=== PATIENT | male | born 1960 | race African-American/Black ===

== ENCOUNTER 2016-10-02 05:54 | Inpatient (IN) | payer MEDICAID, MEDICARE ==
[~2016-10-02] VITALS: Ht 185.4 cm; Wt 100.7 kg
[~2016-10-02 05:54] MED LIST: ATOR10TA PO; GABA-532 PO; INSU100I4 SQ; INSU3INS6 SQ; LEVO25TA9 PO; LISI2.5T2 PO; QUET25TA PO; SERT25TA PO; SEVE400T PO
[2016-10-02 06:57] LABS: DIFF TOTAL % 100 %; EOSINOPHILS # (AUTO) 0.1 /CMM (0.0-0.7); EOSINOPHILS % (AUTO) 1.1 % (0.0-6.0); HEMATOCRIT 37 % (39-51); LYMPHOCYTES # (AUTO) 0.4 /CMM (0.8-4.8); LYMPHOCYTES % (AUTO) 3.8 % (20.0-44.0); MEAN CORPUSCULAR HEMOGLOBIN 26 PG (26.0-33.0); MEAN CORPUSCULAR HGB CONC 30 g/dl (31.0-36.0); MEAN CORPUSCULAR VOLUME 85 fL (80-96); MONOCYTES # (AUTO) 0.4 /CMM (0.1-1.30); MONOCYTES % (AUTO) 3.8 % (2.0-12.0); NEUTROPHILS # (AUTO) 10.4 /CMM (1.8-8.9); NEUTROPHILS % (AUTO) 91.3 % (43.0-81.0); PLATELET COUNT (AUTO) 257 /CMM (150-450); WHITE BLOOD COUNT (AUTO) 11.4 K/uL (4.3-11.0)
[2016-10-02 07:15] LABS: TROPONIN I < 0.017 ng/mL (0.00-0.056)
[2016-10-02 07:18] LABS: LACTIC ACID 2.1 mmol/L (0.4-2.0)
[2016-10-02 07:21] LABS: ALANINE AMINOTRANSFERASE 26 U/L (12-78); ALBUMIN 2.3 g/dL (3.4-5.0); ANION GAP 17 (5-14); ASPARTATE AMINOTRANSFERASE 39 U/L (15-37); BILIRUBIN,DIRECT 0.1 mg/dL (0.0-0.2); BILIRUBIN,TOTAL 0.6 mg/dL (0.2-1.0); CALCIUM, SERUM 9.6 mg/dL (8.5-10.1); CARBON DIOXIDE 29 mmol/L (21-32); CHLORIDE 94 mmol/L (98-107); GFR 8 mL/min (>60); GLUCOSE 146 mg/dL (74-106); POTASSIUM 5.7 mmol/L (3.5-5.1); SODIUM SERUM 134 mmol/L (136-145); TOTAL PROTEIN, SERUM 8.7 g/dL (6.4-8.2); UREA NITROGEN, BLOOD 33 mg/dL (7-18)
[2016-10-02 07:23] LABS: CREATININE 8.4 mg/dL (0.6-1.3)
[2016-10-02 07:28] LABS: INR 1.26 (0.87-1.13); PROTHROMBIN TIME 13.6 SECS (9.5-12.7)
[2016-10-02] MEDS ORDERED: PIPERACILLIN /TAZOBACTAM 2.25 G in IV D5W 50 ML IV ONE (07:30)
[2016-10-02] MEDS ORDERED: VANCOMYCIN 1 GM in IV D5W 250 ML IV ONE (07:30)
[2016-10-02] MEDS ORDERED: IV SET PRIMARY PUMP SET 1 EA INFUS.SET MC ONE (07:38)
[2016-10-02 07:47] LABS: *LACTIC ACID REFLEX FLAG YES
[2016-10-02] MEDS ORDERED: LEVO50TA8 PO (07:47)
[2016-10-02] MEDS ORDERED: QUET300T2 PO (07:47)
[2016-10-02] MEDS ORDERED: ATOR40TA PO (07:47)
[2016-10-02] MEDS ORDERED: ZOLP10TA2 PO (07:48)
[2016-10-02 09:12] LABS: INDIRECT BILIRUBIN 0.5 mg/dL (0.0-1.1)
[2016-10-02] MEDS ORDERED: SECONDARY IV SET 1 EA INFUS.SET MC ONE (13:41)
[2016-10-02] MEDS ORDERED: Z GUARD REMEDY 2 OZ OINT TP PRN (14:00)
[2016-10-02] MEDS ORDERED: ALBUMIN 25% 25 GM in PREMIX 1 EA IV PRN (14:00)
[2016-10-02] MEDS ORDERED: MAGNESIUM HYDROXIDE 30 ML UDC PO PRN (14:00)
[2016-10-02] MEDS ORDERED: MAG HYDROX/AL HYDROX/SIMETH 30 ML UDC PO PRN (14:00)
[2016-10-02] MEDS ORDERED: HYDROCODONE/APAP 5/325MG 1 EACH TABLET PO PRN (14:00)
[2016-10-02 16:00] VITALS: BP 103/72
[2016-10-02] MEDS: SEVELAMER CARBONATE 800 MG TABLET PO SCH (17:10)
[2016-10-02] MEDS: GABAPENTIN 100 MG CAPSULE PO SCH (17:10)
[2016-10-02] MEDS: BLOOD SUGAR DIAGNOSTIC 1 EACH STRIP VI SCH ×2 (17:12→21:59)
[2016-10-02] MEDS: *INSULIN REGULAR(HUMULIN R)HUM 100 UNIT/ML VIAL SQ PRN ×2 (17:17→22:00)
[2016-10-02] MEDS: INSULIN ASPART NOVOLOG 100 UNIT/ML CARTRIDGE SQ SCH (17:22)
[2016-10-02 20:00] VITALS: BP 120/79
[2016-10-02] MEDS: INSULIN DETEMIR 100 UNIT/ML CARTRIDGE SQ SCH (21:00)
[2016-10-02] MEDS: HYDROMORPHONE 1 MG/1 ML DISP.SYRIN IV PRN (21:18)
[2016-10-02] MEDS: ATORVASTATIN 40 MG TABLET PO SCH (21:47)
[2016-10-02] MEDS: QUETIAPINE FUMARATE 100 MG TABLET PO SCH (21:47)
[2016-10-02] MEDS: ZOLPIDEM TARTRATE 5 MG TABLET PO PRN ×2 (21:58→22:04)
[2016-10-03] VITALS (7 sets, daily range): BP systolic 106–143; BP diastolic 71–98
[2016-10-03] MEDS ORDERED: METOPROLOL TARTRATE 25 MG TABLET ONE (05:02)
[2016-10-03] MEDS: METOPROLOL TARTRATE 25 MG TABLET PO SCH ×2 (05:09→21:04)
[2016-10-03] MEDS: LEVOTHYROXINE SODIUM 50 MCG TABLET PO SCH (06:35)
[2016-10-03] MEDS: PANTOPRAZOLE 40 MG TABLET.DR PO SCH (06:35)
[2016-10-03] MEDS: BLOOD SUGAR DIAGNOSTIC 1 EACH STRIP VI SCH ×4 (07:11→21:17)
[2016-10-03] MEDS: *INSULIN REGULAR(HUMULIN R)HUM 100 UNIT/ML VIAL SQ PRN (07:12)
[2016-10-03 07:44] LABS: DIFF TOTAL % 100 %; EOSINOPHILS # (AUTO) 0.2 /CMM (0.0-0.7); EOSINOPHILS % (AUTO) 2.5 % (0.0-6.0); HEMATOCRIT 34 % (39-51); HEMOGLOBIN 10.4 g/dL (13.5-17.5); LYMPHOCYTES # (AUTO) 1.2 /CMM (0.8-4.8); MEAN CORPUSCULAR HEMOGLOBIN 26 PG (26.0-33.0); MEAN CORPUSCULAR HGB CONC 31 g/dl (31.0-36.0); MEAN CORPUSCULAR VOLUME 86 fL (80-96); MONOCYTES # (AUTO) 0.4 /CMM (0.1-1.30); MONOCYTES % (AUTO) 4.5 % (2.0-12.0); NEUTROPHILS # (AUTO) 7.9 /CMM (1.8-8.9); PLATELET COUNT (AUTO) 216 /CMM (150-450); RED BLOOD CELL COUNT(AUTO) 3.96 MIL/uL (4.5-6.0); WHITE BLOOD COUNT (AUTO) 9.7 K/uL (4.3-11.0)
[2016-10-03 08:06] LABS: CALCIUM, SERUM 8.4 mg/dL (8.5-10.1); PHOSPHORUS 3.3 mg/dL (2.5-4.9); POTASSIUM 4.7 mmol/L (3.5-5.1)
[2016-10-03] MEDS: GABAPENTIN 100 MG CAPSULE PO SCH ×2 (08:55→17:02)
[2016-10-03] MEDS: SERTRALINE HCL 25 MG TABLET PO SCH (08:55)
[2016-10-03] MEDS: SEVELAMER CARBONATE 800 MG TABLET PO SCH ×3 (08:55→17:02)
[2016-10-03] MEDS: QUETIAPINE FUMARATE 100 MG TABLET PO SCH ×2 (08:55→21:03)
[2016-10-03] MEDS: INSULIN ASPART NOVOLOG 100 UNIT/ML CARTRIDGE SQ SCH ×3 (08:56→17:07)
[2016-10-03] MEDS: INSULIN DETEMIR 100 UNIT/ML CARTRIDGE SQ SCH ×2 (08:57→21:00)
[2016-10-03] MEDS: HYDROMORPHONE 1 MG/1 ML DISP.SYRIN IV PRN ×2 (17:03→21:02)
[2016-10-03] MEDS: ATORVASTATIN 40 MG TABLET PO SCH (21:03)
[2016-10-04] VITALS (7 sets, daily range): BP systolic 90–131; BP diastolic 59–90
[2016-10-04] MEDS: PANTOPRAZOLE 40 MG TABLET.DR PO SCH ×2 (05:52→08:38)
[2016-10-04] MEDS: LEVOTHYROXINE SODIUM 50 MCG TABLET PO SCH ×2 (05:52→08:38)
[2016-10-04] MEDS: *INSULIN REGULAR(HUMULIN R)HUM 100 UNIT/ML VIAL SQ PRN ×2 (05:58→22:03)
[2016-10-04] MEDS: BLOOD SUGAR DIAGNOSTIC 1 EACH STRIP VI SCH ×4 (06:02→21:12)
[2016-10-04] MEDS: INSULIN ASPART NOVOLOG 100 UNIT/ML CARTRIDGE SQ SCH ×3 (08:00→17:12)
[2016-10-04] MEDS: QUETIAPINE FUMARATE 100 MG TABLET PO SCH ×2 (08:38→21:15)
[2016-10-04] MEDS: SERTRALINE HCL 25 MG TABLET PO SCH (08:38)
[2016-10-04] MEDS: GABAPENTIN 100 MG CAPSULE PO SCH ×2 (08:38→16:30)
[2016-10-04] MEDS: METOPROLOL TARTRATE 25 MG TABLET PO SCH ×2 (08:39→21:18)
[2016-10-04] MEDS: SEVELAMER CARBONATE 800 MG TABLET PO SCH ×3 (08:39→17:11)
[2016-10-04] MEDS: HEPARIN SODIUM, PORCINE 5000 UNITS/1 ML VIAL SQ SCH ×2 (08:41→21:26)
[2016-10-04] MEDS: INSULIN DETEMIR 100 UNIT/ML CARTRIDGE SQ SCH ×3 (08:53→21:26)
[2016-10-04] MEDS: HYDROMORPHONE 1 MG/1 ML DISP.SYRIN IV PRN ×3 (08:58→21:13)
[2016-10-04] MEDS: ACETAMINOPHEN 325 MG TABLET PO PRN (15:28)
[2016-10-04] MEDS: ATORVASTATIN 40 MG TABLET PO SCH (21:16)
[2016-10-04] MEDS: ZOLPIDEM TARTRATE 5 MG TABLET PO PRN (22:03)
[2016-10-05 04:00] VITALS: BP 119/69
[2016-10-05] MEDS: ACETAMINOPHEN 325 MG TABLET PO PRN ×2 (04:35→21:26)
[2016-10-05] MEDS: BLOOD SUGAR DIAGNOSTIC 1 EACH STRIP VI SCH ×4 (06:48→21:27)
[2016-10-05] MEDS: INSULIN REGULAR, HUMAN 100 UNIT/ML 3 ML VIAL SQ PRN (06:55)
[2016-10-05 07:24] LABS: BASOPHILS % (AUTO) 0.3 % (0.0-2.0); DIFF TOTAL % 100 %; EOSINOPHILS # (AUTO) 0.3 /CMM (0.0-0.7); EOSINOPHILS % (AUTO) 2.7 % (0.0-6.0); HEMATOCRIT 32 % (39-51); HEMOGLOBIN 9.5 g/dL (13.5-17.5); LYMPHOCYTES # (AUTO) 0.7 /CMM (0.8-4.8); LYMPHOCYTES % (AUTO) 7.5 % (20.0-44.0); MEAN CORPUSCULAR HEMOGLOBIN 25 PG (26.0-33.0); MEAN CORPUSCULAR HGB CONC 30 g/dl (31.0-36.0); MEAN CORPUSCULAR VOLUME 85 fL (80-96); MONOCYTES # (AUTO) 0.6 /CMM (0.1-1.30); NEUTROPHILS # (AUTO) 7.8 /CMM (1.8-8.9); NEUTROPHILS % (AUTO) 83.5 % (43.0-81.0); PLATELET COUNT (AUTO) 247 /CMM (150-450); RED BLOOD CELL COUNT(AUTO) 3.75 MIL/uL (4.5-6.0); WHITE BLOOD COUNT (AUTO) 9.4 K/uL (4.3-11.0)
[2016-10-05 07:45] LABS: CALCIUM, SERUM 8.4 mg/dL (8.5-10.1); PHOSPHORUS 3.7 mg/dL (2.5-4.9); POTASSIUM 5.1 mmol/L (3.5-5.1)
[2016-10-05] MEDS: HYDROMORPHONE 1 MG/1 ML DISP.SYRIN IV PRN ×3 (07:55→23:49)
[2016-10-05] MEDS: INSULIN ASPART NOVOLOG 100 UNIT/ML CARTRIDGE SQ SCH ×3 (08:00→18:14)
[2016-10-05 08:14] LABS: CREATININE 9.1 mg/dL (0.6-1.3)
[2016-10-05 08:16] LABS: INR 1.2 (0.87-1.13)
[2016-10-05] MEDS: HEPARIN SODIUM, PORCINE 5000 UNITS/1 ML VIAL SQ SCH (09:00)
[2016-10-05] MEDS: INSULIN DETEMIR 100 UNIT/ML CARTRIDGE SQ SCH ×2 (09:00→21:00)
[2016-10-05] MEDS: PANTOPRAZOLE 40 MG TABLET.DR PO SCH (09:12)
[2016-10-05] MEDS: GABAPENTIN 100 MG CAPSULE PO SCH ×2 (09:12→17:07)
[2016-10-05] MEDS: SERTRALINE HCL 25 MG TABLET PO SCH (09:16)
[2016-10-05] MEDS: QUETIAPINE FUMARATE 100 MG TABLET PO SCH ×2 (09:16→21:23)
[2016-10-05] MEDS: METOPROLOL TARTRATE 25 MG TABLET PO SCH ×2 (09:16→21:27)
[2016-10-05] MEDS: SEVELAMER CARBONATE 800 MG TABLET PO SCH ×3 (09:17→17:06)
[2016-10-05] MEDS: *INSULIN REGULAR(HUMULIN R)HUM 100 UNIT/ML VIAL SQ PRN (11:41)
[2016-10-05 13:17] VITALS: BP 109/74
[2016-10-05] MEDS ORDERED: LEVOFLOXACIN 750 MG /D5W 150ML 750 MG in PREMIX 1 EA IV SCH (13:30)
[2016-10-05] MEDS ORDERED: LEVOFLOXACIN 750 MG /D5W 150ML 750 MG in PREMIX 1 EA IV ONE (14:00)
[2016-10-05 20:00] VITALS: BP 118/75
[2016-10-05] MEDS: ATORVASTATIN 40 MG TABLET PO SCH (21:23)
[2016-10-05] MEDS: DEXTROSE 50%-WATER 50 ML DISP.SYRIN IV PRN (21:26)
[2016-10-05] MEDS: HYDROCODONE/APAP 10/325MG 1 EA TABLET PO PRN (22:01)
[2016-10-06 04:00] VITALS: BP 91/63
[2016-10-06] MEDS: BLOOD SUGAR DIAGNOSTIC 1 EACH STRIP VI SCH ×5 (06:44→22:00)
[2016-10-06 08:00] VITALS: BP 105/71
[2016-10-06] MEDS: INSULIN ASPART NOVOLOG 100 UNIT/ML CARTRIDGE SQ SCH ×3 (08:00→18:00)
[2016-10-06] MEDS: LEVOTHYROXINE SODIUM 50 MCG TABLET PO SCH (08:14)
[2016-10-06] MEDS: GABAPENTIN 100 MG CAPSULE PO SCH ×2 (08:15→18:45)
[2016-10-06] MEDS: QUETIAPINE FUMARATE 100 MG TABLET PO SCH ×2 (08:15→21:43)
[2016-10-06] MEDS: SEVELAMER CARBONATE 0.8 GM POWD.PACK GT SCH ×3 (08:29→18:45)
[2016-10-06] MEDS: METOPROLOL TARTRATE 25 MG TABLET PO SCH ×2 (08:29→21:43)
[2016-10-06] MEDS: HYDROMORPHONE 1 MG/1 ML DISP.SYRIN IV PRN ×2 (08:29→18:47)
[2016-10-06] MEDS: SERTRALINE HCL 25 MG TABLET PO SCH ×2 (08:30→21:42)
[2016-10-06 08:42] LABS: EOSINOPHILS # (AUTO) 0.1 /CMM (0.0-0.7); HEMOGLOBIN 10.1 g/dL (13.5-17.5); MEAN CORPUSCULAR HGB CONC 30 g/dl (31.0-36.0)
[2016-10-06 08:44] LABS: DIFF TOTAL % 100 %; EOSINOPHILS % (AUTO) 1.1 % (0.0-6.0); HEMATOCRIT 34 % (39-51); LYMPHOCYTES # (AUTO) 0.8 /CMM (0.8-4.8); LYMPHOCYTES % (AUTO) 8.4 % (20.0-44.0); MEAN CORPUSCULAR HEMOGLOBIN 26 PG (26.0-33.0); MEAN CORPUSCULAR VOLUME 84 fL (80-96); MONOCYTES # (AUTO) 0.4 /CMM (0.1-1.30); MONOCYTES % (AUTO) 4.9 % (2.0-12.0); NEUTROPHILS # (AUTO) 7.8 /CMM (1.8-8.9); NEUTROPHILS % (AUTO) 85.6 % (43.0-81.0); PLATELET COUNT (AUTO) 201 /CMM (150-450); RED BLOOD CELL COUNT(AUTO) 3.98 MIL/uL (4.5-6.0); WHITE BLOOD COUNT (AUTO) 9.1 K/uL (4.3-11.0)
[2016-10-06] MEDS: INSULIN DETEMIR 100 UNIT/ML CARTRIDGE SQ SCH ×2 (09:59→21:44)
[2016-10-06 11:04] LABS: CALCIUM, SERUM 8.6 mg/dL (8.5-10.1); CREATININE 8.6 mg/dL (0.6-1.3); POTASSIUM 5.2 mmol/L (3.5-5.1)
[2016-10-06 16:00] VITALS: BP 110/83
[2016-10-06] MEDS: INSULIN REGULAR, HUMAN 100 UNIT/ML 3 ML VIAL SQ PRN (18:49)
[2016-10-06 20:00] VITALS: BP_SYST 124; BP_DIAS 84; BP_DIAS 87
[2016-10-06] MEDS: HYDROCODONE/APAP 10/325MG 1 EA TABLET PO PRN (21:42)
[2016-10-06] MEDS: ATORVASTATIN 40 MG TABLET PO SCH (21:42)
[2016-10-06] MEDS: ZOLPIDEM TARTRATE 5 MG TABLET PO PRN (21:50)
[2016-10-06] MEDS: *INSULIN REGULAR(HUMULIN R)HUM 100 UNIT/ML VIAL SQ PRN (22:38)
[2016-10-07] MEDS: HYDROMORPHONE 1 MG/1 ML DISP.SYRIN IV PRN ×3 (01:58→22:23)
[2016-10-07 04:00] VITALS: BP 92/59
[2016-10-07] MEDS: BLOOD SUGAR DIAGNOSTIC 1 EACH STRIP VI SCH ×4 (07:01→22:02)
[2016-10-07 08:00] VITALS: BP 113/76
[2016-10-07] MEDS: INSULIN ASPART NOVOLOG 100 UNIT/ML CARTRIDGE SQ SCH ×3 (08:00→18:00)
[2016-10-07] MEDS: PANTOPRAZOLE 40 MG TABLET.DR PO SCH (08:20)
[2016-10-07] MEDS: LEVOTHYROXINE SODIUM 50 MCG TABLET PO SCH (08:20)
[2016-10-07] MEDS: SEVELAMER CARBONATE 0.8 GM POWD.PACK GT SCH ×3 (08:21→18:03)
[2016-10-07] MEDS: INSULIN DETEMIR 100 UNIT/ML CARTRIDGE SQ SCH ×2 (09:00→21:00)
[2016-10-07] MEDS: METOPROLOL TARTRATE 25 MG TABLET PO SCH ×2 (09:00→21:08)
[2016-10-07 09:28] LABS: EOSINOPHILS % (AUTO) 2.2 % (0.0-6.0); HEMATOCRIT 30 % (39-51); HEMOGLOBIN 9.1 g/dL (13.5-17.5); MEAN CORPUSCULAR HEMOGLOBIN 26 PG (26.0-33.0); MEAN CORPUSCULAR HGB CONC 30 g/dl (31.0-36.0); MEAN CORPUSCULAR VOLUME 84 fL (80-96); MONOCYTES % (AUTO) 7.6 % (2.0-12.0); NEUTROPHILS % (AUTO) 84.2 % (43.0-81.0); PLATELET COUNT (AUTO) 241 /CMM (150-450); RED BLOOD CELL COUNT(AUTO) 3.55 MIL/uL (4.5-6.0); WHITE BLOOD COUNT (AUTO) 10.5 K/uL (4.3-11.0)
[2016-10-07 09:29] LABS: DIFF TOTAL % 100 %; EOSINOPHILS # (AUTO) 0.2 /CMM (0.0-0.7); LYMPHOCYTES # (AUTO) 0.6 /CMM (0.8-4.8); MONOCYTES # (AUTO) 0.8 /CMM (0.1-1.30); NEUTROPHILS # (AUTO) 8.9 /CMM (1.8-8.9)
[2016-10-07 09:46] LABS: CALCIUM, SERUM 8.6 mg/dL (8.5-10.1); PHOSPHORUS 4.6 mg/dL (2.5-4.9)
[2016-10-07 09:48] LABS: CREATININE 10.1 mg/dL (0.6-1.3)
[2016-10-07] MEDS: QUETIAPINE FUMARATE 100 MG TABLET PO SCH ×2 (10:12→21:00)
[2016-10-07] MEDS: GABAPENTIN 100 MG CAPSULE PO SCH ×2 (10:13→16:18)
[2016-10-07] MEDS: LEVOFLOXACIN 500 MG /D5W 100ML 500 MG in PREMIX 1 EA IV SCH (13:37)
[2016-10-07 16:00] VITALS: BP 112/73
[2016-10-07] MEDS: ACETAMINOPHEN 325 MG TABLET PO PRN (16:21)
[2016-10-07 20:00] VITALS: BP 109/75
[2016-10-07 20:32] VITALS: BP 109/75
[2016-10-07] MEDS: ATORVASTATIN 40 MG TABLET PO SCH (21:00)
[2016-10-07] MEDS: SERTRALINE HCL 25 MG TABLET PO SCH (21:00)
[2016-10-07] MEDS: *INSULIN REGULAR(HUMULIN R)HUM 100 UNIT/ML VIAL SQ PRN (22:03)
[2016-10-08 04:00] VITALS: BP 106/68
[2016-10-08 04:29] VITALS: BP 106/68
[2016-10-08] MEDS: HYDROMORPHONE 1 MG/1 ML DISP.SYRIN IV PRN ×3 (06:22→21:17)
[2016-10-08] MEDS: PANTOPRAZOLE 40 MG TABLET.DR PO SCH (06:23)
[2016-10-08] MEDS: LEVOTHYROXINE SODIUM 50 MCG TABLET PO SCH (06:23)
[2016-10-08] MEDS ORDERED: IV NS 0.9% 1,000 ML ONE (06:51)
[2016-10-08] MEDS: BLOOD SUGAR DIAGNOSTIC 1 EACH STRIP VI SCH ×4 (07:22→22:00)
[2016-10-08] MEDS: *INSULIN REGULAR(HUMULIN R)HUM 100 UNIT/ML VIAL SQ PRN (07:23)
[2016-10-08] MEDS: SEVELAMER CARBONATE 0.8 GM POWD.PACK GT SCH ×3 (07:31→17:04)
[2016-10-08 08:00] VITALS: BP 105/75
[2016-10-08] MEDS: INSULIN ASPART NOVOLOG 100 UNIT/ML CARTRIDGE SQ SCH ×3 (08:00→17:01)
[2016-10-08] MEDS: GABAPENTIN 100 MG CAPSULE PO SCH ×2 (09:00→16:02)
[2016-10-08] MEDS: QUETIAPINE FUMARATE 100 MG TABLET PO SCH ×2 (09:00→21:55)
[2016-10-08] MEDS: METOPROLOL TARTRATE 25 MG TABLET PO SCH ×2 (09:00→21:52)
[2016-10-08] MEDS: INSULIN DETEMIR 100 UNIT/ML CARTRIDGE SQ SCH ×2 (09:00→21:00)
[2016-10-08] MEDS ORDERED: TALC 5 G/VIAL ML IX ONE (12:30)
[2016-10-08 13:13] LABS: BILIRUBIN,TOTAL 0.4 mg/dL (0.2-1.0); CALCIUM, SERUM 8.1 mg/dL (8.5-10.1); TOTAL PROTEIN, SERUM 7.5 g/dL (6.4-8.2)
[2016-10-08 16:00] VITALS: BP 134/91
[2016-10-08] MEDS: HYDROCODONE/APAP 10/325MG 1 EA TABLET PO PRN (16:02)
[2016-10-08] MEDS: INSULIN REGULAR, HUMAN 100 UNIT/ML 3 ML VIAL SQ PRN (17:00)
[2016-10-08 20:00] VITALS: BP 103/79
[2016-10-08] MEDS: ATORVASTATIN 40 MG TABLET PO SCH (21:51)
[2016-10-08] MEDS: SERTRALINE HCL 25 MG TABLET PO SCH (21:52)
[2016-10-09 04:00] VITALS: BP 122/82
[2016-10-09] MEDS: LEVOTHYROXINE SODIUM 50 MCG TABLET PO SCH (06:11)
[2016-10-09] MEDS: PANTOPRAZOLE 40 MG TABLET.DR PO SCH (06:11)
[2016-10-09] MEDS: BLOOD SUGAR DIAGNOSTIC 1 EACH STRIP VI SCH ×4 (06:34→21:17)
[2016-10-09] MEDS: *INSULIN REGULAR(HUMULIN R)HUM 100 UNIT/ML VIAL SQ PRN (06:39)
[2016-10-09 07:26] LABS: BASOPHILS % (AUTO) 0.2 % (0.0-2.0); DIFF TOTAL % 100 %; EOSINOPHILS # (AUTO) 0.1 /CMM (0.0-0.7); EOSINOPHILS % (AUTO) 1.2 % (0.0-6.0); HEMATOCRIT 28 % (39-51); HEMOGLOBIN 8.6 g/dL (13.5-17.5); LYMPHOCYTES # (AUTO) 0.4 /CMM (0.8-4.8); LYMPHOCYTES % (AUTO) 5.2 % (20.0-44.0); MEAN CORPUSCULAR HEMOGLOBIN 26 PG (26.0-33.0); MEAN CORPUSCULAR HGB CONC 31 g/dl (31.0-36.0); MEAN CORPUSCULAR VOLUME 84 fL (80-96); MONOCYTES # (AUTO) 0.4 /CMM (0.1-1.30); MONOCYTES % (AUTO) 4.8 % (2.0-12.0); NEUTROPHILS # (AUTO) 7.3 /CMM (1.8-8.9); NEUTROPHILS % (AUTO) 88.6 % (43.0-81.0); PLATELET COUNT (AUTO) 193 /CMM (150-450); RED BLOOD CELL COUNT(AUTO) 3.31 MIL/uL (4.5-6.0); WHITE BLOOD COUNT (AUTO) 8.3 K/uL (4.3-11.0)
[2016-10-09 07:33] LABS: CALCIUM, SERUM 8.9 mg/dL (8.5-10.1)
[2016-10-09 07:53] LABS: POTASSIUM 6.7 mmol/L (3.5-5.1)
[2016-10-09 07:54] LABS: CREATININE 9.5 mg/dL (0.6-1.3)
[2016-10-09 08:00] VITALS: BP 126/74
[2016-10-09] MEDS: SEVELAMER CARBONATE 0.8 GM POWD.PACK GT SCH ×3 (08:00→17:53)
[2016-10-09] MEDS: INSULIN ASPART NOVOLOG 100 UNIT/ML CARTRIDGE SQ SCH ×3 (08:00→17:55)
[2016-10-09] MEDS: INSULIN DETEMIR 100 UNIT/ML CARTRIDGE SQ SCH ×2 (09:00→21:00)
[2016-10-09 09:17] VITALS: BP 96/66
[2016-10-09] MEDS: GABAPENTIN 100 MG CAPSULE PO SCH ×2 (10:08→17:00)
[2016-10-09] MEDS: QUETIAPINE FUMARATE 100 MG TABLET PO SCH ×2 (10:08→21:07)
[2016-10-09] MEDS: METOPROLOL TARTRATE 25 MG TABLET PO SCH ×2 (10:09→21:07)
[2016-10-09 12:04] LABS: IRON, SERUM 16 ug/dl (50-175); PERCENT SATURATION 19 % (14-33); TOTAL IRON BINDING CAPACITY 83 ug/dl (250-450)
[2016-10-09] MEDS: LEVOFLOXACIN 500 MG /D5W 100ML 500 MG in PREMIX 1 EA IV SCH (13:14)
[2016-10-09] MEDS: HYDROMORPHONE 1 MG/1 ML DISP.SYRIN IV PRN ×2 (15:34→21:06)
[2016-10-09 16:00] VITALS: BP 103/81
[2016-10-09] MEDS ORDERED: SODIUM POLYSTYRENE SULFONATE 15 G/60 ML BOTTLE PO ONE (17:30)
[2016-10-09 20:00] VITALS: BP 106/74
[2016-10-09] MEDS: ATORVASTATIN 40 MG TABLET PO SCH (21:06)
[2016-10-09] MEDS: ZOLPIDEM TARTRATE 5 MG TABLET PO PRN (21:06)
[2016-10-09] MEDS: SERTRALINE HCL 25 MG TABLET PO SCH (21:07)
[2016-10-10] VITALS (26 sets, daily range): BP systolic 106–154; BP diastolic 29–99
[2016-10-10] MEDS: HYDROMORPHONE 1 MG/1 ML DISP.SYRIN IV PRN (06:10)
[2016-10-10 07:01] LABS: DIFF TOTAL % 100 %; EOSINOPHILS # (AUTO) 0.2 /CMM (0.0-0.7); EOSINOPHILS % (AUTO) 1.8 % (0.0-6.0); HEMATOCRIT 27 % (39-51); HEMOGLOBIN 8.3 g/dL (13.5-17.5); LYMPHOCYTES # (AUTO) 0.6 /CMM (0.8-4.8); LYMPHOCYTES % (AUTO) 7.5 % (20.0-44.0); MEAN CORPUSCULAR HEMOGLOBIN 26 PG (26.0-33.0); MEAN CORPUSCULAR HGB CONC 30 g/dl (31.0-36.0); MEAN CORPUSCULAR VOLUME 85 fL (80-96); MONOCYTES # (AUTO) 0.7 /CMM (0.1-1.30); MONOCYTES % (AUTO) 8.9 % (2.0-12.0); NEUTROPHILS # (AUTO) 6.8 /CMM (1.8-8.9); NEUTROPHILS % (AUTO) 81.8 % (43.0-81.0); PLATELET COUNT (AUTO) 208 /CMM (150-450); RED BLOOD CELL COUNT(AUTO) 3.23 MIL/uL (4.5-6.0); WHITE BLOOD COUNT (AUTO) 8.3 K/uL (4.3-11.0)
[2016-10-10] MEDS: BLOOD SUGAR DIAGNOSTIC 1 EACH STRIP VI SCH ×4 (07:19→21:27)
[2016-10-10] MEDS: INSULIN REGULAR, HUMAN 100 UNIT/ML 3 ML VIAL SQ PRN (07:21)
[2016-10-10] MEDS: PANTOPRAZOLE 40 MG TABLET.DR PO SCH (07:30)
[2016-10-10] MEDS: LEVOTHYROXINE SODIUM 50 MCG TABLET PO SCH (07:30)
[2016-10-10 07:40] LABS: CALCIUM, SERUM 8.2 mg/dL (8.5-10.1); PHOSPHORUS 5.9 mg/dL (2.5-4.9); POTASSIUM 5.4 mmol/L (3.5-5.1)
[2016-10-10] MEDS: SEVELAMER CARBONATE 0.8 GM POWD.PACK GT SCH ×3 (08:00→17:43)
[2016-10-10] MEDS: INSULIN ASPART NOVOLOG 100 UNIT/ML CARTRIDGE SQ SCH ×3 (08:00→17:30)
[2016-10-10] MEDS: QUETIAPINE FUMARATE 100 MG TABLET PO SCH ×2 (09:00→21:26)
[2016-10-10] MEDS: INSULIN DETEMIR 100 UNIT/ML CARTRIDGE SQ SCH ×2 (09:00→21:41)
[2016-10-10] MEDS: GABAPENTIN 100 MG CAPSULE PO SCH ×2 (09:00→17:00)
[2016-10-10] MEDS: METOPROLOL TARTRATE 25 MG TABLET PO SCH ×2 (09:00→21:26)
[2016-10-10] MEDS: Magnesium 1GM/D5W 100ML PREMIX 100 ML IV SCH ×2 (10:40→11:41)
[2016-10-10] MEDS ORDERED: EPOETIN ALFA (10,000 UNIT) 10,000 UNIT/ML VIAL IV ONE ×2 (11:30→18:00)
[2016-10-10] MEDS ORDERED: ROCURONIUM BROMIDE 50 MG/5 ML ONE (12:49)
[2016-10-10] MEDS ORDERED: MIDAZOLAM HCL 2 MG/2ML VIAL ONE (12:49)
[2016-10-10] MEDS ORDERED: FENTANYL PF 100MCG/2ML AMPUL ONE ×3 (12:49→15:42)
[2016-10-10] MEDS ORDERED: ATRACURIUM 100MG/10 ML MDV IV ONE (12:50)
[2016-10-10] MEDS ORDERED: IV SET PRIMARY PUMP SET 1 EA INFUS.SET MC ONE (16:24)
[2016-10-10 16:50] LABS: DIFF TOTAL % 100 %; EOSINOPHILS # (AUTO) 0.1 /CMM (0.0-0.7); EOSINOPHILS % (AUTO) 0.6 % (0.0-6.0); HEMATOCRIT 25 % (39-51); HEMOGLOBIN 7.5 g/dL (13.5-17.5); LYMPHOCYTES # (AUTO) 0.5 /CMM (0.8-4.8); LYMPHOCYTES % (AUTO) 3.8 % (20.0-44.0); MEAN CORPUSCULAR HEMOGLOBIN 25 PG (26.0-33.0); MEAN CORPUSCULAR HGB CONC 30 g/dl (31.0-36.0); MEAN CORPUSCULAR VOLUME 85 fL (80-96); MONOCYTES # (AUTO) 0.8 /CMM (0.1-1.30); MONOCYTES % (AUTO) 5.5 % (2.0-12.0); NEUTROPHILS # (AUTO) 12.7 /CMM (1.8-8.9); NEUTROPHILS % (AUTO) 90.1 % (43.0-81.0); PLATELET COUNT (AUTO) 203 /CMM (150-450); RED BLOOD CELL COUNT(AUTO) 2.98 MIL/uL (4.5-6.0); WHITE BLOOD COUNT (AUTO) 14.1 K/uL (4.3-11.0)
[2016-10-10] MEDS ORDERED: IV D5/ 0.9% NACL 1,000 ML IV PRN (17:00)
[2016-10-10] MEDS ORDERED: ONDANSETRON HCL/PF 4 MG/2 ML VIAL IVP PRN (17:00)
[2016-10-10] MEDS ORDERED: MORPHINE SULFATE INJ 2 MG/ML DISP.SYRIN IV PRN (17:00)
[2016-10-10] MEDS ORDERED: MORPHINE SULFATE INJ 4 MG/ML DISP.SYRIN IV PRN ×4 (17:30→17:34)
[2016-10-10] MEDS: MORPHINE SULFATE INJ 2 MG/ML DISP.SYRIN IV PRN ×2 (17:41→21:42)
[2016-10-10] MEDS: IV D5/0.45 NACL 1,000 ML IV PRN (18:18)
[2016-10-10] MEDS: MORPHINE SULFATE INJ 4 MG/ML DISP.SYRIN IV PRN ×3 (18:41→23:35)
[2016-10-10] MEDS: ATORVASTATIN 40 MG TABLET PO SCH (21:26)
[2016-10-10] MEDS: PIPERACILLIN /TAZOBACTAM 2.25 G in IV D5W 50 ML IV SCH (21:26)
[2016-10-10] MEDS: SERTRALINE HCL 25 MG TABLET PO SCH (21:26)
[2016-10-10] MEDS ORDERED: SECONDARY IV SET 1 EA INFUS.SET MC ONE (21:29)
[2016-10-11] VITALS (64 sets, daily range): BP systolic 79–143; BP diastolic 37–97
[2016-10-11] MEDS ORDERED: IV NS 0.9% 500 ML IV ONE (04:02)
[2016-10-11] MEDS: IV D5/0.45 NACL 1,000 ML IV PRN (04:13)
[2016-10-11] MEDS: PIPERACILLIN /TAZOBACTAM 2.25 G in IV D5W 50 ML IV SCH ×3 (04:13→21:25)
[2016-10-11] MEDS: MORPHINE SULFATE INJ 2 MG/ML DISP.SYRIN IV PRN ×4 (05:19→17:53)
[2016-10-11] MEDS: MORPHINE SULFATE INJ 4 MG/ML DISP.SYRIN IV PRN ×4 (06:34→21:45)
[2016-10-11] MEDS: BLOOD SUGAR DIAGNOSTIC 1 EACH STRIP VI SCH ×4 (07:00→21:28)
[2016-10-11] MEDS: INSULIN REGULAR, HUMAN 100 UNIT/ML 3 ML VIAL SQ PRN (07:06)
[2016-10-11] MEDS: INSULIN ASPART NOVOLOG 100 UNIT/ML CARTRIDGE SQ SCH ×3 (08:00→17:15)
[2016-10-11] MEDS: SEVELAMER CARBONATE 0.8 GM POWD.PACK GT SCH ×3 (08:14→17:15)
[2016-10-11] MEDS: LEVOTHYROXINE SODIUM 50 MCG TABLET PO SCH (08:14)
[2016-10-11] MEDS: METOPROLOL TARTRATE 25 MG TABLET PO SCH ×2 (08:14→21:25)
[2016-10-11] MEDS: PANTOPRAZOLE 40 MG TABLET.DR PO SCH (08:14)
[2016-10-11] MEDS: GABAPENTIN 100 MG CAPSULE PO SCH ×2 (08:14→16:43)
[2016-10-11] MEDS: QUETIAPINE FUMARATE 100 MG TABLET PO SCH ×2 (08:14→21:27)
[2016-10-11 08:17] LABS: DIFF TOTAL % 100 %; EOSINOPHILS # (AUTO) 0.1 /CMM (0.0-0.7); EOSINOPHILS % (AUTO) 1.1 % (0.0-6.0); HEMATOCRIT 24 % (39-51); HEMOGLOBIN 7.1 g/dL (13.5-17.5); LYMPHOCYTES # (AUTO) 0.3 /CMM (0.8-4.8); LYMPHOCYTES % (AUTO) 2.6 % (20.0-44.0); MEAN CORPUSCULAR HEMOGLOBIN 25 PG (26.0-33.0); MEAN CORPUSCULAR HGB CONC 30 g/dl (31.0-36.0); MEAN CORPUSCULAR VOLUME 84 fL (80-96); MONOCYTES # (AUTO) 0.6 /CMM (0.1-1.30); MONOCYTES % (AUTO) 4.4 % (2.0-12.0); NEUTROPHILS # (AUTO) 11.8 /CMM (1.8-8.9); NEUTROPHILS % (AUTO) 91.9 % (43.0-81.0); PLATELET COUNT (AUTO) 221 /CMM (150-450); RED BLOOD CELL COUNT(AUTO) 2.83 MIL/uL (4.5-6.0); WHITE BLOOD COUNT (AUTO) 12.8 K/uL (4.3-11.0)
[2016-10-11] MEDS: INSULIN DETEMIR 100 UNIT/ML CARTRIDGE SQ SCH ×2 (08:21→21:00)
[2016-10-11 08:37] LABS: CALCIUM, SERUM 7.6 mg/dL (8.5-10.1); POTASSIUM 5.4 mmol/L (3.5-5.1)
[2016-10-11] MEDS ORDERED: EPOETIN ALFA (10,000 UNIT) 10,000 UNIT/ML VIAL SQ ONE (10:00)
[2016-10-11] MEDS ORDERED: EPOETIN ALFA (10,000 UNIT) 10,000 UNIT/ML VIAL SQ SCH (10:00)
[2016-10-11] MEDS ORDERED: BLOOD IV SET 1 EA INFUS.SET MC ONE (11:46)
[2016-10-11] MEDS ORDERED: IV NS 0.9% 250 ML IV ONE ×2 (11:46→15:45)
[2016-10-11] MEDS ORDERED: ALTEPLASE CATHFLO 2 MG/VIAL XX ONE ×2 (12:00)
[2016-10-11] MEDS ORDERED: IV SET PRIMARY PUMP SET 1 EA INFUS.SET MC ONE ×2 (15:45→23:14)
[2016-10-11] MEDS: LEVOFLOXACIN 500 MG /D5W 100ML 500 MG in PREMIX 1 EA IV SCH (15:46)
[2016-10-11] MEDS: LACTOBACILLUS RHAMNOSUS GG 1 EACH CAP.SPRINK PO SCH (16:43)
[2016-10-11] MEDS: ATORVASTATIN 40 MG TABLET PO SCH (21:27)
[2016-10-11] MEDS: SERTRALINE HCL 25 MG TABLET PO SCH (21:27)
[2016-10-11] MEDS ORDERED: IV NS 0.9% 1,000 ML ONE (23:13)
[2016-10-11] MEDS ORDERED: IV NS 0.9% 1,000 ML BAG IV PRN (23:30)
[2016-10-12] VITALS (41 sets, daily range): BP systolic 83–159; BP diastolic 38–80
[2016-10-12] MEDS: ACETAMINOPHEN 325 MG TABLET PO PRN (00:02)
[2016-10-12] MEDS ORDERED: IV NS 0.9% 1,000 ML ONE (00:29)
[2016-10-12] MEDS: MORPHINE SULFATE INJ 4 MG/ML DISP.SYRIN IV PRN ×2 (00:58→21:08)
[2016-10-12] MEDS ORDERED: IV NS 0.9% 1,000 ML IV SCH (01:00)
[2016-10-12] MEDS ORDERED: IV NS 0.9% 1,000 ML BAG IV PRN ×2 (01:00)
[2016-10-12 04:55] LABS: BASOPHILS # (AUTO) 0.1 /CMM (0.0-0.2); BASOPHILS % (AUTO) 0.4 % (0.0-2.0); DIFF TOTAL % 100 %; EOSINOPHILS # (AUTO) 0.2 /CMM (0.0-0.7); EOSINOPHILS % (AUTO) 1.6 % (0.0-6.0); HEMATOCRIT 29 % (39-51); HEMOGLOBIN 8.8 g/dL (13.5-17.5); LYMPHOCYTES # (AUTO) 0.6 /CMM (0.8-4.8); LYMPHOCYTES % (AUTO) 4.4 % (20.0-44.0); MEAN CORPUSCULAR HEMOGLOBIN 25 PG (26.0-33.0); MEAN CORPUSCULAR HGB CONC 30 g/dl (31.0-36.0); MEAN CORPUSCULAR VOLUME 83 fL (80-96); MONOCYTES # (AUTO) 0.7 /CMM (0.1-1.30); MONOCYTES % (AUTO) 4.8 % (2.0-12.0); NEUTROPHILS # (AUTO) 12.2 /CMM (1.8-8.9); NEUTROPHILS % (AUTO) 88.8 % (43.0-81.0); PLATELET COUNT (AUTO) 208 /CMM (150-450); RED BLOOD CELL COUNT(AUTO) 3.51 MIL/uL (4.5-6.0); WHITE BLOOD COUNT (AUTO) 13.7 K/uL (4.3-11.0)
[2016-10-12] MEDS: PIPERACILLIN /TAZOBACTAM 2.25 G in IV D5W 50 ML IV SCH ×3 (05:02→21:06)
[2016-10-12 05:17] LABS: CALCIUM, SERUM 7.7 mg/dL (8.5-10.1); PHOSPHORUS 5.6 mg/dL (2.5-4.9); POTASSIUM 5.3 mmol/L (3.5-5.1)
[2016-10-12 05:19] LABS: CREATININE 7.8 mg/dL (0.6-1.3)
[2016-10-12] MEDS: BLOOD SUGAR DIAGNOSTIC 1 EACH STRIP VI SCH ×4 (07:56→21:17)
[2016-10-12] MEDS: SEVELAMER CARBONATE 0.8 GM POWD.PACK GT SCH ×3 (07:56→17:03)
[2016-10-12] MEDS: GABAPENTIN 100 MG CAPSULE PO SCH ×2 (07:57→17:02)
[2016-10-12] MEDS: QUETIAPINE FUMARATE 100 MG TABLET PO SCH ×2 (07:57→21:07)
[2016-10-12] MEDS: PANTOPRAZOLE 40 MG TABLET.DR PO SCH (07:57)
[2016-10-12] MEDS: LACTOBACILLUS RHAMNOSUS GG 1 EACH CAP.SPRINK PO SCH ×2 (07:57→17:02)
[2016-10-12] MEDS: LEVOTHYROXINE SODIUM 50 MCG TABLET PO SCH (07:57)
[2016-10-12] MEDS: METOPROLOL TARTRATE 25 MG TABLET PO SCH ×2 (07:58→21:07)
[2016-10-12] MEDS: INSULIN DETEMIR 100 UNIT/ML CARTRIDGE SQ SCH ×2 (07:59→21:00)
[2016-10-12] MEDS: INSULIN ASPART NOVOLOG 100 UNIT/ML CARTRIDGE SQ SCH ×3 (07:59→17:17)
[2016-10-12] MEDS: MORPHINE SULFATE INJ 2 MG/ML DISP.SYRIN IV PRN ×2 (09:03→13:18)
[2016-10-12] MEDS ORDERED: SODIUM POLYSTYRENE SULFONATE 15 G/60 ML BOTTLE PO ONE (10:00)
[2016-10-12] MEDS ORDERED: SECONDARY IV SET 1 EA INFUS.SET MC ONE ×2 (10:30→18:32)
[2016-10-12] MEDS: Magnesium 1GM/D5W 100ML PREMIX 100 ML IV SCH ×2 (10:37→12:26)
[2016-10-12] MEDS: KETOROLAC TROMETHAMINE INJ 30 MG/ML VIAL IM SCH ×3 (10:37→22:36)
[2016-10-12] MEDS: ONDANSETRON HCL/PF 4 MG/2 ML VIAL IVP PRN ×2 (13:18→20:45)
[2016-10-12 13:50] LABS: PROTEIN, BODY FLUID 3.8 G/DL
[2016-10-12] MEDS ORDERED: FEE PK DOSING 1 MIN EA MC ONE (17:32)
[2016-10-12] MEDS ORDERED: VANCOMYCIN 1 GM in IV D5W 250 ML IV ONE (18:00)
[2016-10-12] MEDS: ATORVASTATIN 40 MG TABLET PO SCH (21:07)
[2016-10-12] MEDS: SERTRALINE HCL 25 MG TABLET PO SCH (21:07)
[2016-10-12] MEDS ORDERED: PROMETHAZINE HCL 25 MG/ML AMPUL ONE (21:50)
[2016-10-12] MEDS: PROMETHAZINE HCL 25 MG/ML AMPUL IM PRN (21:54)
[2016-10-13] VITALS (29 sets, daily range): BP systolic 79–155; BP diastolic 48–82
[2016-10-13] MEDS: ONDANSETRON HCL/PF 4 MG/2 ML VIAL IVP PRN (03:51)
[2016-10-13] MEDS: KETOROLAC TROMETHAMINE INJ 30 MG/ML VIAL IM SCH ×4 (03:59→23:30)
[2016-10-13] MEDS: PIPERACILLIN /TAZOBACTAM 2.25 G in IV D5W 50 ML IV SCH ×3 (04:00→22:32)
[2016-10-13 05:13] LABS: BASOPHILS % (AUTO) 0.1 % (0.0-2.0); DIFF TOTAL % 100 %; EOSINOPHILS # (AUTO) 0.3 /CMM (0.0-0.7); EOSINOPHILS % (AUTO) 2.2 % (0.0-6.0); HEMATOCRIT 26 % (39-51); HEMOGLOBIN 8.1 g/dL (13.5-17.5); LYMPHOCYTES # (AUTO) 0.4 /CMM (0.8-4.8); LYMPHOCYTES % (AUTO) 2.9 % (20.0-44.0); MEAN CORPUSCULAR HEMOGLOBIN 26 PG (26.0-33.0); MEAN CORPUSCULAR HGB CONC 31 g/dl (31.0-36.0); MEAN CORPUSCULAR VOLUME 82 fL (80-96); MONOCYTES # (AUTO) 0.5 /CMM (0.1-1.30); MONOCYTES % (AUTO) 3.4 % (2.0-12.0); NEUTROPHILS # (AUTO) 12.6 /CMM (1.8-8.9); NEUTROPHILS % (AUTO) 91.4 % (43.0-81.0); PLATELET COUNT (AUTO) 232 /CMM (150-450); RED BLOOD CELL COUNT(AUTO) 3.17 MIL/uL (4.5-6.0); WHITE BLOOD COUNT (AUTO) 13.8 K/uL (4.3-11.0)
[2016-10-13 05:23] LABS: CALCIUM, SERUM 8.2 mg/dL (8.5-10.1); PHOSPHORUS 6.6 mg/dL (2.5-4.9); POTASSIUM 4.8 mmol/L (3.5-5.1)
[2016-10-13 05:31] LABS: CREATININE 9.1 mg/dL (0.6-1.3)
[2016-10-13] MEDS ORDERED: IV NS 0.9% 250 ML IV ONE (05:42)
[2016-10-13] MEDS: BLOOD SUGAR DIAGNOSTIC 1 EACH STRIP VI SCH ×4 (06:42→22:33)
[2016-10-13] MEDS ORDERED: VANCOMYCIN 500 MG in IV D5W 100 ML IV PRN (07:00)
[2016-10-13] MEDS: INSULIN ASPART NOVOLOG 100 UNIT/ML CARTRIDGE SQ SCH ×3 (08:00→17:27)
[2016-10-13] MEDS: INSULIN DETEMIR 100 UNIT/ML CARTRIDGE SQ SCH ×2 (08:03→21:00)
[2016-10-13] MEDS: SEVELAMER CARBONATE 0.8 GM POWD.PACK GT SCH ×3 (08:06→17:15)
[2016-10-13] MEDS: QUETIAPINE FUMARATE 100 MG TABLET PO SCH ×2 (08:06→22:00)
[2016-10-13] MEDS: GABAPENTIN 100 MG CAPSULE PO SCH ×2 (08:06→17:15)
[2016-10-13] MEDS: LEVOTHYROXINE SODIUM 50 MCG TABLET PO SCH (08:06)
[2016-10-13] MEDS: PANTOPRAZOLE 40 MG TABLET.DR PO SCH (08:06)
[2016-10-13] MEDS: METOPROLOL TARTRATE 25 MG TABLET PO SCH ×2 (08:07→22:32)
[2016-10-13] MEDS: LACTOBACILLUS RHAMNOSUS GG 1 EACH CAP.SPRINK PO SCH ×2 (08:07→17:16)
[2016-10-13] MEDS ORDERED: EPOETIN ALFA (10,000 UNIT) 10,000 UNIT/ML VIAL SQ SCH (10:00)
[2016-10-13] MEDS ORDERED: BLOOD IV SET 1 EA INFUS.SET MC ONE (10:33)
[2016-10-13] MEDS ORDERED: IV SET PRIMARY PUMP SET 1 EA INFUS.SET MC ONE ×4 (10:33→23:34)
[2016-10-13] MEDS: LEVOFLOXACIN 500 MG /D5W 100ML 500 MG in PREMIX 1 EA IV SCH (15:06)
[2016-10-13] MEDS: SERTRALINE HCL 25 MG TABLET PO SCH (22:00)
[2016-10-13] MEDS: ATORVASTATIN 40 MG TABLET PO SCH (22:32)
[2016-10-13] MEDS ORDERED: LORAZEPAM INJ 2 MG/ML VIAL ONE ×2 (22:49→23:12)
[2016-10-13] MEDS: LORAZEPAM INJ 2 MG/ML VIAL IVP PRN ×3 (22:59→23:29)
[2016-10-13] MEDS ORDERED: LORAZEPAM INJ 2 MG/ML VIAL IVP PRN ×2 (23:00→23:30)
[2016-10-13] MEDS ORDERED: DEXTROSE 50%-WATER 50 ML DISP.SYRIN IVP ONE (23:00)
[2016-10-13] MEDS ORDERED: phenytoin SODIUM IV 500 MG in IV NS 0.9% 50 ML IV SCH (23:00)
[2016-10-13] MEDS ORDERED: DEXTROSE 50%-WATER 50 ML DISP.SYRIN ONE (23:10)
[2016-10-13] MEDS ORDERED: PHENYLEPHRINE 10 MG/ML VIAL ONE (23:16)
[2016-10-13] MEDS ORDERED: IV D5W 250 ML IV ONE (23:16)
[2016-10-13] MEDS ORDERED: phenytoin SODIUM IV 1,000 MG in IV NS 0.9% 100 ML IV ONE (23:30)
[2016-10-13] MEDS ORDERED: IV NS 0.9% 100 ML IV ONE (23:33)
[2016-10-13] MEDS ORDERED: phenytoin SODIUM IV 250 MG/5 ML VIAL IV ONE (23:33)
[2016-10-13] MEDS ORDERED: IV D5W 50 ML IV ONE (23:34)
[2016-10-13] MEDS ORDERED: Thiamine 100 MG/ML VIAL ONE (23:34)
[2016-10-13] MEDS ORDERED: SECONDARY IV SET 1 EA INFUS.SET MC ONE (23:35)
[2016-10-13 23:38] LABS: BASOPHILS # (AUTO) 0.1 /CMM (0.0-0.2); BASOPHILS % (AUTO) 0.5 % (0.0-2.0); DIFF TOTAL % 100 %; EOSINOPHILS # (AUTO) 0.2 /CMM (0.0-0.7); EOSINOPHILS % (AUTO) 1.8 % (0.0-6.0); HEMATOCRIT 29 % (39-51); HEMOGLOBIN 8.7 g/dL (13.5-17.5); LYMPHOCYTES # (AUTO) 0.3 /CMM (0.8-4.8); LYMPHOCYTES % (AUTO) 2.4 % (20.0-44.0); MEAN CORPUSCULAR HEMOGLOBIN 25 PG (26.0-33.0); MEAN CORPUSCULAR HGB CONC 31 g/dl (31.0-36.0); MEAN CORPUSCULAR VOLUME 83 fL (80-96); MONOCYTES # (AUTO) 0.4 /CMM (0.1-1.30); MONOCYTES % (AUTO) 2.7 % (2.0-12.0); NEUTROPHILS # (AUTO) 12.7 /CMM (1.8-8.9); NEUTROPHILS % (AUTO) 92.6 % (43.0-81.0); PLATELET COUNT (AUTO) 247 /CMM (150-450); RED BLOOD CELL COUNT(AUTO) 3.45 MIL/uL (4.5-6.0); WHITE BLOOD COUNT (AUTO) 13.7 K/uL (4.3-11.0)
[2016-10-13 23:48] LABS: CALCIUM, SERUM 7.7 mg/dL (8.5-10.1); CREATININE 7.4 mg/dL (0.6-1.3); POTASSIUM 4.2 mmol/L (3.5-5.1)
[2016-10-13 23:48] LABS: ABG BASE EXCESS -4.2 mmol/L; ABG HCO3 21.9 mmol/L; ABG PCO2 44.8 mmHg (35.0-45.0); ABG PH 7.307 (7.350-7.450); ABG PO2 104.3 mmHg (75.0-100.0); ABG TOTAL HEMOGLOBIN 8.8 G/dL (13.5-18.0); ALLEN TEST Pass; AaDO2 100.4 mmHg
[2016-10-13] MEDS: PHENYLEPHRINE 40 MG in IV D5W 250 ML IV PRN (23:49)
[2016-10-13] MEDS: Thiamine 100 MG in IV D5W 50 ML IV SCH (23:50)
[2016-10-13 23:53] LABS: BILIRUBIN,DIRECT 0.3 mg/dL (0.0-0.2); BILIRUBIN,TOTAL 0.6 mg/dL (0.2-1.0); INDIRECT BILIRUBIN 0.3 mg/dL (0.0-1.1); PHOSPHORUS 5.1 mg/dL (2.5-4.9); TOTAL PROTEIN, SERUM 6.9 g/dL (6.4-8.2)
[2016-10-13 23:55] LABS: ALBUMIN 1.4 g/dL (3.4-5.0)
[2016-10-14] VITALS (58 sets, daily range): BP systolic 74–155; BP diastolic 42–95
[2016-10-14 00:08] LABS: INR 1.53 (0.87-1.13); PROTHROMBIN TIME 16.6 SECS (9.5-12.7)
[2016-10-14] MEDS ORDERED: IV D5/ 0.9% NACL 1,000 ML IV ONE (00:09)
[2016-10-14] MEDS: IV D5/ 0.9% NACL 1,000 ML IV PRN ×2 (00:14→13:08)
[2016-10-14 00:53] LABS: ANISOCYTOSIS 2+; HYPOCHROMASIA 1+
[2016-10-14] MEDS ORDERED: IV D5W 250 ML IV ONE (03:40)
[2016-10-14] MEDS ORDERED: PHENYLEPHRINE 10 MG/ML VIAL ONE (03:40)
[2016-10-14] MEDS: KETOROLAC TROMETHAMINE INJ 30 MG/ML VIAL IM SCH (04:30)
[2016-10-14] MEDS: PIPERACILLIN /TAZOBACTAM 2.25 G in IV D5W 50 ML IV SCH ×3 (05:12→21:05)
[2016-10-14] MEDS: PHENYLEPHRINE 40 MG in IV D5W 250 ML IV PRN (05:13)
[2016-10-14 05:16] LABS: DIFF TOTAL % 100 %; EOSINOPHILS # (AUTO) 0.3 /CMM (0.0-0.7); EOSINOPHILS % (AUTO) 1.8 % (0.0-6.0); HEMATOCRIT 26 % (39-51); HEMOGLOBIN 8.1 g/dL (13.5-17.5); LYMPHOCYTES # (AUTO) 0.3 /CMM (0.8-4.8); LYMPHOCYTES % (AUTO) 1.8 % (20.0-44.0); MEAN CORPUSCULAR HEMOGLOBIN 26 PG (26.0-33.0); MEAN CORPUSCULAR HGB CONC 31 g/dl (31.0-36.0); MEAN CORPUSCULAR VOLUME 83 fL (80-96); MONOCYTES # (AUTO) 0.4 /CMM (0.1-1.30); MONOCYTES % (AUTO) 2.4 % (2.0-12.0); NEUTROPHILS # (AUTO) 15.2 /CMM (1.8-8.9); PLATELET COUNT (AUTO) 267 /CMM (150-450); RED BLOOD CELL COUNT(AUTO) 3.17 MIL/uL (4.5-6.0); WHITE BLOOD COUNT (AUTO) 16.2 K/uL (4.3-11.0)
[2016-10-14 05:19] LABS: CALCIUM, SERUM 7.7 mg/dL (8.5-10.1); POTASSIUM 4.3 mmol/L (3.5-5.1)
[2016-10-14 05:21] LABS: CREATININE 7.7 mg/dL (0.6-1.3)
[2016-10-14 05:34] LABS: ANISOCYTOSIS 2+; HYPOCHROMASIA 2+
[2016-10-14] MEDS: PANTOPRAZOLE 40 MG TABLET.DR PO SCH (07:30)
[2016-10-14] MEDS: LEVOTHYROXINE SODIUM 50 MCG TABLET PO SCH (07:30)
[2016-10-14] MEDS: SEVELAMER CARBONATE 0.8 GM POWD.PACK GT SCH ×3 (08:00→17:25)
[2016-10-14] MEDS ORDERED: PHENYLEPHRINE 40 MG in IV D5W 250 ML IV PRN (08:00)
[2016-10-14] MEDS: INSULIN ASPART NOVOLOG 100 UNIT/ML CARTRIDGE SQ SCH ×3 (08:00→17:26)
[2016-10-14] MEDS: BLOOD SUGAR DIAGNOSTIC 1 EACH STRIP VI SCH ×4 (08:45→21:53)
[2016-10-14] MEDS: QUETIAPINE FUMARATE 100 MG TABLET PO SCH ×2 (08:46→21:10)
[2016-10-14] MEDS: METOPROLOL TARTRATE 25 MG TABLET PO SCH ×2 (08:46→21:10)
[2016-10-14] MEDS: INSULIN DETEMIR 100 UNIT/ML CARTRIDGE SQ SCH ×2 (08:46→21:00)
[2016-10-14] MEDS: LACTOBACILLUS RHAMNOSUS GG 1 EACH CAP.SPRINK PO SCH ×2 (08:46→17:25)
[2016-10-14] MEDS: GABAPENTIN 100 MG CAPSULE PO SCH ×2 (08:46→17:25)
[2016-10-14 10:02] LABS: CANNABINOID, URINE NEGATIVE (NEGATIVE); PHENCYCLIDINE SCREEN,URINE NEGATIVE (NEGATIVE)
[2016-10-14 10:03] LABS: ABG BASE EXCESS -2.1 mmol/L; ABG HCO3 23.9 mmol/L; ABG PH 7.325 (7.350-7.450); ABG PO2 111.9 mmHg (75.0-100.0); ABG TOTAL HEMOGLOBIN 8.5 G/dL (13.5-18.0); ALLEN TEST Pass; AaDO2 61.3 mmHg; O2Hb 94.8 % (94.0-97.0)
[2016-10-14 10:21] LABS: KETONES,URINE NEGATIVE (NEGATIVE); LEUKOCYTE ESTERASE ,URINE NEGATIVE (NEGATIVE); PH,URINE 7.5 (5.0-8.0)
[2016-10-14 10:22] LABS: ADD UA MICROSCOPIC YES
[2016-10-14 10:27] LABS: ADD URINE CULTURE NO; RBC,URINE 0-3 /HPF (0-2); WBC,URINE 0-1 /HPF (0-3)
[2016-10-14 10:28] LABS: MUCUS,URINE Moderate /LPF (None Seen)
[2016-10-14] MEDS ORDERED: LORAZEPAM INJ 2 MG/ML VIAL IVP PRN (12:08)
[2016-10-14 12:23] LABS: HEPATITIS C VIRUS AB 0.1 s/co ratio (0.0-0.9)
[2016-10-14] MEDS: MORPHINE SULFATE INJ 2 MG/ML DISP.SYRIN IV PRN (21:06)
[2016-10-14] MEDS: ATORVASTATIN 40 MG TABLET PO SCH (21:08)
[2016-10-14] MEDS: SERTRALINE HCL 25 MG TABLET PO SCH (21:08)
[2016-10-14] MEDS: ONDANSETRON HCL/PF 4 MG/2 ML VIAL IVP PRN (21:33)
[2016-10-14] MEDS ORDERED: SECONDARY IV SET 1 EA INFUS.SET MC ONE (23:04)
[2016-10-14] MEDS: Thiamine 100 MG in IV D5W 50 ML IV SCH (23:08)
[2016-10-15] VITALS (42 sets, daily range): BP systolic 119–184; BP diastolic 58–118
[2016-10-15] MEDS: IV D5/ 0.9% NACL 1,000 ML IV PRN ×2 (01:12→18:15)
[2016-10-15] MEDS: MORPHINE SULFATE INJ 2 MG/ML DISP.SYRIN IV PRN ×3 (01:12→22:27)
[2016-10-15] MEDS: PIPERACILLIN /TAZOBACTAM 2.25 G in IV D5W 50 ML IV SCH ×3 (04:54→20:34)
[2016-10-15 07:48] LABS: BASOPHILS % (AUTO) 0.4 % (0.0-2.0); DIFF TOTAL % 100 %; EOSINOPHILS # (AUTO) 0.3 /CMM (0.0-0.7); EOSINOPHILS % (AUTO) 3.2 % (0.0-6.0); HEMATOCRIT 23 % (39-51); HEMOGLOBIN 7.4 g/dL (13.5-17.5); LYMPHOCYTES # (AUTO) 0.4 /CMM (0.8-4.8); LYMPHOCYTES % (AUTO) 4.2 % (20.0-44.0); MEAN CORPUSCULAR HEMOGLOBIN 26 PG (26.0-33.0); MEAN CORPUSCULAR HGB CONC 32 g/dl (31.0-36.0); MEAN CORPUSCULAR VOLUME 83 fL (80-96); MONOCYTES # (AUTO) 0.4 /CMM (0.1-1.30); MONOCYTES % (AUTO) 4.2 % (2.0-12.0); PLATELET COUNT (AUTO) 266 /CMM (150-450); RED BLOOD CELL COUNT(AUTO) 2.79 MIL/uL (4.5-6.0); WHITE BLOOD COUNT (AUTO) 10.2 K/uL (4.3-11.0)
[2016-10-15 07:53] LABS: CALCIUM, SERUM 7.6 mg/dL (8.5-10.1); POTASSIUM 4.5 mmol/L (3.5-5.1)
[2016-10-15 07:54] LABS: CREATININE 8.8 mg/dL (0.6-1.3)
[2016-10-15] MEDS: INSULIN ASPART NOVOLOG 100 UNIT/ML CARTRIDGE SQ SCH ×3 (08:00→18:00)
[2016-10-15] MEDS: BLOOD SUGAR DIAGNOSTIC 1 EACH STRIP VI SCH ×4 (08:37→21:17)
[2016-10-15] MEDS: GABAPENTIN 100 MG CAPSULE PO SCH ×2 (08:37→17:00)
[2016-10-15] MEDS: PANTOPRAZOLE 40 MG TABLET.DR PO SCH (08:37)
[2016-10-15] MEDS: LEVOTHYROXINE SODIUM 50 MCG TABLET PO SCH (08:37)
[2016-10-15] MEDS: SEVELAMER CARBONATE 0.8 GM POWD.PACK GT SCH ×3 (08:38→18:00)
[2016-10-15] MEDS: LACTOBACILLUS RHAMNOSUS GG 1 EACH CAP.SPRINK PO SCH ×2 (08:38→17:00)
[2016-10-15] MEDS: QUETIAPINE FUMARATE 100 MG TABLET PO SCH ×2 (08:39→21:51)
[2016-10-15] MEDS: INSULIN DETEMIR 100 UNIT/ML CARTRIDGE SQ SCH ×2 (08:39→20:38)
[2016-10-15] MEDS: METOPROLOL TARTRATE 25 MG TABLET PO SCH ×2 (09:17→20:35)
[2016-10-15] MEDS: ONDANSETRON HCL/PF 4 MG/2 ML VIAL IVP PRN ×2 (12:24→22:15)
[2016-10-15] MEDS ORDERED: EPOETIN ALFA (10,000 UNIT) 10,000 UNIT/ML VIAL SQ ONE (13:00)
[2016-10-15] MEDS: LEVOFLOXACIN 500 MG /D5W 100ML 500 MG in PREMIX 1 EA IV SCH (14:43)
[2016-10-15] MEDS ORDERED: IV NS 0.9% 250 ML IV ONE (15:52)
[2016-10-15] MEDS ORDERED: BLOOD IV SET 1 EA INFUS.SET MC ONE (15:52)
[2016-10-15] MEDS ORDERED: VANCOMYCIN 1 GM in IV D5W 250 ML IV PRN (16:00)
[2016-10-15] MEDS: SERTRALINE HCL 25 MG TABLET PO SCH (21:51)
[2016-10-15] MEDS: ATORVASTATIN 40 MG TABLET PO SCH (21:51)
[2016-10-15] MEDS: HYDROCODONE/APAP 10/325MG 1 EA TABLET PO PRN (21:51)
[2016-10-15] MEDS: Thiamine 100 MG in IV D5W 50 ML IV SCH (23:43)
[2016-10-16] VITALS (25 sets, daily range): BP systolic 130–176; BP diastolic 72–104
[2016-10-16] MEDS: PIPERACILLIN /TAZOBACTAM 2.25 G in IV D5W 50 ML IV SCH ×2 (04:17→12:24)
[2016-10-16] MEDS: MORPHINE SULFATE INJ 2 MG/ML DISP.SYRIN IV PRN ×2 (04:19→19:57)
[2016-10-16 04:37] LABS: BASOPHILS % (AUTO) 0.4 % (0.0-2.0); DIFF TOTAL % 100 %; EOSINOPHILS # (AUTO) 0.2 /CMM (0.0-0.7); EOSINOPHILS % (AUTO) 2.1 % (0.0-6.0); HEMATOCRIT 27 % (39-51); HEMOGLOBIN 8.4 g/dL (13.5-17.5); LYMPHOCYTES # (AUTO) 0.5 /CMM (0.8-4.8); LYMPHOCYTES % (AUTO) 4.4 % (20.0-44.0); MEAN CORPUSCULAR HEMOGLOBIN 26 PG (26.0-33.0); MEAN CORPUSCULAR HGB CONC 32 g/dl (31.0-36.0); MEAN CORPUSCULAR VOLUME 83 fL (80-96); MONOCYTES # (AUTO) 0.7 /CMM (0.1-1.30); MONOCYTES % (AUTO) 6.3 % (2.0-12.0); NEUTROPHILS # (AUTO) 8.9 /CMM (1.8-8.9); NEUTROPHILS % (AUTO) 86.8 % (43.0-81.0); PLATELET COUNT (AUTO) 277 /CMM (150-450); RED BLOOD CELL COUNT(AUTO) 3.21 MIL/uL (4.5-6.0); WHITE BLOOD COUNT (AUTO) 10.3 K/uL (4.3-11.0)
[2016-10-16 05:04] LABS: CALCIUM, SERUM 8.1 mg/dL (8.5-10.1); CREATININE 6.2 mg/dL (0.6-1.3); PHOSPHORUS 4.8 mg/dL (2.5-4.9); POTASSIUM 3.8 mmol/L (3.5-5.1)
[2016-10-16] MEDS: LEVOTHYROXINE SODIUM 50 MCG TABLET PO SCH (07:55)
[2016-10-16] MEDS: BLOOD SUGAR DIAGNOSTIC 1 EACH STRIP VI SCH ×4 (07:55→21:09)
[2016-10-16] MEDS: PANTOPRAZOLE 40 MG TABLET.DR PO SCH (07:55)
[2016-10-16] MEDS: PROMETHAZINE HCL 25 MG/ML AMPUL IM PRN ×2 (07:59→19:43)
[2016-10-16] MEDS: ONDANSETRON HCL/PF 4 MG/2 ML VIAL IVP PRN ×2 (07:59→19:43)
[2016-10-16] MEDS: INSULIN ASPART NOVOLOG 100 UNIT/ML CARTRIDGE SQ SCH ×3 (08:00→17:39)
[2016-10-16] MEDS: SEVELAMER CARBONATE 0.8 GM POWD.PACK GT SCH ×3 (08:00→17:39)
[2016-10-16] MEDS: METOPROLOL TARTRATE 25 MG TABLET PO SCH ×2 (08:01→21:20)
[2016-10-16] MEDS: GABAPENTIN 100 MG CAPSULE PO SCH ×2 (08:02→17:00)
[2016-10-16] MEDS: LACTOBACILLUS RHAMNOSUS GG 1 EACH CAP.SPRINK PO SCH ×2 (08:02→17:00)
[2016-10-16] MEDS: INSULIN DETEMIR 100 UNIT/ML CARTRIDGE SQ SCH ×2 (08:02→21:24)
[2016-10-16] MEDS: QUETIAPINE FUMARATE 100 MG TABLET PO SCH ×2 (08:02→21:21)
[2016-10-16] MEDS: IV D5/ 0.9% NACL 1,000 ML IV PRN ×2 (10:19→23:03)
[2016-10-16 13:18] LABS: *CARD ANTI-CARDIOLIPIN AB IgG <9 GPL U/mL (0-14); *CARD ANTI-CARDIOLIPIN AB IgM 10 MPL U/mL (0-12)
[2016-10-16] MEDS: SERTRALINE HCL 25 MG TABLET PO SCH (21:20)
[2016-10-16] MEDS: ATORVASTATIN 40 MG TABLET PO SCH (21:21)
[2016-10-16] MEDS: Thiamine 100 MG in IV D5W 50 ML IV SCH (23:03)
[2016-10-17] VITALS (11 sets, daily range): BP systolic 147–179; BP diastolic 76–98
[2016-10-17] MEDS: MORPHINE SULFATE INJ 2 MG/ML DISP.SYRIN IV PRN (04:23)
[2016-10-17 04:52] LABS: BASOPHILS # (AUTO) 0.1 /CMM (0.0-0.2); BASOPHILS % (AUTO) 0.6 % (0.0-2.0); DIFF TOTAL % 100 %; EOSINOPHILS # (AUTO) 0.3 /CMM (0.0-0.7); EOSINOPHILS % (AUTO) 3.7 % (0.0-6.0); HEMATOCRIT 26 % (39-51); HEMOGLOBIN 8.2 g/dL (13.5-17.5); LYMPHOCYTES # (AUTO) 0.6 /CMM (0.8-4.8); LYMPHOCYTES % (AUTO) 7.5 % (20.0-44.0); MEAN CORPUSCULAR HEMOGLOBIN 26 PG (26.0-33.0); MEAN CORPUSCULAR HGB CONC 32 g/dl (31.0-36.0); MEAN CORPUSCULAR VOLUME 83 fL (80-96); MONOCYTES # (AUTO) 0.7 /CMM (0.1-1.30); MONOCYTES % (AUTO) 8.6 % (2.0-12.0); NEUTROPHILS # (AUTO) 6.8 /CMM (1.8-8.9); NEUTROPHILS % (AUTO) 79.6 % (43.0-81.0); PLATELET COUNT (AUTO) 278 /CMM (150-450); RED BLOOD CELL COUNT(AUTO) 3.13 MIL/uL (4.5-6.0); WHITE BLOOD COUNT (AUTO) 8.6 K/uL (4.3-11.0)
[2016-10-17 05:11] LABS: CALCIUM, SERUM 7.8 mg/dL (8.5-10.1); CREATININE 7.3 mg/dL (0.6-1.3); PHOSPHORUS 5.2 mg/dL (2.5-4.9); POTASSIUM 3.7 mmol/L (3.5-5.1)
[2016-10-17] MEDS: BLOOD SUGAR DIAGNOSTIC 1 EACH STRIP VI SCH ×4 (07:30→21:26)
[2016-10-17] MEDS: INSULIN ASPART NOVOLOG 100 UNIT/ML CARTRIDGE SQ SCH ×3 (08:00→17:10)
[2016-10-17] MEDS: LACTOBACILLUS RHAMNOSUS GG 1 EACH CAP.SPRINK PO SCH ×2 (08:32→16:56)
[2016-10-17] MEDS: LEVOTHYROXINE SODIUM 50 MCG TABLET PO SCH (08:32)
[2016-10-17] MEDS: QUETIAPINE FUMARATE 100 MG TABLET PO SCH ×2 (08:33→21:22)
[2016-10-17] MEDS: SEVELAMER CARBONATE 0.8 GM POWD.PACK GT SCH ×3 (08:33→17:10)
[2016-10-17] MEDS: PANTOPRAZOLE 40 MG TABLET.DR PO SCH (08:33)
[2016-10-17] MEDS: GABAPENTIN 100 MG CAPSULE PO SCH ×2 (08:33→16:56)
[2016-10-17] MEDS: METOPROLOL TARTRATE 25 MG TABLET PO SCH ×2 (08:36→21:23)
[2016-10-17] MEDS: MORPHINE SULFATE INJ 4 MG/ML DISP.SYRIN IV PRN ×5 (08:43→21:31)
[2016-10-17] MEDS: INSULIN DETEMIR 100 UNIT/ML CARTRIDGE SQ SCH ×2 (09:00→21:00)
[2016-10-17] MEDS ORDERED: EPOETIN ALFA (10,000 UNIT) 10,000 UNIT/ML VIAL SQ ONE (10:00)
[2016-10-17] MEDS: DEXTROSE 50%-WATER 50 ML DISP.SYRIN IV PRN (17:16)
[2016-10-17] MEDS: hydrALAZINE HCL 10 MG TABLET PO PRN (18:32)
[2016-10-17] MEDS: SERTRALINE HCL 25 MG TABLET PO SCH (21:21)
[2016-10-17] MEDS: ATORVASTATIN 40 MG TABLET PO SCH (21:22)
[2016-10-17] MEDS ORDERED: SECONDARY IV SET 1 EA INFUS.SET MC ONE (22:41)
[2016-10-17] MEDS ORDERED: IV SET PRIMARY PUMP SET 1 EA INFUS.SET MC ONE (22:41)
[2016-10-17] MEDS ORDERED: IV NS 0.9% 250 ML IV ONE (22:42)
[2016-10-17] MEDS: Thiamine 100 MG in IV D5W 50 ML IV SCH (22:58)
[2016-10-18] MEDS: MORPHINE SULFATE INJ 4 MG/ML DISP.SYRIN IV PRN ×6 (00:07→23:31)
[2016-10-18 04:00] VITALS: BP 171/82
[2016-10-18] MEDS: hydrALAZINE HCL 10 MG TABLET PO PRN (04:28)
[2016-10-18] MEDS: BLOOD SUGAR DIAGNOSTIC 1 EACH STRIP VI SCH ×4 (06:47→21:47)
[2016-10-18] MEDS: PANTOPRAZOLE 40 MG TABLET.DR PO SCH (06:48)
[2016-10-18] MEDS: LEVOTHYROXINE SODIUM 50 MCG TABLET PO SCH (06:48)
[2016-10-18] MEDS: MORPHINE SULFATE INJ 2 MG/ML DISP.SYRIN IV PRN ×2 (06:49→21:41)
[2016-10-18 08:00] VITALS: BP 171/82
[2016-10-18] MEDS: INSULIN ASPART NOVOLOG 100 UNIT/ML CARTRIDGE SQ SCH ×3 (08:00→17:20)
[2016-10-18 08:04] LABS: CALCIUM, SERUM 8.1 mg/dL (8.5-10.1); CREATININE 6.1 mg/dL (0.6-1.3); POTASSIUM 4.1 mmol/L (3.5-5.1)
[2016-10-18] MEDS: SEVELAMER CARBONATE 0.8 GM POWD.PACK GT SCH ×3 (08:47→17:12)
[2016-10-18] MEDS: LACTOBACILLUS RHAMNOSUS GG 1 EACH CAP.SPRINK PO SCH ×2 (08:47→17:12)
[2016-10-18] MEDS: METOPROLOL TARTRATE 25 MG TABLET PO SCH ×2 (08:48→21:41)
[2016-10-18] MEDS: QUETIAPINE FUMARATE 100 MG TABLET PO SCH ×2 (08:48→21:39)
[2016-10-18] MEDS: GABAPENTIN 100 MG CAPSULE PO SCH ×2 (08:48→17:12)
[2016-10-18 09:00] VITALS: BP 126/76
[2016-10-18] MEDS: INSULIN DETEMIR 100 UNIT/ML CARTRIDGE SQ SCH ×2 (09:00→21:00)
[2016-10-18] MEDS: LABETALOL HCL (100MG) 100 MG TABLET PO SCH ×2 (11:38→21:41)
[2016-10-18] MEDS: INSULIN REGULAR, HUMAN 100 UNIT/ML 3 ML VIAL SQ PRN (11:41)
[2016-10-18 16:00] VITALS: BP 120/55
[2016-10-18 20:00] VITALS: BP 177/94
[2016-10-18] MEDS: SERTRALINE HCL 25 MG TABLET PO SCH (21:38)
[2016-10-18] MEDS: ATORVASTATIN 40 MG TABLET PO SCH (21:40)
[2016-10-18] MEDS: Thiamine 100 MG in IV D5W 50 ML IV SCH (23:30)
[2016-10-19 04:00] VITALS: BP 143/75
[2016-10-19] MEDS: ACETAMINOPHEN 325 MG TABLET PO PRN (05:07)
[2016-10-19] MEDS: MORPHINE SULFATE INJ 2 MG/ML DISP.SYRIN IV PRN (05:08)
[2016-10-19] MEDS: BLOOD SUGAR DIAGNOSTIC 1 EACH STRIP VI SCH ×4 (06:45→22:48)
[2016-10-19] MEDS: LEVOTHYROXINE SODIUM 50 MCG TABLET PO SCH (06:45)
[2016-10-19] MEDS: PANTOPRAZOLE 40 MG TABLET.DR PO SCH (06:45)
[2016-10-19] MEDS: MORPHINE SULFATE INJ 4 MG/ML DISP.SYRIN IV PRN ×2 (06:48→18:48)
[2016-10-19 08:00] VITALS: BP 104/65
[2016-10-19] MEDS: INSULIN ASPART NOVOLOG 100 UNIT/ML CARTRIDGE SQ SCH ×3 (08:00→17:33)
[2016-10-19] MEDS: QUETIAPINE FUMARATE 100 MG TABLET PO SCH ×2 (08:54→22:47)
[2016-10-19] MEDS: SEVELAMER CARBONATE 0.8 GM POWD.PACK GT SCH ×3 (08:54→17:31)
[2016-10-19] MEDS: LACTOBACILLUS RHAMNOSUS GG 1 EACH CAP.SPRINK PO SCH ×2 (08:54→17:31)
[2016-10-19] MEDS: GABAPENTIN 100 MG CAPSULE PO SCH ×2 (08:54→17:31)
[2016-10-19] MEDS: INSULIN DETEMIR 100 UNIT/ML CARTRIDGE SQ SCH ×2 (08:59→21:00)
[2016-10-19] MEDS: METOPROLOL TARTRATE 25 MG TABLET PO SCH ×2 (09:00→22:29)
[2016-10-19] MEDS: LABETALOL HCL (100MG) 100 MG TABLET PO SCH ×2 (09:00→22:27)
[2016-10-19 09:02] LABS: CALCIUM, SERUM 7.9 mg/dL (8.5-10.1); CREATININE 7.3 mg/dL (0.6-1.3); POTASSIUM 4.5 mmol/L (3.5-5.1)
[2016-10-19 10:12] LABS: BASOPHILS % (AUTO) 0.2 % (0.0-2.0); DIFF TOTAL % 100 %; EOSINOPHILS # (AUTO) 0.4 /CMM (0.0-0.7); EOSINOPHILS % (AUTO) 2.9 % (0.0-6.0); HEMATOCRIT 28 % (39-51); HEMOGLOBIN 8.4 g/dL (13.5-17.5); LYMPHOCYTES % (AUTO) 6.6 % (20.0-44.0); MEAN CORPUSCULAR HEMOGLOBIN 26 PG (26.0-33.0); MEAN CORPUSCULAR HGB CONC 31 g/dl (31.0-36.0); MEAN CORPUSCULAR VOLUME 84 fL (80-96); MONOCYTES # (AUTO) 0.9 /CMM (0.1-1.30); MONOCYTES % (AUTO) 6.1 % (2.0-12.0); NEUTROPHILS # (AUTO) 12.8 /CMM (1.8-8.9); NEUTROPHILS % (AUTO) 84.2 % (43.0-81.0); PLATELET COUNT (AUTO) 304 /CMM (150-450); RED BLOOD CELL COUNT(AUTO) 3.27 MIL/uL (4.5-6.0); WHITE BLOOD COUNT (AUTO) 15.2 K/uL (4.3-11.0)
[2016-10-19 16:00] VITALS: BP 132/73
[2016-10-19] MEDS: INSULIN REGULAR, HUMAN 100 UNIT/ML 3 ML VIAL SQ PRN (17:34)
[2016-10-19 20:00] VITALS: BP 140/81
[2016-10-19] MEDS ORDERED: HYDROMORPHONE 1 MG/1 ML DISP.SYRIN ONE (21:39)
[2016-10-19] MEDS ORDERED: HYDROMORPHONE 1 MG/1 ML DISP.SYRIN IV ONE (22:00)
[2016-10-19] MEDS: SERTRALINE HCL 25 MG TABLET PO SCH (22:26)
[2016-10-19] MEDS: ATORVASTATIN 40 MG TABLET PO SCH (22:26)
[2016-10-20] MEDS: Thiamine 100 MG in IV D5W 50 ML IV SCH ×2 (00:35→23:38)
[2016-10-20 04:00] VITALS: BP 139/77
[2016-10-20 06:12] LABS: *ANTITHROMBIN III AG 76 % (72-124); *DILUTE PROTHROMBIN TIME (dPT) 123.1 sec (0.0-55.0); *THROMBIN TIME 13.9 sec (0.0-20.9); *dRVVT 124.2 sec (0.0-44.0); ANTITHROMBIN III ACTIVITY 88 % (75-135); FACTOR VIII ACTIVITY 204 % (57-163); PROTEIN C ACTIVITY 53 % (73-180); PROTEIN S ACTIVITY 44 % (63-140)
[2016-10-20 07:21] LABS: BASOPHILS % (AUTO) 0.3 % (0.0-2.0); DIFF TOTAL % 100 %; EOSINOPHILS # (AUTO) 0.4 /CMM (0.0-0.7); EOSINOPHILS % (AUTO) 2.9 % (0.0-6.0); HEMATOCRIT 26 % (39-51); LYMPHOCYTES # (AUTO) 0.9 /CMM (0.8-4.8); LYMPHOCYTES % (AUTO) 6.5 % (20.0-44.0); MEAN CORPUSCULAR HEMOGLOBIN 26 PG (26.0-33.0); MEAN CORPUSCULAR HGB CONC 31 g/dl (31.0-36.0); MEAN CORPUSCULAR VOLUME 84 fL (80-96); MONOCYTES # (AUTO) 0.9 /CMM (0.1-1.30); MONOCYTES % (AUTO) 6.3 % (2.0-12.0); NEUTROPHILS # (AUTO) 11.9 /CMM (1.8-8.9); PLATELET COUNT (AUTO) 258 /CMM (150-450); RED BLOOD CELL COUNT(AUTO) 3.08 MIL/uL (4.5-6.0); WHITE BLOOD COUNT (AUTO) 14.2 K/uL (4.3-11.0)
[2016-10-20] MEDS: BLOOD SUGAR DIAGNOSTIC 1 EACH STRIP VI SCH ×4 (07:30→21:49)
[2016-10-20] MEDS: LEVOTHYROXINE SODIUM 50 MCG TABLET PO SCH (07:30)
[2016-10-20 07:45] LABS: CALCIUM, SERUM 7.9 mg/dL (8.5-10.1); CREATININE 6.8 mg/dL (0.6-1.3); PHOSPHORUS 4.7 mg/dL (2.5-4.9); POTASSIUM 4.5 mmol/L (3.5-5.1)
[2016-10-20 08:00] VITALS: BP 150/86
[2016-10-20] MEDS: INSULIN ASPART NOVOLOG 100 UNIT/ML CARTRIDGE SQ SCH ×3 (08:00→17:18)
[2016-10-20] MEDS: INSULIN DETEMIR 100 UNIT/ML CARTRIDGE SQ SCH ×2 (09:00→21:51)
[2016-10-20] MEDS: QUETIAPINE FUMARATE 100 MG TABLET PO SCH ×2 (09:57→21:48)
[2016-10-20] MEDS: LACTOBACILLUS RHAMNOSUS GG 1 EACH CAP.SPRINK PO SCH ×2 (09:59→17:16)
[2016-10-20] MEDS: METOPROLOL TARTRATE 25 MG TABLET PO SCH ×2 (09:59→21:00)
[2016-10-20] MEDS: GABAPENTIN 100 MG CAPSULE PO SCH ×2 (10:00→17:16)
[2016-10-20] MEDS: SEVELAMER CARBONATE 0.8 GM POWD.PACK GT SCH ×3 (10:00→17:16)
[2016-10-20] MEDS: LABETALOL HCL (100MG) 100 MG TABLET PO SCH ×2 (10:01→21:00)
[2016-10-20] MEDS: PANTOPRAZOLE 40 MG TABLET.DR PO SCH (10:02)
[2016-10-20] MEDS ORDERED: ALTEPLASE CATHFLO 2 MG/VIAL XX ONE (11:30)
[2016-10-20 16:00] VITALS: BP 134/82
[2016-10-20] MEDS: HYDROMORPHONE 1 MG/1 ML DISP.SYRIN IV PRN ×2 (17:19→23:34)
[2016-10-20 20:00] VITALS: BP_SYST 109; BP_SYST 128; BP_DIAS 73; BP_DIAS 77
[2016-10-20] MEDS: ATORVASTATIN 40 MG TABLET PO SCH (21:48)
[2016-10-20] MEDS: SERTRALINE HCL 25 MG TABLET PO SCH (21:49)
[2016-10-20 22:12] LABS: *FACTOR II, DNA ANALYSIS Negative (.)
[2016-10-21 00:09] VITALS: BP 120/81
[2016-10-21 04:00] VITALS: BP_SYST 118; BP_SYST 166; BP_DIAS 84; BP_DIAS 88
[2016-10-21 04:29] LABS: *HEXAGONAL PHASE PHOSPHOLIPID 22 sec (0-11); *dRVVT CONFIRM 1.6 ratio (0.8-1.2)
[2016-10-21] MEDS: LEVOTHYROXINE SODIUM 50 MCG TABLET PO SCH (06:42)
[2016-10-21] MEDS: PANTOPRAZOLE 40 MG TABLET.DR PO SCH (06:42)
[2016-10-21] MEDS: BLOOD SUGAR DIAGNOSTIC 1 EACH STRIP VI SCH ×4 (06:42→22:48)
[2016-10-21 08:00] VITALS: BP 126/77
[2016-10-21] MEDS: SEVELAMER CARBONATE 0.8 GM POWD.PACK GT SCH ×3 (08:00→17:55)
[2016-10-21] MEDS: INSULIN ASPART NOVOLOG 100 UNIT/ML CARTRIDGE SQ SCH ×3 (08:00→17:55)
[2016-10-21] MEDS: QUETIAPINE FUMARATE 100 MG TABLET PO SCH ×2 (08:14→22:45)
[2016-10-21] MEDS: GABAPENTIN 100 MG CAPSULE PO SCH ×2 (08:14→16:45)
[2016-10-21] MEDS: LACTOBACILLUS RHAMNOSUS GG 1 EACH CAP.SPRINK PO SCH ×2 (08:14→16:45)
[2016-10-21] MEDS: METOPROLOL TARTRATE 25 MG TABLET PO SCH ×2 (08:15→21:25)
[2016-10-21] MEDS: LABETALOL HCL (100MG) 100 MG TABLET PO SCH ×2 (08:15→21:25)
[2016-10-21] MEDS: INSULIN DETEMIR 100 UNIT/ML CARTRIDGE SQ SCH ×2 (08:19→21:00)
[2016-10-21] MEDS: HYDROMORPHONE 1 MG/1 ML DISP.SYRIN IV PRN ×2 (11:54→18:02)
[2016-10-21] MEDS: HYDROCODONE/APAP 10/325MG 1 EA TABLET PO PRN ×2 (15:07→21:23)
[2016-10-21 16:00] VITALS: BP 99/60
[2016-10-21 18:26] LABS: KETONES,URINE NEGATIVE (NEGATIVE); LEUKOCYTE ESTERASE ,URINE NEGATIVE (NEGATIVE)
[2016-10-21 18:48] LABS: ADD UA MICROSCOPIC YES
[2016-10-21 19:27] LABS: ADD URINE CULTURE NO; WBC,URINE 0-2 /HPF (0-3)
[2016-10-21 20:00] VITALS: BP 159/74
[2016-10-21] MEDS: ATORVASTATIN 40 MG TABLET PO SCH (21:23)
[2016-10-21] MEDS: SERTRALINE HCL 25 MG TABLET PO SCH (22:45)
[2016-10-21] MEDS: THIAMINE HCL 100 MG TABLET PO SCH (22:45)
[2016-10-22 04:00] VITALS: BP 141/69
[2016-10-22 08:00] VITALS: BP 141/69
[2016-10-22] MEDS: BLOOD SUGAR DIAGNOSTIC 1 EACH STRIP VI SCH ×4 (08:54→21:14)
[2016-10-22] MEDS: PANTOPRAZOLE 40 MG TABLET.DR PO SCH (08:54)
[2016-10-22] MEDS: LEVOTHYROXINE SODIUM 50 MCG TABLET PO SCH (08:54)
[2016-10-22] MEDS: HYDROMORPHONE 1 MG/1 ML DISP.SYRIN IV PRN ×3 (08:57→21:59)
[2016-10-22] MEDS: INSULIN ASPART NOVOLOG 100 UNIT/ML CARTRIDGE SQ SCH ×3 (08:58→17:21)
[2016-10-22] MEDS: SEVELAMER CARBONATE 0.8 GM POWD.PACK GT SCH ×3 (08:58→17:01)
[2016-10-22] MEDS: INSULIN DETEMIR 100 UNIT/ML CARTRIDGE SQ SCH ×2 (09:00→21:00)
[2016-10-22 09:30] VITALS: BP 147/92
[2016-10-22] MEDS: THIAMINE HCL 100 MG TABLET PO SCH (09:49)
[2016-10-22] MEDS: GABAPENTIN 100 MG CAPSULE PO SCH ×2 (09:49→16:03)
[2016-10-22] MEDS: LACTOBACILLUS RHAMNOSUS GG 1 EACH CAP.SPRINK PO SCH ×2 (09:49→16:03)
[2016-10-22] MEDS: QUETIAPINE FUMARATE 100 MG TABLET PO SCH ×2 (09:49→22:46)
[2016-10-22] MEDS: METOPROLOL TARTRATE 25 MG TABLET PO SCH ×2 (09:50→21:12)
[2016-10-22] MEDS: LABETALOL HCL (100MG) 100 MG TABLET PO SCH ×2 (09:50→21:12)
[2016-10-22] MEDS: HYDROCODONE/APAP 10/325MG 1 EA TABLET PO PRN (11:45)
[2016-10-22 16:00] VITALS: BP 129/94
[2016-10-22] MEDS ORDERED: HEPARIN INFUSION/D5W 500 ML IV PRN (16:00)
[2016-10-22] MEDS ORDERED: HEPARIN SODIUM, PORCINE 5000 UNITS/1 ML VIAL IV ONE (16:00)
[2016-10-22 16:30] LABS: INR 1.22 (0.87-1.13); PROTHROMBIN TIME 13.4 SECS (9.5-12.7)
[2016-10-22] MEDS ORDERED: IV SET PRIMARY PUMP SET 1 EA INFUS.SET MC ONE (16:53)
[2016-10-22] MEDS: WARFARIN SODIUM 5 MG TABLET PO SCH (17:04)
[2016-10-22] MEDS: HEPARIN INFUSION/D5W 500 ML IV PRN (17:06)
[2016-10-22 20:00] VITALS: BP 156/99
[2016-10-22] MEDS: ATORVASTATIN 40 MG TABLET PO SCH (21:11)
[2016-10-22] MEDS: SERTRALINE HCL 25 MG TABLET PO SCH (21:11)
[2016-10-22] MEDS ORDERED: QUETIAPINE FUMARATE 100 MG TABLET ONE (22:34)
[2016-10-23] MEDS: ZOLPIDEM TARTRATE 5 MG TABLET PO PRN (00:03)
[2016-10-23] MEDS: HYDROMORPHONE 1 MG/1 ML DISP.SYRIN IV PRN ×2 (04:08→17:45)
[2016-10-23 06:51] LABS: INR 1.35 (0.87-1.13); PROTHROMBIN TIME 14.6 SECS (9.5-12.7)
[2016-10-23 07:00] LABS: BILIRUBIN,TOTAL 0.3 mg/dL (0.2-1.0); CALCIUM, SERUM 7.8 mg/dL (8.5-10.1); POTASSIUM 4.6 mmol/L (3.5-5.1); TOTAL PROTEIN, SERUM 6.7 g/dL (6.4-8.2)
[2016-10-23 07:01] LABS: THYROID STIMULATING HORMONE 3.721 uIU/mL (0.358-3.74)
[2016-10-23 07:05] LABS: CREATININE 8.2 mg/dL (0.6-1.3)
[2016-10-23 07:06] LABS: ALBUMIN 1.2 g/dL (3.4-5.0)
[2016-10-23 08:00] VITALS: BP 153/81
[2016-10-23] MEDS: INSULIN ASPART NOVOLOG 100 UNIT/ML CARTRIDGE SQ SCH ×3 (08:00→17:32)
[2016-10-23] MEDS: THIAMINE HCL 100 MG TABLET PO SCH (08:52)
[2016-10-23] MEDS: LEVOTHYROXINE SODIUM 50 MCG TABLET PO SCH (08:52)
[2016-10-23] MEDS: PANTOPRAZOLE 40 MG TABLET.DR PO SCH (08:53)
[2016-10-23] MEDS: QUETIAPINE FUMARATE 100 MG TABLET PO SCH ×2 (08:53→21:01)
[2016-10-23] MEDS: GABAPENTIN 100 MG CAPSULE PO SCH ×2 (08:53→17:32)
[2016-10-23] MEDS: LACTOBACILLUS RHAMNOSUS GG 1 EACH CAP.SPRINK PO SCH ×2 (08:53→17:32)
[2016-10-23] MEDS: LABETALOL HCL (100MG) 100 MG TABLET PO SCH ×2 (08:54→21:00)
[2016-10-23] MEDS: BLOOD SUGAR DIAGNOSTIC 1 EACH STRIP VI SCH ×4 (08:54→21:01)
[2016-10-23] MEDS: METOPROLOL TARTRATE 25 MG TABLET PO SCH ×2 (08:54→21:00)
[2016-10-23] MEDS: SEVELAMER CARBONATE 0.8 GM POWD.PACK GT SCH ×3 (08:55→17:32)
[2016-10-23] MEDS: INSULIN DETEMIR 100 UNIT/ML CARTRIDGE SQ SCH ×2 (08:56→21:00)
[2016-10-23] MEDS ORDERED: EPOETIN ALFA (10,000 UNIT) 10,000 UNIT/ML VIAL SQ ONE ×3 (11:00→14:59)
[2016-10-23] MEDS: HEPARIN INFUSION/D5W 500 ML IV PRN (13:53)
[2016-10-23] MEDS ORDERED: HEPARIN SODIUM, PORCINE 5000 UNITS/1 ML VIAL IV ONE (14:30)
[2016-10-23 16:00] VITALS: BP 137/70
[2016-10-23] MEDS: WARFARIN SODIUM 5 MG TABLET PO SCH (17:40)
[2016-10-23 20:00] VITALS: BP 135/82
[2016-10-23] MEDS: ATORVASTATIN 40 MG TABLET PO SCH (20:59)
[2016-10-23] MEDS: SERTRALINE HCL 25 MG TABLET PO SCH (21:01)
[2016-10-24] MEDS: HYDROMORPHONE 1 MG/1 ML DISP.SYRIN IV PRN ×3 (04:02→23:22)
[2016-10-24 08:00] VITALS: BP 150/76
[2016-10-24] MEDS: INSULIN ASPART NOVOLOG 100 UNIT/ML CARTRIDGE SQ SCH ×3 (08:00→17:10)
[2016-10-24] MEDS: LEVOTHYROXINE SODIUM 50 MCG TABLET PO SCH (08:35)
[2016-10-24] MEDS: GABAPENTIN 100 MG CAPSULE PO SCH ×2 (08:35→16:36)
[2016-10-24] MEDS: LACTOBACILLUS RHAMNOSUS GG 1 EACH CAP.SPRINK PO SCH ×2 (08:35→16:36)
[2016-10-24 08:36] LABS: INR 1.66 (0.87-1.13)
[2016-10-24] MEDS: LABETALOL HCL (100MG) 100 MG TABLET PO SCH ×2 (08:36→21:51)
[2016-10-24] MEDS: METOPROLOL TARTRATE 25 MG TABLET PO SCH ×2 (08:37→21:44)
[2016-10-24] MEDS: FOLIC ACID 1 MG TABLET PO SCH (08:37)
[2016-10-24] MEDS: QUETIAPINE FUMARATE 100 MG TABLET PO SCH ×2 (08:42→21:44)
[2016-10-24] MEDS: SEVELAMER CARBONATE 0.8 GM POWD.PACK GT SCH ×3 (08:42→17:09)
[2016-10-24] MEDS: PANTOPRAZOLE 40 MG TABLET.DR PO SCH (08:42)
[2016-10-24] MEDS: THIAMINE HCL 100 MG TABLET PO SCH (08:42)
[2016-10-24] MEDS: HYDROCODONE/APAP 10/325MG 1 EA TABLET PO PRN ×2 (08:48→21:52)
[2016-10-24] MEDS: BLOOD SUGAR DIAGNOSTIC 1 EACH STRIP VI SCH ×4 (08:54→21:44)
[2016-10-24] MEDS: INSULIN DETEMIR 100 UNIT/ML CARTRIDGE SQ SCH ×2 (08:56→21:53)
[2016-10-24] MEDS: HEPARIN INFUSION/D5W 500 ML IV PRN (12:12)
[2016-10-24 12:17] LABS: *SPE ALBUMIN 1.8 g/dL (2.9-4.4)
[2016-10-24 16:00] VITALS: BP 144/76
[2016-10-24] MEDS: WARFARIN SODIUM 5 MG TABLET PO SCH (16:39)
[2016-10-24 17:49] LABS: INR 2.01 (0.87-1.13); PROTHROMBIN TIME 21.9 SECS (9.5-12.7)
[2016-10-24 20:28] VITALS: BP 137/81
[2016-10-24] MEDS: SERTRALINE HCL 25 MG TABLET PO SCH (21:44)
[2016-10-24] MEDS: ATORVASTATIN 40 MG TABLET PO SCH (21:44)
[2016-10-24 23:29] LABS: INR 2.3 (0.87-1.13)
[2016-10-25] MEDS: BLOOD SUGAR DIAGNOSTIC 1 EACH STRIP VI SCH ×4 (06:41→19:52)
[2016-10-25 06:50] LABS: INR 3.37 (0.87-1.13); PROTHROMBIN TIME 36.9 SECS (9.5-12.7)
[2016-10-25 08:00] VITALS: BP 129/72
[2016-10-25] MEDS: INSULIN ASPART NOVOLOG 100 UNIT/ML CARTRIDGE SQ SCH ×3 (08:00→17:17)
[2016-10-25] MEDS: LABETALOL HCL (100MG) 100 MG TABLET PO SCH ×2 (09:07→20:31)
[2016-10-25] MEDS: QUETIAPINE FUMARATE 100 MG TABLET PO SCH ×2 (09:08→19:48)
[2016-10-25] MEDS: PANTOPRAZOLE 40 MG TABLET.DR PO SCH (09:08)
[2016-10-25] MEDS: THIAMINE HCL 100 MG TABLET PO SCH (09:08)
[2016-10-25] MEDS: LEVOTHYROXINE SODIUM 50 MCG TABLET PO SCH (09:08)
[2016-10-25] MEDS: LACTOBACILLUS RHAMNOSUS GG 1 EACH CAP.SPRINK PO SCH ×2 (09:08→17:16)
[2016-10-25] MEDS: GABAPENTIN 100 MG CAPSULE PO SCH ×2 (09:09→17:16)
[2016-10-25] MEDS: METOPROLOL TARTRATE 25 MG TABLET PO SCH ×2 (09:09→19:49)
[2016-10-25] MEDS: SEVELAMER CARBONATE 0.8 GM POWD.PACK GT SCH ×3 (09:09→17:16)
[2016-10-25] MEDS: FOLIC ACID 1 MG TABLET PO SCH (09:09)
[2016-10-25] MEDS: INSULIN DETEMIR 100 UNIT/ML CARTRIDGE SQ SCH ×2 (09:16→20:05)
[2016-10-25] MEDS: INSULIN REGULAR, HUMAN 100 UNIT/ML 3 ML VIAL SQ PRN ×2 (12:25→17:17)
[2016-10-25] MEDS: WARFARIN SODIUM 5 MG TABLET PO SCH (14:29)
[2016-10-25] MEDS: HYDROMORPHONE 1 MG/1 ML DISP.SYRIN IV PRN (15:39)
[2016-10-25 16:00] VITALS: BP 158/84
[2016-10-25] MEDS: SERTRALINE HCL 25 MG TABLET PO SCH (19:48)
[2016-10-25] MEDS: ATORVASTATIN 40 MG TABLET PO SCH (19:48)
[2016-10-25 20:00] VITALS: BP 136/80
[2016-10-25] MEDS: *INSULIN REGULAR(HUMULIN R)HUM 100 UNIT/ML VIAL SQ PRN (20:00)
[2016-10-25] MEDS: HYDROCODONE/APAP 10/325MG 1 EA TABLET PO PRN (20:26)
[2016-10-25 20:31] VITALS: BP 149/82
[2016-10-26] MEDS ORDERED: WARFARIN SODIUM 2 MG TABLET PO SCH (17:00)
== END 2016-10-25 20:48 | DRG 981 ==
LOC: ER 05:56 → TELE1 11:55 → MEDSG1 10-04 13:22 → ICU 10-10 15:42 → TELE1 10-13 12:46 → ICU 10-13 23:00 → TELE1 10-17 06:45 → MEDSG1 10-17 10:10 → MEDSG2 10-22 09:42
PROVIDERS: ADMIT Internal Medicine; ATTEND Internal Medicine
PROC: 5A1D60Z (ICD-10-PCS; 2016-10-02)
PROC: 0BDN0ZZ Extraction of Right Pleura, Open Approach (ICD-10-PCS; 2016-10-10)
PROC: 0BJ08ZZ Inspection of Tracheobronchial Tree, Via Natural or Artificial Opening Endoscopic (ICD-10-PCS; 2016-10-10)
PROC: 05H633Z Insertion of Infusion Device into Left Subclavian Vein, Percutaneous Approach (ICD-10-PCS; 2016-10-10)
PROC: 0W993ZZ Drainage of Right Pleural Cavity, Percutaneous Approach (ICD-10-PCS; principal; 2016-10-10 13:00)
PROC: 30233N1 Transfusion of Nonautologous Red Blood Cells into Peripheral Vein, Percutaneous Approach (ICD-10-PCS; 2016-10-11)
PROC: 02HV33Z Insertion of Infusion Device into Superior Vena Cava, Percutaneous Approach (ICD-10-PCS; 2016-10-14)
PROC: B548ZZA Ultrasonography of Superior Vena Cava, Guidance (ICD-10-PCS; 2016-10-14)
DX: I50.23 Acute on chronic systolic (congestive) heart failure (principal); N18.6 End stage renal disease; I13.2 Hypertensive heart and chronic kidney disease with heart failure and with stage 5 chronic kidney disease, or end stage renal disease; E87.2 Acidosis; E44.1 Mild protein-calorie malnutrition; I82.612 Acute embolism and thrombosis of superficial veins of left upper extremity; I82.C12 Acute embolism and thrombosis of left internal jugular vein; I82.B12 Acute embolism and thrombosis of left subclavian vein; J98.11 Atelectasis; R55 Syncope and collapse; Z99.2 Dependence on renal dialysis; I48.0 Paroxysmal atrial fibrillation; E78.5 Hyperlipidemia, unspecified; E11.22 Type 2 diabetes mellitus with diabetic chronic kidney disease; E03.9 Hypothyroidism, unspecified; K21.9 Gastro-esophageal reflux disease without esophagitis; F41.9 Anxiety disorder, unspecified; E87.5 Hyperkalemia; D72.829 Elevated white blood cell count, unspecified; D63.8 Anemia in other chronic diseases classified elsewhere; G89.29 Other chronic pain; M54.5 Low back pain; F71 Moderate intellectual disabilities; E53.8 Deficiency of other specified B group vitamins; E66.9 Obesity, unspecified; F32.9 Major depressive disorder, single episode, unspecified; G40.901 Epilepsy, unspecified, not intractable, with status epilepticus; I25.10 Atherosclerotic heart disease of native coronary artery without angina pectoris; K59.00 Constipation, unspecified; Z86.718 Personal history of other venous thrombosis and embolism
CPT/HCPCS: 36415; 36600; 70450-TC; 71010-TC; 71250-TC; 76942-TC; 80048-TC; 80053-TC; 80061-TC; 80076-TC; 80202-TC; 80305; 81000-TC; 81240; 82728-TC; 82746; 82803-TC; 82945-TC; 82962-TC; 83090; 83540-TC; 83605-TC; 83615-TC; 83735-TC; 83880; 84100-TC; 84155; 84155-TC; 84165; 84439-TC; 84443-TC; 84484-TC; 85025-TC; 85027-TC; 85045-TC; 85240; 85300; 85301; 85303; 85385-TC; 85610-TC; 85613; 85670; 85705; 85730-TC; 85732; 86147; 86704; 86705; 86706; 86803; 86850-TC; 86921-TC; 87040-TC; 87070-TC; 87081-TC; 87086-TC; 87116; 87206; 87340; 88305-TC; 90935-TC; 93307-TC; 93971-TC; 94799-TC; 95819-TC; 97001-TC; 97003-TC; 97116-TC; 97530-TC; A4216; A4217; A4606; A6253; A6402; C1751; C1769; J0885; J1165; J1170; J1644; J1815; J1885; J1956; J2060; J2250; J2270; J2370; J2405; J2543; J2550; J2997; J3010; J3370; J3411; J3475; J3490; J7030; J7040; J7042; J7050; J7060; P9016-BL; P9047; Z7610

== ENCOUNTER 2017-01-03 11:10 | Emergency (ER) | payer MEDICARE ==
[~2017-01-03] VITALS: Ht 185.4 cm; Wt 86.6 kg
[~2017-01-03 11:10] MED LIST changes: -ATOR10TA PO; +ATOR40TA PO; -LEVO25TA9 PO; +LEVO50TA8 PO; -LISI2.5T2 PO; +QUET300T2 PO; +ZOLP10TA2 PO
--- NOTE | 2017-01-03 11:18 | NUR ---
PT BIBRA TO ER BED 09. C/O DIZZINESS, WEAKNESS AND NAUSEA POST HD. PT NOT SURE HOW MUCH THEY TOOK OUT. HYPOTENSIVE FRONT OFFICE ADMINISTRATOR. GOWNED AND PLACED ON MONITOR. DENIES CHEST PAIN. AWAITING MD DURAN.
--- NOTE | 2017-01-03 11:49 | NUR ---
DR DUCKWORTH AT BEDSIDE FOR EVAL.
[2017-01-03] MEDS ORDERED: IV NS 0.9% 1,000 ML ONE (11:54)
[2017-01-03] MEDS ORDERED: IV SET PRIMARY PUMP SET 1 EA INFUS.SET MC ONE (11:54)
[2017-01-03] MEDS ORDERED: IV NS 0.9% 1,000 ML BAG IV ONE (12:00)
--- NOTE | 2017-01-03 12:00 | NUR ---
IV LINE STARTED BLOOD DRAWN AND SENT TO LAB.
--- NOTE | 2017-01-03 12:07 | NUR ---
RADIOLOGY AT BEDSIDE FOR CHEST XRAY.
[2017-01-03 12:16] LABS: BASOPHILS % (AUTO) 0.5 % (0.0-2.0); EOSINOPHILS # (AUTO) 0.2 /CMM (0.0-0.7); EOSINOPHILS % (AUTO) 2.8 % (0.0-6.0); HEMATOCRIT 43 % (39-51); HEMOGLOBIN 13.2 g/dL (13.5-17.5); LYMPHOCYTES % (AUTO) 11.6 % (20.0-44.0); MEAN CORPUSCULAR HEMOGLOBIN 28 PG (26.0-33.0); MEAN CORPUSCULAR HGB CONC 31 g/dl (31.0-36.0); MEAN CORPUSCULAR VOLUME 91 fL (80-96); MONOCYTES # (AUTO) 0.5 /CMM (0.1-1.30); MONOCYTES % (AUTO) 5.4 % (2.0-12.0); NEUTROPHILS # (AUTO) 6.9 /CMM (1.8-8.9); NEUTROPHILS % (AUTO) 79.7 % (43.0-81.0); PLATELET COUNT (AUTO) 113 /CMM (150-450); RDW COEFFICIENT OF VARIATION 22.6 (11.5-15.0); RED BLOOD CELL COUNT(AUTO) 4.73 MIL/uL (4.5-6.0); WHITE BLOOD COUNT (AUTO) 8.7 K/uL (4.3-11.0)
--- NOTE | 2017-01-03 12:16 | NUR ---
PT INSISTING ON GETTING NORCO. DR DUCKWORTH AWARE. PT IS STILL HYPOTENSIVE. STATES "I WANT TO BE TAKEN CARE OF. IF YOU GUYS WILL NOT TAKE CARE OF MY BACK PAIN I RATHER GO. "
[2017-01-03 12:20] LABS: POTASSIUM 4.7 mmol/L (3.5-5.1)
[2017-01-03 12:28] LABS: CALCIUM, SERUM 9.2 mg/dL (8.5-10.1)
--- NOTE | 2017-01-03 12:29 | NUR ---
Patient does not wish to proceed with medical care recommended by Dr. Laurent. Patient given information related to possible complications, up to and including , which could occur as a result of leaving the hospital at this time. Patient verbalizes understanding of risks involved due to leaving against medical advice. Patient has signed AMA form. Ambulatory w/ steady gait using a cane.
[2017-01-03 12:34] VITALS: BP 89/46
== END 2017-01-03 12:36 | disposition left against medical advice (07) ==
LOC: ER 11:14
DX: R42 Dizziness and giddiness (principal); M54.5 Low back pain; G89.29 Other chronic pain; E11.9 Type 2 diabetes mellitus without complications; I12.0 Hypertensive chronic kidney disease with stage 5 chronic kidney disease or end stage renal disease; N18.6 End stage renal disease; R53.1 Weakness; F17.200 Nicotine dependence, unspecified, uncomplicated; M51.26 Other intervertebral disc displacement, lumbar region; Z79.4 Long term (current) use of insulin; Z99.2 Dependence on renal dialysis
CPT/HCPCS: 36415; 71010-TC; 80048-TC; 82962-TC; 85025-TC; A4606; J7030; Z7610

== ENCOUNTER 2017-04-28 10:45 | Inpatient (IN) | payer MEDICARE ==
[~2017-04-28] VITALS: Ht 182.9 cm; Wt 91.6 kg
--- NOTE | 2017-04-28 10:45 | NUR ---
PATIENT BIB RA C/O EXPRESSIVE APHASIA SINCE LAST NIGHT. PATIENT FOUND ON FLOOR AT HOME. BLOOD SUGAR [address]. PATIENT IS A/OX 3, BUT HAVING MODERATE EXPRESSIVE APHASIA. PATIENT'S VITALS REMAIN STABLE. SAFETY AND COMFORT MEASURES IN PLACE. IV STARTED ON RAC, 20 G. BLOOD DRAWN AND SENT TO LAB. MD AT BEDSIDE FOR EVALUATION.
--- NOTE | 2017-04-28 11:00 | NUR ---
PATIENT TAKEN TO CT.
[2017-04-28 11:05] LABS: BASOPHILS % (AUTO) 0.5 % (0.0-2.0); EOSINOPHILS # (AUTO) 0.2 /CMM (0.0-0.7); EOSINOPHILS % (AUTO) 2.8 % (0.0-6.0); HEMATOCRIT 46 % (39-51); HEMOGLOBIN 14.4 g/dL (13.5-17.5); LYMPHOCYTES # (AUTO) 0.8 /CMM (0.8-4.8); LYMPHOCYTES % (AUTO) 11.8 % (20.0-44.0); MEAN CORPUSCULAR HEMOGLOBIN 30 PG (26.0-33.0); MEAN CORPUSCULAR HGB CONC 32 g/dl (31.0-36.0); MEAN CORPUSCULAR VOLUME 95 fL (80-96); MONOCYTES # (AUTO) 0.4 /CMM (0.1-1.30); MONOCYTES % (AUTO) 5.6 % (2.0-12.0); NEUTROPHILS # (AUTO) 5.3 /CMM (1.8-8.9); NEUTROPHILS % (AUTO) 79.3 % (43.0-81.0); PLATELET COUNT (AUTO) 122 /CMM (150-450); RDW COEFFICIENT OF VARIATION 18.3 (11.5-15.0); RED BLOOD CELL COUNT(AUTO) 4.81 MIL/uL (4.5-6.0); WHITE BLOOD COUNT (AUTO) 6.7 K/uL (4.3-11.0)
[2017-04-28] MEDS ORDERED: CT SWABBABLE VALVE TRANS SET 1 EA INFUS.SET MC ONE (11:09)
[2017-04-28] MEDS ORDERED: IOHEXOL-350 100 ML VIAL IV ONE (11:09)
[2017-04-28 11:10] LABS: CALCIUM, SERUM 8.7 mg/dL (8.5-10.1)
[2017-04-28] MEDS ORDERED: IV NS 0.9% 250 ML IV ONE (11:10)
[2017-04-28 11:11] LABS: CREATININE 14.1 mg/dL (0.6-1.3); POTASSIUM 6.7 mmol/L (3.5-5.1)
[2017-04-28 11:12] LABS: INR 1.12 (0.87-1.13); PROTHROMBIN TIME 11.7 SECS (9.5-12.7)
[2017-04-28 11:18] LABS: TROPONIN I 0.047 ng/mL (0.00-0.056)
--- NOTE | 2017-04-28 11:20 | NUR ---
PATIENT RETURNED FROM CT. REMAINS STABLE.
--- NOTE | 2017-04-28 11:47 | NUR ---
CALLED TELESTROKE AGAIN FOR DR CASTLE, TRANSFERRED TO DR DUCKWORTH
[2017-04-28] MEDS ORDERED: ASPIRIN EC 325 MG TABLET.DR PO ONE ×2 (12:00)
[2017-04-28] MEDS ORDERED: SODIUM POLYSTYRENE SULFONATE 15 G/60 ML BOTTLE RC ONE (12:00)
[2017-04-28] MEDS ORDERED: SODIUM POLYSTYRENE SULFONATE 15 G/60 ML BOTTLE ONE (12:00)
--- NOTE | 2017-04-28 12:06 | NUR ---
CALLED NURSING HYBRID POWERTRAIN DEVELOPMENT ENGINEER FOR TELE BED
--- NOTE | 2017-04-28 12:10 | NUR ---
PATIENT MEDICATED PER MD ORDERS.
--- NOTE | 2017-04-28 12:26 | NUR ---
PAGED DR JEFERSON SIERRA FOR PANEL ADMISSION
--- NOTE | 2017-04-28 12:36 | NUR ---
PAGED DR AVTAR MAGALLANES FOR CONSULT
--- NOTE | 2017-04-28 12:40 | NUR ---
REPORT GIVEN TO SHERMAN MENDEZ FOR ADMISSION.
--- NOTE | 2017-04-28 12:59 | NUR ---
PATIENT TRANSPORTED TO [facility]IA [facility] FOR ADMISSION. PATIENT REMAINS STABLE. FABIAN MENDEZ TO PROVIDE TRINA.
[2017-04-28 13:00] VITALS: BP 162/112
--- NOTE | 2017-04-28 13:14 | NUR ---
RN NOTES RECEIVED PT FROM ER VIA GURNEY FOUND DOWN AT HOME. PT IS A&OX3, ON ROOM AIR NO SOB OR DISTRESS NOTED. SEVERELY APHASIC, CT SCAN NEGATIVE FOR STROKE, NO HISTORY OF STROKE. NO OPEN WOUNDS PRESENT, JUST SCRATCHES ON KNEES BILATERALLY FROM BEING DOWN. RIGHT HAND IV 20 GAUGE. SIDE RAILS UPX3, CALL LIGHT WITHIN REACH, BED LOCKED AND IN LOWEST POSITION WILL CONT TO MONITOR.
--- NOTE | 2017-04-28 13:30 | NUR ---
RN NOTES DR SIERRA AWARE OF POTASSIUM 6.9. NO FURTHER ORDERS, AWARE PT IS GETTING HD, REDRAW IN AM.
[2017-04-28] MEDS ORDERED: SEVELAMER CARBONATE 0.8 GM POWD.PACK PO SCH (14:00)
[2017-04-28 14:52] LABS: BASOPHILS % (AUTO) 0.6 % (0.0-2.0); EOSINOPHILS # (AUTO) 0.3 /CMM (0.0-0.7); HEMATOCRIT 48 % (39-51); MEAN CORPUSCULAR HEMOGLOBIN 30 PG (26.0-33.0); MEAN CORPUSCULAR HGB CONC 31 g/dl (31.0-36.0); MEAN CORPUSCULAR VOLUME 96 fL (80-96); MONOCYTES # (AUTO) 0.4 /CMM (0.1-1.30); MONOCYTES % (AUTO) 6.3 % (2.0-12.0); NEUTROPHILS # (AUTO) 5.2 /CMM (1.8-8.9); NEUTROPHILS % (AUTO) 74.1 % (43.0-81.0); PLATELET COUNT (AUTO) 118 /CMM (150-450); RDW COEFFICIENT OF VARIATION 18.9 (11.5-15.0); RED BLOOD CELL COUNT(AUTO) 4.99 MIL/uL (4.5-6.0)
[2017-04-28 14:54] LABS: INR 1.1 (0.87-1.13); PROTHROMBIN TIME 11.8 SECS (9.5-12.7)
[2017-04-28 14:56] LABS: THYROID STIMULATING HORMONE 3.121 uIU/mL (0.358-3.74)
[2017-04-28 14:58] LABS: ALBUMIN 3.6 g/dL (3.4-5.0); BILIRUBIN,TOTAL 0.5 mg/dL (0.2-1.0); TOTAL PROTEIN, SERUM 8.7 g/dL (6.4-8.2)
[2017-04-28 15:00] LABS: CREATININE 14.3 mg/dL (0.6-1.3); POTASSIUM 6.9 mmol/L (3.5-5.1)
--- NOTE | 2017-04-28 15:59 | NUR ---
PATIENT VERY UPSET THAT HE IS NPO AND CLAIM THAT HE DIDNOT EAT SINCE LAST NIGHT,INSISTYED TO HAVE LATE LUNCH,TRIED ICE CHIPS ABLE TO CHEW AND SWALLOW,DR. SIERRA MADE AWARE AND OK WITH SOFT DIET LONG THERE IS SUPERVISION WHILE EATING .
[2017-04-28 16:00] VITALS: BP 129/94
--- NOTE | 2017-04-28 16:30 | NUR ---
RN NOTES PT JUST STATED HE HAS BIPOLAR DISORDER AND TAKES MEDICATION FOR IT AND FOR DEPRESSION. ZHANG THAT MEDICATIONS HAVE NOT BEEN GIVEN TO HIM HERE. DR SIERRA MADE AWARE. NEW ORDERS FOR SEROQUEL, MIRTAZAPINE, LASIX, AND AMBIEN FOLLOWING SAME DOSAGE FROM HOME.
--- NOTE | 2017-04-28 16:30 | NUR ---
RN NOTES HD COMPLETE PT TOLERATED WELL. 2L OUT, VITAL SIGNS STABLE.
[2017-04-28] MEDS: BLOOD SUGAR DIAGNOSTIC 1 EACH STRIP IN SCH ×2 (17:15→21:40)
[2017-04-28] MEDS: SEVELAMER CARBONATE 0.8 GM POWD.PACK PO SCH (17:52)
[2017-04-28] MEDS ORDERED: BLOOD SUGAR DIAGNOSTIC 1 EACH STRIP IN SCH (18:00)
--- NOTE | 2017-04-28 18:48 | NUR ---
RN NOTES PT RESTING IN BED ALTERATIONS OF LOC OR NEUROLOGICAL CHANGES. PT REFUSES O2, STATES ONLY USES 2L NC AT NIGHT, NO DISTRESS OR SOB NOTED. DVT PUMPS AT BEDSIDE, PT REFUSED TO USE THEM. SIDE RAILS UPX3, CALL LIGHT WITHIN REACH, BED ALARM ON, BED LOCKED AND IN LOWEST POSITION WILL ENDORSE TO ONCOMING SHIFT.
--- NOTE | 2017-04-28 19:00 | NUR ---
RN NOTE RECEIVED REPORT. PT AAOX3, APHASIA NOTED - WITH DIFFICULTY EXPRESSING THOUGHTS. WANTS TO GO HOME. NO S/S OR C/O ANY DISTRESS OR DISCOMFORT. REFUSING NC AT THIS TIME. IV INTACT AND PATENT. TELE SHOW ST 115. WILL CONT TO MONITOR, CLL LIGHT IN REACH.
[2017-04-28] MEDS: ATORVASTATIN 40 MG TABLET PO SCH (21:40)
[2017-04-28] MEDS: QUETIAPINE FUMARATE 100 MG TABLET PO SCH (21:40)
[2017-04-28] MEDS: MIRTAZAPINE 45 MG TABLET PO SCH (21:40)
[2017-04-28] MEDS: ZOLPIDEM TARTRATE 5 MG TABLET PO PRN (21:56)
--- NOTE | 2017-04-29 03:01 | NUR ---
RN NOTE NO DISTRESS NOTED AT THIS TIME. PT RESTING WITH EYES CLOSED. WILL MONITOR.
[2017-04-29] MEDS: LEVOTHYROXINE SODIUM 50 MCG TABLET PO SCH (06:59)
[2017-04-29] MEDS: BLOOD SUGAR DIAGNOSTIC 1 EACH STRIP IN SCH ×4 (06:59→22:33)
[2017-04-29 07:05] LABS: BASOPHILS % (AUTO) 0.6 % (0.0-2.0); EOSINOPHILS # (AUTO) 0.3 /CMM (0.0-0.7); EOSINOPHILS % (AUTO) 4.8 % (0.0-6.0); HEMATOCRIT 47 % (39-51); LYMPHOCYTES # (AUTO) 0.9 /CMM (0.8-4.8); LYMPHOCYTES % (AUTO) 14.5 % (20.0-44.0); MEAN CORPUSCULAR HEMOGLOBIN 31 PG (26.0-33.0); MEAN CORPUSCULAR HGB CONC 32 g/dl (31.0-36.0); MEAN CORPUSCULAR VOLUME 95 fL (80-96); MONOCYTES # (AUTO) 0.5 /CMM (0.1-1.30); MONOCYTES % (AUTO) 8.1 % (2.0-12.0); NEUTROPHILS # (AUTO) 4.3 /CMM (1.8-8.9); PLATELET COUNT (AUTO) 112 /CMM (150-450); RDW COEFFICIENT OF VARIATION 18.1 (11.5-15.0); RED BLOOD CELL COUNT(AUTO) 4.91 MIL/uL (4.5-6.0)
--- NOTE | 2017-04-29 07:05 | NUR ---
RN NTOE NO SIGNIFICANT CHANGES OVERNIGHT. PT AAOX2-3, APHASIA NOTED. NO S/S OR C/O ANY PAIN OR DISCOMFORT AT THIS TIME. BREATHING NON-LABORED AND EVEN. SAFETY PRECAUTIONS RENDERED. CALL LIGHT IN REACH. WILL F/U WITH DAY SHIFT FOR TRINA. TO SEE NEUROLOGIST
[2017-04-29 07:28] LABS: CALCIUM, SERUM 8.2 mg/dL (8.5-10.1); POTASSIUM 4.6 mmol/L (3.5-5.1)
[2017-04-29 07:31] LABS: CREATININE 12.6 mg/dL (0.6-1.3)
[2017-04-29 08:00] VITALS: BP 151/101
[2017-04-29] MEDS: SEVELAMER CARBONATE 0.8 GM POWD.PACK PO SCH ×3 (08:00→17:32)
[2017-04-29] MEDS: QUETIAPINE FUMARATE 100 MG TABLET PO SCH ×2 (09:10→22:32)
[2017-04-29] MEDS: FUROSEMIDE 20 MG TABLET PO SCH (09:10)
--- NOTE | 2017-04-29 11:56 | NUR ---
Social service consult requested by Dr. Wills due to pt. suffering a stroke. Pt. is a 56 year old male who was admitted to [facility] for stroke. JIN met with pt. bedside. Pt. is alert and oriented x3. Pt. states he [place] [id number] [facility], in [facility]. Pt's emergency contact is Laron Chavez . Pt. informed SW that Laron is aware of pt's hospitalization. Pt. is willing to go to care home facility for rehabilitation. SW informed showcase trimmer Emiliano regarding SNF placement. Pt. receives approximately $1000/ month in social security income. Pt. is his own decision maker and does not have an advance directive. Pt. states he is able to ambulate a few steps today. Yesterday, pt. was only able to stand. Pt. suffers from Depression and Anxiety and takes medication for it. Pt. denies drug and alcohol use. Pt. states the last time he drank alcohol was seven months ago. Pt. smokes approximately 6 cigarettes per day. No other social service needs are required at this time. Current discharge plan is for pt. to go to care home facility and case management is aware.
[2017-04-29] MEDS: HYDROCODONE/APAP 5/325MG 1 EACH TABLET PO PRN ×2 (15:38→22:33)
[2017-04-29] MEDS: hydrOXYzine 10 MG TABLET PO PRN (15:38)
--- NOTE | 2017-04-29 15:42 | NUR ---
Patient says "there is a reason I ask for certain (dilauded) medication, because they work. There is no chance for dependency." Discussed with patient provider notified of last request for dilauded and norco ordered. Maintains he gets relief from dilauded. Says he will try norco.
--- NOTE | 2017-04-29 15:57 | NUR ---
Friend of patient at bedside notes neurologist at [facility] had pt on EEG and appreciated siezure activity and patient was prescribed vimpat. But he took the paperwork and [facility] and [facility]. He was supposed to be on medication but was not upon discharge from the facility. The friend notes patient is still having trouble expressing himself verbally. He said he saw the pt eyes roll back and tongue come out prior to this admission.
[2017-04-29 16:00] VITALS: BP_SYST 125; BP_SYST 135; BP_DIAS 77; BP_DIAS 94
--- NOTE | 2017-04-29 16:47 | NUR ---
Patient MD Doctor Elma aware of patient request for dilauded because of pain. Says " I will talk to the patient. " [facility]
--- NOTE | 2017-04-29 16:57 | NUR ---
Pharmacist at [facility] says they have no record of patient getting vimpat at the facility. Will handoff to Massiel MENDEZ.
--- NOTE | 2017-04-29 17:00 | NUR ---
RN INITIAL NOTE PATIENT TRANSFER OF CARE, REPORT RECEIVED FROM ALEKSEY. PATIENT IS AAO X4. ABLE TO MAKE NEEDS KNOWN. SKIN WARM AND DRY TO TOUCH. SATING WELL ON ROOM AIR. SKIN WARM AND DRY TO TOUCH. IV SITE FLUSHED, PATENT. DRESSING C/D/I. SAFETY PRECAUTIONS IN PLACE. WILL CONTINUE TO MONITOR
[2017-04-29] MEDS ORDERED: ASPIRIN EC 325 MG TABLET.DR PO SCH (20:00)
[2017-04-29] MEDS: MIRTAZAPINE 45 MG TABLET PO SCH (22:33)
[2017-04-29] MEDS: ATORVASTATIN 40 MG TABLET PO SCH (22:33)
[2017-04-29] MEDS: ZOLPIDEM TARTRATE 5 MG TABLET PO PRN (22:35)
[2017-04-30 04:00] VITALS: BP 133/65
[2017-04-30] MEDS: BLOOD SUGAR DIAGNOSTIC 1 EACH STRIP IN SCH ×2 (07:45→15:32)
[2017-04-30] MEDS: HYDROCODONE/APAP 5/325MG 1 EACH TABLET PO PRN ×2 (07:51→15:28)
[2017-04-30] MEDS: LEVOTHYROXINE SODIUM 50 MCG TABLET PO SCH (07:51)
[2017-04-30 08:00] VITALS: BP 141/99
--- NOTE | 2017-04-30 08:08 | NUR ---
RN CLOSING NOTE PT REMAINS IN NO ACUTE DISTRESS IN BED. PT DID NOT HAVE ANY SIGNIFICANT CHANGE IN CONDITION DURING SHIFT. ALL NEEDS MET ALL ORDERS CARRIED OUT. WILL ENDORSE CARE TO AM RN FOR CONTINUITY OF CARE.
--- NOTE | 2017-04-30 08:15 | NUR ---
MS RN NOTE: PATIENT REMOVED BOTH RAC AND RH IV LINE. PER PATIENT, THEY WERE UNCOMFORTABLE AND HE WANTS BETTER PAIN MEDICATIONS LIKE THE ONES OTHER PATIENTS ARE RECEIVING IN THIS HOSPITAL. EDUCATION PROVIDED TO PATIENT. WILL CONT TO MONITOR.
[2017-04-30 08:30] VITALS: BP 116/70
[2017-04-30] MEDS: hydrOXYzine 10 MG TABLET PO PRN (09:06)
[2017-04-30] MEDS: SEVELAMER CARBONATE 0.8 GM POWD.PACK PO SCH ×2 (09:07→15:27)
[2017-04-30] MEDS: QUETIAPINE FUMARATE 100 MG TABLET PO SCH (09:07)
[2017-04-30] MEDS: FUROSEMIDE 20 MG TABLET PO SCH (09:07)
--- NOTE | 2017-04-30 11:00 | NUR ---
MS RN NOTE: DR. SIERRA AT BEDSIDE. AWARE OF BP. NO NEW ORDERS. POSSIBLE D/C.
--- NOTE | 2017-04-30 11:25 | NUR ---
MS RN NOTE: CHEMICAL RESEARCH ENGINEER AT BEDSIDE, PT TAKEN TO MRI.
[2017-04-30 12:00] VITALS: BP 141/99
--- NOTE | 2017-04-30 12:06 | NUR ---
MS RN NOTE: PT BACK FROM RADIOLOGY.
--- NOTE | 2017-04-30 12:16 | NUR ---
MS RN NOTE: DIALYSIS NURSE AT BEDSIDE.
[2017-04-30] MEDS ORDERED: ALTEPLASE CATHFLO 2 MG/VIAL IV ONE (13:00)
[2017-04-30] MEDS ORDERED: ASPI325T2 PO (13:29)
--- NOTE | 2017-04-30 15:39 | NUR ---
MS RN NOTE: DR. SIERRA NOTIFIED OF BS 186 MG/DL POST MEAL. NO NEW ORDERS.
--- NOTE | 2017-04-30 16:00 | NUR ---
MS RN NOTE: PATIENT DISCHARGED HOME IN STABLE CONDITION. VITAL SIGNS: BP 127/58, HR 93, RR 18, O2SAT 100%, DENIED PAIN. D/C FORM AND BELONGINGS LIST SIGNED. BELONGINGS RETURNED. ORDERS CARRIED OUT. PATIENT LEFT THE UNIT VIA WHEELCHAIR ACCOMPANIED BY HIS FRIEND ML AT 1600.
== END 2017-04-30 16:00 | disposition home or self-care (01) | DRG 64 ==
LOC: ER 10:47 → OBSVTOIN 12:50 → TELE-TD 12:50 → TELE1 12:59 → MEDSG1 04-29 09:57
PROVIDERS: ADMIT Internal Medicine; ATTEND Internal Medicine
PROC: 5A1D60Z (ICD-10-PCS; principal; 2017-04-28)
DX: I63.9 Cerebral infarction, unspecified (principal); N18.6 End stage renal disease; I13.2 Hypertensive heart and chronic kidney disease with heart failure and with stage 5 chronic kidney disease, or end stage renal disease; E11.22 Type 2 diabetes mellitus with diabetic chronic kidney disease; I48.0 Paroxysmal atrial fibrillation; R47.01 Aphasia; E87.5 Hyperkalemia; F32.9 Major depressive disorder, single episode, unspecified; I50.9 Heart failure, unspecified; E03.9 Hypothyroidism, unspecified; E78.5 Hyperlipidemia, unspecified; I25.10 Atherosclerotic heart disease of native coronary artery without angina pectoris; F41.9 Anxiety disorder, unspecified; K21.9 Gastro-esophageal reflux disease without esophagitis; Z99.2 Dependence on renal dialysis; F39 Unspecified mood [affective] disorder; Z76.5 Malingerer [conscious simulation]; Z82.49 Family history of ischemic heart disease and other diseases of the circulatory system
CPT/HCPCS: 36415; 70450-TC; 70496-TC; 70498-TC; 70551-TC; 71010-TC; 80048-TC; 80053-TC; 80061-TC; 82962-TC; 83880; 84443-TC; 84484-TC; 85025-TC; 85652-TC; 85730-TC; 87081-TC; 90935-TC; 92521; 92611-TC; 93307-TC; 93880-TC; A4565; A4606; A6402; J2997; J7050; Q0177; Q9967; Z7610

== ENCOUNTER 2017-06-01 21:00 | Inpatient (IN) | payer MEDICARE ==
[~2017-06-01] VITALS: Ht 185.4 cm; Wt 92.2 kg
[2017-06-01 04:00] VITALS: BP 152/108
[~2017-06-01 21:00] MED LIST changes: +ASPI325T2 PO
--- NOTE | 2017-06-01 21:00 | NUR ---
PT BIB FRIEND TO ER BED 09. PT IS C/O LOWER BACK PAIN. STATES MULTIPLE FALLS FOR THE PAST WEEK. PT IS GOWNED AND PLACED ON MONITOR. NOTED TO BE TACHYCARDIC, LOW GRADE FEVER AND HYPERTENSIVE. PT IS ON DIALYSIS AND MISS HIS DIALYSIS TODAY. PT IS AAO, AWAITING MD DURAN.
--- NOTE | 2017-06-01 21:53 | NUR ---
RADIOLOGY AT BEDSIDE FOR CHEST XRAY.
--- NOTE | 2017-06-01 21:58 | NUR ---
DR NULL AT BEDSIDE FOR EVAL.
[2017-06-01 21:59] LABS: BASOPHILS % (AUTO) 0.3 % (0.0-2.0); EOSINOPHILS # (AUTO) 0.3 /CMM (0.0-0.7); EOSINOPHILS % (AUTO) 3.9 % (0.0-6.0); HEMATOCRIT 38 % (39-51); HEMOGLOBIN 11.8 g/dL (13.5-17.5); LYMPHOCYTES # (AUTO) 0.6 /CMM (0.8-4.8); LYMPHOCYTES % (AUTO) 8.3 % (20.0-44.0); MEAN CORPUSCULAR HEMOGLOBIN 28 PG (26.0-33.0); MEAN CORPUSCULAR HGB CONC 31 g/dl (31.0-36.0); MEAN CORPUSCULAR VOLUME 89 fL (80-96); MONOCYTES # (AUTO) 0.4 /CMM (0.1-1.30); MONOCYTES % (AUTO) 5.8 % (2.0-12.0); NEUTROPHILS # (AUTO) 6.3 /CMM (1.8-8.9); NEUTROPHILS % (AUTO) 81.7 % (43.0-81.0); PLATELET COUNT (AUTO) 217 /CMM (150-450); RDW COEFFICIENT OF VARIATION 18.6 (11.5-15.0); RED BLOOD CELL COUNT(AUTO) 4.22 MIL/uL (4.5-6.0); WHITE BLOOD COUNT (AUTO) 7.7 K/uL (4.3-11.0)
[2017-06-01] MEDS ORDERED: IV NS 0.9% 1,000 ML BAG IV ONE (22:00)
[2017-06-01] MEDS ORDERED: ONDANSETRON HCL/PF 4 MG/2 ML VIAL ONE (22:10)
[2017-06-01] MEDS ORDERED: ACETAMINOPHEN ES 500 MG TABLET ONE (22:11)
[2017-06-01] MEDS ORDERED: HYDROMORPHONE INJ 2 MG/ML DISP.SYRIN ONE (22:11)
[2017-06-01] MEDS ORDERED: PIPERACILLIN /TAZOBACTAM 3.375 G VIAL IV ONE (22:20)
[2017-06-01] MEDS ORDERED: VANCOMYCIN 1 GM VIAL ONE (22:20)
[2017-06-01] MEDS ORDERED: DEXAMETHASONE SOD PHOSPHATE 10 MG/ML VIAL ONE (22:20)
[2017-06-01] MEDS ORDERED: LEVOFLOXACIN 750 MG /D5W 150ML 150 ML IV ONE ×2 (22:20→22:30)
[2017-06-01 22:28] LABS: INR 1.15 (0.87-1.13)
[2017-06-01] MEDS ORDERED: VANCOMYCIN 1 GM in IV D5W 250 ML IV ONE (22:30)
[2017-06-01] MEDS ORDERED: IPRATROPIUM NEB FS 0.5 MG/2.5 ML AMPUL.NEB NEB ONE (22:30)
[2017-06-01] MEDS ORDERED: HYDROMORPHONE 1 MG/1 ML DISP.SYRIN IV ONE (22:30)
[2017-06-01] MEDS ORDERED: ALBUTEROL FS 2.5 MG/3 ML VIAL.NEB NEB ONE (22:30)
[2017-06-01] MEDS ORDERED: PIPERACILLIN /TAZOBACTAM 3.375 G in IV D5W 50 ML IV ONE (22:30)
[2017-06-01] MEDS ORDERED: ONDANSETRON HCL/PF 4 MG/2 ML VIAL IV ONE (22:30)
[2017-06-01] MEDS ORDERED: DEXAMETHASONE SOD PHOSPHATE 10 MG/ML VIAL IV ONE (22:30)
[2017-06-01] MEDS ORDERED: ACETAMINOPHEN ES 500 MG TABLET PO ONE (22:30)
[2017-06-01] MEDS ORDERED: IPRATROPIUM NEB FS 0.5 MG/2.5 ML AMPUL.NEB ONE (22:32)
[2017-06-01] MEDS ORDERED: ALBUTEROL FS 2.5 MG/3 ML VIAL.NEB ONE (22:32)
--- NOTE | 2017-06-01 22:35 | NUR ---
RT AT BEDSIDE FOR BREATHING TREATMENT.
[2017-06-01 22:46] LABS: ALBUMIN 3.1 g/dL (3.4-5.0); BILIRUBIN,DIRECT 0.1 mg/dL (0.0-0.2); BILIRUBIN,TOTAL 0.5 mg/dL (0.2-1.0); CALCIUM, SERUM 8.2 mg/dL (8.5-10.1); POTASSIUM 5.9 mmol/L (3.5-5.1); TOTAL PROTEIN, SERUM 8.2 g/dL (6.4-8.2)
[2017-06-01 22:50] LABS: CREATININE 13.2 mg/dL (0.6-1.3)
[2017-06-01 23:08] LABS: TROPONIN I 0.094 ng/mL (0.00-0.056)
[2017-06-01] MEDS ORDERED: FUROSEMIDE 40 MG/4 ML VIAL ONE (23:15)
[2017-06-01] MEDS ORDERED: ASPIRIN 81 MG TAB.CHEW ONE (23:21)
[2017-06-01] MEDS ORDERED: ASPIRIN 325 MG TABLET PO ONE (23:30)
[2017-06-01] MEDS ORDERED: FUROSEMIDE 40 MG/4 ML VIAL IV ONE (23:30)
[2017-06-01] MEDS ORDERED: IV NS 0.9% 250 ML IV ONE (23:48)
[2017-06-01] MEDS ORDERED: IOHEXOL-350 100 ML VIAL IV ONE (23:48)
[2017-06-02] MEDS ORDERED: ONDANSETRON HCL/PF 4 MG/2 ML VIAL IVP PRN
[2017-06-02] MEDS ORDERED: MAGNESIUM HYDROXIDE 30 ML UDC PO PRN
[2017-06-02] MEDS ORDERED: MAG HYDROX/AL HYDROX/SIMETH 30 ML UDC PO PRN
[2017-06-02] MEDS ORDERED: HYDROCODONE/APAP 5/325MG 1 EACH TABLET PO PRN
[2017-06-02] MEDS ORDERED: Z GUARD REMEDY 2 OZ OINT TP PRN
[2017-06-02] MEDS ORDERED: ACETAMINOPHEN 325 MG TABLET PO PRN
[2017-06-02] MEDS ORDERED: LORAZEPAM INJ 2 MG/ML VIAL ONE (00:02)
--- NOTE | 2017-06-02 00:02 | NUR ---
ATIVAN 1MG IVP GIVEN PER DR NULL VERBAL ORDER.
--- NOTE | 2017-06-02 00:04 | NUR ---
PT TO RADIOLOGY FOR HEAD AND CHEST CT VIA [facility].
--- NOTE | 2017-06-02 00:25 | NUR ---
REPORT GIVEN TO JAIDEN. PT AWAITING TRANSFER TO FLOOR.
[2017-06-02] MEDS ORDERED: LORAZEPAM INJ 2 MG/ML VIAL IV ONE (00:30)
[2017-06-02] MEDS ORDERED: IPRATROPIUM NEB FS 0.5 MG/2.5 ML AMPUL.NEB NEB PRN (02:00)
[2017-06-02] MEDS ORDERED: DEXTROSE 50%-WATER 50 ML DISP.SYRIN IV PRN (02:00)
[2017-06-02] MEDS ORDERED: ALBUTEROL FS 2.5 MG/0.5 ML VIAL.NEB NEB PRN (02:00)
--- NOTE | 2017-06-02 02:51 | NUR ---
PT TRANSFERED TO VIA [facility] WITH EMT AND RN. PT A/OX4. NO NEURO DEFICITS NOTED. PT AMBULATORY WITH ASSISTANCE TO BED.
--- NOTE | 2017-06-02 03:00 | NUR ---
TELE ASSISTANT SALES DIRECTOR INITIAL NOTES ADMIT PT FROM ER VIA [facility] ACCOMPANIED BY ELECTRIC DETECTOR OPERATOR AND NURSE. DX OF COPD. PT ALERT AND AWAKE, ABLE TO AMBULATE USING HIS CANE. HE ALSO WITH O2 AT 2 LITERS VIA NC. NO SOB NOTED AT THIS TIME. NO SIGNS OF ANY ACUTE DISTRESS NOTED. ABLE TO MOVED HIS BOTH UPPER EXTREMITIES AND LOWER BUT NOTICED MILD WEAKNESS, SKIN WARM AND DRY TO TOUCH BUT NOTICED SOME RASH AND SCABS ON BOTH ARMS AND PER PT STATE BECAUSE HE HAS CAT AT HOME, BREATHING EVEN AND NON-LABORED, NOT IN ANY ACUTE DISTRESS NOTED. PT STATED MULTIPLE FALLS FROM THE PAST. PLACED ON MONITOR SR WITH BBB HEART RATE 117 PER MANAGER INTRANET. SINUS RHYTHM WITH BBB HEART RATE 117 PER MONITOR. PT DENIES ANY CHEST PAIN BUT COMPLAINING OF LOWER BACK PAIN. OFFERED SOME SNACKS AND PAIN MEDICATION NORCO TABLET BUT INSTEAD PT WANTS PAIN SHOT DILAUDID. SPOKE TO HIM THAT I NEEDS TO CALL HIS MD FOR HIS REQUEST AND HE STATES "OK'. WILL CONTINUE TO MONITOR, PLACE CALL LIGHT AT REACH.
[2017-06-02] MEDS: MORPHINE SULFATE INJ 2 MG/ML DISP.SYRIN IV PRN ×4 (03:25→20:02)
--- NOTE | 2017-06-02 03:25 | NUR ---
TELE YOKE SETTER NOTES' C/O GENERALIZED PAIN BUT SPECIALLY LOWER BACK PAIN, MORPHINE 2 MG IVP ADMINISTERED BY ANOTHER NURSE AUNDREA/RN APRYL IVP ORDERED. LIGHT SNACKS SERVED AND TOLERATED WELL NO ASPIRATION NOTED. KEPT HIM WARM AND COMFORTABLE AT ALL TIMES. WILL CONTINUE TO MONITOR.
[2017-06-02 03:32] VITALS: BP 152/108
[2017-06-02 03:46] VITALS: BP 152/108
[2017-06-02 06:31] LABS: BASOPHILS % (AUTO) 0.3 % (0.0-2.0); EOSINOPHILS % (AUTO) 0.6 % (0.0-6.0); HEMATOCRIT 38 % (39-51); HEMOGLOBIN 11.8 g/dL (13.5-17.5); LYMPHOCYTES # (AUTO) 0.2 /CMM (0.8-4.8); LYMPHOCYTES % (AUTO) 4.6 % (20.0-44.0); MEAN CORPUSCULAR HEMOGLOBIN 28 PG (26.0-33.0); MEAN CORPUSCULAR HGB CONC 31 g/dl (31.0-36.0); MEAN CORPUSCULAR VOLUME 91 fL (80-96); MONOCYTES % (AUTO) 0.9 % (2.0-12.0); NEUTROPHILS # (AUTO) 4.5 /CMM (1.8-8.9); NEUTROPHILS % (AUTO) 93.6 % (43.0-81.0); PLATELET COUNT (AUTO) 220 /CMM (150-450); RDW COEFFICIENT OF VARIATION 18.4 (11.5-15.0); RED BLOOD CELL COUNT(AUTO) 4.18 MIL/uL (4.5-6.0); WHITE BLOOD COUNT (AUTO) 4.9 K/uL (4.3-11.0)
[2017-06-02 06:46] LABS: MAGNESIUM 1.9 mg/dL (1.8-2.4); PHOSPHORUS 7.4 mg/dL (2.5-4.9)
[2017-06-02] MEDS: BLOOD SUGAR DIAGNOSTIC 1 EACH STRIP IN SCH ×4 (06:53→21:58)
[2017-06-02 06:56] LABS: TROPONIN I 0.073 ng/mL (0.00-0.056)
[2017-06-02 06:57] LABS: THYROID STIMULATING HORMONE 1.474 uIU/mL (0.358-3.74)
[2017-06-02 07:01] VITALS: BP 151/103
--- NOTE | 2017-06-02 07:30 | NUR ---
TELE MACHINE WELT BUTTER CLOSING NOTES PT REMAINS SLEEPING , BLOOD SUGAR CHECKED DONE AND 220, ENDORSE TO AM NURSE TO ADMINISTER THE INSULIN BECAUSE NOT AVAILABLE AT THIS TIME. NO SIGNS OF HYPER GLYCEMIA NOTED. STABLE SINCE ADMISSION AND SLEPT WELL AFTER PAIN MEDS GIVEN. TELE SR WITH BBB PER MONITOR. ENDORSE TO AM NURSE FOR CONTINUITY OF CARE.
[2017-06-02 07:35] LABS: CREATININE 13.6 mg/dL (0.6-1.3)
[2017-06-02 08:00] VITALS: BP 140/98
[2017-06-02] MEDS ORDERED: LEVOFLOXACIN 500 MG /D5W 100ML 500 MG in PREMIX 1 EA IV ONE ×2 (09:00→14:00)
[2017-06-02] MEDS ORDERED: ASPIRIN 325 MG TABLET PO SCH (09:00)
[2017-06-02] MEDS ORDERED: QUETIAPINE FUMARATE 25 MG TABLET PO SCH (09:00)
[2017-06-02] MEDS: INSULIN REGULAR, HUMAN 100 UNIT/ML 3 ML VIAL SQ PRN ×2 (09:02→17:15)
[2017-06-02] MEDS: GABAPENTIN 100 MG CAPSULE PO SCH ×2 (09:03→16:49)
[2017-06-02] MEDS: LACTOBACILLUS RHAMNOSUS GG 1 EACH CAP.SPRINK PO SCH ×2 (09:03→16:49)
[2017-06-02] MEDS: SERTRALINE HCL 25 MG TABLET PO SCH (09:03)
[2017-06-02] MEDS: LEVOTHYROXINE SODIUM 50 MCG TABLET PO SCH (09:03)
[2017-06-02] MEDS: methylPREDNISolone SOD SUCC 40 MG/ML VIAL IV SCH ×3 (09:03→16:49)
--- NOTE | 2017-06-02 09:11 | NUR ---
MED /SURGE RN NOTES RECEIVED PATIENT IN THE BED, A/O X3, NO RESPIRATORY DISTRESS, PT ON O2 2L- NC, PATIENT WAS C/O PAIN LOWER BACK PAIN, PATIENT MED COMPLIANT, V/S STABLE, PATIENT K+ LEVEL 7.0, MD AWARE OF, HEP LOCK ON RIGHT HAND INTACT, PT TURN AND REPOSITION Q 2 HR, NEEDS ATTENDED AND ANTICIPATED, SAFETY PRECAUTION MAINTAINED ALL THE TIME, CALL LIGHT WITHIN THE PATIENT CONTINUED MONITORING.
[2017-06-02] MEDS: LIDOCAINE 5% (PATCH) 1 EA PATCH TP SCH (09:20)
[2017-06-02] MEDS: QUETIAPINE FUMARATE 100 MG TABLET PO SCH ×2 (09:25→21:57)
--- NOTE | 2017-06-02 09:27 | NUR ---
MED /SURGE RN NOTES/ ADMINISTERED MORPHINE 2MG/ML IN PUSH FOR LOWER BACK PAIN 04/02, V/S TAKEN BP -152/89, P-97, `CONTINUED MONITORING.
[2017-06-02] MEDS ORDERED: QUETIAPINE FUMARATE 100 MG TABLET PO SCH (09:30)
[2017-06-02] MEDS: INSULIN DETEMIR 100 UNIT/ML CARTRIDGE SQ SCH ×2 (10:38→21:00)
[2017-06-02] MEDS ORDERED: INSULIN REGULAR, HUMAN 100 UNIT/ML 10 ML VIAL SQ ONE (11:00)
--- NOTE | 2017-06-02 11:08 | NUR ---
MED/SURGE RN NOTES/ LEVAQUIN NOT GIVEN BECAUSE PATIENT ON DIALYSIS AT THIS TIME. CONTINUED MONITORING.
[2017-06-02] MEDS: ASPIRIN 81 MG TAB.CHEW PO SCH (11:47)
--- NOTE | 2017-06-02 12:34 | NUR ---
RN NOTES/ PATIENT GETTING HEMODIALYSIS AT THIS TIME, BS-123 MG/DL, V/S STABLE, NO RESPIRATORY DISTRESS, CONTINUED MONITORING FOR SAFETY.
[2017-06-02] MEDS: SEVELAMER CARBONATE 0.8 GM POWD.PACK PO SCH ×2 (13:27→16:50)
[2017-06-02] MEDS ORDERED: LEVOFLOXACIN 250 MG /D5W 50 ML 250 MG in PREMIX 1 EA IV SCH (14:00)
--- NOTE | 2017-06-02 15:08 | NUR ---
RN NOTES ADMINISTERED MORPHINE 2MG/ML IV PUSH PER PATIENT REQUEST, PAIN LEVEL IS 8 ON PAIN SCALE, ENCOURAGED TO INCREASE FLUID INTAKE, NEEDS ATTENDED AND ANTICIPATED, CALL LIGHT WITHIN TO REACH, SAFETY PRECAUTION MAINTAINED ALL THE TIME. FAMILY NEXT TO THE BED .
[2017-06-02 16:00] VITALS: BP 144/92
[2017-06-02] MEDS: LACOSAMIDE 50 MG TABLET PO SCH ×2 (16:55→21:56)
[2017-06-02] MEDS: RENAL NOVASOURCE (8OZ) 1 EA BOX PO SCH (17:00)
--- NOTE | 2017-06-02 17:11 | NUR ---
RN NOTES PATIENT REFUSED DVT PUMP, AND NOVASOURCE RENAL DRINK, BS-123 MG/DL, PATIENT MED COMPLEAT, V/S STABLE, NEEDS ATTENDED AND ANTICIPATED. CALL NAVA WITHIN TO REACH SAFETY PRECAUTION MAINTAINED ALL THE TIME, OUTPUT AFTER DIALYSIS IS GET 2800 MG . CONTINUED MONITORING.
--- NOTE | 2017-06-02 19:00 | NUR ---
RN NOTES PATIENT STABLE AT THIS TIME, NO RESPIRATORY DISTRESS, PATIENT MED COMPLIANT, PATIENT ASSIST BATHROOM, V/S WNL, CALL NAVA WITHIN THE PATIENT. ENDORSED ONCOMING NURSE FOR CONTINUATION OF CARE.
--- NOTE | 2017-06-02 19:35 | NUR ---
RN OPENING NOTES RECEIVED REPORT FROM DARIA RN, CLAUDIA. FOUND Pt AWAKE, SITTING UP IN BED WATCHING TV. NO S/S OF ACUTE DISTRESS OR SOB NOTED. Pt IS A/OX4, VERBAL, ABLE TO MAKE NEEDS KNOWN. Pt IS AMB WITH CANE. ON RENAL DIET. IV ACCESS RHAND #20G, SL & RAC #20G, SL. SAFETY MEASURES IN PLACE. BED LOW, LOCKED, HOB ELEVATED, SIDE RAILS UP, CALL LIGHT AND BEDSIDE TABLE WITHIN REACH. WILL CONTINUE TO MONITOR Pt THROUGHOUT THE NIGHT FOR SAFETY.
[2017-06-02 20:00] VITALS: BP 132/86
[2017-06-02] MEDS: ATORVASTATIN 40 MG TABLET PO SCH (21:56)
--- NOTE | 2017-06-02 22:35 | NUR ---
ACCUCHECK BG 100. NO INSULIN COVERAGE NEEDED AT THIS TIME.
[2017-06-03] VITALS: BP 145/95
[2017-06-03] MEDS ORDERED: ZOLPIDEM TARTRATE 10 MG TABLET ONE (00:29)
[2017-06-03] MEDS: ZOLPIDEM TARTRATE 10 MG TABLET PO PRN ×2 (00:33→23:54)
[2017-06-03] MEDS: MORPHINE SULFATE INJ 2 MG/ML DISP.SYRIN IV PRN ×5 (00:38→21:35)
[2017-06-03 04:00] VITALS: BP 133/89
[2017-06-03 06:34] LABS: EOSINOPHILS # (AUTO) 0.1 /CMM (0.0-0.7); EOSINOPHILS % (AUTO) 0.8 % (0.0-6.0); HEMATOCRIT 35 % (39-51); HEMOGLOBIN 11.2 g/dL (13.5-17.5); LYMPHOCYTES # (AUTO) 0.3 /CMM (0.8-4.8); LYMPHOCYTES % (AUTO) 3.7 % (20.0-44.0); MEAN CORPUSCULAR HEMOGLOBIN 29 PG (26.0-33.0); MEAN CORPUSCULAR HGB CONC 32 g/dl (31.0-36.0); MEAN CORPUSCULAR VOLUME 91 fL (80-96); MONOCYTES # (AUTO) 0.4 /CMM (0.1-1.30); MONOCYTES % (AUTO) 4.2 % (2.0-12.0); NEUTROPHILS # (AUTO) 8.3 /CMM (1.8-8.9); NEUTROPHILS % (AUTO) 91.3 % (43.0-81.0); PLATELET COUNT (AUTO) 184 /CMM (150-450); RED BLOOD CELL COUNT(AUTO) 3.89 MIL/uL (4.5-6.0); WHITE BLOOD COUNT (AUTO) 9.1 K/uL (4.3-11.0)
--- NOTE | 2017-06-03 06:36 | NUR ---
ACCUCHECK BG 95. NO INSULIN COVERAGE NEEDED AT THIS TIME.
--- NOTE | 2017-06-03 06:37 | NUR ---
RN CLOSING NOTES NO SIGNIFICANT CHANGES NOTED DURING THE SHIFT. ALL NEEDS MET AND ATTENDED TO. NO S/S OF ACUTE DISTRESS OR SEVERE SOB NOTED DURING THE NIGHT. SAFETY MEASURES IN PLACE. TELE READING SR WITH BBB's. WILL ENDORSE TO DAYSHIFT RN FOR Pt's TRINA.
[2017-06-03] MEDS: BLOOD SUGAR DIAGNOSTIC 1 EACH STRIP IN SCH ×4 (06:42→22:30)
[2017-06-03] MEDS: LEVOTHYROXINE SODIUM 50 MCG TABLET PO SCH (06:43)
[2017-06-03 06:51] LABS: CALCIUM, SERUM 7.2 mg/dL (8.5-10.1); POTASSIUM 5.4 mmol/L (3.5-5.1)
--- NOTE | 2017-06-03 07:10 | NUR ---
RN INITIAL NOTES: RECEIVED PATIENT RESTING IN BED. No signs of distress noted. Nonlabored breathing with 2 L nasal cannula noted. No signs of distress noted. IV site on right hand patent and intact. Bed in lowest locked position. Call light within reach. Will continue to monitor.
--- NOTE | 2017-06-03 07:19 | NUR ---
RN Notes: Telemetry discontinued per DR. Joshi's orders
[2017-06-03 07:55] LABS: CREATININE 11.2 mg/dL (0.6-1.3); PHOSPHORUS 8.1 mg/dL (2.5-4.9)
[2017-06-03 08:00] VITALS: BP 127/79
[2017-06-03] MEDS: SEVELAMER CARBONATE 0.8 GM POWD.PACK PO SCH ×3 (08:23→17:58)
[2017-06-03] MEDS: RENAL NOVASOURCE (8OZ) 1 EA BOX PO SCH ×2 (08:23→17:00)
[2017-06-03] MEDS: methylPREDNISolone SOD SUCC 40 MG/ML VIAL IV SCH ×3 (08:24→17:58)
[2017-06-03] MEDS: GABAPENTIN 100 MG CAPSULE PO SCH ×2 (08:24→17:58)
[2017-06-03] MEDS: LACOSAMIDE 50 MG TABLET PO SCH ×2 (08:24→22:14)
[2017-06-03] MEDS: SERTRALINE HCL 25 MG TABLET PO SCH (08:24)
[2017-06-03] MEDS: LACTOBACILLUS RHAMNOSUS GG 1 EACH CAP.SPRINK PO SCH ×2 (08:25→17:58)
[2017-06-03] MEDS: ASPIRIN 81 MG TAB.CHEW PO SCH (08:25)
--- NOTE | 2017-06-03 08:25 | NUR ---
RN NOTES: LAB REPORTED ELEVATED PHOSPHOROUS VALUE. DR GONCALVES NOTIFIED. PATIENT IS RECEIVING RENVELA. NO NEW ORDERS REGARDING PHOSPHOROUS LEVELS. DR. GONCALVES AWARE OF POTASSIUM WELL OTHER LAB RESULTS. PATIENT IS SET TO HAVE DIALYSIS TODAY. NO FURTHER ORDERS
[2017-06-03] MEDS ORDERED: LEVOFLOXACIN 250 MG /D5W 50 ML 250 MG in PREMIX 1 EA IV SCH (09:00)
[2017-06-03] MEDS: INSULIN DETEMIR 100 UNIT/ML CARTRIDGE SQ SCH ×2 (09:00→21:09)
--- NOTE | 2017-06-03 10:00 | NUR ---
RN NOTES: patient refused levemir, blood sugar 157. patient had breakfast an hour before. benefits and risks explained
[2017-06-03] MEDS: LIDOCAINE 5% (PATCH) 1 EA PATCH TP SCH (10:12)
[2017-06-03] MEDS: QUETIAPINE FUMARATE 100 MG TABLET PO SCH ×2 (10:13→22:15)
[2017-06-03] MEDS: INSULIN REGULAR, HUMAN 100 UNIT/ML 3 ML VIAL SQ PRN ×3 (12:40→22:49)
[2017-06-03 16:00] VITALS: BP 144/97
--- NOTE | 2017-06-03 17:30 | NUR ---
RN Notes: 2318: patient complained of "pressure on chest" of 9/10 aching pain that is nonradiating. Patient denied shortness of breath. Nasal cannula of 2 L put back on patient. Non-labored breathing noted with SPO2 WNL. 1703 morphine administered via IV. EKG stat ordered and done. Results indicated sinus tachycardia with BBB. No ST elevation noted. Dr. Jones aware of situation and results. No new orders
--- NOTE | 2017-06-03 18:00 | NUR ---
RN Notes: Patient states that pain has decreased to 8, however pressure still present, no shortness of breath, nonlabored breathing noted
--- NOTE | 2017-06-03 18:17 | NUR ---
RN NOTES: TROPONIN LEVELS CAME BACK, 0.[address] GONCALVES NOTIFIED.DR. GONCALVES ORDERED TROPONIN LEVELS TO BE DRAWN IN 4 HOURS
--- NOTE | 2017-06-03 18:19 | NUR ---
RN NOTES: DR. GONCALVES ORDERED TROPONIN LEVELS TO BE DRAWN IN 4 HOURS
--- NOTE | 2017-06-03 19:10 | NUR ---
RN CLOSING NOTES: Patient resting in bed. No signs of distress noted. Nonlabored breathing with 2 L nasal cannula noted. Bed in lowest locked position. Call light within reach. Patient denies chest pain, and states that chest pressure has been alleviated. Patient endorsed to next shift. Patient educated on being NPO post midnight for the purpose of having a stress test tomorrow. Consent signed by patient. Patient kept clean and dry throughout the shift. Patient encouraged to turn and reposition
--- NOTE | 2017-06-03 19:30 | NUR ---
MS/STEAM FLATTENER; RECEIVED PT'S REPORTS FROM THE DAY SHIFT AND AT THIS TIME. PT IN BED AWAKE, ALERT AND ORIENTED X 4. BREATHING NON LABORED.WITH O2 2L NC ON. PT REMINDED ON NPO AFTER MIDNIGHT TONIGHT AND HE OK. HL O RAC INTACT. PT WAS SAYING WITH PAIN LOWER BACK AND WITH PAIN LEVEL OF 8 OUT OF 10. HD CATH ON ARANZA INTACT. BED ON LOWER POSITION AND LOCKED FOR SAFETY. UPPER PART OF BED SIDE RAILS ARE UP FOR SAFETY. WILL CONTINUE TO MONITOR. CALL LIGHT WITHINREACH.
[2017-06-03 20:00] VITALS: BP 160/111
[2017-06-03 21:00] VITALS: BP 155/106
--- NOTE | 2017-06-03 21:43 | NUR ---
MS RN NOTE: COVERING EDUARDO KUMAR FOR IV MEDICATION. PATIENT COMPLAINS OF PAIN TO BACK 9/10, MORPHINE 2MG IV GIVEN PER MD ORDER. WILL CONTINUE TO MONITOR.
--- NOTE | 2017-06-03 22:00 | NUR ---
MS/NETTING WEAVER; BLOOD DRAWN FOR TROPONIN.
--- NOTE | 2017-06-03 22:10 | NUR ---
MS/CRIMINAL JUSTICE FACULTY; PT VOMITED A LOT VOMITUS TO FOOD STUFFS. RN INFORMED TO GIVE PT LOURDES .
[2017-06-03] MEDS: ATORVASTATIN 40 MG TABLET PO SCH (22:15)
--- NOTE | 2017-06-03 22:30 | NUR ---
MS/SUPERVISOR ROSE GRADING; BS 149 COVERED WITH REGULAR INSULIN 2 UNITS SQ.
--- NOTE | 2017-06-03 22:39 | NUR ---
MS RN NOTE: COVERING EDUARDO KUMAR FOR IV MEDICATION. PATIENT COMPLAINS OF NAUSEA/VOMITING ZOFRAN 4MG IV GIVEN PER MD ORDER. WILL CONTINUE TO MONITOR.
--- NOTE | 2017-06-03 23:55 | NUR ---
MS/SHOTGUN SHELL REPRINTING UNIT OPERATOR; PT WANTS SLEEPING MED. AMBIEN 10 MG PO HS PRN GIVEN. WILL RE ASSESS.
--- NOTE | 2017-06-04 | NUR ---
MS/COMMERCIAL FRONT LOAD OPERATOR; PT REMINDED NPO AFTER MIDNIGHT.
[2017-06-04 00:30] VITALS: BP 153/107
--- NOTE | 2017-06-04 06:00 | NUR ---
MS/ONLINE CONTENT DEVELOPER; BS 106 NO COVERAGE GIVEN. PT STILL ON NPO.
[2017-06-04] MEDS: BLOOD SUGAR DIAGNOSTIC 1 EACH STRIP IN SCH ×3 (06:09→18:09)
--- NOTE | 2017-06-04 06:49 | NUR ---
MS/4TH GRADE MATH TEACHER; SLEPT FAIRLY. DENIES PAIN AT THIS TIME. REMAINED ON NPO OBSERVED. PT SAID HE HAS NOT VOIDED. CONTINUE TO MONITOR. WILL ENDORSE TO THE DAY SHIFT NURSE. CALL LIGHT WITHIN REACH.
--- NOTE | 2017-06-04 06:58 | NUR ---
MS/COMMERCIAL DRAFTER; PT REFUSED DVT PUMP TO LOWER EXTS.
[2017-06-04 07:05] LABS: EOSINOPHILS % (AUTO) 0.1 % (0.0-6.0); HEMATOCRIT 37 % (39-51); HEMOGLOBIN 11.9 g/dL (13.5-17.5); LYMPHOCYTES # (AUTO) 1.3 /CMM (0.8-4.8); LYMPHOCYTES % (AUTO) 15.3 % (20.0-44.0); MEAN CORPUSCULAR HEMOGLOBIN 29 PG (26.0-33.0); MEAN CORPUSCULAR HGB CONC 32 g/dl (31.0-36.0); MEAN CORPUSCULAR VOLUME 92 fL (80-96); MONOCYTES # (AUTO) 0.5 /CMM (0.1-1.30); MONOCYTES % (AUTO) 5.7 % (2.0-12.0); NEUTROPHILS # (AUTO) 6.6 /CMM (1.8-8.9); NEUTROPHILS % (AUTO) 78.9 % (43.0-81.0); PLATELET COUNT (AUTO) 189 /CMM (150-450); RDW COEFFICIENT OF VARIATION 18.3 (11.5-15.0); RED BLOOD CELL COUNT(AUTO) 4.07 MIL/uL (4.5-6.0); WHITE BLOOD COUNT (AUTO) 8.4 K/uL (4.3-11.0)
--- NOTE | 2017-06-04 07:10 | NUR ---
RN Initial Notes: Patient resting in bed. Patient alert oriented x4. [id number] breathing noted on room air. Patient refusing to wear the nasal cannula at the moment.No signs of distress. Patient denies pain at the moment. IV sites on right arm patent and intact. Patient educated on the usage of call light. Bed in lowest locked position. Call light within reach. Will continue to monitor.
[2017-06-04 07:22] LABS: CALCIUM, SERUM 7.1 mg/dL (8.5-10.1); MAGNESIUM 1.9 mg/dL (1.8-2.4); PHOSPHORUS 6.3 mg/dL (2.5-4.9); POTASSIUM 5.1 mmol/L (3.5-5.1)
[2017-06-04] MEDS: MORPHINE SULFATE INJ 2 MG/ML DISP.SYRIN IV PRN ×2 (07:46→14:15)
[2017-06-04 08:00] VITALS: BP 151/116
[2017-06-04] MEDS: RENAL NOVASOURCE (8OZ) 1 EA BOX PO SCH (08:00)
[2017-06-04] MEDS ORDERED: REGADENOSON 0.4 MG/5 ML DISP.SYRIN IVP ONE (08:00)
[2017-06-04] MEDS: INSULIN DETEMIR 100 UNIT/ML CARTRIDGE SQ SCH (09:00)
[2017-06-04] MEDS: methylPREDNISolone SOD SUCC 40 MG/ML VIAL IV SCH ×3 (09:46→17:59)
[2017-06-04] MEDS: LIDOCAINE 5% (PATCH) 1 EA PATCH TP SCH (09:46)
[2017-06-04] MEDS: GABAPENTIN 100 MG CAPSULE PO SCH ×2 (09:46→17:58)
[2017-06-04] MEDS: ASPIRIN 81 MG TAB.CHEW PO SCH (09:47)
[2017-06-04] MEDS: LACTOBACILLUS RHAMNOSUS GG 1 EACH CAP.SPRINK PO SCH ×2 (09:47→17:58)
[2017-06-04] MEDS: LEVOTHYROXINE SODIUM 50 MCG TABLET PO SCH (09:47)
[2017-06-04] MEDS: QUETIAPINE FUMARATE 100 MG TABLET PO SCH (09:47)
[2017-06-04] MEDS: LACOSAMIDE 50 MG TABLET PO SCH (09:48)
[2017-06-04] MEDS: SERTRALINE HCL 25 MG TABLET PO SCH (09:48)
--- NOTE | 2017-06-04 10:07 | NUR ---
RN NOTES: Patient refused levemir due at 0900. Blood sugar 93. Patient states not wanting to eat. Food offered multiple times. Patient refused. Novsource offered and refused as well
[2017-06-04] MEDS: SEVELAMER CARBONATE 0.8 GM POWD.PACK PO SCH ×3 (10:09→17:58)
[2017-06-04] MEDS ORDERED: LEVOFLOXACIN 250 MG /D5W 50 ML 250 MG in PREMIX 1 EA IV SCH (14:00)
--- NOTE | 2017-06-04 15:10 | NUR ---
Social service consult requested by HUGO Jones for possible stroke. Pt. is a 56 year old male who was admitted to [facility] for stroke. JIN is familiar with pt. from a previous admission on 04/30/17. SW met with pt. bedside. Pt. is alert and oriented x3. Pt. was cooperative and polite with SW during the assessment. Pt. appeared well groomed. Pt. states he [place] alone [place] [address] [facility] [address] [facility], [place] [facility]. Pt's emergency contact is Laron Chavez . Pt. informed JIN that Laron is aware of pt's hospitalization. Pt. receives approximately $1000/ month in social security income. Pt. is his own decision maker and does not have an advance directive. Pt. is independent with his ADL's. Pt. states he is able to ambulate but uses a cane for assistance. Pt. suffers from Depression and Anxiety and takes Seroquel and Sertraline. Pt. also takes Ambien to assist him in sleeping at night. Pt. denies drug and alcohol use. Pt. states the last time he drank alcohol was seven months ago. Pt. smokes approximately 6 cigarettes per day. Pt's last psychiatric hospitalization was six years ago at the [facility] in [place]. Pt. has a psychologist Dr. Graves at the [facility] that he sees twice a month. Pt. also has home health services with [facility] home health agency.JIN informed upper caser Julienne Carr regarding pt. having home health services. No other social service needs are required at this time.
[2017-06-04 16:00] VITALS: BP 164/116
--- NOTE | 2017-06-04 19:15 | NUR ---
MS RN CLOSING NOTES: PATIENT STABLE. VS WITHIN NORMAL LIMITS. NONLABORED BREATHING ON ROOM AIR. PATIENT DISCHARGED HOME PER MD ORDERS. PATIENT EDUCATED ON EXISTCARE INSTRUCTIONS WELL STROKE INFORMATION. PATIENT EDUCATED ON FOLLOWING UP WITH DR REESE WITHIN 2 WEEKS. SKIN PICTURES WERE REFUSED BY PATIENT. PATIENT'S VALUABLES ACCOUNTED FOR. PATIENT HAS RECEIVED FLU AND PNEUMOCOCCAL VACCINE ELSEWHERE. PATIENT SIGNED DISCHARGE PAPERS. AWAITING FOR A CALL FROM HIS FRIEND, ML ORTEZ REGARDING TRANSPORTATION HOME. PATIENT DENIES CHEST PAIN AT THE MOMENT. ENDORSED TO NEXT SHIFT
--- NOTE | 2017-06-04 19:30 | NUR ---
MS/LVNL RECEIVED PT IN BED SITTING ALL DRESSED UP READY FOR DISCHARGE. BREATHING NON LABORED. HL X2 REMOVED. NAME AR BAND ALSO REMOVED. DC INSTRUCTIONS ALREADY GIVEN BY SHIFT RN. EDMAR COBIAN. PT HAS ALL HIS BELONGING. PT SAID HE WILL CALL HIMSELF A TAXI FOR HOME.
--- NOTE | 2017-06-04 19:35 | NUR ---
MS/CUSTOM STOCK MAKER; PT WHEELED DOWN BY THE CARDIOVASCULAR DISEASE SPECIALIST TO THE LOBBY FOR DC.
== END 2017-06-04 20:00 | disposition home or self-care (01) | DRG 177 ==
LOC: ER 21:00 → TELE 23:54 → MED 06-03 08:38
PROVIDERS: ADMIT Nurse Practitioner Acute Care; ATTEND Nurse Practitioner Acute Care
PROC: 5A1D70Z Performance of Urinary Filtration, Intermittent, Less than 6 Hours Per Day (ICD-10-PCS; principal; 2017-06-02)
DX: J15.6 Pneumonia due to other Gram-negative bacteria (principal); I21.4 Non-ST elevation (NSTEMI) myocardial infarction; I13.2 Hypertensive heart and chronic kidney disease with heart failure and with stage 5 chronic kidney disease, or end stage renal disease; J90 Pleural effusion, not elsewhere classified; E11.22 Type 2 diabetes mellitus with diabetic chronic kidney disease; I48.91 Unspecified atrial fibrillation; N18.6 End stage renal disease; E44.1 Mild protein-calorie malnutrition; R47.01 Aphasia; I50.22 Chronic systolic (congestive) heart failure; J44.0 Chronic obstructive pulmonary disease with (acute) lower respiratory infection; J44.1 Chronic obstructive pulmonary disease with (acute) exacerbation; J98.11 Atelectasis; J15.9 Unspecified bacterial pneumonia; I11.0 Hypertensive heart disease with heart failure; E83.9 Disorder of mineral metabolism, unspecified; F45.9 Somatoform disorder, unspecified; E87.5 Hyperkalemia; Z99.2 Dependence on renal dialysis; E03.9 Hypothyroidism, unspecified; D63.8 Anemia in other chronic diseases classified elsewhere; E78.5 Hyperlipidemia, unspecified; F41.9 Anxiety disorder, unspecified; I25.10 Atherosclerotic heart disease of native coronary artery without angina pectoris; K21.9 Gastro-esophageal reflux disease without esophagitis; E88.09 Other disorders of plasma-protein metabolism, not elsewhere classified; Z68.26 Body mass index [BMI] 26.0-26.9, adult; Z79.4 Long term (current) use of insulin
CPT/HCPCS: 36415; 70450-TC; 71010-TC; 80048-TC; 80061-TC; 80076-TC; 82962-TC; 83605-TC; 83735-TC; 83880; 84100-TC; 84443-TC; 84484-TC; 85025-TC; 85730-TC; 87040-TC; 87081-TC; 90935-TC; 92611-TC; 93307-TC; 95819-TC; A4216; A4606; A6402; A9502; J1100; J1170; J1815; J1940; J1956; J2060; J2270; J2405; J2543; J2785; J2920; J3370; J7050; J7060; Q9967; Z7610

== ENCOUNTER 2017-06-08 20:28 | Inpatient (IN) | payer MEDICARE ==
[~2017-06-08] VITALS: Ht 185.4 cm; Wt 95.3 kg
--- NOTE | 2017-06-08 21:10 | NUR ---
PT C/O BACK PAIN S/P GLF EARLIER TODAY PT DENIES LOC. PT W/C TO ER BED 8. PT AOX3 RR EVEN AND UNLABORED. NO SOB NOTED. NAD NOTED. NO NVD AT THIS TIME. PT NOT DIAPHORETIC. PT WAITING FOR MD DURAN.
--- NOTE | 2017-06-08 21:15 | NUR ---
HD SITE ON LEFT CW
--- NOTE | 2017-06-08 21:21 | NUR ---
HUGO WALKER AT BEDSIDE FOR EVAL.
[2017-06-08 21:23] LABS: BASOPHILS % (AUTO) 0.2 % (0.0-2.0); EOSINOPHILS # (AUTO) 0.3 /CMM (0.0-0.7); EOSINOPHILS % (AUTO) 2.7 % (0.0-6.0); HEMATOCRIT 34 % (39-51); HEMOGLOBIN 11.2 g/dL (13.5-17.5); LYMPHOCYTES # (AUTO) 0.5 /CMM (0.8-4.8); LYMPHOCYTES % (AUTO) 4.7 % (20.0-44.0); MEAN CORPUSCULAR HEMOGLOBIN 29 PG (26.0-33.0); MEAN CORPUSCULAR HGB CONC 33 g/dl (31.0-36.0); MEAN CORPUSCULAR VOLUME 87 fL (80-96); MONOCYTES # (AUTO) 0.7 /CMM (0.1-1.30); MONOCYTES % (AUTO) 7.2 % (2.0-12.0); NEUTROPHILS # (AUTO) 8.7 /CMM (1.8-8.9); NEUTROPHILS % (AUTO) 85.2 % (43.0-81.0); PLATELET COUNT (AUTO) 165 /CMM (150-450); RDW COEFFICIENT OF VARIATION 17.3 (11.5-15.0); RED BLOOD CELL COUNT(AUTO) 3.87 MIL/uL (4.5-6.0); WHITE BLOOD COUNT (AUTO) 10.2 K/uL (4.3-11.0)
[2017-06-08] MEDS ORDERED: IV NS 0.9% 500 ML BAG IV ONE (21:30)
--- NOTE | 2017-06-08 21:30 | NUR ---
RADIOLOGY AT BEDSIDE FOR CXR
[2017-06-08 21:46] LABS: INR 1.34 (0.87-1.13); PROTHROMBIN TIME 13.9 SECS (9.5-12.7)
[2017-06-08 21:47] LABS: ALBUMIN 2.9 g/dL (3.4-5.0); BILIRUBIN,DIRECT 0.1 mg/dL (0.0-0.2); BILIRUBIN,TOTAL 0.4 mg/dL (0.2-1.0); CALCIUM, SERUM 7.4 mg/dL (8.5-10.1); POTASSIUM 5.4 mmol/L (3.5-5.1); TOTAL PROTEIN, SERUM 7.5 g/dL (6.4-8.2)
[2017-06-08 21:58] LABS: CREATININE 17.1 mg/dL (0.6-1.3)
[2017-06-08] MEDS ORDERED: ONDANSETRON HCL/PF 4 MG/2 ML VIAL ONE (22:24)
[2017-06-08] MEDS ORDERED: HYDROMORPHONE 1 MG/1 ML DISP.SYRIN ONE (22:24)
[2017-06-08] MEDS ORDERED: SODIUM POLYSTYRENE SULFONATE 15 G/60 ML BOTTLE PO ONE (22:30)
[2017-06-08] MEDS ORDERED: ONDANSETRON HCL/PF 4 MG/2 ML VIAL IV ONE (22:30)
[2017-06-08] MEDS ORDERED: INSULIN REGULAR, HUMAN 100 UNIT/ML 10 ML VIAL IV ONE (22:30)
[2017-06-08] MEDS ORDERED: DEXTROSE 50%-WATER 50 ML DISP.SYRIN IVP ONE (22:30)
[2017-06-08] MEDS ORDERED: ALBUTEROL FS 2.5 MG/3 ML VIAL.NEB NEB ONE (22:30)
[2017-06-08] MEDS ORDERED: Calcium Gluconate 0.465 MEQ/ML VIAL IV ONE ×2 (22:30→22:39)
[2017-06-08] MEDS ORDERED: HYDROMORPHONE 1 MG/1 ML DISP.SYRIN IV ONE (22:30)
[2017-06-08] MEDS ORDERED: SODIUM POLYSTYRENE SULFONATE 15 G/60 ML BOTTLE ONE (22:39)
[2017-06-08] MEDS ORDERED: DEXTROSE 50%-WATER 50 ML DISP.SYRIN ONE (22:39)
[2017-06-08] MEDS ORDERED: INSULIN REGULAR, HUMAN 100 UNIT/ML 10 ML VIAL ONE (22:41)
[2017-06-08 23:00] VITALS: BP 142/89
[2017-06-08] MEDS ORDERED: ALBUTEROL FS 2.5 MG/3 ML VIAL.NEB ONE (23:00)
--- NOTE | 2017-06-08 23:02 | NUR ---
RT AT BEDSIDE FOR BREATHING TX
[2017-06-08 23:08] LABS: TROPONIN I 0.098 ng/mL (0.00-0.056)
--- NOTE | 2017-06-08 23:09 | NUR ---
HUGO COLLINS SPOKE TO BOOKING MANAGER AARON REGARDING POC/ ADMISSION.
--- NOTE | 2017-06-08 23:28 | NUR ---
REPORT GIVEN TO RN JULIEN FOR BED 115.
[2017-06-08] MEDS ORDERED: PIPERACILLIN /TAZOBACTAM 3.375 G VIAL IV ONE (23:29)
[2017-06-08] MEDS: PIPERACILLIN /TAZOBACTAM 3.375 G in IV D5W 50 ML IV SCH (23:35)
--- NOTE | 2017-06-08 23:39 | NUR ---
PT TRANSFERRED PER ACLS PROTOCOL.
--- NOTE | 2017-06-08 23:45 | NUR ---
DIAZ RN OPENING NOTES: RECEIVED PATIENT FROM ER ADMITTED FOR GENERALIZED WEAKNESS. PATIENT DESCRIBED THAT HE FELL AFTER FEELING THAT HIS LEGS "GAVE OUT" ON HIM WITHOUT LOSING CONSCIOUSNESS. PATIENT IS AWAKE AND ALERT. ON 2LPM, NOT IN APPARENT DISTRESS. IV ACCESS NOTED ON RFA G20 INACT AND PATENT. ALSO WITH HD CATH ON LEFT CHEST WALL. PER PATIENT HE IS STILL ABLE TO URINATE. TO MONITOR OUTPUT. SKIN CHECK DONE, SKIN CARE RENDERED. PHOTODOCUMENTATION OF SKIN ISSUES DONE. PATIENT HAS VERY DRY SKIN ESPECIALLY ON BLE'S AND PER HIM IT TENDS TO GET ITCHY AND HE WOULD SCRATCH THEM. NOTED WITH SKIN TEARS ON BLE'S. SAFETY MEASURES ENSURED. CONTINUOUSLY MONITORED PATIENT UNDER IDAZ PROTOCOL.
--- NOTE | 2017-06-08 23:50 | NUR ---
RN NOTES: PATIENT WITH COMPLAINTS OF BACK PAIN RADIATING DOWN TO THIGHS DESCRIBED SHARP PAIN RATED 10/10. INFORMED PYTHON PROGRAMMER SPEECH ASSISTANT. WITH NEW ORDERS FOR DILAUDID 1 MG Q4H PRN. NOTED PATIENT CALM AND SLEEPING AT THIS TIME. HELD OFF MED FOR NOW.
[2017-06-08 23:58] VITALS: BP 142/89
[2017-06-09] MEDS ORDERED: ACETAMINOPHEN 325 MG TABLET PO PRN
[2017-06-09] MEDS ORDERED: VANCOMYCIN 1 GM in IV D5W 250 ML IV ONE ×2
[2017-06-09] MEDS ORDERED: LEVOFLOXACIN 750 MG /D5W 150ML 750 MG in PREMIX 1 EA IV SCH ×2
[2017-06-09] MEDS ORDERED: Z GUARD REMEDY 2 OZ OINT TP PRN
[2017-06-09] MEDS ORDERED: MAGNESIUM HYDROXIDE 30 ML UDC PO PRN
[2017-06-09] MEDS ORDERED: VANCOMYCIN 1 GM VIAL ONE (00:08)
[2017-06-09] MEDS ORDERED: LEVOFLOXACIN 750 MG /D5W 150ML 150 ML IV ONE (00:08)
--- NOTE | 2017-06-09 00:30 | NUR ---
RN NOTES: HUGO PULIDO IN SEEN AND EXAMINED PATIENT. WITH VERBAL ORDER TO CHECK PATIENT'S BLOOD SUGAR. NOTED TO BE 42 CRITICALLY LOW. PATIENT WAS GIVEN INSULIN IN ER. PATIENT NOTED TO BE DROWSY AT THIS TIME, BUT STILL AROUSABLE. HAD PATIENT DRINK JUICE PER PROTOCOL AND ASKED ASHOK CAMERA TUNING ENGINEER ANODE MACHINE OPERATOR IF [id number] SHOULD BE ORDERED. PER CAMERA TUNING ENGINEER JUICE FOR NOW. GAVE PATIENT A SNACK ( SANDWHICH AND JUICE) TOLERATED WELL. 0130 PATIENT NOTED WITH EPISODE OF VOMITING. ASKED PATIENT IF HE CHOKED ON HIS SANDWHICH BUT DENIES. HE SAID HE SUDDENLY FELT THE URGE TO VOMIT. ZOFRAN NOT YET DUE. PATIENT VERBALIZED RELIEF AT THIS TIME ALTHOUGH IS STILL COMPLAINING OF PAIN RATED 10/10 ON LOWER BACK RADIATING TO THIGHS. PAIN MEDICATION ORDERED. BP AT 144/89 O2 SATURATION AT 91%. NOTED TO BE SLIGHTLY DIFFICULT TO BREATH POSSIBLY DUE TO VOMITING. CONTINUOUSLY MONITORED PATIENT FOR RESPONSE TO PAIN MEDS AND FOR SOB.
[2017-06-09] MEDS ORDERED: DEXTROSE 50%-WATER 50 ML DISP.SYRIN IV PRN (01:00)
[2017-06-09] MEDS ORDERED: hydrALAZINE HCL IV 20 MG VIAL IV PRN (01:00)
[2017-06-09] MEDS: HYDROMORPHONE 1 MG/1 ML DISP.SYRIN IV PRN ×3 (01:37→21:20)
[2017-06-09 04:00] VITALS: BP_SYST 163; BP_SYST 169; BP_DIAS 99
[2017-06-09] MEDS ORDERED: PIPERACILLIN /TAZOBACTAM 3.375 G VIAL IV ONE (05:42)
[2017-06-09] MEDS: PIPERACILLIN /TAZOBACTAM 3.375 G in IV D5W 50 ML IV SCH ×2 (06:40→13:26)
[2017-06-09] MEDS: BLOOD SUGAR DIAGNOSTIC 1 EACH STRIP IN SCH ×4 (06:42→21:35)
--- NOTE | 2017-06-09 06:58 | NUR ---
RN CLOSING NOTES; PATIENT REMAINED IN BED, REMAINED DROWSY BUT EASY TO AROUSE. DENIES SOB. WITHOUT COMPLAINTS OF PAIN AT THIS TIME. AM LABS DRAWN. MEDS ORDERED. SAFETY MEASURES ENSURED AT ALL TIMES. FALL PREVENTION MEASURES ENSURED. CONTINUOUSLY MONITORED. TO ENDORSE TO AM SHIFT RN.
[2017-06-09 07:18] LABS: EOSINOPHILS # (AUTO) 0.3 /CMM (0.0-0.7); EOSINOPHILS % (AUTO) 3.5 % (0.0-6.0); HEMATOCRIT 35 % (39-51); HEMOGLOBIN 11.1 g/dL (13.5-17.5); LYMPHOCYTES # (AUTO) 0.7 /CMM (0.8-4.8); LYMPHOCYTES % (AUTO) 7.1 % (20.0-44.0); MEAN CORPUSCULAR HEMOGLOBIN 29 PG (26.0-33.0); MEAN CORPUSCULAR HGB CONC 32 g/dl (31.0-36.0); MEAN CORPUSCULAR VOLUME 89 fL (80-96); MONOCYTES # (AUTO) 0.7 /CMM (0.1-1.30); MONOCYTES % (AUTO) 7.3 % (2.0-12.0); NEUTROPHILS # (AUTO) 7.7 /CMM (1.8-8.9); NEUTROPHILS % (AUTO) 82.1 % (43.0-81.0); PLATELET COUNT (AUTO) 173 /CMM (150-450); RDW COEFFICIENT OF VARIATION 18.5 (11.5-15.0); RED BLOOD CELL COUNT(AUTO) 3.86 MIL/uL (4.5-6.0); WHITE BLOOD COUNT (AUTO) 9.3 K/uL (4.3-11.0)
--- NOTE | 2017-06-09 07:30 | NUR ---
RN NOTES: RECEIVED PATIENT RESTING IN BED, HOB ELEVATED. PT APPEARS DROWSY BUT AROUSABLE TO VERBAL AND TACTILE STIMULI. ALERT ORIENTED X3. ON 2LPM O2 VIA NC, NOTED WITH SHALLOW BREATHING.O2 SAT 98% AT THIS TIME. IV SALINE LOCK ON RFA G20 INTACT AND PATENT FLUSHED WITH NS. HD CATH ON LEFT CHEST WALL, DRESSING CDI. NOTED WITH SKIN TEARS ON BLE'S. SAFETY MEASURES ENSURED. ENCOURAGED TO USE CALL LIGHT WHEN ASSISTANCE IS NEEDED, CONTINUOUSLY MONITORED PATIENT UNDER DIAZ PROTOCOL.
[2017-06-09 07:43] LABS: POTASSIUM 4.5 mmol/L (3.5-5.1)
[2017-06-09 08:00] VITALS: BP 156/106
[2017-06-09] MEDS: QUETIAPINE FUMARATE 100 MG TABLET PO SCH (09:06)
[2017-06-09] MEDS: SERTRALINE HCL 25 MG TABLET PO SCH (09:06)
[2017-06-09] MEDS: GABAPENTIN 100 MG CAPSULE PO SCH ×2 (09:06→16:54)
[2017-06-09] MEDS: ASPIRIN 325 MG TABLET PO SCH (09:06)
[2017-06-09] MEDS: SEVELAMER CARBONATE 800 MG TABLET PO SCH ×3 (09:06→17:00)
[2017-06-09] MEDS: HEPARIN SODIUM, PORCINE 5000 UNITS/1 ML VIAL SQ SCH ×2 (09:08→21:18)
[2017-06-09] MEDS: LEVOTHYROXINE SODIUM 50 MCG TABLET PO SCH (09:08)
[2017-06-09] MEDS ORDERED: PROPOFOL 100 ML IV ONE (11:18)
[2017-06-09 12:00] VITALS: BP 155/110
--- NOTE | 2017-06-09 12:11 | NUR ---
VANESSA NOTES BS 173MG/DL, PT REFUSED INSULIN COVERAGE, RISKS AND BENEFITS EXPLAINED PT STILL REFUSED Addendum: 06/09/17 at 1214 by EDILMA RAND RN WRONG ENTRY
[2017-06-09 15:12] LABS: ABG BASE EXCESS 1.2 mmol/L; ABG OXYGEN SATURATION 94.5 % (92.0-98.5); ABG PH 7.381 (7.350-7.450); ABG PO2 82.9 mmHg (75.0-100.0); AaDO2 62.5 mmHg; COHb 1.7 % (0.5-1.5); MetHb 0.5 % (0.0-1.5); O2Hb 92.4 % (94.0-97.0); SITE, ABG Right Radial; VENT MODE, BG NASAL CANNULA 2L
[2017-06-09 16:00] VITALS: BP 157/92
[2017-06-09] MEDS: LACTOBACILLUS RHAMNOSUS GG 1 EACH CAP.SPRINK PO SCH (16:54)
--- NOTE | 2017-06-09 17:00 | NUR ---
RN NOTES PATIENT'S BLOOD SUGAR NOTED LOW 49, PT IS AWAKE ALERT ORIENTED X3 PLAYING GAMES ON HIS PHONE, NOT IN APPARENT DISTRESS. PT WAS GIVEN ORANGE JUICE PER PROTOCOL. WILL RECHECK BLOOD SUGAR.
--- NOTE | 2017-06-09 18:15 | NUR ---
RN NOTES BS 88MG/DL, NO DISTRESS NOTED, PT EATING HIS DINNER
--- NOTE | 2017-06-09 19:25 | NUR ---
DIRECTOR CASE MANAGEMENT INITIAL NOTE PT RECEIVED IN NO ACUTE DISTRESS AT THIS TIME. A/O X4 AND SLEEPY. ON TELE WITH SR PATRICK. PT IS ON 2GM NA DIET AND ABLE TO EAT WITH NO ISSUES. THERE IS A RIGHT HANF 20G SL AND A LEFT CHEST WALL HD CATH. BREATHING PATTERN WAS NORMAL WITH ADEQUATE CHEST RISE/FALL. COMFORT MEASURES TO BE PLACED FOR PATIENT DURING THE SHIFT. WILL CONTINUE TO MONITOR FOR ANY OTHER ISSUES. IT WAS ENDORSED THAT BS WAS LOW DURING THE SHIFT AND THAT JUICE HELPS KEEP IT WNL SO ORANGE JUICE X3 WAS OFFERED AT BEDSIDE FOR PATIENT.
[2017-06-09 20:00] VITALS: BP 158/94
[2017-06-09] MEDS: ATORVASTATIN 40 MG TABLET PO SCH (21:20)
[2017-06-09] MEDS: PIPERACILLIN /TAZOBACTAM 2.25 G in IV D5W 50 ML IV SCH (21:20)
[2017-06-09] MEDS: ONDANSETRON HCL/PF 4 MG/2 ML VIAL IVP PRN (21:46)
[2017-06-10] VITALS (8 sets, daily range): BP systolic 152–189; BP diastolic 94–119
[2017-06-10] MEDS ORDERED: PIPERACILLIN /TAZOBACTAM 3.375 G in IV D5W 50 ML IV SCH ×2
[2017-06-10] MEDS: HYDROMORPHONE 1 MG/1 ML DISP.SYRIN IV PRN ×5 (03:27→21:39)
[2017-06-10] MEDS: PIPERACILLIN /TAZOBACTAM 2.25 G in IV D5W 50 ML IV SCH ×3 (04:30→20:28)
--- NOTE | 2017-06-10 05:39 | NUR ---
SAFETY SPEC CLOSING NOTE PT REMAINS IN NO ACUTE DISTRESS AT THIS TIME. HAD VOMIT X1 DURING THE SHIFT BUT WAS CORRECTED WITH X1 ZOFRAN. ASKED FOR PAIN MEDICATION X2 AND TOLERATED WELL. ALL NEEDS WERE MET AND ALL DUE MEDICATIONS WERE CARRIED OUT ORDERED. COMFORT AND SAFETY MEASURES CARRIED OUT. WILL CONTINUE TO MONITOR FOR ANY CHANGES.
[2017-06-10 07:03] LABS: EOSINOPHILS # (AUTO) 0.6 /CMM (0.0-0.7); EOSINOPHILS % (AUTO) 6.8 % (0.0-6.0); HEMATOCRIT 35 % (39-51); HEMOGLOBIN 11.1 g/dL (13.5-17.5); LYMPHOCYTES # (AUTO) 0.4 /CMM (0.8-4.8); MEAN CORPUSCULAR HEMOGLOBIN 29 PG (26.0-33.0); MEAN CORPUSCULAR HGB CONC 32 g/dl (31.0-36.0); MEAN CORPUSCULAR VOLUME 89 fL (80-96); MONOCYTES # (AUTO) 0.8 /CMM (0.1-1.30); MONOCYTES % (AUTO) 9.4 % (2.0-12.0); NEUTROPHILS % (AUTO) 78.8 % (43.0-81.0); PLATELET COUNT (AUTO) 145 /CMM (150-450); RDW COEFFICIENT OF VARIATION 18.6 (11.5-15.0); RED BLOOD CELL COUNT(AUTO) 3.88 MIL/uL (4.5-6.0); WHITE BLOOD COUNT (AUTO) 8.9 K/uL (4.3-11.0)
[2017-06-10 07:24] LABS: CALCIUM, SERUM 7.2 mg/dL (8.5-10.1); POTASSIUM 5.1 mmol/L (3.5-5.1)
[2017-06-10] MEDS: LEVOTHYROXINE SODIUM 50 MCG TABLET PO SCH (07:30)
--- NOTE | 2017-06-10 07:40 | NUR ---
RN NOTES RECEIVED PT FROM MARINE FITTER, A&0X3, ON 2L NC, NO SOB OR DISTRESS. SR ON THE TELE MONITOR HR 100. L HAND 20 G IV SITE DRY AND INTACT. L CHEST WALL HD CATH DRESSING INTACT. PT COMPLAINING OF PAIN, ASKING FOR DILAUDID, WILL ADMINISTER. BED LOCKED AND IN LOWEST, POSITION, SIDE RAILS UPX3, WILL CONT TO MONITOR.
[2017-06-10] MEDS: BLOOD SUGAR DIAGNOSTIC 1 EACH STRIP IN SCH ×4 (07:46→21:08)
[2017-06-10 07:49] LABS: CREATININE 13.9 mg/dL (0.6-1.3)
[2017-06-10] MEDS: QUETIAPINE FUMARATE 100 MG TABLET PO SCH (08:58)
[2017-06-10] MEDS: LACTOBACILLUS RHAMNOSUS GG 1 EACH CAP.SPRINK PO SCH ×2 (08:58→16:58)
[2017-06-10] MEDS: ASPIRIN 325 MG TABLET PO SCH (08:58)
[2017-06-10] MEDS: SERTRALINE HCL 25 MG TABLET PO SCH (08:58)
[2017-06-10] MEDS: GABAPENTIN 100 MG CAPSULE PO SCH ×2 (08:58→16:58)
[2017-06-10] MEDS: SEVELAMER CARBONATE 800 MG TABLET PO SCH ×3 (08:59→17:33)
[2017-06-10] MEDS: HEPARIN SODIUM, PORCINE 5000 UNITS/1 ML VIAL SQ SCH ×2 (09:01→20:29)
[2017-06-10] MEDS: hydrALAZINE HCL IV 20 MG VIAL IV PRN ×2 (16:59→22:29)
[2017-06-10] MEDS: ONDANSETRON HCL/PF 4 MG/2 ML VIAL IVP PRN ×2 (17:33→23:48)
--- NOTE | 2017-06-10 18:43 | NUR ---
RN NOTES PT RESTING IN BED, NO DISTRESS NOTED. PT HAD 1 EPISODE OF VOMITING, ZOFRAN ADMINISTERED. NO FURTHER N/V. PT TOLERATED DIALYSIS, 3L OUT. NO SIGNIFICANT CHANGES THROUGHOUT THE SHIFT, REMAINED IN STABLE CONDITION, ALL NEEDS MET. SIDE RAILS UPX3, CALL LIGHT WITHIN REACH, BED LOCKED AND IN LOWEST POSITION, WILL ENDORSE TO ONCOMING SHIFT.
--- NOTE | 2017-06-10 19:30 | NUR ---
MS/TELE NOTES: RECEIVED PT. IN BED W/ HOB ELEVATED A/O X 3. W/ O2 @ 3LPM VIA N/C SAT 97 %. HAS HD CATH ON LEFT CHEST. HAD HD TODAY . W/ FRIEND SITTING AT BED SIDE. CALL LIGHT W/ REACH. ALL NEED MEET. SAFETY PRECAUTION MAINTAINED. WILL CONTINUE TO MONITOR.
--- NOTE | 2017-06-10 20:00 | NUR ---
RN/MS NOTES: PT. BLOOD PRESSURE IS 170/106 P - 94. ASKED PT. IF HE IS PAIN. PT. STATED 05/03. PT. RECIEVED AGNES @2381 . PT. OFFERED NORCO FOR PAIN. PT. GIVEN NORCO FOR PAIN. WILL CONTINUE TO MONITOR. CALL LIGHT W/REACH.
[2017-06-10] MEDS: HYDROCODONE/APAP 5/325MG 1 EACH TABLET PO PRN (20:03)
[2017-06-10] MEDS: ATORVASTATIN 40 MG TABLET PO SCH (21:10)
--- NOTE | 2017-06-10 21:53 | NUR ---
VANESSA NOTES 2134 BP still elevated 183/111; pain 9/10. dilaudid administered as ordered. Explained to patient, will recheck if BP does not go down, will administer hydralazine. VANESSA Sheridan made aware Addendum: 06/10/17 at 2233 by BETZY REILLY RN 2228 PAIN DOWN TO 5/10. BP RECHECKED 189/110; HYDRALAZINE GIVEN ORDERED
--- NOTE | 2017-06-10 23:00 | NUR ---
MS RN NOTES: BP RECHECKED 152/94. PT. AWAKE W/ HOB. PT. HAD 1 EMESIS AT 2347. ZOFRAN GIVEN PER ORDER. WILL RECHECK IN 30 MIN. CALL LIGHT W/ REACH.
[2017-06-11] VITALS (7 sets, daily range): BP systolic 135–176; BP diastolic 87–108
--- NOTE | 2017-06-11 00:10 | NUR ---
RN/MS NOTES: PT. IN BED W/ HIS CLOSED W/NO S/S OF RESPIRATORY DISTRESS NOTED. WILL CONTINUE TO MONITOR. CALL LIGHT W/ REACH.
--- NOTE | 2017-06-11 03:40 | NUR ---
MS/RN NOTES: PT. C/O PAIN 9/10 W/ PRN DILAUDID 1 MG IV GIVEN PER ORDER. CALL LIGHT W/ REACH. WILL REASSESS IN 30 MIN. WILL CONTINUE TO MONITOR. ADDENDUM @ 5161: PT. PAIN LEVEL IS 5/10 NOW. RESTING COMFORTABLE. WILL CONTINUE TO MONITOR.
--- NOTE | 2017-06-11 05:00 | NUR ---
RN MS NOTES: BP AT 5AM WAS 169/105. PRN HYDRALAZINE 10 MG IV GIVEN. NOT IN ANY RESPIRATORY DISTRESS NOTED. WILL CONTINUE TO MONITOR. ADDENDUM @ 5:30 A.M. BP 153/97. PT. IS IN BED RESTING COMFORTABLE. NOT IN ANY ACUTE DISTRESS NOTED. CALL LIGHT W/ REACH. WILL ENDORSE NEXT SHIFT TO CONTINUE POC.
[2017-06-11] MEDS: PIPERACILLIN /TAZOBACTAM 2.25 G in IV D5W 50 ML IV SCH ×2 (05:06→12:32)
[2017-06-11] MEDS: hydrALAZINE HCL IV 20 MG VIAL IV PRN (05:06)
[2017-06-11] MEDS: ONDANSETRON HCL/PF 4 MG/2 ML VIAL IVP PRN ×2 (07:13→17:14)
[2017-06-11 07:20] LABS: EOSINOPHILS # (AUTO) 0.4 /CMM (0.0-0.7); EOSINOPHILS % (AUTO) 4.3 % (0.0-6.0); HEMATOCRIT 37 % (39-51); HEMOGLOBIN 11.8 g/dL (13.5-17.5); LYMPHOCYTES # (AUTO) 0.6 /CMM (0.8-4.8); LYMPHOCYTES % (AUTO) 6.7 % (20.0-44.0); MEAN CORPUSCULAR HEMOGLOBIN 29 PG (26.0-33.0); MEAN CORPUSCULAR HGB CONC 32 g/dl (31.0-36.0); MEAN CORPUSCULAR VOLUME 90 fL (80-96); MONOCYTES # (AUTO) 0.6 /CMM (0.1-1.30); MONOCYTES % (AUTO) 6.6 % (2.0-12.0); NEUTROPHILS # (AUTO) 6.9 /CMM (1.8-8.9); NEUTROPHILS % (AUTO) 82.4 % (43.0-81.0); PLATELET COUNT (AUTO) 138 /CMM (150-450); RDW COEFFICIENT OF VARIATION 18.9 (11.5-15.0); RED BLOOD CELL COUNT(AUTO) 4.13 MIL/uL (4.5-6.0); WHITE BLOOD COUNT (AUTO) 8.4 K/uL (4.3-11.0)
[2017-06-11 07:34] LABS: CALCIUM, SERUM 7.7 mg/dL (8.5-10.1); CREATININE 11.6 mg/dL (0.6-1.3); POTASSIUM 5.1 mmol/L (3.5-5.1)
--- NOTE | 2017-06-11 07:45 | NUR ---
AM RN NOTES RECEIVED PT AWAKE, RESTING IN BED, ACCORDING TO PT NAUSEA DISTURBS HIM, ZOFRAN GIVEN AND WILL CHECK ON PT LATER, TELE BOX APPLIED FOR OBSERVATION DUE TO HYDRALAZINE IVP USE LAST NIGHT, WILL MONITOR PT.
[2017-06-11] MEDS: ALBUTEROL FS 2.5 MG/0.5 ML VIAL.NEB NEB PRN (08:31)
[2017-06-11] MEDS: IPRATROPIUM NEB FS 0.5 MG/2.5 ML AMPUL.NEB NEB PRN (08:31)
[2017-06-11] MEDS: BLOOD SUGAR DIAGNOSTIC 1 EACH STRIP IN SCH ×4 (08:38→21:36)
[2017-06-11] MEDS: SERTRALINE HCL 25 MG TABLET PO SCH (08:41)
[2017-06-11] MEDS: LACTOBACILLUS RHAMNOSUS GG 1 EACH CAP.SPRINK PO SCH ×2 (08:41→16:56)
[2017-06-11] MEDS: SEVELAMER CARBONATE 800 MG TABLET PO SCH ×3 (08:42→17:15)
[2017-06-11] MEDS: GABAPENTIN 100 MG CAPSULE PO SCH ×2 (08:47→16:56)
[2017-06-11] MEDS: QUETIAPINE FUMARATE 100 MG TABLET PO SCH (08:47)
[2017-06-11] MEDS: ASPIRIN 325 MG TABLET PO SCH (08:47)
[2017-06-11] MEDS: LEVOTHYROXINE SODIUM 50 MCG TABLET PO SCH (08:51)
[2017-06-11] MEDS: HEPARIN SODIUM, PORCINE 5000 UNITS/1 ML VIAL SQ SCH ×2 (08:55→21:33)
[2017-06-11] MEDS: CARVEDILOL 6.25 MG TABLET PO SCH ×2 (12:24→21:32)
--- NOTE | 2017-06-11 13:00 | NUR ---
S/P DIALYSIS TOLERATED WELL
[2017-06-11 14:44] LABS: ABG OXYGEN SATURATION 91.9 % (92.0-98.5); ABG PH 7.442 (7.350-7.450); ABG PO2 67.6 mmHg (75.0-100.0); AaDO2 83.7 mmHg; COHb 1.5 % (0.5-1.5); MetHb 0.5 % (0.0-1.5); O2Hb 90.1 % (94.0-97.0); SITE, ABG Right Radial; VENT MODE, BG NASAL CANNULA
[2017-06-11] MEDS: HYDROMORPHONE 1 MG/1 ML DISP.SYRIN IV PRN ×2 (17:14→21:30)
[2017-06-11] MEDS ORDERED: FEE PK DOSING 1 MIN EA MC ONE (18:28)
[2017-06-11] MEDS ORDERED: DOSING PER PHARMACY-AMIKACI IV XX PRN (18:30)
--- NOTE | 2017-06-11 18:37 | NUR ---
NEW ORDER TO COLLECT URINE RECEIVED, REFUSED ST. CATH, STATED THAT HE WILL URINATE LATER, HE HAS VISITOR AT THIS TIME, PT IN STABLE CONDITION, WILL ENDORSE PT TO NEXT SHIFT FOR TRINA.
[2017-06-11] MEDS ORDERED: AMIKACIN 500 MG in IV D5W 100 ML IV ONE (20:00)
[2017-06-11] MEDS: ATORVASTATIN 40 MG TABLET PO SCH (21:32)
[2017-06-11] MEDS: ZOLPIDEM TARTRATE 5 MG TABLET PO PRN (22:23)
[2017-06-11] MEDS: HYDROCODONE/APAP 5/325MG 1 EACH TABLET PO PRN (23:09)
[2017-06-12] VITALS (7 sets, daily range): BP systolic 148–179; BP diastolic 98–114
--- NOTE | 2017-06-12 07:10 | NUR ---
TECHNICAL PROGRAM MANAGER NOTE: RECEIVED PT AWAKE IN BED, A&OX3, DENIES PAIN. ON 02 3LPM VIA NC, RESPIRATIONS EVEN AND UNLABORED. HD CATH ON LEFT CHEST NOTED. RH IV PATENT AND INTACT. BED LOW, LOCKED, X 2 SIDE RAILS UP AND CALL LIGHT WITHIN REACH. WILL CONT TO MONITOR.
[2017-06-12] MEDS ORDERED: AMIKACIN 500 MG in IV D5W 100 ML IV PRN (08:00)
[2017-06-12] MEDS: BLOOD SUGAR DIAGNOSTIC 1 EACH STRIP IN SCH ×4 (09:09→22:04)
[2017-06-12] MEDS: GABAPENTIN 100 MG CAPSULE PO SCH ×2 (09:10→16:28)
[2017-06-12] MEDS: ASPIRIN 325 MG TABLET PO SCH (09:10)
[2017-06-12] MEDS: LEVOTHYROXINE SODIUM 50 MCG TABLET PO SCH (09:10)
[2017-06-12] MEDS: LACTOBACILLUS RHAMNOSUS GG 1 EACH CAP.SPRINK PO SCH ×2 (09:10→16:28)
[2017-06-12] MEDS: CARVEDILOL 6.25 MG TABLET PO SCH ×2 (09:10→21:52)
[2017-06-12] MEDS: SERTRALINE HCL 25 MG TABLET PO SCH (09:10)
[2017-06-12] MEDS: SEVELAMER CARBONATE 800 MG TABLET PO SCH ×3 (09:10→19:36)
[2017-06-12] MEDS: QUETIAPINE FUMARATE 100 MG TABLET PO SCH (09:11)
[2017-06-12] MEDS: HEPARIN SODIUM, PORCINE 5000 UNITS/1 ML VIAL SQ SCH ×2 (09:14→21:59)
[2017-06-12] MEDS: IPRATROPIUM NEB FS 0.5 MG/2.5 ML AMPUL.NEB NEB PRN ×2 (10:20→18:02)
[2017-06-12] MEDS: ALBUTEROL FS 2.5 MG/0.5 ML VIAL.NEB NEB PRN ×2 (10:20→18:02)
[2017-06-12 10:51] LABS: HEMATOCRIT 36 % (39-51); HEMOGLOBIN 11.2 g/dL (13.5-17.5); MEAN CORPUSCULAR VOLUME 90 fL (80-96); RED BLOOD CELL COUNT(AUTO) 3.97 MIL/uL (4.5-6.0)
[2017-06-12 10:52] LABS: BASOPHILS % (AUTO) 0.1 % (0.0-2.0); EOSINOPHILS % (AUTO) 6.3 % (0.0-6.0); LYMPHOCYTES % (AUTO) 7.8 % (20.0-44.0); MEAN CORPUSCULAR HEMOGLOBIN 28 PG (26.0-33.0); MEAN CORPUSCULAR HGB CONC 32 g/dl (31.0-36.0); MONOCYTES % (AUTO) 9.5 % (2.0-12.0); NEUTROPHILS % (AUTO) 76.3 % (43.0-81.0); PLATELET COUNT (AUTO) 134 /CMM (150-450)
[2017-06-12 11:21] LABS: CALCIUM, SERUM 7.9 mg/dL (8.5-10.1)
[2017-06-12 11:55] LABS: POTASSIUM 4.8 mmol/L (3.5-5.1)
[2017-06-12 12:11] LABS: CREATININE 10.6 mg/dL (0.6-1.3)
[2017-06-12] MEDS: HYDROMORPHONE 1 MG/1 ML DISP.SYRIN IV PRN ×3 (12:14→21:48)
--- NOTE | 2017-06-12 15:01 | NUR ---
PROBE OPERATOR NOTE: BLADDER SCAN VOLUME OF 485ML.
[2017-06-12] MEDS: LIDOCAINE 5% (PATCH) 1 EA PATCH TP SCH (17:52)
--- NOTE | 2017-06-12 18:40 | NUR ---
DRAFTER PATENT NOTE: NO ACUTE CHANGES DURING SHIFT. AWAITING HD AND STRAIGHT CATH FOR URINE SPECIMENS. ORDERS CARRIED OUT. BED LOW, LOCKED, X2 SIDE RAILS UP AND CALL LIGHT WITHIN REACH. WILL ENDORSE TO FLUX TUBE ATTENDANT NURSE FOR TRINA.
--- NOTE | 2017-06-12 19:30 | NUR ---
SEWING MACHINE ASSEMBLER INITIAL NOTES RECEIVED PATIENT AWAKE A/OX3, ABLE TO MAKE NEEDS KNOWN. NO RESPIRATORY DISTRESS NOTED ON 3LPMO2 VIA NC. SKIN WARM AND DRY TO TOUCH. PER REPORT BLADDER SCAN WAS DONE WITH URINE >400, BUT WASN'T ABLE TO DO IN AND OUT DUE TO PATIENT REFUSING. PATIENT C/O 8/10 BLE AND LOWER BACK PAIN. ON TELE MONITOR SINUS TACH 111. HOB ELEVATED. SIDE RAILS UP AND LOCKED. BED KEPT AT LOWEST POSITION. CALL LIGHT KEPT WITHIN EASY REACH. WILL CONTINUE TO MONITOR.
[2017-06-12] MEDS: hydrALAZINE HCL IV 20 MG VIAL IV PRN (19:43)
--- NOTE | 2017-06-12 19:43 | NUR ---
NOTED WITH ELEVATED, BP 179/114. PATIENT DENIES N/V, DENIES H/A. SKIN WARM AND DRY TO TOUCH. PRN IV HYDRALAZINE GIVEN. WILL CONTINUE TO MONITOR.
--- NOTE | 2017-06-12 20:41 | NUR ---
PERFORMED IN AND OUT CATHETERIZATION STERILE TECHNIQUE USED. 600ML OUTPUT NOTED, JAYJAY, CLEAR. PATIENT STATED HE DOES NOT WANT THE PROCEDURE ANYMORE THROUGH THE NIGHT AND WOULD LIKE TO SLEEP. EXPLAINED TO PATIENT, A BLADDER SCAN WILL BE DONE, IF THERE'S MORE THAN 300ML WE WOULD HAVE TO DO IT AGAIN. PATIENT SHRUGGED HIS SHOULDERS. WILL CONTINUE TO MONITOR.
[2017-06-12] MEDS: ATORVASTATIN 40 MG TABLET PO SCH (21:48)
[2017-06-12] MEDS: TAMSULOSIN 0.4 MG CAP.SR.24H PO SCH (21:48)
[2017-06-12 23:00] LABS: CREATININE, URINE 69.5 MG/DL (30.0-125.0)
[2017-06-13] VITALS: BP 177/119
[2017-06-13] MEDS: hydrALAZINE HCL IV 20 MG VIAL IV PRN ×2 (00:06→04:10)
[2017-06-13 01:30] VITALS: BP 169/100
[2017-06-13] MEDS: IPRATROPIUM NEB FS 0.5 MG/2.5 ML AMPUL.NEB NEB PRN (01:57)
[2017-06-13 04:00] VITALS: BP 186/113
--- NOTE | 2017-06-13 04:14 | NUR ---
patient sleeping in bed, no s/s of pain or discomfort. no respiratory distress noted. patient denies n/v, denies h/a. bp 186/113, prn hydralazine iv given. will continue to monitor.
[2017-06-13] MEDS: HYDROMORPHONE 1 MG/1 ML DISP.SYRIN IV PRN ×5 (05:10→23:21)
--- NOTE | 2017-06-13 05:26 | NUR ---
PATIENT WOKE UP ANXIOUS, UNABLE TO STATE WAS WRONG. PATIENT ALERT AND ORIENTED. REASSURED PATIENT. PATIENT C/O 9/10 BACK PAIN. PRN DILAUDID GIVEN. WILL CONTINUE TO MONITOR.
--- NOTE | 2017-06-13 06:00 | NUR ---
BLADDER SCAN DONE, WITH 145ML URINE NOTED. NO C/O BLADDER FULLNESS. WILL CONTINUE TO MONITOR.
[2017-06-13] MEDS: BLOOD SUGAR DIAGNOSTIC 1 EACH STRIP IN SCH ×4 (06:45→21:29)
[2017-06-13 06:50] LABS: EOSINOPHILS # (AUTO) 0.2 /CMM (0.0-0.7); EOSINOPHILS % (AUTO) 3.3 % (0.0-6.0); HEMATOCRIT 36 % (39-51); HEMOGLOBIN 11.5 g/dL (13.5-17.5); LYMPHOCYTES # (AUTO) 0.4 /CMM (0.8-4.8); LYMPHOCYTES % (AUTO) 5.6 % (20.0-44.0); MEAN CORPUSCULAR HEMOGLOBIN 28 PG (26.0-33.0); MEAN CORPUSCULAR HGB CONC 32 g/dl (31.0-36.0); MEAN CORPUSCULAR VOLUME 89 fL (80-96); MONOCYTES # (AUTO) 0.5 /CMM (0.1-1.30); MONOCYTES % (AUTO) 6.8 % (2.0-12.0); NEUTROPHILS # (AUTO) 6.1 /CMM (1.8-8.9); NEUTROPHILS % (AUTO) 84.3 % (43.0-81.0); PLATELET COUNT (AUTO) 116 /CMM (150-450); RDW COEFFICIENT OF VARIATION 18.5 (11.5-15.0); RED BLOOD CELL COUNT(AUTO) 4.08 MIL/uL (4.5-6.0); WHITE BLOOD COUNT (AUTO) 7.2 K/uL (4.3-11.0)
[2017-06-13 07:04] LABS: CALCIUM, SERUM 8.2 mg/dL (8.5-10.1); POTASSIUM 5.2 mmol/L (3.5-5.1)
--- NOTE | 2017-06-13 07:05 | NUR ---
COMMISSIONING SPECIALIST NOTE: RECEIVED PT AWAKE IN BED, A&OX3. ON 02 2LPM VIA NC, RESPIRATIONS EVEN AND UNLABORED. HD CATH ON LEFT CHEST NOTED. RFA AND LFA IV PATENT AND INTACT. BED LOW, LOCKED, X 2 SIDE RAILS UP AND CALL LIGHT WITHIN REACH. WILL CONT TO MONITOR.
--- NOTE | 2017-06-13 07:25 | NUR ---
CANVAS GOODS MAKER CLOSING NOTES PATIENT ASLEEP IN BED. RESPIRATIONS EVEN AND UNLABORED, WITH 3LPMO2 VIA NC. SKIN WARM AND DRY TO TOUCH. WITH C/O OF FEELING ANXIOUS, STATES HE TAKE ATIVAN FOR HIS ANXIETY. WITH BP ELEVATED BUT ASYMPTOMATIC. ALL NEEDS ANTICIPATED AND MET. DENIES H/A, DENIES N/V. PAIN MONITORED AND MANAGED. SIDE RAILS UP AND LOCKED. BED KEPT AT LOWEST POSITION. CALL LIGHT KEPT WITHIN EASY REACH. CONTINUITY OF CARE ENDORSED TO AM NURSE.
[2017-06-13 08:00] VITALS: BP 179/110
[2017-06-13] MEDS: CARVEDILOL 6.25 MG TABLET PO SCH ×2 (08:39→21:23)
[2017-06-13] MEDS: LEVOTHYROXINE SODIUM 50 MCG TABLET PO SCH (08:40)
[2017-06-13] MEDS: GABAPENTIN 100 MG CAPSULE PO SCH ×2 (08:40→17:29)
[2017-06-13] MEDS: QUETIAPINE FUMARATE 100 MG TABLET PO SCH (08:40)
[2017-06-13] MEDS: SERTRALINE HCL 25 MG TABLET PO SCH (08:40)
[2017-06-13] MEDS: LACTOBACILLUS RHAMNOSUS GG 1 EACH CAP.SPRINK PO SCH ×2 (08:40→17:29)
[2017-06-13] MEDS: HEPARIN SODIUM, PORCINE 5000 UNITS/1 ML VIAL SQ SCH ×2 (08:42→21:24)
[2017-06-13] MEDS: SEVELAMER CARBONATE 800 MG TABLET PO SCH ×3 (08:49→18:39)
[2017-06-13] MEDS: ASPIRIN 325 MG TABLET PO SCH (08:49)
--- NOTE | 2017-06-13 09:35 | NUR ---
LOAD MANAGER NOTE: DIALYSIS NURSE AT BEDSIDE. LAB RESULTS REVIEWED.
[2017-06-13] MEDS: RENAL NOVASOURCE (8OZ) 1 EA BOX PO SCH ×2 (13:46→18:44)
[2017-06-13 16:00] VITALS: BP 157/89
[2017-06-13] MEDS: LIDOCAINE 5% (PATCH) 1 EA PATCH TP SCH (17:00)
--- NOTE | 2017-06-13 18:50 | NUR ---
MS RN NOTE: BLADDER SCAN DONE- NO URINE DETECTED. NORIS ARIAS INFORMED.
--- NOTE | 2017-06-13 19:00 | NUR ---
MS RN NOTE: NO ACUTE CHANGES DURING SHIFT. ON 2LPM O2 VIA NC, RESPIRATIONS EVEN AND UNLABORED. HD CATH ON LEFT CHEST WALL DRESSING KEPT DRY AND CLEAN. RFA AND LFA IV PATENT AND INTACT. AWAITING PSYCH CONSULT. ORDERS CARRIED OUT. HOB ELEVATED, BED LOW, LOCKED, X 2 SIDE RAILS UP AND CALL LIGHT WITHIN REACH. WILL CONT TO MONITOR.
--- NOTE | 2017-06-13 19:30 | NUR ---
MS/RN NOTES" RECEIVED IN BED W/ HOB ELEVATED A/O X 3 WATCHING CARTOON. NOT IN ANY RESPIRATORY DISTRESS NOTED. NO C/O CHEST PAIN OR SOB. W/ O2 @ 2LPM VIA N/C SAT. @ 99 %. HL ON RFA AND LFA PATENT AND INTACT W/ NO S/S OF INFILTRATION/INFECTION NOTED. HAS HD CATH ON LCW. ALL NEEDS ATTENDED AND MEET. CALL LIGHT W/ REACH. WILL CONTINUE TO MONITOR.
[2017-06-13 20:00] VITALS: BP 135/91
--- NOTE | 2017-06-13 20:30 | NUR ---
MS/RN NOTES: TATIANA FROM LAB CALLED W/ AMIKACIN TROUGH 9.2. CHARGE NURSE MADE AWARE.
[2017-06-13] MEDS: TAMSULOSIN 0.4 MG CAP.SR.24H PO SCH (21:22)
[2017-06-13] MEDS: ATORVASTATIN 40 MG TABLET PO SCH (21:23)
--- NOTE | 2017-06-13 23:20 | NUR ---
RN/MS NOTES: PT. C/O PAIN 05/03 W/PRN DILAUDID GIVEN PER ORDER. WILL REASSESS PAIN LEVEL LATER. ADDENUM : 7484 : PT. STATED HE FEELS MUCH BETTER W/ HIS PAIN LEVEL NOW. 12/31. CALL LIGHT W/ REACH. WILL CONTINUE TO MONITOR.
[2017-06-14] MEDS: ZOLPIDEM TARTRATE 5 MG TABLET PO PRN (00:51)
--- NOTE | 2017-06-14 00:51 | NUR ---
RN/MS NOTES: PT. REQUESTED AMBIEN TO HELP HIM W/ SLEEP. AMBIEN GIVEN PER ORDER. ADDENDUM 0151: PT. SLEEPING W/ RESPIRATIONS EVEN AND UNLABORED. CALL LIGHT W/ REACH. WILL CONTINUE TO MONITOR.
[2017-06-14 04:00] VITALS: BP 127/86
[2017-06-14] MEDS: HYDROMORPHONE 1 MG/1 ML DISP.SYRIN IV PRN ×4 (05:22→21:11)
[2017-06-14 06:56] LABS: CALCIUM, SERUM 8.1 mg/dL (8.5-10.1); POTASSIUM 4.4 mmol/L (3.5-5.1)
[2017-06-14 06:57] LABS: CREATININE 10.3 mg/dL (0.6-1.3)
--- NOTE | 2017-06-14 07:10 | NUR ---
RN OPEN NOTES RECIEVED REPORT FROM STRAIGHT LINE PRESS SETTER NURSE. WILL CONTINUE TO MONITOR AND ASSESS PATIENT THROUGH OUT MY SHIFT
--- NOTE | 2017-06-14 07:14 | NUR ---
RN/MS NOTES: PT. IN BED SLEEPING BUT EASILY AROUSABLE. ALL NEEDS MEET. IC AT 5:15 A.M. FOR 400 CC OF CLEAR YELLOW URINE. CALL LIGHT W/ REACH. REPORT GIVEN TO THE NEXT SHIFT NURSE FOR TRINA.
--- NOTE | 2017-06-14 07:15 | NUR ---
RN NOTES RECEIVED REPORT FROM TIRE MAINTENANCE TECHNICIAN NURSE. WILL CONTINUE TO MONITOR AND ASSESS PATIENT THROUGH OUT MY SHIFT
[2017-06-14] MEDS: SEVELAMER CARBONATE 800 MG TABLET PO SCH ×3 (07:41→16:21)
[2017-06-14] MEDS: LEVOTHYROXINE SODIUM 50 MCG TABLET PO SCH (07:41)
[2017-06-14] MEDS: BLOOD SUGAR DIAGNOSTIC 1 EACH STRIP IN SCH ×4 (07:43→21:15)
[2017-06-14] MEDS: RENAL NOVASOURCE (8OZ) 1 EA BOX PO SCH ×3 (07:43→16:22)
[2017-06-14 08:00] VITALS: BP 140/100
[2017-06-14] MEDS: GABAPENTIN 100 MG CAPSULE PO SCH ×2 (09:07→16:21)
[2017-06-14] MEDS: QUETIAPINE FUMARATE 100 MG TABLET PO SCH ×2 (09:07→21:11)
[2017-06-14] MEDS: ASPIRIN 325 MG TABLET PO SCH (09:07)
[2017-06-14] MEDS: CARVEDILOL 6.25 MG TABLET PO SCH ×2 (09:07→21:11)
[2017-06-14] MEDS: LACTOBACILLUS RHAMNOSUS GG 1 EACH CAP.SPRINK PO SCH ×2 (09:08→16:21)
[2017-06-14] MEDS: SERTRALINE HCL 25 MG TABLET PO SCH (09:08)
[2017-06-14 09:09] LABS: APPEARANCE,URINE CLEAR (CLEAR); BILIRUBIN,URINE NEGATIVE (NEGATIVE); BLOOD, URINE 2+ Ery/uL (NEGATIVE); COLOR,URINE YELLOW (YELLOW); KETONES,URINE NEGATIVE (NEGATIVE); LEUKOCYTE ESTERASE ,URINE TRACE (NEGATIVE); NITRITE, URINE NEGATIVE (NEGATIVE); PROTEIN,URINE 2+ mg/dl (NEGATIVE); UGLUCOSE NEGATIVE (NEGATIVE); UROBILINOGEN,URINE 0.2 EU/dL (0.2)
[2017-06-14] MEDS: HEPARIN SODIUM, PORCINE 5000 UNITS/1 ML VIAL SQ SCH ×2 (09:12→21:16)
--- NOTE | 2017-06-14 09:30 | NUR ---
DR KENNEDY AT BEDSIDE
--- NOTE | 2017-06-14 09:30 | NUR ---
PATIENT DIDN'T DRINK THE NOVASOURCE. PATIENT SAID THAT HE DOESN'T LIKE IT
[2017-06-14 09:38] LABS: BACTERIA,URINE Rare /HPF (None Seen); SQUAMOUS EPITHELIAL CELL,UR Rare /HPF (None Seen)
--- NOTE | 2017-06-14 10:00 | NUR ---
DR FARRIS AT BEDSIDE
--- NOTE | 2017-06-14 10:05 | NUR ---
DIALYSIS TO BE COMPLETED TODAY PER DR KENNEDY AND DR MAHONEY
--- NOTE | 2017-06-14 11:17 | NUR ---
DIALYSIS NURSE AT BEDSIDE
--- NOTE | 2017-06-14 11:57 | NUR ---
HELD RENAGEL DUE TO DIALYSIS
--- NOTE | 2017-06-14 12:30 | NUR ---
PATIENT REFUSED THE NOVASOURCE
--- NOTE | 2017-06-14 13:50 | NUR ---
DIALYSIS COMPLETED. 4,000 ML FLUID REMOVED. BLOOD PRESSURE 131/92, HR 96
--- NOTE | 2017-06-14 14:00 | NUR ---
BLADDER SCAN 164ML
--- NOTE | 2017-06-14 15:09 | NUR ---
PLEASE CALL MIKE ORTEZ AT [phone] FOR ALL DISCHARGE PANNING.
[2017-06-14 16:00] VITALS: BP 148/106
[2017-06-14] MEDS: LIDOCAINE 5% (PATCH) 1 EA PATCH TP SCH (16:22)
--- NOTE | 2017-06-14 16:22 | NUR ---
PAIN LEVEL 8-9/10. DILAUDID ADMINISTERED. BP 148/106 HR 101
--- NOTE | 2017-06-14 18:28 | NUR ---
RN CLOSING NOTE PATIENT IS IN BED, ALERT AND ORIENTED TO NAME, PLACE AND TIME. PATIENT REMAINED STABLE DURING THE SHIFT. DIALYSIS COMPLETED TODAY AND 4,000 ML OF FLUID REMOVED. NO SIGNS AND SYMPTOMS OF DISTRESS. PAIN IS BEING MANAGED WITH DILAUDID Q4HR, LAST ADMINISTERED AT 1620. AMIKACIN LEVEL TRENDING DOWN WITH. IV SITES ARE INTACT AND PATENT. BLADDER SCAN Q8HR, STRAIGHT CATH FOR URINE RESIDUAL >300ML. ALL SAFETY MEASURES IN PLACE; BED IN LOW POSITION, LOCKED AND TWO SIDE RAILS ARE UP, CALL LIGHT WITHIN REACH. ALL NURSING CARE ANTICIPATED AND ALL NEEDS ATTENDED. LABS IN AM. WILL ENDORSE TO TELEMARKETING FUNDRAISER RN FOR CONTINUITY OF CARE.
--- NOTE | 2017-06-14 19:25 | NUR ---
RN OPENING NOTES: RECEIVED PATIENT ON BED AWAKE AND ALERT X4, ON O2 THERAPY AT 2LPM, NOT IN APPARENT RESPI DISTRESS. IV ACCESS ON RIGHT AND LEFT FOREARM, BOTH PATENT AND INTACT, KEPT SL. MONITORED FOR URINARY RETENTION. MONITORED FOR PAIN. SAFETY AND FALL MEASURES ENSURED. MONITORED ACCORDINGLY.
[2017-06-14 20:00] VITALS: BP 153/103
[2017-06-14] MEDS: ATORVASTATIN 40 MG TABLET PO SCH (21:10)
[2017-06-14] MEDS: TAMSULOSIN 0.4 MG CAP.SR.24H PO SCH (21:10)
--- NOTE | 2017-06-14 21:45 | NUR ---
RN NOTES; PATIENT NOTED WITH AN EPISODE OF VOMITING. MEASURES TO BE 80CC OF FOOD HE JUST INGESTED AND POSSIBLY THE PILLS HE TOOK. ZOFRAN GIVEN, TO MONITOR FOR RESPONSE TO MEDICATION WELL TO MONITOR FOR FURTHER EMESIS. BLADDER SCAN DONE, NO NOTED URINE. ALL QUADRANTS REGISTERED 0 ML. TO MONITOR AGAIN.
[2017-06-14] MEDS: ONDANSETRON HCL/PF 4 MG/2 ML VIAL IVP PRN (21:51)
[2017-06-14 23:00] VITALS: BP 139/95
[2017-06-15] MEDS: HYDROMORPHONE 1 MG/1 ML DISP.SYRIN IV PRN ×3 (01:11→21:50)
[2017-06-15 04:00] VITALS: BP 128/80
[2017-06-15] MEDS: BLOOD SUGAR DIAGNOSTIC 1 EACH STRIP IN SCH ×4 (06:33→21:51)
--- NOTE | 2017-06-15 06:50 | NUR ---
RN CLOSING NOTES: PATIENT NOT IN APPARENT DISTRESS ON BED. AM LABS DRAWN RESULTS PENDING. KEPT ON O2 THERAPY. ATTEMPTED TO DO BLADDER SCAN BUT BLADDER SCANNER NOT WORKING PROPERLY. INFORMED PATIENT ABOUT STRAIGHT CATHETERIZATION. REFUSED TO BE CATHETERIZED AT THIS TIME DESPITE EXPLANATION. ALSO REFUSED SPONGE BATH AND LINEN CHANGE AND SAID IT CAN BE DONE LATER ON IN THE MORNING. PATIENT IS COMFORTABLE AT THIS TIME. PATIENT IS ALSO PERSISTING TO GO HOME TODAY. ENDORSED TO AM SHIFT RN.
[2017-06-15 07:13] LABS: EOSINOPHILS # (AUTO) 0.5 /CMM (0.0-0.7); EOSINOPHILS % (AUTO) 7.1 % (0.0-6.0); HEMATOCRIT 36 % (39-51); HEMOGLOBIN 11.3 g/dL (13.5-17.5); LYMPHOCYTES # (AUTO) 0.6 /CMM (0.8-4.8); LYMPHOCYTES % (AUTO) 9.5 % (20.0-44.0); MEAN CORPUSCULAR HEMOGLOBIN 29 PG (26.0-33.0); MEAN CORPUSCULAR HGB CONC 32 g/dl (31.0-36.0); MEAN CORPUSCULAR VOLUME 90 fL (80-96); MONOCYTES # (AUTO) 0.7 /CMM (0.1-1.30); MONOCYTES % (AUTO) 11.4 % (2.0-12.0); NEUTROPHILS # (AUTO) 4.7 /CMM (1.8-8.9); PLATELET COUNT (AUTO) 94 /CMM (150-450); RDW COEFFICIENT OF VARIATION 18.7 (11.5-15.0); RED BLOOD CELL COUNT(AUTO) 3.96 MIL/uL (4.5-6.0); WHITE BLOOD COUNT (AUTO) 6.6 K/uL (4.3-11.0)
[2017-06-15 07:30] LABS: CALCIUM, SERUM 7.8 mg/dL (8.5-10.1); CREATININE 11.3 mg/dL (0.6-1.3); PHOSPHORUS 7.8 mg/dL (2.5-4.9); POTASSIUM 4.5 mmol/L (3.5-5.1)
--- NOTE | 2017-06-15 07:30 | NUR ---
MS RN OPENING RECEIVED PATIENT A/OX4 SLEEPING AWAKE TO LIGHT TOUCH. PATIENT DENIES SOB, DIFFICULTY BREATHING AND STATES PAIN CONTROLLED WITH PRN MEDICATIONS AND NON PHARM MEASURES. PATIENT RESTING WELL NO COMPLICATIONS NOTED. ALL NEEDS IN REACH, BED LOWERED AND LOCKED, RAILS UPX3 WITH BED ALARM ON FOR SAFETY. WILL ROUND Q2H OR LESS PER NEEDS
[2017-06-15 08:00] VITALS: BP 104/65
[2017-06-15] MEDS: RENAL NOVASOURCE (8OZ) 1 EA BOX PO SCH ×3 (08:00→17:31)
--- NOTE | 2017-06-15 08:00 | NUR ---
MS RN NOTES BLADDER SCANNED PATIENT. NO URINE DETECTED
--- NOTE | 2017-06-15 08:30 | NUR ---
MS RN NOTES MESSAGE LEFT FOR DR MAHONEY TO NOTIFY OF CRITICAL LAB VALUES. PATIENT STABLE NO COMPLICATIONS NOTED
[2017-06-15] MEDS: ASPIRIN 325 MG TABLET PO SCH (08:32)
[2017-06-15] MEDS: SEVELAMER CARBONATE 800 MG TABLET PO SCH ×3 (08:33→17:30)
[2017-06-15] MEDS: SERTRALINE HCL 25 MG TABLET PO SCH (08:33)
[2017-06-15] MEDS: CARVEDILOL 6.25 MG TABLET PO SCH ×2 (08:33→20:48)
[2017-06-15] MEDS: LEVOTHYROXINE SODIUM 50 MCG TABLET PO SCH (08:33)
[2017-06-15] MEDS: QUETIAPINE FUMARATE 100 MG TABLET PO SCH ×2 (08:33→21:51)
[2017-06-15] MEDS: LACTOBACILLUS RHAMNOSUS GG 1 EACH CAP.SPRINK PO SCH ×2 (08:33→17:30)
[2017-06-15] MEDS: GABAPENTIN 100 MG CAPSULE PO SCH ×2 (08:33→17:30)
[2017-06-15] MEDS: HEPARIN SODIUM, PORCINE 5000 UNITS/1 ML VIAL SQ SCH ×2 (08:40→20:52)
--- NOTE | 2017-06-15 09:05 | NUR ---
MS RN NOTES PATIENT ASKING FOR DILAUDID FOR BACK PAIN. HOWEVER WHEN I WENT BACK INTO THE ROOM 5 MINUTES LATER PATIENT IS SLEEPING COMFORTABLY AT THIS TIME. NO S.S PAIN. WILL RE EVALUATE ONCE PATIENT AWAKE
--- NOTE | 2017-06-15 11:00 | NUR ---
MS RN NOTES PHYSICAL THERAPY EVALUATION AT BEDSIDE. PATIENT WEAK AND LEGS WILL BUCKLE UNDER HIM WHEN HE STANDS. PATIENT ASSISTED TO BED WITH BED ALARM ON FOR SAFETY.
--- NOTE | 2017-06-15 11:00 | NUR ---
MS RN NOTES NEPHRO AT BEDSIDE AND CONFIRMED PATIENT IS TO HAVE HD TODAY. NO OTHER ORDERS AT THIS TIME
--- NOTE | 2017-06-15 11:16 | NUR ---
MS RN NOTES DR BRENTON CHAMPAGNE AT BEDSIDE.
--- NOTE | 2017-06-15 11:48 | NUR ---
MS RN NOTES HD RN AT BEDSIDE. PATIENT AWAKE TO TOUCH. NO SOB, DIFFICULTY BREATHING AT THIS TIME. PATIENT APPEARS STABLE.
[2017-06-15 12:01] LABS: EOSINOPHILS % (MANUAL) 5 % (0-4); LYMPHOCYTES % (MANUAL) 9 % (16-48); MONOCYTES % (MANUAL) 7 % (0-11.0); NEUTROPHILS % (MANUAL) 79 (42-76)
--- NOTE | 2017-06-15 12:15 | NUR ---
MS RN NOTES HD COMPLETED. PATIENT SLEEPING NO COMPLICATIONS NOTED. 2.5L OUT
[2017-06-15 14:00] VITALS: BP 172/110
[2017-06-15 16:00] VITALS: BP 104/65
[2017-06-15] MEDS: LIDOCAINE 5% (PATCH) 1 EA PATCH TP SCH (17:00)
--- NOTE | 2017-06-15 18:31 | NUR ---
MS RN CLOSING PATIENT STABLE. RE EDUCATED ON DIET ORDERED. PATIENT NON COMPLIANT. HAS DPOA BRINGING IN PIZZA AND SODA PATIENT STATES "THIS FOOD HERE IS TERRIBLE. I WILL NOT EAT IT". PATIENT STATES UNDERSTANDING OF COMPLICATIONS NOTED FROM NON COMPLIANT DIET. ALL DUE MEDS GIVEN AND ALL NEEDS MET. BED LOWERED AND LOCKED, RAILS UPX3 FOR SAFETY. BED LOWERED AND LOCKED, RAILS UPX3 FOR SAFETY WITH BED ALARM ON. CARE WILL BE ENDORSED TO RN FOR TRINA
--- NOTE | 2017-06-15 19:30 | NUR ---
RN INITIAL NOTES RECEIVED PATIENT IN BED, AWAKE, A/OX4. PATIENT'S BREATHING EVEN AND NONLABORED, DENIES SOB. IV SITES PATENT AND INTACT, FLUSHED WITH NS, FREE FROM ANY S/S OF INFILTRATION OR PHLEBITIS. PLAN OF CARE DISCUSSED WITH THE PATIENT, WHO VERBALIZES UNDERSTANDING. ALL PERTINENT QUESTIONS ANSWERED ABLE. BED IN LOWEST AND LOCKED POSITION, CALL LIGHT LEFT WITHIN EASY REACH. WILL CONTINUE TO CLOSELY MONITOR
[2017-06-15 20:00] VITALS: BP 165/105
--- NOTE | 2017-06-15 21:00 | NUR ---
RN NOTES PATIENT NOTED TO BE EATING CHOCOLATE CAKE. ATTEMPTED TO EDUCATE PATIENT REGARDING CURRENT DIET ORDERS. PATIENT REFUSES TO LISTEN, STATING "THE FOOD HERE IS NASTY. IM NOT GOING TO EAT IT." WILL CONTINUE TO CLOSELY MONITOR THE PATIENT.
[2017-06-15] MEDS: ATORVASTATIN 40 MG TABLET PO SCH (21:50)
[2017-06-15] MEDS: TAMSULOSIN 0.4 MG CAP.SR.24H PO SCH (21:51)
[2017-06-15] MEDS: ONDANSETRON HCL/PF 4 MG/2 ML VIAL IVP PRN (21:51)
[2017-06-15 22:00] VITALS: BP 144/91
[2017-06-15] MEDS: HYDROCODONE/APAP 5/325MG 1 EACH TABLET PO PRN (23:50)
--- NOTE | 2017-06-16 | NUR ---
RN NOTES BLADDER SCAN DONE, NO URINE DETECTED. WILL CONTINUE TO CLOSELY MONITOR THE PATIENT.
--- NOTE | 2017-06-16 00:30 | NUR ---
RN NOTES PATIENT WITH DELIVERY FOR PIZZA. AGAIN ATTEMPTED THREE TIMES TO EDUCATE THE PATIENT REGARDING CURRENT DIET ORDERS, PATIENT REFUSES TO LISTEN AND FOLLOW DIET ORDERS. WILL CONTINUE TO CLOSELY MONITOR
[2017-06-16] MEDS: HYDROMORPHONE 1 MG/1 ML DISP.SYRIN IV PRN ×3 (01:54→15:27)
[2017-06-16 04:00] VITALS: BP 149/91
[2017-06-16 07:08] LABS: EOSINOPHILS # (AUTO) 0.6 /CMM (0.0-0.7); EOSINOPHILS % (AUTO) 7.7 % (0.0-6.0); HEMATOCRIT 36 % (39-51); HEMOGLOBIN 11.3 g/dL (13.5-17.5); LYMPHOCYTES # (AUTO) 0.7 /CMM (0.8-4.8); LYMPHOCYTES % (AUTO) 8.8 % (20.0-44.0); MEAN CORPUSCULAR HEMOGLOBIN 28 PG (26.0-33.0); MEAN CORPUSCULAR HGB CONC 32 g/dl (31.0-36.0); MEAN CORPUSCULAR VOLUME 90 fL (80-96); MONOCYTES # (AUTO) 0.7 /CMM (0.1-1.30); MONOCYTES % (AUTO) 8.3 % (2.0-12.0); NEUTROPHILS # (AUTO) 6.2 /CMM (1.8-8.9); NEUTROPHILS % (AUTO) 75.2 % (43.0-81.0); PLATELET COUNT (AUTO) 90 /CMM (150-450); RDW COEFFICIENT OF VARIATION 18.5 (11.5-15.0); RED BLOOD CELL COUNT(AUTO) 3.99 MIL/uL (4.5-6.0); WHITE BLOOD COUNT (AUTO) 8.2 K/uL (4.3-11.0)
--- NOTE | 2017-06-16 07:14 | NUR ---
RN CLOSING NOTES PATIENT ASLEEP IN BED, EASILY AROUSABLE TO NAME. NO ACUTE CHANGES THROUGHOUT SHIFT. WILL ENDORSE THE PATIENT TO THE AM SHIFT NURSE FOR TRINA
[2017-06-16 07:16] LABS: CALCIUM, SERUM 8.4 mg/dL (8.5-10.1); PHOSPHORUS 5.6 mg/dL (2.5-4.9); POTASSIUM 4.2 mmol/L (3.5-5.1)
[2017-06-16 07:22] LABS: CREATININE 10.1 mg/dL (0.6-1.3)
[2017-06-16] MEDS: BLOOD SUGAR DIAGNOSTIC 1 EACH STRIP IN SCH ×4 (07:57→21:31)
[2017-06-16 08:00] VITALS: BP 145/83
[2017-06-16] MEDS: GABAPENTIN 100 MG CAPSULE PO SCH ×2 (08:00→16:14)
[2017-06-16] MEDS: LACTOBACILLUS RHAMNOSUS GG 1 EACH CAP.SPRINK PO SCH ×2 (08:00→16:13)
[2017-06-16] MEDS: RENAL NOVASOURCE (8OZ) 1 EA BOX PO SCH ×3 (08:00→18:19)
[2017-06-16] MEDS: LEVOTHYROXINE SODIUM 50 MCG TABLET PO SCH (08:00)
[2017-06-16] MEDS: SEVELAMER CARBONATE 800 MG TABLET PO SCH ×3 (08:01→18:18)
[2017-06-16] MEDS: ASPIRIN 325 MG TABLET PO SCH (08:01)
[2017-06-16] MEDS: SERTRALINE HCL 25 MG TABLET PO SCH (08:01)
[2017-06-16] MEDS: QUETIAPINE FUMARATE 100 MG TABLET PO SCH ×2 (08:02→21:25)
[2017-06-16] MEDS: ONDANSETRON HCL/PF 4 MG/2 ML VIAL IVP PRN ×2 (08:02→15:31)
[2017-06-16] MEDS: HEPARIN SODIUM, PORCINE 5000 UNITS/1 ML VIAL SQ SCH (08:03)
[2017-06-16] MEDS: CARVEDILOL 6.25 MG TABLET PO SCH ×2 (08:05→21:27)
[2017-06-16 08:20] LABS: BAND % (MANUAL) 3 % (0.0-5.0); EOSINOPHILS % (MANUAL) 6 % (0-4); LYMPHOCYTES % (MANUAL) 12 % (16-48); MONOCYTES % (MANUAL) 11 % (0-11.0); NEUTROPHILS % (MANUAL) 68 (42-76)
--- NOTE | 2017-06-16 08:35 | NUR ---
RN NOTE PT VOMITED ZOFRAN GIVEN IV.
[2017-06-16] MEDS ORDERED: CARV6.252 PO (09:40)
[2017-06-16] MEDS ORDERED: IPRA0.2S9 NEB (09:40)
[2017-06-16] MEDS ORDERED: ALBU2.5V13 NEB (09:40)
[2017-06-16] MEDS ORDERED: LACT1CAP72 PO (09:40)
[2017-06-16 16:00] VITALS: BP 153/70
[2017-06-16] MEDS: HYDROCODONE/APAP 5/325MG 1 EACH TABLET PO PRN (16:41)
--- NOTE | 2017-06-16 16:54 | NUR ---
CASUALTY UNDERWRITER NOTE CALLED AND REPORT GIVEN TO CLAUDIA MOHAN LVN. PT DC TO ORD. DISCHARGE PAPERWORK GIVEN TO EMT TRANSPORTED VIA AMBULANCE. ANNITA ORTEZ @ BEDSIDE. PT STABLE. DC IV AND ID BAND. PHOTOS TAKEN AND PUT IN CHART. EXITCARE DONE DC PAPERWORK SIGNED BY PATIENT. 1700 MEDICATIONS GIVEN DECLINED LIDO CANE PATCH. EDUCATED PT ON DIET AND MEDICATIONS. PT CLEAN AND DRY.
--- NOTE | 2017-06-16 16:55 | NUR ---
RN NOTE RN INFORMED TO ADMINISTER NORCO 1 TAB FOR PAIN PRIOR TO PAIN LEAVING THE HOSPITAL DUE TO INCREASED PAIN IN LOWER BACK AND THIGHS PAINT STATS THAT THE PAIN IS A 9 OUT OF 10 ON A PAIN SCALE. PAIN STABLE AT THIS TIME RN WILL CONTINUE TO MONITOR THE PATIENT FOR ANY CHANGES.
[2017-06-16] MEDS: LIDOCAINE 5% (PATCH) 1 EA PATCH TP SCH (17:00)
--- NOTE | 2017-06-16 18:09 | NUR ---
RN NOTE PT RETURN TO MED SURG DUE TO DIALYSIS NOT IN PLACE @ [facility]. PT STABLE. Addendum: 06/16/17 at 1934 by JARRETT LAST RN PT REFUSED IV ACCESS DUE TO DC IN AM AFTER HD.
[2017-06-16] MEDS ORDERED: hydrALAZINE HCL 10 MG TABLET PO PRN (18:30)
[2017-06-16] MEDS ORDERED: ONDANSETRON HCL 4 MG/5 ML SOLUTION PO PRN (18:30)
--- NOTE | 2017-06-16 19:30 | NUR ---
MS RN INITIAL NOTES RECEIVED PATIENT AWAKE A/OX3, ABLE TO MAKE NEEDS KNOWN. DENIES SOB, 2LPMO2 VIA NC. PLEASANT MOOD. WITH PAIN 8/10 TO BLE AND LOWER BACK. RESPIRATIONS EVEN AND UNLABORED. SKIN WARM AND DRY TO TOUCH. PER REPORT PATIENT FOR D/C TOMORROW AFTER HD. SIDE RAILS UP AND LOCKED. BED KEPT AT LOWER POSITION. CALL LIGHT KEPT WITHIN EASY REACH. WILL CONTINUE TO MONITOR.
[2017-06-16 20:00] VITALS: BP 158/105
--- NOTE | 2017-06-16 20:00 | NUR ---
PATIENT REFUSED BLADDER SCAN AT THIS TIME. EXPLAINED THE NEED FOR BLADDER SCAN. STATES HE'S FINE, DENIES BLADDER DISCOMFORT. WILL CONTINUE TO MONITOR.
[2017-06-16] MEDS: ATORVASTATIN 40 MG TABLET PO SCH (21:25)
[2017-06-16] MEDS: HYDROMORPHONE HCL 2 MG TABLET PO PRN (21:25)
[2017-06-16] MEDS: TAMSULOSIN 0.4 MG CAP.SR.24H PO SCH (21:25)
--- NOTE | 2017-06-17 | NUR ---
PATIENT AGREED TO DO BLADDER SCAN. BLADDER SCAN NO WORKING AT THIS TIME. PER NURSING SEED TESTER, BIOTECH NEEDS TO TAKE A LOOK AT IT TO FIX IT. PATIENT DENIES BLADDER FULLNESS OR DISCOMFORT AT THIS TIME. WILL CONTINUE TO MONITOR.
[2017-06-17 04:00] VITALS: BP 145/79
--- NOTE | 2017-06-17 07:47 | NUR ---
MS RN CLOSING NOTES NO SIGNIFICANT CHANGES OVERNIGHT. NO C/O SOB. PAIN MONITORED AND MANAGED NEEDED. ALL NEEDS ANTICIPATED AND MET. SIDE RAILS UP AND LOCKED. BED KEPT AT LOWEST POSITION. CALL LIGHT KEPT WITHIN EASY REACH. CONTINUITY OF CARE ENDORSED TO AM NURSE.
[2017-06-17] MEDS: LACTOBACILLUS RHAMNOSUS GG 1 EACH CAP.SPRINK PO SCH (08:06)
[2017-06-17] MEDS: SEVELAMER CARBONATE 800 MG TABLET PO SCH ×2 (08:06→12:17)
[2017-06-17] MEDS: GABAPENTIN 100 MG CAPSULE PO SCH (08:06)
[2017-06-17] MEDS: BLOOD SUGAR DIAGNOSTIC 1 EACH STRIP IN SCH ×2 (08:06→12:17)
[2017-06-17] MEDS: SERTRALINE HCL 25 MG TABLET PO SCH (08:06)
[2017-06-17] MEDS: LEVOTHYROXINE SODIUM 50 MCG TABLET PO SCH (08:06)
[2017-06-17] MEDS: QUETIAPINE FUMARATE 100 MG TABLET PO SCH (08:06)
[2017-06-17] MEDS: HYDROMORPHONE HCL 2 MG TABLET PO PRN (08:07)
[2017-06-17] MEDS: RENAL NOVASOURCE (8OZ) 1 EA BOX PO SCH ×2 (08:07→12:17)
[2017-06-17] MEDS: ASPIRIN 325 MG TABLET PO SCH (08:07)
[2017-06-17 08:08] VITALS: BP 156/105
--- NOTE | 2017-06-17 08:15 | NUR ---
RN NOTE HD NURSE @ BEDSIDE WILL HOLD COREG. PT AWAKE AND ALERT PAIN 04/02. MEDICATION GIVEN.
[2017-06-17] MEDS: CARVEDILOL 6.25 MG TABLET PO SCH ×2 (09:17→10:16)
[2017-06-17 10:22] VITALS: BP 149/89
[2017-06-17 12:13] VITALS: BP 114/71
--- NOTE | 2017-06-17 14:02 | NUR ---
REGISTERED NURSE NOTE PT DISCHARGED TO [facility] REPORT GIVEN BY SHERMAN SHARPE RN TO AJ @ 1000. PT TRANFERRED VIA AMBULANCE. ID BAND REMOVED. ALL DC INSTRUCTIONS GIVEN. ALL QUESTIONS AND CONCERNS ANSWERED. PAPERWORK AND PHOTOS GIVEN FROM ATTEMPT YESTERDAY DC. PATIENT REUSED BED BATH WEARING OWN CLOTHING. ATTEMPTED NUMEROUS TIMES TO BATH PT. BELONGINGS SENT WITH PATIENT. DUE TO S/P HD PATIENT IS TIRED AND SLEEPY BUT ABLE TO BE RESPONSED TO QUESTIONS PROPERLY WHEN ASKED.
== END 2017-06-17 15:22 | DRG 280 ==
LOC: ER 20:30 → TELE-TD 22:42 → TELE1 06-09 11:19 → MEDSG1 06-10 08:22 → TELE1 06-11 07:56 → MEDSG1 06-13 10:26 → UNDODISIN 06-16 17:03 → MEDSG1 06-16 17:56
PROVIDERS: ADMIT Nurse Practitioner Acute Care; ATTEND Nurse Practitioner Acute Care
PROC: 5A1D70Z Performance of Urinary Filtration, Intermittent, Less than 6 Hours Per Day (ICD-10-PCS; principal; 2017-06-09)
DX: I13.2 Hypertensive heart and chronic kidney disease with heart failure and with stage 5 chronic kidney disease, or end stage renal disease (principal); I50.23 Acute on chronic systolic (congestive) heart failure; I21.4 Non-ST elevation (NSTEMI) myocardial infarction; J96.11 Chronic respiratory failure with hypoxia; J15.9 Unspecified bacterial pneumonia; E44.0 Moderate protein-calorie malnutrition; F33.3 Major depressive disorder, recurrent, severe with psychotic symptoms; J90 Pleural effusion, not elsewhere classified; N18.6 End stage renal disease; E87.1 Hypo-osmolality and hyponatremia; I48.91 Unspecified atrial fibrillation; W18.30XA Fall on same level, unspecified, initial encounter; E11.22 Type 2 diabetes mellitus with diabetic chronic kidney disease; D63.8 Anemia in other chronic diseases classified elsewhere; E03.9 Hypothyroidism, unspecified; E78.5 Hyperlipidemia, unspecified; E87.5 Hyperkalemia; F41.9 Anxiety disorder, unspecified; I25.10 Atherosclerotic heart disease of native coronary artery without angina pectoris; J44.9 Chronic obstructive pulmonary disease, unspecified; K21.9 Gastro-esophageal reflux disease without esophagitis; Z99.81 Dependence on supplemental oxygen; E88.09 Other disorders of plasma-protein metabolism, not elsewhere classified; G89.29 Other chronic pain; Z68.27 Body mass index [BMI] 27.0-27.9, adult; E83.9 Disorder of mineral metabolism, unspecified; I42.9 Cardiomyopathy, unspecified; R33.9 Retention of urine, unspecified; E66.9 Obesity, unspecified; Y93.9 Activity, unspecified; Y92.009 Unspecified place in unspecified non-institutional (private) residence as the place of occurrence of the external cause; Z79.4 Long term (current) use of insulin; Z99.2 Dependence on renal dialysis; E11.649 Type 2 diabetes mellitus with hypoglycemia without coma
CPT/HCPCS: 36415; 36600; 71010-TC; 74000-TC; 76604-TC; 80048-TC; 80061-TC; 80076-TC; 80150; 81000-TC; 82570-TC; 82803-TC; 82962-TC; 83605-TC; 83735-TC; 83880; 84100-TC; 84300-TC; 84484-TC; 85025-TC; 85730-TC; 87040-TC; 87081-TC; 87086-TC; 90935-TC; 97110-TC; 97530-TC; A4216; A4606; J0278; J0360; J0610; J1170; J1644; J1815; J1956; J2405; J2543; J3370; J3490; J7030; J7040; J7050; J7060; Q0162; Z7610

== ENCOUNTER 2017-08-30 19:14 | Inpatient (IN) | payer MEDICARE ==
[~2017-08-30] VITALS: Ht 185.4 cm; Wt 86.2 kg
[~2017-08-30 19:14] MED LIST changes: +ALBU2.5V13 NEB; +ASPI-992 PO; -ASPI325T2 PO; +CARV6.252 PO; +IPRA0.2S9 NEB; +LACT1CAP72 PO
[2017-08-30] MEDS ORDERED: Magnesium 1GM/D5W 100ML PREMIX 200 ML IV ONE ×2 (19:28→20:01)
[2017-08-30] MEDS ORDERED: methylPREDNISolone SOD SUCC 125 MG/2ML VIAL IV ONE (19:30)
[2017-08-30] MEDS ORDERED: IPRATROPIUM NEB FS 0.5 MG/2.5 ML AMPUL.NEB NEB ONE (19:30)
[2017-08-30] MEDS ORDERED: ALBUTEROL FS 2.5 MG/3 ML VIAL.NEB NEB ONE (19:30)
[2017-08-30 19:49] LABS: BASOPHILS # (AUTO) 0.2 /CMM (0.0-0.2); BASOPHILS % (AUTO) 3.2 % (0.0-2.0); EOSINOPHILS # (AUTO) 0.2 /CMM (0.0-0.7); EOSINOPHILS % (AUTO) 3.6 % (0.0-6.0); HEMATOCRIT 37 % (39-51); HEMOGLOBIN 12.4 g/dL (13.5-17.5); LYMPHOCYTES # (AUTO) 0.9 /CMM (0.8-4.8); LYMPHOCYTES % (AUTO) 14.5 % (20.0-44.0); MEAN CORPUSCULAR HEMOGLOBIN 31 PG (26.0-33.0); MEAN CORPUSCULAR HGB CONC 34 g/dl (31.0-36.0); MEAN CORPUSCULAR VOLUME 93 fL (80-96); MONOCYTES # (AUTO) 0.5 /CMM (0.1-1.30); MONOCYTES % (AUTO) 7.4 % (2.0-12.0); NEUTROPHILS # (AUTO) 4.6 /CMM (1.8-8.9); NEUTROPHILS % (AUTO) 71.3 % (43.0-81.0); PLATELET COUNT (AUTO) 170 /CMM (150-450); RED BLOOD CELL COUNT(AUTO) 4.01 MIL/uL (4.5-6.0); WHITE BLOOD COUNT (AUTO) 6.4 K/uL (4.3-11.0)
[2017-08-30] MEDS ORDERED: ALBUTEROL FS 2.5 MG/3 ML VIAL.NEB ONE (19:55)
[2017-08-30] MEDS ORDERED: IPRATROPIUM NEB FS 0.5 MG/2.5 ML AMPUL.NEB ONE (19:55)
[2017-08-30 19:59] LABS: CALCIUM, SERUM 8.5 mg/dL (8.5-10.1)
--- NOTE | 2017-08-30 19:59 | NUR ---
RT AT BEDSIDE FOR NEB TX PER MD ORDERS.
[2017-08-30 20:00] LABS: CREATININE 9.8 mg/dL (0.6-1.3)
[2017-08-30] MEDS ORDERED: methylPREDNISolone SOD SUCC 125 MG/2ML VIAL ONE (20:01)
[2017-08-30 20:07] LABS: TROPONIN I 0.083 ng/mL (0.00-0.056)
[2017-08-30] MEDS ORDERED: ASPIRIN 325 MG TABLET PO ONE (20:30)
[2017-08-30] MEDS ORDERED: ALBUTEROL FS 2.5 MG/0.5 ML VIAL.NEB NEB PRN (21:30)
[2017-08-30] MEDS ORDERED: FUROSEMIDE 40 MG/4 ML VIAL IV SCH (21:30)
[2017-08-30] MEDS ORDERED: IPRATROPIUM NEB FS 0.5 MG/2.5 ML AMPUL.NEB NEB PRN (21:30)
[2017-08-30] MEDS ORDERED: HYDROCODONE/APAP 10/325MG 1 EA TABLET ONE (21:38)
[2017-08-30] MEDS ORDERED: ONDANSETRON 4 MG TAB.RAPDIS ONE (21:38)
[2017-08-30] MEDS ORDERED: ASPIRIN 325 MG TABLET ONE (21:43)
[2017-08-30] MEDS ORDERED: HYDROCODONE/APAP 10/325MG 1 EA TABLET PO ONE (22:00)
[2017-08-30] MEDS ORDERED: ONDANSETRON 4 MG TAB.RAPDIS SL ONE (22:00)
--- NOTE | 2017-08-30 22:32 | NUR ---
REPORT GIVEN. VSS FOR TRANSFER TO FLOOR
[2017-08-30 22:45] VITALS: BP 115/100
--- NOTE | 2017-08-30 23:00 | NUR ---
DIRECTOR COUNCIL ON AGING NOTE: RECEIVED PATIENT FROM ER, NO ACUTE DISTRESS NOTED. BREATHING EVEN AND UNLABORED, NO SOB NOTED. IV TO LFA #[address] HD TO LEFT CHEST WALL, NO BLEEDING NOTED. ORIENTED PATIENT TO ROOM AND USE OF CALL LIGHT. BED LOCKED AND IN LOWEST POSITION, CALL LIGHT IN REACH. WILL CONTINUE TO MONITOR. Addendum: 08/31/17 at 0455 by LINNETTE PARIS RN TELE READING SINUS TACHY 100-120, WITH BBB
[2017-08-31] VITALS (7 sets, daily range): BP systolic 128–156; BP diastolic 85–104
[2017-08-31] MEDS ORDERED: FUROSEMIDE 40 MG/4 ML VIAL ONE (00:09)
[2017-08-31] MEDS ORDERED: ATORVASTATIN 40 MG TABLET ONE (00:10)
[2017-08-31] MEDS: ATORVASTATIN 40 MG TABLET PO SCH ×2 (00:24→22:53)
[2017-08-31] MEDS ORDERED: INSULIN REGULAR, HUMAN 100 UNIT/ML 3 ML VIAL SQ PRN ×2 (00:30)
[2017-08-31] MEDS ORDERED: DEXTROSE 50%-WATER 50 ML DISP.SYRIN IV PRN ×2 (00:30)
[2017-08-31] MEDS ORDERED: HYDROMORPHONE 1 MG/1 ML DISP.SYRIN IV PRN (00:30)
[2017-08-31] MEDS ORDERED: *INSULIN REGULAR(HUMULIN R)HUM 100 UNIT/ML VIAL SQ PRN ×2 (00:30)
[2017-08-31] MEDS ORDERED: HYDROMORPHONE INJ 2 MG/ML DISP.SYRIN ONE (01:29)
[2017-08-31] MEDS: HYDROMORPHONE INJ 2 MG/ML DISP.SYRIN IV PRN ×4 (01:48→22:55)
--- NOTE | 2017-08-31 02:30 | NUR ---
AUTOMOTIVE DESIGN DRAFTER NOTE: PATIENT COMPLAINS OF BACK PAIN 05/03, DILAUDID 1MG IV GIVEN PER MD ORDER. WILL CONTINUE TO MONITOR.
--- NOTE | 2017-08-31 07:00 | NUR ---
PROJECTION CAMERA OPERATOR NOTE: PATIENT RESTING IN BED, NO ACUTE DISTRESS NOTED. BREATHING EVEN AND UNLABORED, NO SOB NOTED. IV TO LFA #[address] HD TO LEFT CHEST WALL, NO BLEEDING NOTED. TELE READING SR/SINUS TACHY WITH BBB, HR 100-120. BED LOCKED AND IN LOWEST POSITION, CALL LIGHT IN REACH. WILL ENDORSE TO DAY NURSE TO CONTINUE WITH PLAN OF CARE.
[2017-08-31] MEDS: BLOOD SUGAR DIAGNOSTIC 1 EACH STRIP VI SCH ×4 (07:15→23:06)
--- NOTE | 2017-08-31 07:15 | NUR ---
DEV MANAGER OPENING NOTES RECVD REPORT FROM LYLE RN. PT AAO2 FORGETFUL DELAYED. TELE SR/ST BBB. LFA 20G PATENT. BLOOD SUGARS ACHS. PRN RT TX AND [facility]RI[facility] SOLU MEDROL DX COPD EXACERBATION. NON LABORED RESP AT PRESENT 93% O2 SATS RA. BED IN LOW LOCKED POSITION. CALL LIGHT IN REACH. SIDE RAILS X 2. WILL CONT TO MONITOR CLOSELY.
[2017-08-31] MEDS ORDERED: BLOOD SUGAR DIAGNOSTIC 1 EACH STRIP VI SCH (07:30)
[2017-08-31 10:08] LABS: EOSINOPHILS % (AUTO) 1.2 % (0.0-6.0); HEMATOCRIT 40 % (39-51); HEMOGLOBIN 12.9 g/dL (13.5-17.5); LYMPHOCYTES % (AUTO) 25.8 % (20.0-44.0); MEAN CORPUSCULAR HEMOGLOBIN 30 PG (26.0-33.0); MEAN CORPUSCULAR HGB CONC 32 g/dl (31.0-36.0); MEAN CORPUSCULAR VOLUME 94 fL (80-96); MONOCYTES # (AUTO) 0.1 /CMM (0.1-1.30); MONOCYTES % (AUTO) 2.4 % (2.0-12.0); NEUTROPHILS # (AUTO) 2.7 /CMM (1.8-8.9); NEUTROPHILS % (AUTO) 70.6 % (43.0-81.0); PLATELET COUNT (AUTO) 178 /CMM (150-450); RDW COEFFICIENT OF VARIATION 24.5 (11.5-15.0); RED BLOOD CELL COUNT(AUTO) 4.23 MIL/uL (4.5-6.0); WHITE BLOOD COUNT (AUTO) 3.8 K/uL (4.3-11.0)
[2017-08-31 10:16] LABS: ALBUMIN 3.5 g/dL (3.4-5.0); BILIRUBIN,TOTAL 0.4 mg/dL (0.2-1.0); CALCIUM, SERUM 8.5 mg/dL (8.5-10.1); MAGNESIUM 2.5 mg/dL (1.8-2.4); PHOSPHORUS 7.5 mg/dL (2.5-4.9); TOTAL PROTEIN, SERUM 8.8 g/dL (6.4-8.2)
[2017-08-31 10:25] LABS: THYROID STIMULATING HORMONE 0.888 uIU/mL (0.358-3.74)
[2017-08-31 10:27] LABS: POTASSIUM 6.8 mmol/L (3.5-5.1)
[2017-08-31 10:28] LABS: CREATININE 10.7 mg/dL (0.6-1.3)
[2017-08-31] MEDS ORDERED: INSULIN DETEMIR 100 UNIT/ML CARTRIDGE SQ SCH (10:30)
[2017-08-31] MEDS: methylPREDNISolone SOD SUCC 125 MG/2ML VIAL IV SCH ×4 (10:51→22:50)
[2017-08-31] MEDS: FUROSEMIDE 100 MG/10 ML VIAL IV SCH ×3 (10:51→18:12)
[2017-08-31] MEDS: ASPIRIN 325 MG TABLET PO SCH (10:51)
[2017-08-31] MEDS: GABAPENTIN 100 MG CAPSULE PO SCH ×2 (10:51→17:00)
[2017-08-31] MEDS: LISINOPRIL (10MG) 10 MG TABLET PO SCH ×2 (10:52→22:54)
[2017-08-31] MEDS: LACTOBACILLUS RHAMNOSUS GG 1 EACH CAP.SPRINK PO SCH ×2 (10:52→17:00)
[2017-08-31] MEDS: SERTRALINE HCL 25 MG TABLET PO SCH (10:52)
[2017-08-31] MEDS: CARVEDILOL 6.25 MG TABLET PO SCH ×2 (10:52→22:55)
[2017-08-31] MEDS: LEVOTHYROXINE SODIUM 50 MCG TABLET PO SCH (10:52)
[2017-08-31] MEDS: SEVELAMER CARBONATE 0.8 GM POWD.PACK PO SCH ×2 (12:21→18:00)
[2017-08-31] MEDS: INSULIN ASPART/LISPRO 100 UNIT/ML CARTRIDGE SQ SCH ×2 (12:23→18:00)
--- NOTE | 2017-08-31 16:05 | NUR ---
HD RN COMMENCING DIALYSIS
--- NOTE | 2017-08-31 16:41 | NUR ---
FRIEND GOING TO HOME TO BRING IN PT PILLS TO CLARIFY DOSING.
--- NOTE | 2017-08-31 17:26 | NUR ---
friend brought in pill bottles to claify doses: vimpat 150mg po bid; seroquel 900 mg po at bedtime. paged and he verbalized order.
--- NOTE | 2017-08-31 18:00 | NUR ---
PEST CONTROL WORKER CLOSING NOTES NO ACUTE EVENTS DURING SHIFT. PT TOLERATED 3L HD TX. BLOOD SUGAR 108 THIS AFTERNOON. HOME MEDS CLARIFIED. TELE SR 92 AT PRESENT. LW IV INTACT PATENT. CALL LIGHT IN REACH. BED IN LOW LOCKED POSITION. WILL ENDORSE TO LYLE MENDEZ.
--- NOTE | 2017-08-31 19:45 | NUR ---
RN OPENING NOTES RECEIVED REPORT FROM DARIA RNERIC. FOUND Pt AWAKE, RESTING IN BED. NO S/S OF ACUTE DISTRESS OR SOB NOTED. Pt IS A/OX2-3, FORGETFUL AT TIMES, WITH DELAYED RESPONSE, BUT IS VERBAL, & ABLE TO MAKE NEEDS KNOWN. ON TELE. IV ACCESS ON LFA #20G, SL. LCW - HD CATH. HAD HD TODAY WITH 3L OUTPUT. SAFETY MEASURES IN PLACE. BED LOW, LOCKED, HOB ELEVATED, SIDE RAILS UP, CALL LIGHT AND BED SIDE TABLE WITHIN REACH. WILL CONTINUE TO MONITOR Pt THROUGHOUT THE NIGHT FOR SAFETY.
[2017-08-31] MEDS ORDERED: QUETIAPINE FUMARATE 100 MG TABLET PO SCH ×3 (22:00)
--- NOTE | 2017-08-31 22:05 | NUR ---
RN NOTES BG 141. ADMINISTERED 2UN OF INSULIN PER SLIDING SCALE.
[2017-08-31] MEDS: LACOSAMIDE 50 MG TABLET PO SCH (22:53)
[2017-09-01] MEDS ORDERED: ONDANSETRON HCL/PF 4 MG/2 ML VIAL IV PRN (00:30)
[2017-09-01] MEDS ORDERED: ONDANSETRON HCL/PF 4 MG/2 ML VIAL ONE (00:42)
[2017-09-01 04:00] VITALS: BP 129/80
[2017-09-01] MEDS: HYDROMORPHONE INJ 2 MG/ML DISP.SYRIN IV PRN ×3 (04:24→13:42)
--- NOTE | 2017-09-01 06:30 | NUR ---
RN NOTES BG 106. NO INSULIN COVERAGE NEEDED AT THIS TIME.
--- NOTE | 2017-09-01 06:45 | NUR ---
RN CLOSING NOTES NO SIGNIFICANT CHANGES IN Pt's CONDITION THROUGHOUT THE NIGHT. Pt REMAINS STABLE AT THIS TIME. NO S/S OF ACUTE DISTRESS OR SOB NOTED DURING SHIFT. ALL NEEDS MET AND ATTENDED TO. SAFETY MEASURES IN PLACE. TELE READING SR-ST 98-103 WITH BBB. WILL ENDORSE TO DAYSHIFT RN FOR Pt's TRINA.
[2017-09-01 07:00] VITALS: BP 122/69
[2017-09-01] MEDS: BLOOD SUGAR DIAGNOSTIC 1 EACH STRIP VI SCH ×2 (07:02→11:47)
[2017-09-01 08:00] VITALS: BP 122/69
[2017-09-01] MEDS: INSULIN ASPART/LISPRO 100 UNIT/ML CARTRIDGE SQ SCH ×2 (08:00→13:00)
[2017-09-01 08:28] LABS: EOSINOPHILS # (AUTO) 0.1 /CMM (0.0-0.7); EOSINOPHILS % (AUTO) 0.8 % (0.0-6.0); HEMATOCRIT 40 % (39-51); LYMPHOCYTES # (AUTO) 0.5 /CMM (0.8-4.8); LYMPHOCYTES % (AUTO) 6.3 % (20.0-44.0); MEAN CORPUSCULAR HEMOGLOBIN 31 PG (26.0-33.0); MEAN CORPUSCULAR HGB CONC 33 g/dl (31.0-36.0); MEAN CORPUSCULAR VOLUME 95 fL (80-96); MONOCYTES # (AUTO) 0.3 /CMM (0.1-1.30); MONOCYTES % (AUTO) 3.7 % (2.0-12.0); NEUTROPHILS % (AUTO) 89.2 % (43.0-81.0); PLATELET COUNT (AUTO) 211 /CMM (150-450); RDW COEFFICIENT OF VARIATION 24.8 (11.5-15.0); WHITE BLOOD COUNT (AUTO) 7.9 K/uL (4.3-11.0)
--- NOTE | 2017-09-01 08:30 | NUR ---
RN NOTE RECEIVED CALL FROM LAB FOR CRITICAL LABS. POTASSIUM 6.5 AND PHOSPHORUS 8.3. CALL MD AWAITING CALL BACK.
[2017-09-01] MEDS: LACOSAMIDE 50 MG TABLET PO SCH (08:35)
[2017-09-01] MEDS: LACTOBACILLUS RHAMNOSUS GG 1 EACH CAP.SPRINK PO SCH (08:35)
[2017-09-01] MEDS: methylPREDNISolone SOD SUCC 125 MG/2ML VIAL IV SCH ×2 (08:35→13:41)
[2017-09-01] MEDS: LEVOTHYROXINE SODIUM 50 MCG TABLET PO SCH (08:36)
[2017-09-01] MEDS: SEVELAMER CARBONATE 0.8 GM POWD.PACK PO SCH ×2 (08:36→13:00)
[2017-09-01] MEDS: ASPIRIN 325 MG TABLET PO SCH (08:36)
[2017-09-01] MEDS: LISINOPRIL (10MG) 10 MG TABLET PO SCH (08:36)
[2017-09-01] MEDS: SERTRALINE HCL 25 MG TABLET PO SCH (08:36)
[2017-09-01] MEDS: GABAPENTIN 100 MG CAPSULE PO SCH (08:36)
[2017-09-01 08:37] VITALS: BP 122/69
[2017-09-01] MEDS: CARVEDILOL 6.25 MG TABLET PO SCH (08:37)
[2017-09-01 08:45] LABS: TROPONIN I 0.039 ng/mL (0.00-0.056)
[2017-09-01 08:48] LABS: ALBUMIN 3.3 g/dL (3.4-5.0); BILIRUBIN,TOTAL 0.4 mg/dL (0.2-1.0); CALCIUM, SERUM 8.1 mg/dL (8.5-10.1); MAGNESIUM 2.4 mg/dL (1.8-2.4); TOTAL PROTEIN, SERUM 8.4 g/dL (6.4-8.2)
[2017-09-01] MEDS ORDERED: INSULIN DETEMIR 100 UNIT/ML CARTRIDGE SQ SCH (09:00)
[2017-09-01 09:05] LABS: POTASSIUM 6.5 mmol/L (3.5-5.1)
[2017-09-01 09:06] LABS: CREATININE 10.1 mg/dL (0.6-1.3); PHOSPHORUS 8.3 mg/dL (2.5-4.9)
[2017-09-01] MEDS ORDERED: SODIUM POLYSTYRENE SULFONATE 15 G/60 ML BOTTLE PO ONE ×2 (11:30→12:00)
[2017-09-01] MEDS ORDERED: Calcium Gluconate 1GM/10ML 4.65 MEQ in IV D5W 50 ML IV ONE (12:00)
--- NOTE | 2017-09-01 16:22 | NUR ---
PALEONTOLOGICAL HELPER NOTE PATIENT IS ALERT AND ORIENTED X3. NO PAIN AT THIS TIME. NO SOB OR DISTRESS NOTED. CALL LIGHT WITHIN REACH AT ALL TIMES. SAFETY MEASURES IMPLEMENTED. ALL DUE MEDICATIONS GIVEN ORDERED. ALL NURSING CARE NEEDS ATTENDED TO NEEDED. IV REMOVED, SKIN INTACT. WOUND PICTURES DOCUMENTED. ALL DISCHARGE INSTRUCTIONS GIVEN AND TEACH BACK WAS RECEIVED BY PATIENT. ALL BELONGINGS ACCOUNTED FOR UPON DISCHARGE. PRESCRIPTION GIVEN TO PATIENT, PATIENT HAS FOLLOW UP CLINIC ON THURSDAY AT [address] SIERRA. LEFT VIA PRIVATE CAR WITH FAMILY MEMBER.
== END 2017-09-01 16:20 | disposition home or self-care (01) | DRG 291 ==
LOC: ER 19:20 → TELE 22:05 → MED 09-01 09:09
PROVIDERS: ADMIT Internal Medicine; ATTEND Internal Medicine
PROC: 5A1D70Z Performance of Urinary Filtration, Intermittent, Less than 6 Hours Per Day (ICD-10-PCS; principal; 2017-08-31)
PROC: 5A1D70Z Performance of Urinary Filtration, Intermittent, Less than 6 Hours Per Day (ICD-10-PCS; 2017-09-01)
DX: I13.2 Hypertensive heart and chronic kidney disease with heart failure and with stage 5 chronic kidney disease, or end stage renal disease (principal); I50.23 Acute on chronic systolic (congestive) heart failure; J96.01 Acute respiratory failure with hypoxia; N18.6 End stage renal disease; J44.1 Chronic obstructive pulmonary disease with (acute) exacerbation; E11.22 Type 2 diabetes mellitus with diabetic chronic kidney disease; E03.9 Hypothyroidism, unspecified; E78.5 Hyperlipidemia, unspecified; E87.5 Hyperkalemia; F17.210 Nicotine dependence, cigarettes, uncomplicated; F32.9 Major depressive disorder, single episode, unspecified; F41.9 Anxiety disorder, unspecified; G89.29 Other chronic pain; I48.91 Unspecified atrial fibrillation; K21.9 Gastro-esophageal reflux disease without esophagitis; Z99.2 Dependence on renal dialysis; Z95.810 Presence of automatic (implantable) cardiac defibrillator; Z79.4 Long term (current) use of insulin
CPT/HCPCS: 36415; 71045-TC; 80048-TC; 80053-TC; 82306; 82962-TC; 83735-TC; 83880; 84100-TC; 84439-TC; 84443-TC; 84484-TC; 85025-TC; 87081-TC; 90935-TC; 93307-TC; A4606; J0610; J1170; J1815; J1940; J2405; J2930; J3475; J7060; Q0162; Z7610

== ENCOUNTER 2017-09-07 13:22 | Inpatient (IN) | payer MEDICARE ==
[~2017-09-07] VITALS: Ht 170.2 cm; Wt 81.6 kg
[2017-09-07] MEDS ORDERED: ALBUTEROL FS 2.5 MG/3 ML VIAL.NEB NEB ONE (13:30)
[2017-09-07] MEDS ORDERED: IPRATROPIUM NEB FS 0.5 MG/2.5 ML AMPUL.NEB NEB ONE (13:30)
[2017-09-07] MEDS ORDERED: methylPREDNISolone SOD SUCC 125 MG/2ML VIAL IV ONE (13:30)
[2017-09-07 13:36] LABS: BASOPHILS % (AUTO) 0.5 % (0.0-2.0); EOSINOPHILS # (AUTO) 0.4 /CMM (0.0-0.7); EOSINOPHILS % (AUTO) 6.2 % (0.0-6.0); HEMATOCRIT 34 % (39-51); HEMOGLOBIN 11.3 g/dL (13.5-17.5); LYMPHOCYTES # (AUTO) 0.6 /CMM (0.8-4.8); LYMPHOCYTES % (AUTO) 8.9 % (20.0-44.0); MEAN CORPUSCULAR HEMOGLOBIN 30 PG (26.0-33.0); MEAN CORPUSCULAR HGB CONC 33 g/dl (31.0-36.0); MEAN CORPUSCULAR VOLUME 92 fL (80-96); MONOCYTES # (AUTO) 0.5 /CMM (0.1-1.30); MONOCYTES % (AUTO) 6.3 % (2.0-12.0); NEUTROPHILS # (AUTO) 5.7 /CMM (1.8-8.9); NEUTROPHILS % (AUTO) 78.1 % (43.0-81.0); PLATELET COUNT (AUTO) 204 /CMM (150-450); RDW COEFFICIENT OF VARIATION 21.5 (11.5-15.0); RED BLOOD CELL COUNT(AUTO) 3.75 MIL/uL (4.5-6.0); WHITE BLOOD COUNT (AUTO) 7.2 K/uL (4.3-11.0)
[2017-09-07] MEDS ORDERED: methylPREDNISolone SOD SUCC 125 MG/2ML VIAL ONE (13:38)
[2017-09-07] MEDS ORDERED: IPRATROPIUM NEB FS 0.5 MG/2.5 ML AMPUL.NEB ONE (13:44)
[2017-09-07] MEDS ORDERED: ALBUTEROL FS 2.5 MG/3 ML VIAL.NEB ONE (13:44)
[2017-09-07 13:56] LABS: TROPONIN I 0.069 ng/mL (0.00-0.056)
[2017-09-07 13:58] LABS: ALBUMIN 2.6 g/dL (3.4-5.0); BILIRUBIN,DIRECT 0.1 mg/dL (0.0-0.2); BILIRUBIN,TOTAL 0.3 mg/dL (0.2-1.0); CALCIUM, SERUM 6.4 mg/dL (8.5-10.1); POTASSIUM 3.8 mmol/L (3.5-5.1)
[2017-09-07 14:00] LABS: CREATININE 15.7 mg/dL (0.6-1.3)
[2017-09-07 14:35] VITALS: BP 140/88
[2017-09-07] MEDS ORDERED: CEFTRIAXONE 1 G in IV D5W 50 ML IV ONE (15:00)
[2017-09-07] MEDS ORDERED: AZITHROMYCIN 500 MG in IV D5W 250 ML IV ONE (15:00)
[2017-09-07] MEDS ORDERED: ASPIRIN EC 81 MG TABLET.DR PO ONE (15:19)
[2017-09-07] MEDS ORDERED: ASPIRIN 81 MG TAB.CHEW PO ONE (15:30)
[2017-09-07] MEDS ORDERED: MIRT30TA7 PO (15:48)
[2017-09-07] MEDS ORDERED: LEVO88TA5 PO (15:48)
[2017-09-07] MEDS ORDERED: DIPH50CA37 PO (15:48)
[2017-09-07] MEDS ORDERED: LACO150T2 PO (15:48)
[2017-09-07] MEDS ORDERED: CHOL10002 PO (15:48)
[2017-09-07] MEDS ORDERED: HYDROCODONE/APAP 5/325MG 1 EACH TABLET PO PRN (17:30)
[2017-09-07] MEDS ORDERED: MAGNESIUM HYDROXIDE 30 ML UDC PO PRN (17:30)
[2017-09-07] MEDS ORDERED: CHOLECALCIFEROL 1,000 UNIT TABLET (VIT D3) PO SCH (17:30)
[2017-09-07] MEDS ORDERED: LEVOTHYROXINE SODIUM 88 MCG TABLET PO SCH (17:30)
[2017-09-07] MEDS ORDERED: ONDANSETRON HCL/PF 4 MG/2 ML VIAL IVP PRN (17:30)
[2017-09-07] MEDS ORDERED: MAG HYDROX/AL HYDROX/SIMETH 30 ML UDC PO PRN (17:30)
[2017-09-07] MEDS ORDERED: Z GUARD REMEDY 2 OZ OINT TP PRN (17:30)
[2017-09-07] MEDS ORDERED: ACETAMINOPHEN 325 MG TABLET PO PRN (17:30)
[2017-09-07] MEDS ORDERED: ZOLPIDEM TARTRATE 5 MG TABLET PO PRN (17:30)
[2017-09-07] MEDS ORDERED: LACOSAMIDE 50 MG TABLET PO SCH (17:39)
[2017-09-07] MEDS ORDERED: QUETIAPINE FUMARATE 100 MG TABLET PO PRN (20:00)
[2017-09-07] MEDS ORDERED: QUETIAPINE FUMARATE 100 MG TABLET PO SCH (22:00)
[2017-09-07] MEDS ORDERED: diphenhydrAMINE HCL 50 MG CAPSULE PO SCH (22:00)
[2017-09-07] MEDS ORDERED: ZOLPIDEM TARTRATE 10 MG TABLET PO SCH (22:00)
[2017-09-07] MEDS ORDERED: MIRTAZAPINE 15 MG TABLET PO SCH (22:00)
== END 2017-09-07 21:25 | disposition left against medical advice (07) | DRG 280 ==
LOC: ER 13:25 → TELE 16:50
PROVIDERS: ADMIT Internal Medicine; ATTEND Internal Medicine
PROC: 5A1D70Z Performance of Urinary Filtration, Intermittent, Less than 6 Hours Per Day (ICD-10-PCS; principal; 2017-09-07)
DX: I13.2 Hypertensive heart and chronic kidney disease with heart failure and with stage 5 chronic kidney disease, or end stage renal disease (principal); I50.23 Acute on chronic systolic (congestive) heart failure; I21.4 Non-ST elevation (NSTEMI) myocardial infarction; J96.01 Acute respiratory failure with hypoxia; N18.6 End stage renal disease; E11.22 Type 2 diabetes mellitus with diabetic chronic kidney disease; I48.91 Unspecified atrial fibrillation; F41.9 Anxiety disorder, unspecified; F32.9 Major depressive disorder, single episode, unspecified; F17.210 Nicotine dependence, cigarettes, uncomplicated; E78.5 Hyperlipidemia, unspecified; E03.9 Hypothyroidism, unspecified; G89.29 Other chronic pain; J44.9 Chronic obstructive pulmonary disease, unspecified; K21.9 Gastro-esophageal reflux disease without esophagitis; Z99.2 Dependence on renal dialysis; Z79.4 Long term (current) use of insulin
CPT/HCPCS: 36415; 71045-TC; 80048-TC; 80076-TC; 83880; 84484-TC; 85025-TC; 87081-TC; 90935-TC; A4606; J0456; J0696; J2405; J2930; J7060; Z7610

== ENCOUNTER 2017-09-21 17:37 | Inpatient (IN) | payer MEDICARE ==
[~2017-09-21] VITALS: Ht 185.4 cm; Wt 78.5 kg
[~2017-09-21 17:37] MED LIST changes: -ALBU2.5V13 NEB; -ASPI-992 PO; -ATOR40TA PO; -CARV6.252 PO; +CHOL10002 PO; +DIPH50CA37 PO; -GABA-532 PO; -INSU100I4 SQ; -INSU3INS6 SQ; -IPRA0.2S9 NEB; +LACO150T2 PO; -LACT1CAP72 PO; -LEVO50TA8 PO; +LEVO88TA5 PO; +MIRT30TA7 PO; -QUET25TA PO; -SERT25TA PO; -SEVE400T PO
--- NOTE | 2017-09-21 18:44 | NUR ---
PATIENT RECEIVED FROM [facility] TO ER BED 03
--- NOTE | 2017-09-21 18:45 | NUR ---
PATIENT TO ED VIA RA DT LOWER BACK PAIN, 04/02, PATIENT WITH CHRONIC BACK PAIN USES CANE IN AMBULATION. PATIENT DENIES INJURY. PT ALSO STATED THAT HE MISSED HIS HD TODAY. HD CATH NOTED ON LCW. SKIN IS WARM TO TOUCH AND NON DIAPHORETIC, PATIENT IS AFEBRILE. VSS. WILL CONT TO MONITOR,. PENDING MD EVALUATION.
--- NOTE | 2017-09-21 19:14 | NUR ---
Patient is resting comfortably in bed with eyes closed. Easily aroused. VSS. REPORT GIVEN TO PM NURSES FOR TRINA
--- NOTE | 2017-09-21 19:22 | NUR ---
RECEIVED REPORT FROM AM SHIFT VANESSA HURTADO. PT RESTING IN BED QUIETLY, NO ACUTE DISTRESS NOTED, RESP EVEN AND UNLABORED. PT C/O BACK PAIN 05/03. CALL CORBY BANUELOS. WILL CONTINUE TO MONITOR PT CLOSELY.
[2017-09-21 19:25] LABS: BASOPHILS # (AUTO) 0.1 /CMM (0.0-0.2); EOSINOPHILS # (AUTO) 0.3 /CMM (0.0-0.7); EOSINOPHILS % (AUTO) 3.8 % (0.0-6.0); HEMATOCRIT 34 % (39-51); HEMOGLOBIN 11.4 g/dL (13.5-17.5); LYMPHOCYTES # (AUTO) 0.8 /CMM (0.8-4.8); MEAN CORPUSCULAR HEMOGLOBIN 30 PG (26.0-33.0); MEAN CORPUSCULAR HGB CONC 33 g/dl (31.0-36.0); MEAN CORPUSCULAR VOLUME 91 fL (80-96); MONOCYTES # (AUTO) 0.4 /CMM (0.1-1.30); MONOCYTES % (AUTO) 5.2 % (2.0-12.0); NEUTROPHILS # (AUTO) 5.4 /CMM (1.8-8.9); PLATELET COUNT (AUTO) 118 /CMM (150-450); RDW COEFFICIENT OF VARIATION 19.3 (11.5-15.0); RED BLOOD CELL COUNT(AUTO) 3.76 MIL/uL (4.5-6.0)
--- NOTE | 2017-09-21 19:27 | NUR ---
ER MADE AWARE OF PT C/O BACK PAIN 05/03. NO ORDERS RECEIVED.
[2017-09-21 19:42] LABS: ALBUMIN 3.3 g/dL (3.4-5.0); BILIRUBIN,DIRECT 0.1 mg/dL (0.0-0.2); BILIRUBIN,TOTAL 0.4 mg/dL (0.2-1.0); TOTAL PROTEIN, SERUM 7.8 g/dL (6.4-8.2)
[2017-09-21 19:47] LABS: CALCIUM, SERUM 8.2 mg/dL (8.5-10.1); POTASSIUM 5.1 mmol/L (3.5-5.1)
[2017-09-21 19:54] LABS: CREATININE 11.7 mg/dL (0.6-1.3)
[2017-09-21 20:07] LABS: MAGNESIUM 1.9 mg/dL (1.8-2.4); PHOSPHORUS 4.4 mg/dL (2.5-4.9)
--- NOTE | 2017-09-21 20:20 | NUR ---
CALLED NURSING SUP. FOR TELE BED
[2017-09-21 20:24] LABS: TROPONIN I 0.054 ng/mL (0.00-0.056)
--- NOTE | 2017-09-21 20:28 | NUR ---
EPIC PAGED, TUBE DEPATCHER
--- NOTE | 2017-09-21 20:39 | NUR ---
REPORT CALLED TO ORNAMENTAL METAL FABRICATOR APPRENTICEVANESSA HUSAIN. PENDING HOSPITAL ADMISSION.
--- NOTE | 2017-09-21 20:49 | NUR ---
ER MD SPOKE TO DR. BOYER REGARDING PT ADMISSION.
[2017-09-21 21:00] VITALS: BP 139/96
[2017-09-21 21:20] VITALS: BP 139/96
--- NOTE | 2017-09-21 22:00 | NUR ---
RN NOTE; ADMITTED A 57 Y/O MALE, A, OX4, BREATHING EVENLY. NO SOB.NAD. SKIN WARM AND DRY. MEDICAL HX WAS PROVIDED BY THE PT , VITAL SIGNS: WNL. W/ C/O LOWER BACK PAIN. REPORTED RECENT FALL AT HOME W/ HEAD INJURY. NO NEURO DEFICIT NOTED. DENIED HEADACHE. WILL FOLLOW UP AND WILL RELAY TO MD. BODY CHECK DONE. NEEDS ATTENDED. BED LOW LOCKED. CALL LIGHT WITHIN REACH. WILL CONT TO MONITOR ,
[2017-09-21 22:09] VITALS: BP 139/96
[2017-09-21] MEDS ORDERED: MAGNESIUM HYDROXIDE 30 ML UDC PO PRN (22:30)
[2017-09-21] MEDS ORDERED: HYDROCODONE/APAP 5/325MG 1 EACH TABLET PO PRN (22:30)
[2017-09-21] MEDS ORDERED: ONDANSETRON HCL/PF 4 MG/2 ML VIAL IVP PRN (22:30)
[2017-09-21] MEDS ORDERED: ALBUTEROL FS 2.5 MG/3 ML VIAL.NEB NEB PRN (22:30)
[2017-09-21] MEDS ORDERED: ZOLPIDEM TARTRATE 5 MG TABLET PO PRN (22:30)
[2017-09-21] MEDS ORDERED: ACETAMINOPHEN 325 MG TABLET PO PRN (22:30)
[2017-09-21] MEDS ORDERED: MORPHINE SULFATE INJ 2 MG/ML DISP.SYRIN IV PRN (22:30)
[2017-09-21] MEDS ORDERED: Z GUARD REMEDY 2 OZ OINT TP PRN (22:30)
[2017-09-21] MEDS ORDERED: MAG HYDROX/AL HYDROX/SIMETH 30 ML UDC PO PRN (22:30)
[2017-09-21] MEDS ORDERED: MORPHINE SULFATE INJ 4 MG/ML DISP.SYRIN ONE (22:38)
[2017-09-21] MEDS: MORPHINE SULFATE INJ 4 MG/ML DISP.SYRIN IV PRN (23:04)
--- NOTE | 2017-09-21 23:05 | NUR ---
morphine 2mg given as ordered per pt's request for c/o severe lower back pain. will cont to monitor ,
--- NOTE | 2017-09-21 23:23 | NUR ---
PT REPORTED FALL AT HOME PRIOR TO ADMISSION . PER PT HE HIT HIS HEAD TO THE COFFEE TABLE . NOTED A SMALL ABRASION/ MILD SWELLING . NO NEURO DEFICIT NOTED AT THIS TIME. NO FACIAL DROOPING, NO C/O HEADACHE, NO TROUBLE SWALLOWING , NO BLURRED VISION, NO ONE SIDED WEAKNESS , NO LIMPING DURING WALKING NOTED. DR. BOYER MADE AWARE W/ A NEW ORDER FOR HEAD CT W/O CONTRAST IN AM. WILL CONT TO MONITOR.
[2017-09-22] VITALS: BP 136/89
[2017-09-22 04:00] VITALS: BP 114/80
--- NOTE | 2017-09-22 06:28 | NUR ---
PT IN BED SLEEPING, AROUSES EASILY. MORPHINE EFFECTIVE FOR PAIN MANAGEMENT. W/ NO C/O PAIN OR DISCOMFORT AT THIS TIME. SR W/ RATE 99 W/ BBB ON TEL E MONITOR , NEEDS ATTENDEE . CALL LIGHT WITHIN REACH. WILL CONT TO MONITOR AND WILL ENDORSE TO AM SHIFT FOR TRINA.
[2017-09-22 07:30] LABS: BASOPHILS % (AUTO) 0.1 % (0.0-2.0); EOSINOPHILS # (AUTO) 0.3 /CMM (0.0-0.7); EOSINOPHILS % (AUTO) 6.4 % (0.0-6.0); HEMATOCRIT 30 % (39-51); LYMPHOCYTES % (AUTO) 17.8 % (20.0-44.0); MEAN CORPUSCULAR HEMOGLOBIN 31 PG (26.0-33.0); MEAN CORPUSCULAR HGB CONC 34 g/dl (31.0-36.0); MEAN CORPUSCULAR VOLUME 93 fL (80-96); MONOCYTES # (AUTO) 0.4 /CMM (0.1-1.30); MONOCYTES % (AUTO) 7.7 % (2.0-12.0); NEUTROPHILS # (AUTO) 3.7 /CMM (1.8-8.9); PLATELET COUNT (AUTO) 129 /CMM (150-450); RDW COEFFICIENT OF VARIATION 20.2 (11.5-15.0); RED BLOOD CELL COUNT(AUTO) 3.21 MIL/uL (4.5-6.0); WHITE BLOOD COUNT (AUTO) 5.5 K/uL (4.3-11.0)
[2017-09-22 07:45] LABS: CALCIUM, SERUM 7.4 mg/dL (8.5-10.1); PHOSPHORUS 6.3 mg/dL (2.5-4.9); POTASSIUM 4.6 mmol/L (3.5-5.1)
[2017-09-22 07:46] LABS: CREATININE 12.4 mg/dL (0.6-1.3)
[2017-09-22 08:00] VITALS: BP 108/75
--- NOTE | 2017-09-22 10:00 | NUR ---
tele senior qa analyst: notes taken to ct via w/c at this time.
[2017-09-22] MEDS: LEVOTHYROXINE SODIUM 88 MCG TABLET PO SCH (10:04)
[2017-09-22] MEDS: LACOSAMIDE 50 MG TABLET PO SCH ×2 (10:04→21:12)
--- NOTE | 2017-09-22 10:15 | NUR ---
m/s cashier self service gasoline: notes back from ct and having late breakfast at this time, pt easily gets irritated m/b cursing when conversing. informed pt that he is going to have hd tx today.
[2017-09-22] MEDS: MORPHINE SULFATE INJ 4 MG/ML DISP.SYRIN IV PRN ×4 (10:17→22:56)
--- NOTE | 2017-09-22 10:17 | NUR ---
m/s loan review officer: notes pt c/o 7-04/02 lower back pain. offered norco, pt refused, stated, "it doesn't work for me, i want morphine." educated pt re: home use pain med when discharge back home when stable, but still insist of getting iv push morphine. morphine 2mg ivp given by rn. instructed to call for assistance. will continue to monitor.
--- NOTE | 2017-09-22 10:47 | NUR ---
tele manager critical care: notes reassessed pain and stated, "i'm okay now, it will kick it again in four hours." instructed to call for assistance. will continue to monitor.
--- NOTE | 2017-09-22 11:25 | NUR ---
m/s pediatric dentist: wound consult seen by michelle perea ([email or web address]) at this time.
--- NOTE | 2017-09-22 11:26 | NUR ---
WOUND CARE CONSULT: PT PRESENTS WITH VERY DRY SKIN ON LEGS WITH TINY SCABS, PRESENT ON ADMISSION. RECOMMENDATIONS MADE FOR SKIN PROTECTION. DISCUSSED WITH NURSING STAFF. WILL SEE PRN. MANZANARES IN AGREEMENT WITH PLAN OF CARE. CURRENT SHIRA SCORE IS 22. Addendum: 09/22/17 at 1128 by DEISI CALLAWAY WNDNU Amended: Links added.
[2017-09-22] MEDS ORDERED: MINERAL OIL/PETROLATUM,WHITE 120 GM JAR TP PRN (11:30)
[2017-09-22] MEDS ORDERED: QUET300T2 PO (12:09)
--- NOTE | 2017-09-22 12:15 | NUR ---
m/s manager banking: notes dr. gómez here and informed md re: seroquel edited by med MAPPING to 600mg po at hs and 300mg in am with order to continue medications. orders read back and carried out and acknowledged.
--- NOTE | 2017-09-22 14:28 | NUR ---
m/s cushion padder: notes c/o 05/03 lower back pain, medicated with morphine 2mg ivp by rn. pt continue to refused po pain med, stating, "it doesn't work." Instructed to call for assistance. will continue to monitor.
--- NOTE | 2017-09-22 14:58 | NUR ---
m/s loans consultant: notes pt verbalized relief of lower back pain, instructed to call for assistance. will continue to monitor.
--- NOTE | 2017-09-22 15:45 | NUR ---
m/s hearing aid mechanic: notes hd nurse here and preparing pt for tx. will continue to monitor.
[2017-09-22 16:00] VITALS: BP 141/97
--- NOTE | 2017-09-22 17:30 | NUR ---
m/s dependency counselor: notes hd tx completed with 2500ml uf per report. no acute distress noted. instructed to call for assistance. dinner served. will continue to monitor.
[2017-09-22] MEDS: CALCIUM ACETATE 667 MG TABLET PO SCH (18:39)
--- NOTE | 2017-09-22 18:44 | NUR ---
m/s acquisition specialist: notes c/o 04/02 lower back pain, medicated with morphine 2mg ivp by rn. pt continue to refused po pain med, stating, "it doesn't work." Instructed to call for assistance. will continue to monitor.
--- NOTE | 2017-09-22 19:14 | NUR ---
m/s registered nurse first assistant: notes pt verbalized relief of lower back pain, instructed to call for assistance. will continue to monitor. report given to amrita mae) for continuity of care.
--- NOTE | 2017-09-22 19:31 | NUR ---
RN OPENING NOTES PT AWAKE AND RESTING IN BED. NO COMPLAINTS OF PAIN, SOB OR DISTRESS AT THIS TIME. PT HAS A RIGHT HAND #20 IV, INTACT AND PATENT. PT IS AMBULATORY WITH CANE. PER DANN HUFF NURSE PT HAD HD TODAY WITH AN OUTPUT OF 2500. SAFETY PRECAUTIONS IN PLACE. BED IN LOW, LOCKED POSITION, X2 SIDERAILS UP CALL LIGHT WITHIN REACH. WILL CONTINUE TO MONITOR.
[2017-09-22 20:27] VITALS: BP 130/82
[2017-09-22] MEDS: diphenhydrAMINE HCL 50 MG CAPSULE PO SCH (21:12)
[2017-09-22] MEDS: QUETIAPINE FUMARATE 100 MG TABLET PO SCH (21:12)
[2017-09-22] MEDS: MIRTAZAPINE 15 MG TABLET PO SCH (21:12)
[2017-09-22] MEDS ORDERED: ZOLPIDEM TARTRATE 10 MG TABLET PO SCH (22:00)
[2017-09-22] MEDS ORDERED: QUETIAPINE FUMARATE 100 MG TABLET PO SCH (22:00)
--- NOTE | 2017-09-22 22:56 | NUR ---
RN NOTES PT REQUESTING PRN MORPHINE 2MG. FOR LOWER BACK PAIN. WILL ADMINISTER AND CONTINUE TO MONITOR.
[2017-09-23] MEDS: MORPHINE SULFATE INJ 4 MG/ML DISP.SYRIN IV PRN ×3 (04:45→13:05)
--- NOTE | 2017-09-23 04:45 | NUR ---
RN NOTES PT REQUESTING PRN MORPHINE 2MG. FOR LOWER BACK PAIN. WILL ADMINISTER AND CONTINUE TO MONITOR.
--- NOTE | 2017-09-23 07:29 | NUR ---
RN CLOSING NOTES PT RESTING IN BED. NO COMPLAINTS OF PAIN, SOB OR DISTRESS AT THIS TIME. PT REQUESTED MORPHINE ROUTINELY. PT HAS A RIGHT HAND #20 IV, INTACT AND PATENT. PT IS AMBULATORY WITH CANE. SAFETY PRECAUTIONS IN PLACE. BED IN LOW, LOCKED POSITION, X2 SIDE RAILS UP CALL LIGHT WITHIN REACH. WILL ENDORSE TO DAY SHIFT NURSE FOR CONTINUITY OF CARE.
[2017-09-23 08:00] VITALS: BP 132/99
[2017-09-23 08:20] LABS: BASOPHILS % (AUTO) 0.1 % (0.0-2.0); EOSINOPHILS # (AUTO) 0.5 /CMM (0.0-0.7); EOSINOPHILS % (AUTO) 8.4 % (0.0-6.0); HEMATOCRIT 32 % (39-51); HEMOGLOBIN 10.7 g/dL (13.5-17.5); LYMPHOCYTES % (AUTO) 17.6 % (20.0-44.0); MEAN CORPUSCULAR HEMOGLOBIN 31 PG (26.0-33.0); MEAN CORPUSCULAR HGB CONC 33 g/dl (31.0-36.0); MEAN CORPUSCULAR VOLUME 95 fL (80-96); MONOCYTES # (AUTO) 0.5 /CMM (0.1-1.30); MONOCYTES % (AUTO) 8.9 % (2.0-12.0); NEUTROPHILS # (AUTO) 3.7 /CMM (1.8-8.9); PLATELET COUNT (AUTO) 121 /CMM (150-450); RED BLOOD CELL COUNT(AUTO) 3.42 MIL/uL (4.5-6.0); WHITE BLOOD COUNT (AUTO) 5.7 K/uL (4.3-11.0)
[2017-09-23 08:24] LABS: CALCIUM, SERUM 7.3 mg/dL (8.5-10.1); POTASSIUM 4.4 mmol/L (3.5-5.1)
--- NOTE | 2017-09-23 08:45 | NUR ---
m/s network support: notes c/o 04/02 lower back pain, medicated with morphine 2mg ivp by rn. educated pt on alternating iv med to po pain med, stating, "it doesn't work, it will not work." pt remains needy and manipulative. Instructed to call for assistance. will continue to monitor.
[2017-09-23] MEDS: LEVOTHYROXINE SODIUM 88 MCG TABLET PO SCH (08:46)
[2017-09-23] MEDS: QUETIAPINE FUMARATE 100 MG TABLET PO SCH ×2 (08:46→22:07)
[2017-09-23] MEDS: CALCIUM ACETATE 667 MG TABLET PO SCH ×3 (08:46→18:00)
[2017-09-23] MEDS: LACOSAMIDE 50 MG TABLET PO SCH ×2 (08:46→22:06)
--- NOTE | 2017-09-23 09:15 | NUR ---
m/s craft coordinator: notes pt resting comfortable. voiced no discomfort. will continue to monitor.
--- NOTE | 2017-09-23 09:30 | NUR ---
m/s motor equipment sergeant: notes hd nurse here and preparing pt for hd tx at this time. will continue to monitor.
[2017-09-23 10:47] LABS: CHOLESTEROL 157 mg/dL (<200); HDL CHOLESTEROL 44 mg/dL (40-60); LDL 88 mg/dL (0-99); TRIGLYCERIDES 112 mg/dL (30-150)
[2017-09-23] MEDS ORDERED: Calcium Acetate PO (11:02)
[2017-09-23] MEDS ORDERED: ASPI-1169 PO (11:02)
[2017-09-23] MEDS ORDERED: CARV3.122 PO (11:02)
[2017-09-23] MEDS ORDERED: ALBUT2 NEB (11:02)
--- NOTE | 2017-09-23 12:50 | NUR ---
m/s surgical endoscopist: notes hd completed with 1.8 liter uf per report. no a/r noted. instructed to call for assistance. will continue to monitor.
--- NOTE | 2017-09-23 13:05 | NUR ---
m/s veneer grader: notes c/o 04/02 lower back pain, medicated with morphine 2mg ivp by rn. pt continue to refused to try po pain med, stated, "it doesn't work for me." pt remains needy and manipulative. Instructed to call for assistance. will continue to monitor.
--- NOTE | 2017-09-23 13:06 | NUR ---
RN NOTES: PATIENT COMPLAINING OF SEVERE GENERALIZED PAIN THAT IS AGGREVATED BY CHANGING POSITIONS, NO SOB NOTED, BP WNL, MORPHINE ADMINISTERED PER ORDERS PRN, ENDORSED TO WILSON, PRIMARY NURSE.
[2017-09-23] MEDS: ASPIRIN 81 MG TAB.CHEW PO SCH (13:21)
[2017-09-23] MEDS: CARVEDILOL 3.125 MG TABLET PO SCH ×2 (13:21→22:07)
--- NOTE | 2017-09-23 13:35 | NUR ---
m/s siene maker: notes in bed watching tv, appears comfortable. voiced no discomfort. call light within reach.
--- NOTE | 2017-09-23 14:25 | NUR ---
m/s fast food shift lead: notes pt refused to go to snf per md referral. dr. gómez notified and made aware with order to hold discharge until tomorrow per media services specialist. pt made aware. case management made aware.
[2017-09-23 16:00] VITALS: BP 115/95
--- NOTE | 2017-09-23 17:49 | NUR ---
m/s costume mistress: notes c/o 05/03 lower back pain, medicated with dilaudid 0.25mg ivp by rn. pt immediately complained that this dose doesnt' work on me. explained to pt the dose is equivalent to morphine 2mg, but pt insisted nurse to call the doctor immediately and wants results as soon as possible. paged dr. gómez thru exchange. pt made aware. pt continue to be manipulative. Instructed to call for assistance. will continue to monitor.
[2017-09-23] MEDS ORDERED: HYDROMORPHONE INJ 0.5 MG/0.5 ML SYRINGE IV PRN (18:00)
--- NOTE | 2017-09-23 18:20 | NUR ---
m/s gas compressor operator: notes dr. gómez called back and made aware re: increase pain med request for pt with order to change to dilaudid 0.5mg ivp q 4hrs prn. order read back and carried out and acknowledged. pt made aware.
--- NOTE | 2017-09-23 18:29 | NUR ---
m/s medical assistant supervisor: notes balance of dilaudid 0.25mg ivp given by rn. instructed to call for assistance. will continue to monitor.
--- NOTE | 2017-09-23 18:29 | NUR ---
m/s tano: notes c/o 05/03 lower back pain, medicated with dilaudid 0.25mg ivp by rn. pt immediately complained that this dose doesnt' work on me. explained to pt the dose is equivalent to morphine 2mg, but pt insisted nurse to call the doctor immediately and wants results as soon as possible. paged dr. gómez thru exchange. pt made aware. pt continue to be manipulative. Instructed to call for assistance. will continue to monitor. Addendum: 09/23/17 at 2012 by DANN GORDON LVN above charting wrong time.
[2017-09-23] MEDS ORDERED: HYDROMORPHONE 1 MG/1 ML DISP.SYRIN IV ONE (18:30)
[2017-09-23] MEDS ORDERED: HYDROMORPHONE 1 MG/1 ML DISP.SYRIN IV PRN (18:30)
--- NOTE | 2017-09-23 18:59 | NUR ---
m/s cleaner wall: notes pt watching tv, voiced no discomfort. call light within reach. will monitor.
--- NOTE | 2017-09-23 19:20 | NUR ---
RN OPENING NOTES PT RESTING IN BED. NO COMPLAINTS OF PAIN, SOB, OR DISTRESS AT THIS TIME. EXPLAINED PAIN MANAGEMENT SCHEDULE WITH PT. PT VERBALIZED AGREEMENT. PT HAS RIGHT HAND #20 AND LEFT CHEST WALL HD CATH. PT HAD HD TODAY OUTPUT OF 1.8 L. SAFETY PRECAUTIONS IN PLACE. BED IN LOW, LOCKED POSITION, X2SIDE RAILS UP. CALL LIGHT WITHIN REACH. WILL CONTINUE TO MONITOR.
[2017-09-23 20:36] VITALS: BP 133/91
[2017-09-23] MEDS: MIRTAZAPINE 15 MG TABLET PO SCH (22:06)
[2017-09-23] MEDS: diphenhydrAMINE HCL 50 MG CAPSULE PO SCH (22:06)
[2017-09-23] MEDS: HYDROMORPHONE INJ 0.5 MG/0.5 ML SYRINGE IV PRN (22:59)
[2017-09-24] MEDS: HYDROMORPHONE INJ 0.5 MG/0.5 ML SYRINGE IV PRN ×4 (01:26→15:05)
--- NOTE | 2017-09-24 07:30 | NUR ---
RN CLOSING NOTES PT RESTING IN BED. NO COMPLAINTS OF PAIN, SOB, OR DISTRESS AT THIS TIME. PT HAS RIGHT HAND #20 AND LEFT CHEST WALL HD CATH. SAFETY PRECAUTIONS IN PLACE. ALL NEEDS MET. BED IN LOW, LOCKED POSITION, X2SIDE RAILS UP. CALL LIGHT WITHIN REACH. WILL ENDORSE TO DAY SHIFT NURSE FOR CONTINUITY OF CARE. Addendum: 09/24/17 at 0750 by KRISTINA MACHADO RN PT HAS RIGHT FOREARM IV #22.
[2017-09-24 08:00] VITALS: BP 132/93
[2017-09-24] MEDS: CALCIUM ACETATE 667 MG TABLET PO SCH ×3 (09:00→18:00)
[2017-09-24] MEDS: ASPIRIN 81 MG TAB.CHEW PO SCH (09:00)
[2017-09-24] MEDS: QUETIAPINE FUMARATE 100 MG TABLET PO SCH (09:00)
[2017-09-24] MEDS: CARVEDILOL 3.125 MG TABLET PO SCH (09:02)
[2017-09-24] MEDS: LACOSAMIDE 50 MG TABLET PO SCH (09:04)
[2017-09-24] MEDS: LEVOTHYROXINE SODIUM 88 MCG TABLET PO SCH (09:43)
[2017-09-24 15:55] VITALS: BP 131/92
--- NOTE | 2017-09-24 18:53 | NUR ---
MSRN CLOSING NOTES. PT PREPARED FOR D/C PER MD AND AWAITING TRANSPORT. PT VITALS WNL AND DENIES DISTRESS OR DISCOMFORT. PT WITH IVC. PT BRIEFED ON SOH D/C PACKET, DOCUMENT SIGNED AND PT IS VERBALIZING UNDERSTANDING, INTENT AND RESOURCES TO FOLLOW POC. PT. PT WITH ALL BELONGINGS AND DOCUMENT SIGNED. PT BED IN LOWEST LOCKED POSITION WITH HANDRAILSX2 AND CALL NAVA WITHIN REACH. ALL DAY NURSE DUTIES ATTENDED TO AND PT IS WITHOUT CONCERN OR COMPLAINT AT THIS TIME. WILL ENDORSE PT TO NIGHT NURSE FOR TRINA UNTIL PT LEAVES.
--- NOTE | 2017-09-24 19:00 | NUR ---
MS RN NOTE: PATIENT RESTING IN BED, A/OX3. STABLE, NO ACUTE DISTRESS NOTED. BREATHING EVEN AND UNLABORED, NO SOB NOTED. BED LOCKED AND IN LOWEST POSITION, CALL LIGHT IN REACH. WILL CONTINUE TO MONITOR. FOR D/C AWAITING TRANSPO
--- NOTE | 2017-09-24 22:14 | NUR ---
PATIENT DISCHARGE PATIENT LEFT AT 2030, PATIENT ON STABLE CONDITION NO S/S OF DISTRESS NOTED, NO CHEST PAIN, NO HEADACHE, NO NAUSEA AND VOMITING, NO COMPLAINS OF PAIN, VS STABLE BP 130/87 P 105 P 18 T 98.6 02 SAT 97% TOLERATING ROOM AIR, HEALTH EDUCATION AND EXIT CARE WAS PROVIDED, EDUCATION ABOUT DISEASE AND RISKS AND BENEFITS FOLLOW UP CARE PROVIDED, VERBALIZED UNDERSTANDING. DOCUMENTS WAS PROVIDED. IV SITE WAS REMOVED WITH MINIMAL BLEEDING, APPLIED CLEAN DRESSING FOR PRESSURE AND KEPT CLEAN AND DRY. TOLERATED PROCEDURE WELL. ALL BELONGINGS WAS TAKEN, ASSIST PATIENT TO GO TO THE WHEELCHAIR WITH HYDRAULIC ROCK DRILL OPERATOR TO THE LOBBY FOR TRANSPORTATION VIA [employer] TO HOME PATIENT APPRECIATIVE TO NURSES AND THANKFUL.
== END 2017-09-24 20:38 | disposition home or self-care (01) | DRG 291 ==
LOC: ER 17:40 → TELE 20:31 → MED 09-22 10:42
PROVIDERS: ADMIT Internal Medicine; ATTEND Internal Medicine
PROC: 5A1D70Z Performance of Urinary Filtration, Intermittent, Less than 6 Hours Per Day (ICD-10-PCS; principal; 2017-09-22)
PROC: 5A1D70Z Performance of Urinary Filtration, Intermittent, Less than 6 Hours Per Day (ICD-10-PCS; 2017-09-23)
DX: I13.2 Hypertensive heart and chronic kidney disease with heart failure and with stage 5 chronic kidney disease, or end stage renal disease (principal); N18.6 End stage renal disease; E11.22 Type 2 diabetes mellitus with diabetic chronic kidney disease; E44.0 Moderate protein-calorie malnutrition; E83.9 Disorder of mineral metabolism, unspecified; I48.91 Unspecified atrial fibrillation; D63.8 Anemia in other chronic diseases classified elsewhere; I50.22 Chronic systolic (congestive) heart failure; J44.9 Chronic obstructive pulmonary disease, unspecified; Z99.2 Dependence on renal dialysis; F41.9 Anxiety disorder, unspecified; K21.9 Gastro-esophageal reflux disease without esophagitis; F32.9 Major depressive disorder, single episode, unspecified; F17.210 Nicotine dependence, cigarettes, uncomplicated; E03.9 Hypothyroidism, unspecified; E78.5 Hyperlipidemia, unspecified; G89.29 Other chronic pain; Z79.899 Other long term (current) drug therapy; Z91.15 Patient's noncompliance with renal dialysis; Z68.22 Body mass index [BMI] 22.0-22.9, adult
CPT/HCPCS: 36415; 70450-TC; 71045-TC; 80048-TC; 80061-TC; 80076-TC; 83735-TC; 84100-TC; 84484-TC; 85025-TC; 87081-TC; 90935-TC; A4606; J1170; J2270; J7030; Q0163; Z7610

== ENCOUNTER 2018-01-15 22:21 | Inpatient (IN) | payer MEDICARE ==
[~2018-01-15] VITALS: Ht 185.4 cm; Wt 81.6 kg
[~2018-01-15 22:21] MED LIST changes: +ALBUT2 NEB; +ASPI-1169 PO; +CARV3.122 PO; +Calcium Acetate PO
--- NOTE | 2018-01-15 22:30 | NUR ---
bbra from home; SOB, NAD, VSS, resp even and unlabored, pt was put on monitor, waiting for md vidales.
[2018-01-15 23:13] LABS: BASOPHILS % (AUTO) 0.3 % (0.0-2.0); HEMATOCRIT 23 % (39-51); HEMOGLOBIN 7.4 g/dL (13.5-17.5); LYMPHOCYTES # (AUTO) 0.3 /CMM (0.8-4.8); LYMPHOCYTES % (AUTO) 4.9 % (20.0-44.0); MEAN CORPUSCULAR HGB CONC 33 g/dl (31.0-36.0); MEAN CORPUSCULAR VOLUME 87 fL (80-96); MONOCYTES # (AUTO) 0.3 /CMM (0.1-1.30); MONOCYTES % (AUTO) 4.9 % (2.0-12.0); NEUTROPHILS # (AUTO) 5.8 /CMM (1.8-8.9); NEUTROPHILS % (AUTO) 87.9 % (43.0-81.0); PLATELET COUNT (AUTO) 192 /CMM (150-450); RDW COEFFICIENT OF VARIATION 18.6 (11.5-15.0); RED BLOOD CELL COUNT(AUTO) 2.62 MIL/uL (4.5-6.0); WHITE BLOOD COUNT (AUTO) 6.6 K/uL (4.3-11.0)
--- NOTE | 2018-01-15 23:27 | NUR ---
PATIENT IS RESTING IN ER BED, NO DISTRESS NOTED AT THIS TIME, SKIN WARM AND DRY, RESP EVEN AND UNLABORED. VITAL SIGNS UPDATED.
[2018-01-15 23:31] LABS: INR 1.19 (0.87-1.13)
[2018-01-15 23:34] LABS: ALBUMIN 2.7 g/dL (3.4-5.0); BILIRUBIN,DIRECT 0.1 mg/dL (0.0-0.2); BILIRUBIN,TOTAL 0.4 mg/dL (0.2-1.0); CALCIUM, SERUM 7.4 mg/dL (8.5-10.1); POTASSIUM 5.3 mmol/L (3.5-5.1)
[2018-01-15 23:36] LABS: TROPONIN I 0.022 ng/mL (0.00-0.056)
[2018-01-15 23:37] LABS: CREATININE 17.4 mg/dL (0.6-1.3)
[2018-01-15 23:55] LABS: MAGNESIUM 1.9 mg/dL (1.8-2.4); PHOSPHORUS 5.6 mg/dL (2.5-4.9)
[2018-01-15 23:56] LABS: ALCOHOL, BLOOD < 3 mg/dL (0-0)
[2018-01-16] VITALS (10 sets, daily range): BP systolic 112–147; BP diastolic 70–90
[2018-01-16] MEDS ORDERED: DEXTROSE 50%-WATER 50 ML DISP.SYRIN IVP ONE
[2018-01-16] MEDS ORDERED: INSULIN REGULAR, HUMAN 100 UNIT/ML 10 ML VIAL IV ONE
[2018-01-16] MEDS ORDERED: ALBUTEROL FS 2.5 MG/0.5 ML VIAL.NEB NEB ONE
[2018-01-16] MEDS ORDERED: SODIUM POLYSTYRENE SULFONATE 15 G/60 ML BOTTLE PO ONE
[2018-01-16] MEDS ORDERED: INSULIN REGULAR, HUMAN 100 UNIT/ML 10 ML VIAL ONE (00:02)
[2018-01-16] MEDS ORDERED: SODIUM POLYSTYRENE SULFONATE 15 G/60 ML BOTTLE ONE (00:02)
[2018-01-16] MEDS ORDERED: DEXTROSE 50%-WATER 50 ML DISP.SYRIN ONE (00:02)
[2018-01-16] MEDS ORDERED: ALBUTEROL FS 2.5 MG/3 ML VIAL.NEB ONE (00:16)
--- NOTE | 2018-01-16 00:20 | NUR ---
312.1 [facility] BED
[2018-01-16] MEDS ORDERED: ALBUTEROL FS 2.5 MG/0.5 ML VIAL.NEB ONE (00:22)
--- NOTE | 2018-01-16 00:29 | NUR ---
REPORT GIVEN TO TUYET VALLES RN FOR TRINA.
[2018-01-16] MEDS ORDERED: ALBUTEROL FS 2.5 MG/3 ML VIAL.NEB NEB PRN ×2 (00:30→00:45)
[2018-01-16] MEDS ORDERED: Z GUARD REMEDY 2 OZ OINT TP PRN (00:30)
[2018-01-16] MEDS ORDERED: HYDROCODONE/APAP 5/325MG 1 EACH TABLET PO PRN (00:30)
[2018-01-16] MEDS ORDERED: FUROSEMIDE 40 MG/4 ML VIAL IV ONE (00:30)
[2018-01-16] MEDS ORDERED: MAG HYDROX/AL HYDROX/SIMETH 30 ML UDC PO PRN (00:30)
[2018-01-16] MEDS ORDERED: ONDANSETRON HCL/PF 4 MG/2 ML VIAL IVP PRN (00:30)
[2018-01-16] MEDS ORDERED: ACETAMINOPHEN 325 MG TABLET PO PRN (00:30)
[2018-01-16] MEDS ORDERED: MAGNESIUM HYDROXIDE 30 ML UDC PO PRN (00:30)
--- NOTE | 2018-01-16 00:40 | NUR ---
RN ADMITTING NOTES Pt ARRIVED TO THE FLOOR VIA GURNEY. WAS ABLE TO SAFELY TRANSFER THE Pt FROM THE GURNEY TO THE ROOM BED. Pt IS STILL HAVING SOME SOB. ON 3L NC O2 SAT 95%. Pt IS A/OX3, VERBAL, ABLE TO MAKE NEEDS KNOWN. IV ACCESS ON LAC #20G, SL. ON TELE MONITOR. SAFETY MEASURES IN PLACE. BED LOW, LOCKED, HOB ELEVATED, SIDE RAILS UP, CALL LIGHT AND BEDSIDE TABLE WITHIN REACH. WILL CONTINUE TO MONITOR Pt THROUGHOUT THE NIGHT FOR SAFETY.
[2018-01-16] MEDS: ZOLPIDEM TARTRATE 5 MG TABLET PO PRN ×2 (01:50→22:09)
[2018-01-16] MEDS ORDERED: LOPERAMIDE HCL (2 MG CAP) 2 MG CAPSULE PO PRN (04:00)
--- NOTE | 2018-01-16 04:01 | NUR ---
RN NOTES SPOKE WITH DR SIERRA. PER Pt REQUEST WANTED IMODIUM FOR HIS DIARRHEA. ORDERED IMODIUM 2MG PO Q4 PRN.
--- NOTE | 2018-01-16 04:05 | NUR ---
RN NOTES IMODIUM NOT STOCKED IN BOTH [facility] ON FLOOR. WILL CALL PHARMACY TO STOCK IMODIUM.
--- NOTE | 2018-01-16 06:45 | NUR ---
RN CLOSING NOTES NO SIGNIFICANT CHANGES IN Pt's CONDITION. Pt REMAINS STABLE AT THIS TIME. NO S/S OF ACUTE DISTRESS NOTED DURING THE NIGHT. TELE READING SR 99. Pt ASLEEP WITH EQUAL CHEST RISE AND FALL. ALL NEEDS MET AND ATTENDED TO. SAFETY MEASURES IN PLACE. WILL ENDORSE TO DAYSHIFT RN FOR Pt's TRINA.
--- NOTE | 2018-01-16 07:00 | NUR ---
BUSINESS DEVELOPMENT CONSULTANT INITIAL NOTES: Received patient on bed, with HOB elevated, sleeping soundly. on 3L o2 via NC. no acute distress noted. IV on Left AC g#20 SL. on Tele monitor, SR BBB 96. No complaints of discomfort as of this time. Call bed within patient's reach. bed in low/locked position. Patient in stable condition as endorsed by the manufacturing supervisor 2nd shift RN.
[2018-01-16] MEDS ORDERED: LEVOTHYROXINE SODIUM 88 MCG TABLET PO SCH (07:30)
[2018-01-16] MEDS: LEVOTHYROXINE SODIUM 88 MCG TABLET PO SCH (08:34)
[2018-01-16] MEDS: ASPIRIN 81 MG TAB.CHEW PO SCH (08:34)
[2018-01-16] MEDS: CALCIUM ACETATE 667 MG TABLET PO SCH ×3 (08:35→17:33)
[2018-01-16] MEDS: CHOLECALCIFEROL 1,000 UNIT TABLET (VIT D3) PO SCH (08:38)
[2018-01-16] MEDS: LACOSAMIDE 50 MG TABLET PO SCH ×2 (08:38→21:58)
[2018-01-16] MEDS: QUETIAPINE FUMARATE 100 MG TABLET PO SCH ×2 (08:39→21:58)
[2018-01-16] MEDS: CARVEDILOL 3.125 MG TABLET PO SCH ×2 (08:40→21:59)
[2018-01-16] MEDS ORDERED: CHOLECALCIFEROL 1,000 UNIT TABLET (VIT D3) PO SCH (09:00)
[2018-01-16] MEDS ORDERED: CARVEDILOL 3.125 MG TABLET PO SCH (09:00)
[2018-01-16] MEDS ORDERED: ASPIRIN 81 MG TAB.CHEW PO SCH (09:00)
[2018-01-16 10:39] LABS: THYROID STIMULATING HORMONE 0.993 uIU/mL (0.358-3.74)
[2018-01-16] MEDS ORDERED: EPOETIN ALFA (10,000 UNIT) 10,000 UNIT/ML VIAL SQ ONE (11:00)
--- NOTE | 2018-01-16 19:02 | NUR ---
radiotelegraphist notes Informed Dr. Jacome about patient diet order and per MD to ask caregiver what diet she follows and per caregiver cardiac diet and MD made aware and order aspiration precaution. All orders carried out and noted. Addendum: 01/16/18 at 1904 by JOSÉ CASTILLO wrong patient
--- NOTE | 2018-01-16 19:04 | NUR ---
ms rn notes Patient complaint of pain and per patient [place] 5/325 mg tab doesnt work for him and informed MD and MD ordered d/c previous norco and change it to [place] 10/325 mg PRN. Patient made aware and per patient norco doesn't work for him and usually Morphine works and informed MD and per MD no morphine. All orders carried out and noted.
--- NOTE | 2018-01-16 19:25 | NUR ---
MS/RN NOTES RECEIVED PT. LYING IN BED. PT. IS AWAKE, ALERT AND ORIENTED X3. BREATHING EVEN AND UNLABORED ON 3LPM O2 VIA NC. NO SOB OR RESPIRATORY DISTRESS NOTED AT THIS TIME. PT. COMPLAINING OF BACK PAIN 03/02. PT. REQUESTING MORPHINE. PER DAYSHIFT RN DR. BOYER NOTIFIED AND DOES NOT WANT TO ORDER MORPHINE BUT NORCO 10:325 IS AVAILABLE. WILL ADMINISTER TO PT. PAIN MEDICATION ORDERED. PT. WITH LEFT AC 20 GAUGE IV SALINE LOCK PRESENT, PATENT AND INTACT. PT. WITH FRIEND PRESENT AT BEDSIDE. BED LOCKED AND IN LOWEST POSITION, SIDE RAILS UP X3, BED ALARM ON, CALL LIGHT WITHIN REACH, WILL CONTINUE TO MONITOR.
--- NOTE | 2018-01-16 19:28 | NUR ---
ms rn closing notes All needs provided, attended, and anticipated. Patient in stable condition. Endorsed to next shift RN to continue care. Call light with in patient reach.
[2018-01-16] MEDS: HYDROCODONE/APAP 10/325MG 1 EA TABLET PO PRN (19:56)
[2018-01-16] MEDS: diphenhydrAMINE HCL 50 MG CAPSULE PO SCH (21:58)
[2018-01-16] MEDS: MIRTAZAPINE 15 MG TABLET PO SCH (21:58)
[2018-01-16] MEDS ORDERED: diphenhydrAMINE HCL 50 MG CAPSULE PO SCH (22:00)
--- NOTE | 2018-01-17 06:08 | NUR ---
MS/RN NOTES PT. IS LYING IN BED RESTING. BREATHING EVEN AND UNLABORED ON 3LPM O2 VIA NC. NO SOB, RESPIRATORY DISTRESS OR COMPLAINTS OF PAIN NOTED AT THIS TIME. PT. WITH LEFT AC 20 GAUGE IV SALINE LOCK PRESENT, PATENT AND INTACT. ALL PT. NEEDS MET. BED LOCKED AND IN LOWEST POSITION, SIDE RAILS UP X2, BED ALARM ON, CALL LIGHT WITHIN REACH, WILL ENDORSE TO DAYSHIFT NURSE FOR CONTINUITY OF CARE.
[2018-01-17 06:16] LABS: BASOPHILS % (AUTO) 0.4 % (0.0-2.0); EOSINOPHILS % (AUTO) 5.5 % (0.0-6.0); HEMATOCRIT 24 % (39-51); HEMOGLOBIN 7.9 g/dL (13.5-17.5); LYMPHOCYTES # (AUTO) 0.5 /CMM (0.8-4.8); LYMPHOCYTES % (AUTO) 9.6 % (20.0-44.0); MEAN CORPUSCULAR HGB CONC 33 g/dl (31.0-36.0); MEAN CORPUSCULAR VOLUME 90 fL (80-96); MONOCYTES # (AUTO) 0.4 /CMM (0.1-1.30); NEUTROPHILS # (AUTO) 4.2 /CMM (1.8-8.9); NEUTROPHILS % (AUTO) 77.5 % (43.0-81.0); PLATELET COUNT (AUTO) 171 /CMM (150-450); RDW COEFFICIENT OF VARIATION 17.4 (11.5-15.0); RED BLOOD CELL COUNT(AUTO) 2.65 MIL/uL (4.5-6.0); WHITE BLOOD COUNT (AUTO) 5.4 K/uL (4.3-11.0)
[2018-01-17 06:29] LABS: ALBUMIN 2.2 g/dL (3.4-5.0); BILIRUBIN,TOTAL 0.4 mg/dL (0.2-1.0); MAGNESIUM 2.4 mg/dL (1.8-2.4); PHOSPHORUS 6.7 mg/dL (2.5-4.9); POTASSIUM 4.3 mmol/L (3.5-5.1); TOTAL PROTEIN, SERUM 6.9 g/dL (6.4-8.2)
[2018-01-17 06:38] LABS: CREATININE 13.4 mg/dL (0.6-1.3)
[2018-01-17] MEDS: HYDROCODONE/APAP 10/325MG 1 EA TABLET PO PRN ×2 (06:55→18:28)
[2018-01-17] MEDS: LEVOTHYROXINE SODIUM 88 MCG TABLET PO SCH (07:30)
--- NOTE | 2018-01-17 07:30 | NUR ---
RN OPEN NOTES RECEIVED REPORT AT BEDSIDE. PATIENT IS IN BED, ALERT AND ORIENTED TO NAME AND PLACE. NO SIGNS AND SYMPTOMS OF DISTRESS. COMPLAINS OF PAIN LEVEL 03/02, NIGHT RN ADMINISTERED NORCO AT 7AM, WILL CONTINUE TO ASSESS PAIN LEVEL. BED IN LOW POSITION, LOCKED AND TWO SIDE RAILS ARE UP. CALL LIGHT WITHIN REACH FOR SAFETY. HD TODAY IN AM --- PHOS LEVEL 6.7 AND CREATINE LEVEL 13.4. WILL CONTINUE TO MONITOR AND ASSESS PATIENT THROUGH OUT MY SHIFT
[2018-01-17 08:00] VITALS: BP 119/90
[2018-01-17] MEDS: CALCIUM ACETATE 667 MG TABLET PO SCH ×3 (08:00→16:26)
--- NOTE | 2018-01-17 08:25 | NUR ---
HD NURSE AT BEDSIDE TO START DIALYSIS
--- NOTE | 2018-01-17 08:30 | NUR ---
HOLDING AM MEDS DUE TO HD
[2018-01-17] MEDS: CARVEDILOL 3.125 MG TABLET PO SCH ×2 (08:52→21:16)
--- NOTE | 2018-01-17 10:50 | NUR ---
HD COMPLETED. 3,000ML REMOVED
[2018-01-17] MEDS: CHOLECALCIFEROL 1,000 UNIT TABLET (VIT D3) PO SCH (10:54)
[2018-01-17] MEDS: QUETIAPINE FUMARATE 100 MG TABLET PO SCH ×2 (10:54→21:16)
[2018-01-17] MEDS: ASPIRIN 81 MG TAB.CHEW PO SCH (10:54)
[2018-01-17] MEDS: LACOSAMIDE 50 MG TABLET PO SCH ×2 (10:54→21:15)
--- NOTE | 2018-01-17 10:57 | NUR ---
AM CONNIE ADMINISTERED POST HD
--- NOTE | 2018-01-17 18:37 | NUR ---
RN CLOSING NOTES: PATIENT IS IN BED. AWAKE, ALERT AND ORIENTED TO NAME, PLACE AND TIME. RESPIRATIONS EVEN AND UNLABORED WITH EQUAL RISE AND FALL OF CHEST. NO SIGNS AND SYMPTOMS OF DISTRESS. LAST NORCO ADMINISTERED AT 1830, PATIENT COMPLAINS THAT NORCO ISN;R HELPING. IV SITE IS INTACT AND PATENT - HL ONLY, NO REDNESS , NO INFILTRATION PRESENT. HD CATH LEFT CHEST WALL - HD COMPLETED TODAY AT 3L REMOVED - POSSIBLE HD TOMORROW. BED IN LOWEST POSITION, LOCKED AND TWO SIDE RAILS ARE UP FOR SAFETY. CALL LIGHT WITHIN REACH FOR SAFETY. ALL NURSING CARE ANTICIPATED AND ATTENDED FOR. PATIENT KEPT CLEAN, DRY AND SAFE. URINAL AT BEDSIDE PERINEAL CARE PROVIDED. BED LINENS AND GOWN CHANGED ,PT ABLE TO SELF REPOSITION. FALL PRECAUTIONS IN PLACE, SAFETY MEASURES IN PLACE, FLUIDS OFFERED TOLERATED. WILL ENDORSE TO LOG HAUL OPERATOR RN FOR TRINA.
--- NOTE | 2018-01-17 19:20 | NUR ---
MS/RN NOTES RECEIVED PT. LYING IN BED. PT. IS AWAKE, ALERT AND ORIENTED X3. BREATHING EVEN AND UNLABORED ON 3LPM O2 VIA NC. NO SOB, RESPIRATORY DISTRESS OR COMPLAINTS OF PAIN NOTED AT THIS TIME. PT. WITH LEFT AC 20 GAUGE IV SALINE LOCK PRESENT, PATENT AND INTACT. BED LOCKED AND IN LOWEST POSITION, SIDE RAILS UP X2, BED ALARM ON, CALL LIGHT WITHIN REACH, WILL CONTINUE TO MONITOR.
[2018-01-17 20:00] VITALS: BP 134/87
[2018-01-17] MEDS: MIRTAZAPINE 15 MG TABLET PO SCH (21:15)
[2018-01-17] MEDS: diphenhydrAMINE HCL 50 MG CAPSULE PO SCH (21:16)
[2018-01-17] MEDS: ZOLPIDEM TARTRATE 5 MG TABLET PO PRN (22:15)
--- NOTE | 2018-01-18 07:05 | NUR ---
MS RN NOTES PATIENT IN BED ALERT ORIENTED X3, NO ACUTE DISTRESS NOTED. BREATHING UNLABORED. NO SOB NOTED. IV ACCESS PATENT AND INTACT, NO REDNESS OR SWELLING NOTED. SAFETY MEASURES IN PLACE. CALL LIGHT WITHIN REACH. WILL CONTINUE TO MONITOR ACCORDINGLY.
[2018-01-18 08:00] VITALS: BP 133/86
[2018-01-18 08:16] LABS: EOSINOPHILS % (AUTO) 5.5 % (0.0-6.0); HEMATOCRIT 25 % (39-51); LYMPHOCYTES # (AUTO) 0.5 /CMM (0.8-4.8); LYMPHOCYTES % (AUTO) 6.8 % (20.0-44.0); MEAN CORPUSCULAR HGB CONC 32 g/dl (31.0-36.0); MEAN CORPUSCULAR VOLUME 89 fL (80-96); MONOCYTES # (AUTO) 0.5 /CMM (0.1-1.30); MONOCYTES % (AUTO) 6.6 % (2.0-12.0); NEUTROPHILS # (AUTO) 5.9 /CMM (1.8-8.9); NEUTROPHILS % (AUTO) 81.1 % (43.0-81.0); PLATELET COUNT (AUTO) 180 /CMM (150-450); RDW COEFFICIENT OF VARIATION 17.8 (11.5-15.0); RED BLOOD CELL COUNT(AUTO) 2.79 MIL/uL (4.5-6.0); WHITE BLOOD COUNT (AUTO) 7.3 K/uL (4.3-11.0)
[2018-01-18 08:30] LABS: CALCIUM, SERUM 7.2 mg/dL (8.5-10.1); POTASSIUM 3.8 mmol/L (3.5-5.1)
[2018-01-18] MEDS: LEVOTHYROXINE SODIUM 88 MCG TABLET PO SCH ×2 (08:40→08:42)
[2018-01-18] MEDS: CHOLECALCIFEROL 1,000 UNIT TABLET (VIT D3) PO SCH (08:42)
[2018-01-18] MEDS: CALCIUM ACETATE 667 MG TABLET PO SCH ×2 (08:43→12:25)
[2018-01-18 08:50] LABS: CREATININE 10.3 mg/dL (0.6-1.3)
[2018-01-18] MEDS: QUETIAPINE FUMARATE 100 MG TABLET PO SCH (10:22)
[2018-01-18] MEDS: ASPIRIN 81 MG TAB.CHEW PO SCH (10:22)
[2018-01-18 10:23] VITALS: BP 143/89
[2018-01-18] MEDS: CARVEDILOL 3.125 MG TABLET PO SCH (10:23)
[2018-01-18] MEDS: LACOSAMIDE 50 MG TABLET PO SCH (10:24)
--- NOTE | 2018-01-18 10:54 | NUR ---
MS RN NOTES SEEN AND EVALUATED BY DR IVANNA CHAMPAGNE WITH NEW ORDERS MADE. NOTED AND CARRIED OUT.
--- NOTE | 2018-01-18 15:40 | NUR ---
MS ENROLLMENT COUNSELOR NOTES PATIENT DISCHARGED WITH STABLE VITAL SIGNS. NO ACUTE DISTRESS NOTED. BREATHING UNLABORED. NO SOB NOTED. DISCHARGE INSTRUCTIONS GIVEN TO THE PATIENT, VERBALIZED UNDERSTANDING. ALL BELONGINGS ACCOUNTED FOR. IV ACCESS REMOVED, NO BLEEDING OR REDNESS NOTED. WHEELED TO THE LOBBY. ASSISTED TO A PRIVATE CAR, PICKED BY FRIEND .
== END 2018-01-18 15:40 | disposition home or self-care (01) | DRG 291 ==
LOC: ER 22:26 → TELE 01-16 00:37 → MED 01-16 09:34
PROVIDERS: ADMIT Internal Medicine; ATTEND Internal Medicine
PROC: 5A1D70Z Performance of Urinary Filtration, Intermittent, Less than 6 Hours Per Day (ICD-10-PCS; principal; 2018-01-16)
PROC: 30233N1 Transfusion of Nonautologous Red Blood Cells into Peripheral Vein, Percutaneous Approach (ICD-10-PCS; 2018-01-16)
PROC: 5A1D70Z Performance of Urinary Filtration, Intermittent, Less than 6 Hours Per Day (ICD-10-PCS; 2018-01-17)
PROC: 5A1D70Z Performance of Urinary Filtration, Intermittent, Less than 6 Hours Per Day (ICD-10-PCS; 2018-01-18)
DX: I13.2 Hypertensive heart and chronic kidney disease with heart failure and with stage 5 chronic kidney disease, or end stage renal disease (principal); N18.6 End stage renal disease; J96.01 Acute respiratory failure with hypoxia; E11.22 Type 2 diabetes mellitus with diabetic chronic kidney disease; E44.0 Moderate protein-calorie malnutrition; E87.5 Hyperkalemia; I48.91 Unspecified atrial fibrillation; I50.23 Acute on chronic systolic (congestive) heart failure; J44.9 Chronic obstructive pulmonary disease, unspecified; D63.8 Anemia in other chronic diseases classified elsewhere; E03.9 Hypothyroidism, unspecified; E78.5 Hyperlipidemia, unspecified; F17.210 Nicotine dependence, cigarettes, uncomplicated; F41.9 Anxiety disorder, unspecified; K21.9 Gastro-esophageal reflux disease without esophagitis; F32.9 Major depressive disorder, single episode, unspecified; Z91.19 Patient's noncompliance with other medical treatment and regimen; Z99.2 Dependence on renal dialysis; I25.2 Old myocardial infarction; G89.29 Other chronic pain; Z71.6 Tobacco abuse counseling; Z68.23 Body mass index [BMI] 23.0-23.9, adult
CPT/HCPCS: 36415; 71045-TC; 80048-TC; 80053-TC; 80076-TC; 82962-TC; 83540-TC; 83735-TC; 84100-TC; 84443-TC; 84484-TC; 85025-TC; 85730-TC; 86850-TC; 86921-TC; 87081-TC; 90935-TC; 94799-TC; A4606; G0480; J0885; J1815; J1940; J2405; J7050; P9016-BL; Q0163; Z7610

== ENCOUNTER 2018-03-02 19:14 | Inpatient (IN) | payer MEDICARE ==
[~2018-03-02] VITALS: Ht 177.8 cm; Wt 78.5 kg
[~2018-03-02 19:14] MED LIST changes: -DIPH50CA37 PO
--- NOTE | 2018-03-02 19:45 | NUR ---
SEEN AND EXAMINED BY DR. COLON
--- NOTE | 2018-03-02 19:54 | NUR ---
PT IS AOX4, AMBULATORY STATING THAT HIS SOB GETTING WORST FOR ABOUT A WEEK EVERYTIME HE MOVE ON HIS APARTMENT. WHEEZING NOTED ON UPPER LOBE. AFEBRILE. SATURATING 90% ON RA , O2 2LPM VIA NC RENDERED. PRESENT WITH BILATERAL LEGS AND FOOT SWOLLEN WITH DRY BLISTERS/WOUND. VSS TEMP 97.8 RESP 20 P110 BP 147/96.
[2018-03-02] MEDS ORDERED: ALBUTEROL FS 2.5 MG/3 ML VIAL.NEB NEB ONE ×2 (20:00→21:00)
[2018-03-02] MEDS ORDERED: IPRATROPIUM NEB FS 0.5 MG/2.5 ML AMPUL.NEB NEB ONE (20:00)
[2018-03-02] MEDS ORDERED: IPRATROPIUM NEB FS 0.5 MG/2.5 ML AMPUL.NEB ONE (20:01)
[2018-03-02] MEDS ORDERED: ALBUTEROL FS 2.5 MG/3 ML VIAL.NEB ONE (20:01)
[2018-03-02 20:25] LABS: BASOPHILS # (AUTO) 0.1 /CMM (0.0-0.2); BASOPHILS % (AUTO) 0.7 % (0.0-2.0); EOSINOPHILS % (AUTO) 9.3 % (0.0-6.0); HEMATOCRIT 22 % (39-51); HEMOGLOBIN 7.5 g/dL (13.5-17.5); LYMPHOCYTES # (AUTO) 0.4 /CMM (0.8-4.8); LYMPHOCYTES % (AUTO) 6.1 % (20.0-44.0); MEAN CORPUSCULAR HEMOGLOBIN 29 PG (26.0-33.0); MEAN CORPUSCULAR HGB CONC 33 g/dl (31.0-36.0); MEAN CORPUSCULAR VOLUME 86 fL (80-96); MONOCYTES # (AUTO) 0.3 /CMM (0.1-1.30); MONOCYTES % (AUTO) 4.4 % (2.0-12.0); NEUTROPHILS # (AUTO) 5.8 /CMM (1.8-8.9); NEUTROPHILS % (AUTO) 79.5 % (43.0-81.0); PLATELET COUNT (AUTO) 136 /CMM (150-450); RDW COEFFICIENT OF VARIATION 16.6 (11.5-15.0); WHITE BLOOD COUNT (AUTO) 7.4 K/uL (4.3-11.0)
--- NOTE | 2018-03-02 20:30 | NUR ---
BREATHING TX GIVEN BY RT
[2018-03-02 20:41] LABS: INR 1.2 (0.85-1.15)
[2018-03-02 20:43] LABS: ALBUMIN 2.5 g/dL (3.4-5.0); BILIRUBIN,DIRECT 0.1 mg/dL (0.0-0.2); BILIRUBIN,TOTAL 0.4 mg/dL (0.2-1.0); CALCIUM, SERUM 7.4 mg/dL (8.5-10.1); POTASSIUM 6.1 mmol/L (3.5-5.1); TOTAL PROTEIN, SERUM 8.2 g/dL (6.4-8.2)
[2018-03-02 20:46] LABS: TROPONIN I 0.07 ng/mL (0.00-0.056)
--- NOTE | 2018-03-02 20:55 | NUR ---
DR.KASHANI LATHAM
--- NOTE | 2018-03-02 20:56 | NUR ---
ANAHY PAGED, SCHOOL BUS DRIVER/MECHANIC
[2018-03-02] MEDS ORDERED: SODIUM POLYSTYRENE SULFONATE 15 G/60 ML BOTTLE PO ONE (21:00)
[2018-03-02] MEDS ORDERED: INSULIN REGULAR, HUMAN 100 UNIT/ML 10 ML VIAL IV ONE (21:00)
[2018-03-02] MEDS ORDERED: DEXTROSE 50%-WATER 50 ML DISP.SYRIN IV ONE (21:00)
--- NOTE | 2018-03-02 21:00 | NUR ---
CALLED NURSING SUP. FOR [facility] BED
[2018-03-02 21:02] LABS: MAGNESIUM 1.3 mg/dL (1.8-2.4)
[2018-03-02 21:03] LABS: PHOSPHORUS 9.8 mg/dL (2.5-4.9)
[2018-03-02] MEDS ORDERED: MORPHINE SULFATE INJ 2 MG/ML DISP.SYRIN ONE (21:11)
--- NOTE | 2018-03-02 21:13 | NUR ---
[facility] 119-2 FOR FLUID OVERLOAD, DR. CONTRERAS ADMITTING
[2018-03-02] MEDS ORDERED: ONDANSETRON HCL/PF - ER 4 MG/2 ML VIAL IV ONE (21:30)
[2018-03-02] MEDS ORDERED: MORPHINE SULFATE INJ 2 MG/ML DISP.SYRIN IV ONE (21:30)
[2018-03-02] MEDS ORDERED: ONDANSETRON HCL/PF 4 MG/2 ML VIAL ONE (21:34)
[2018-03-02] MEDS ORDERED: ASPIRIN 81 MG TAB.CHEW PO ONE (22:00)
--- NOTE | 2018-03-02 22:28 | NUR ---
IV CHANGE TO RFA G 20 WITH GOOD BLOOD RETURN MORPHINE AND ZOFRAN GIVEN ORDERED AND TRANSFER PT TO [facility] ROOM 119-2 FOR CONTINUITY OF CARE.
--- NOTE | 2018-03-02 22:33 | NUR ---
[facility] NOTES ADMITTED DIRECT FROM ER VIA GURNEY TO [id number],DX OF HYPERKALEMIA.PT ANGRY AND UNCOOPERATIVE,UNABLE TO INTERVIEW AND ASK QUESTIONS FROM PT.STAT HEMODIALYSIS STARTED BY HD RN.MONITOR SHOWS SINUS TACH.
[2018-03-02 22:35] VITALS: BP 151/111
--- NOTE | 2018-03-02 22:37 | NUR ---
TRANSFER PT TO [facility] UNIT , REPORT GIVEN TO VAISHNAVI MENDEZ
[2018-03-02] MEDS ORDERED: ACETAMINOPHEN 325 MG TABLET PO PRN (23:00)
[2018-03-02] MEDS ORDERED: ALBUTEROL FS 2.5 MG/3 ML VIAL.NEB NEB PRN (23:00)
[2018-03-02] MEDS ORDERED: ONDANSETRON HCL/PF 4 MG/2 ML VIAL IVP PRN (23:00)
[2018-03-03] VITALS (10 sets, daily range): BP systolic 136–156; BP diastolic 79–88
[2018-03-03] MEDS ORDERED: ZOLPIDEM TARTRATE 10 MG TABLET PO PRN
--- NOTE | 2018-03-03 00:30 | NUR ---
[facility]/NOTES HD COMPLETED,PULLED OUT 2L OF FLUID.PT TOLERATED TREATMENT WELL.
--- NOTE | 2018-03-03 01:00 | NUR ---
[facility]/NOTES REFUSED TO HAVE BELONGINGS CHECKED.
--- NOTE | 2018-03-03 01:10 | NUR ---
[facility] NOTES UP TO BATHROOM USING CANE.HAD LARGE AMOUNT OF LOOSE STOOL SEC TO KAYEXALATE GIVEN IN ER.INSISTENT ON CALLING FOR ANTI-DIARRHEA EVEN WHEN EXPLAINED TO PT THAT IT'S THE EFFECT OF KAYEXALATE.MD NOTIFIED,NO ORDERS GIVEN.
[2018-03-03] MEDS: QUETIAPINE FUMARATE 100 MG TABLET PO SCH ×2 (01:16→21:12)
[2018-03-03] MEDS: ZOLPIDEM TARTRATE 10 MG TABLET PO PRN ×2 (01:17→21:19)
[2018-03-03] MEDS: MORPHINE SULFATE INJ 2 MG/ML DISP.SYRIN IV PRN ×4 (02:20→21:20)
[2018-03-03] MEDS: Magnesium 1GM/D5W 100ML PREMIX 100 ML IV SCH ×3 (02:40→04:52)
[2018-03-03] MEDS ORDERED: Magnesium 1GM/D5W 100ML PREMIX 200 ML IV ONE (03:07)
--- NOTE | 2018-03-03 07:15 | NUR ---
RN DIAZ INITIAL NOTES RECEIVED REPORT AND PT FROM PM NURSE. PT RESTING IN BED WITH NO ACUTE CHANGES OR SOB NOTED. ALL SAFETY MEASURES INITIATED, A&O X3 SERBIAN SPEAKING VOICES CONCERN TO GO HOME RIGHT AWAY, ON TELE THU SR WITH HR 98, URINAL OR BATHROOM PRIVILEGE, RT AC IV INTACT AND PATENT LT HAND IV SL, ALL SHOWN NO INFILTRATION, ALL NEEDS MET, PT STATED WANTS TO GO HOME AMA TODAY.
[2018-03-03 07:25] LABS: EOSINOPHILS % (AUTO) 14.7 % (0.0-6.0); HEMATOCRIT 21 % (39-51); LYMPHOCYTES # (AUTO) 0.8 /CMM (0.8-4.8); LYMPHOCYTES % (AUTO) 12.7 % (20.0-44.0); MEAN CORPUSCULAR HEMOGLOBIN 30 PG (26.0-33.0); MEAN CORPUSCULAR HGB CONC 33 g/dl (31.0-36.0); MEAN CORPUSCULAR VOLUME 89 fL (80-96); MONOCYTES # (AUTO) 0.3 /CMM (0.1-1.30); MONOCYTES % (AUTO) 4.8 % (2.0-12.0); NEUTROPHILS # (AUTO) 4.2 /CMM (1.8-8.9); NEUTROPHILS % (AUTO) 67.8 % (43.0-81.0); PLATELET COUNT (AUTO) 133 /CMM (150-450); RDW COEFFICIENT OF VARIATION 17.2 (11.5-15.0); RED BLOOD CELL COUNT(AUTO) 2.31 MIL/uL (4.5-6.0); WHITE BLOOD COUNT (AUTO) 6.3 K/uL (4.3-11.0)
[2018-03-03 07:41] LABS: HEMOGLOBIN 6.8 g/dL (13.5-17.5)
[2018-03-03 07:43] LABS: ALBUMIN 2.1 g/dL (3.4-5.0); BILIRUBIN,TOTAL 0.3 mg/dL (0.2-1.0); MAGNESIUM 1.8 mg/dL (1.8-2.4); PHOSPHORUS 7.5 mg/dL (2.5-4.9); TOTAL PROTEIN, SERUM 7.2 g/dL (6.4-8.2)
[2018-03-03 07:46] LABS: CREATININE 13.2 mg/dL (0.6-1.3)
[2018-03-03 08:20] LABS: BAND % (MANUAL) 1 % (0.0-5.0); EOSINOPHILS % (MANUAL) 20 % (0-4); LYMPHOCYTES % (MANUAL) 10 % (16-48); MONOCYTES % (MANUAL) 7 % (0-11.0); NEUTROPHILS % (MANUAL) 62 (42-76)
[2018-03-03] MEDS: PANTOPRAZOLE 40 MG TABLET.DR PO SCH (08:28)
[2018-03-03] MEDS: LACOSAMIDE 50 MG TABLET PO SCH ×2 (08:28→21:11)
[2018-03-03] MEDS: CHOLECALCIFEROL 1,000 UNIT TABLET (VIT D3) PO SCH (08:28)
[2018-03-03] MEDS: ASPIRIN 81 MG TAB.CHEW PO SCH (08:28)
[2018-03-03] MEDS: LEVOTHYROXINE SODIUM 88 MCG TABLET PO SCH (08:28)
[2018-03-03] MEDS: CALCIUM ACETATE 667 MG TABLET PO SCH ×3 (08:28→17:39)
[2018-03-03] MEDS: CARVEDILOL 3.125 MG TABLET PO SCH ×2 (08:39→21:11)
[2018-03-03] MEDS ORDERED: Medication Not On Formulary EA (Quetiapine Fumarate (Seroquel) 300 MG) PO SCH (09:00)
--- NOTE | 2018-03-03 09:15 | NUR ---
RN DIAZ NOTES PT ON ROOM AIR 98% NO SOB OR ACUTE DISTRESS NOTED, WILL DC TELE BOX PER DR MARCIA MANZANARES ORDER.
--- NOTE | 2018-03-03 12:26 | NUR ---
RN MS NOTES PTS O2 ON RA IS 91% NO SOB STATED FROM PT BUT PLACED PT ON 2L NC.
--- NOTE | 2018-03-03 13:00 | NUR ---
RN MS NOTES PT FINISHED HD WITH HD NURSE JAMILAH, 2L OUT, FINISHED 1 UNIT PRBCS, NO REACTION NOTED, ENDING VS: BP 144/71, HR 75, RESP 18, TEMP 98.4, PT COMFORTABLE NO S/S OF DISTRESS NOTED, EPOGEN GIVEN DURING BLOOD TRANSFUSION.
--- NOTE | 2018-03-03 13:32 | NUR ---
RN MS NOTES STARTED BLOOD TRANSFUSION PER MD BOYER TELEPHONE ORDERS 1 UNIT PRBCS, VS STABLE BP 138/88, TEMP 98.1 ORAL, RESP 18, HR 82, PAIN 7/10 IN BACK PRIOR TO PTS BLOOD TRANSFUSION, HD NURSE JAMILAH AT BEDSIDE AT THIS TIME, PTS CONSENT SIGNED, WILL TRANSFUSE MD ORDERED, REACTION S/S MENTIONED TO PT WILL CONTINUE TO MONITOR.
--- NOTE | 2018-03-03 13:49 | NUR ---
RN MS NOTES PT STATED WANTS TO GO HOME AMA, VERBALIZED WOULD LIKE TO GO HOME AFTER HD AND BLOOD TRANSFUSION, DR BOYER AWARE AND STATED THAT IS FINE LET PT GO IF THEY WANT TO GO AMA, WILL MONITOR PT PRIOR TO DC.
[2018-03-03] MEDS ORDERED: EPOETIN ALFA (10,000 UNIT) 10,000 UNIT/ML VIAL IV ONE (15:00)
--- NOTE | 2018-03-03 17:40 | NUR ---
RN MS NOTES PT HAS RECONSIDERED LEAVING AMA AT THIS TIME, PT STATES IS OUT OF BREATHE, ON ROOM AIR PT IS 88-91% ON 3L O2 SAT PT IS 97% AND ABOVE.
--- NOTE | 2018-03-03 19:11 | NUR ---
RN MS ENDING NOTES PT RESTING IN BED, NO ACUTE CHANGES NOTED, PT BECOMES SOB ON ROOM AIR SAT 88% NEEDS O2 EXPLAINED TO PT NEEDS O2 AND KEEP IT ON, PT STATED OK AND WILL COMPLY, PTS FRIEND AT BEDSIDE, REFUSED DVT PUMPS, ALL NEEDS MET, ALL DUE MEDS GIVEN, WILL ENDORSE TO PM NURSE.
--- NOTE | 2018-03-03 20:00 | NUR ---
RN INITIAL NOTES RECEIVED PT RESTING IN BED. PT RESTING IN BED WITH NO ACUTE CHANGES OR SOB NOTED. ALL SAFETY MEASURES INITIATED, A&O X3. RT AC IV INTACT AND PATENT LT HAND IV SL, ALL SHOWN NO INFILTRATION, ALL NEEDS MET, CALL LIGHT IN REACH, BED IN LOW LOCKED POSITION. WILL ENDORSE TO AM RN.
[2018-03-03] MEDS: MIRTAZAPINE 15 MG TABLET PO SCH (21:11)
[2018-03-04 04:00] VITALS: BP 148/88
[2018-03-04] MEDS: MORPHINE SULFATE INJ 2 MG/ML DISP.SYRIN IV PRN ×4 (04:12→23:37)
--- NOTE | 2018-03-04 07:09 | NUR ---
RN CLOSING NOTES PT RESTING IN BED, NO ACUTE CHANGES NOTED, ALL NEEDS MET, ALL DUE MEDS GIVEN, WILL ENDORSE TO AM NURSE.
[2018-03-04 07:26] LABS: CALCIUM, SERUM 7.3 mg/dL (8.5-10.1); MAGNESIUM 1.6 mg/dL (1.8-2.4); PHOSPHORUS 6.6 mg/dL (2.5-4.9); POTASSIUM 4.2 mmol/L (3.5-5.1)
[2018-03-04 07:27] LABS: CREATININE 10.6 mg/dL (0.6-1.3)
--- NOTE | 2018-03-04 07:45 | NUR ---
RN MS NOTE" RECEIVED PATIENT IN BED, AWAKE, ALERT AND VERBALLY RESPONSIVE. RESPIRATION IS EVEN AND UNLABORED. ON O2@5L/MIN VIA NC SATURATING 99%. DENIED ANY PAIN. HOB ELEVATED. (R) AC IV LINE NOTED PATENT AND INTACT. CALL LIGHT WITHIN REACH. BED LOCKED AT ALL TIMES AND PLACED ON THE LOWEST POSITION. NEEDS ANTICIPATED.
[2018-03-04 08:00] VITALS: BP 130/80
[2018-03-04] MEDS: ASPIRIN 81 MG TAB.CHEW PO SCH (08:31)
[2018-03-04] MEDS: PANTOPRAZOLE 40 MG TABLET.DR PO SCH (08:31)
[2018-03-04] MEDS: CALCIUM ACETATE 667 MG TABLET PO SCH ×3 (08:31→18:00)
[2018-03-04] MEDS: LEVOTHYROXINE SODIUM 88 MCG TABLET PO SCH (08:31)
[2018-03-04] MEDS: CHOLECALCIFEROL 1,000 UNIT TABLET (VIT D3) PO SCH (08:32)
[2018-03-04] MEDS: LACOSAMIDE 50 MG TABLET PO SCH ×2 (08:32→22:02)
[2018-03-04] MEDS: CARVEDILOL 3.125 MG TABLET PO SCH ×2 (08:32→22:02)
[2018-03-04 10:13] LABS: IRON, SERUM 41 ug/dl (50-175); TOTAL IRON BINDING CAPACITY 100 ug/dl (250-450)
[2018-03-04 10:27] LABS: FERRITIN 693 ng/mL (8-388)
[2018-03-04 11:41] LABS: BASOPHILS # (AUTO) 0.1 /CMM (0.0-0.2); BASOPHILS % (AUTO) 0.8 % (0.0-2.0); EOSINOPHILS % (AUTO) 15.1 % (0.0-6.0); HEMATOCRIT 22 % (39-51); HEMOGLOBIN 7.3 g/dL (13.5-17.5); LYMPHOCYTES # (AUTO) 0.7 /CMM (0.8-4.8); LYMPHOCYTES % (AUTO) 9.5 % (20.0-44.0); MEAN CORPUSCULAR HEMOGLOBIN 29 PG (26.0-33.0); MEAN CORPUSCULAR HGB CONC 33 g/dl (31.0-36.0); MEAN CORPUSCULAR VOLUME 88 fL (80-96); MONOCYTES # (AUTO) 0.4 /CMM (0.1-1.30); MONOCYTES % (AUTO) 5.8 % (2.0-12.0); NEUTROPHILS # (AUTO) 4.7 /CMM (1.8-8.9); NEUTROPHILS % (AUTO) 68.8 % (43.0-81.0); PLATELET COUNT (AUTO) 117 /CMM (150-450); RDW COEFFICIENT OF VARIATION 15.9 (11.5-15.0); RED BLOOD CELL COUNT(AUTO) 2.51 MIL/uL (4.5-6.0); WHITE BLOOD COUNT (AUTO) 6.9 K/uL (4.3-11.0)
--- NOTE | 2018-03-04 12:51 | NUR ---
MS RN NOTE: SPOKE WITH DR. MCRAE RE: THE PATIENT'S CURRENT HGB 7.3 AND CLARIFIED WITH HIM IF HE STILL WANTED THE PATIENT TO RECEIVE BLOOD TRANSFUSION WITH HEMODIALYSIS TODAY. PER MD, HE SAID NO. PATIENT MADE AWARE.
[2018-03-04 16:00] VITALS: BP 137/94
--- NOTE | 2018-03-04 19:30 | NUR ---
RN MS NOTE: PATIENT ON HEMODIALYSIS AT THIS TIME. AWAKE, ALERT AND VERBALLY RESPONSIVE. NO SHORTNESS OF BREATH. COOPERATIVE DURING THE SHIFT. REPORT GIVEN TO PM SHIFT NURSE FOR CONTINUITY OF CARE.
[2018-03-04 20:00] VITALS: BP 155/90
--- NOTE | 2018-03-04 20:00 | NUR ---
RN INITIAL NOTES RECEIVED PT RESTING IN BED.PT IS BEING DIALYZED PRESENTLY. ALL SAFETY MEASURES INITIATED, A&O X3. RT AC IV INTACT AND PATENT LT HAND IV SL, ALL SHOWN NO INFILTRATION, ALL NEEDS MET, CALL LIGHT IN REACH, BED IN LOW LOCKED POSITION. WILL CONT TO MONITOR.
--- NOTE | 2018-03-04 21:00 | NUR ---
RN NOTES HD COMPLETED 4L TAKEN OFF PER HD NURSE. PT IN STABLE CONDITION.
[2018-03-04 21:37] LABS: OCCULT BLOOD STOOL NEGATIVE (NEGATIVE)
[2018-03-04] MEDS: MIRTAZAPINE 15 MG TABLET PO SCH (22:01)
[2018-03-04] MEDS: QUETIAPINE FUMARATE 100 MG TABLET PO SCH (22:02)
[2018-03-04] MEDS: ZOLPIDEM TARTRATE 10 MG TABLET PO PRN (22:05)
[2018-03-05 04:00] VITALS: BP 141/85
--- NOTE | 2018-03-05 06:24 | NUR ---
RN CLOSING NOTES PT RESTING IN BED, NO ACUTE CHANGES NOTED, ALL NEEDS MET, ALL DUE MEDS GIVEN, WILL ENDORSE TO AM NURSE.
[2018-03-05 08:00] VITALS: BP 138/79
--- NOTE | 2018-03-05 08:00 | NUR ---
VANESSA INITIAL NOTES RECEIVED REPORT FROM PM NURSE. PT RESTING IN BED.PT IS BEING DIALYZED PRESENTLY. ALL SAFETY MEASURES INITIATED, A&O X3. RT AC IV INTACT AND PATENT LT HAND IV SL, ALL SHOWN NO INFILTRATION, CALL LIGHT IN REACH, BED IN LOW LOCKED POSITION. REPORT GIVEN TO AMBER MENDEZ FOR FOLLOW UP.
[2018-03-05] MEDS: PANTOPRAZOLE 40 MG TABLET.DR PO SCH (09:08)
[2018-03-05] MEDS: LEVOTHYROXINE SODIUM 88 MCG TABLET PO SCH (09:08)
[2018-03-05] MEDS: LACOSAMIDE 50 MG TABLET PO SCH ×2 (09:09→22:32)
[2018-03-05] MEDS: CALCIUM ACETATE 667 MG TABLET PO SCH ×3 (09:09→18:03)
[2018-03-05] MEDS: ASPIRIN 81 MG TAB.CHEW PO SCH (09:09)
[2018-03-05] MEDS: CHOLECALCIFEROL 1,000 UNIT TABLET (VIT D3) PO SCH (09:09)
[2018-03-05] MEDS: CARVEDILOL 3.125 MG TABLET PO SCH ×2 (09:10→22:35)
[2018-03-05] MEDS: MORPHINE SULFATE INJ 2 MG/ML DISP.SYRIN IV PRN ×4 (09:22→22:45)
[2018-03-05 12:00] VITALS: BP 130/80
[2018-03-05 14:57] LABS: BASOPHILS % (AUTO) 0.6 % (0.0-2.0); EOSINOPHILS % (AUTO) 16.5 % (0.0-6.0); HEMATOCRIT 26 % (39-51); HEMOGLOBIN 8.8 g/dL (13.5-17.5); LYMPHOCYTES # (AUTO) 0.6 /CMM (0.8-4.8); LYMPHOCYTES % (AUTO) 7.8 % (20.0-44.0); MEAN CORPUSCULAR HEMOGLOBIN 30 PG (26.0-33.0); MEAN CORPUSCULAR HGB CONC 34 g/dl (31.0-36.0); MEAN CORPUSCULAR VOLUME 88 fL (80-96); MONOCYTES # (AUTO) 0.4 /CMM (0.1-1.30); MONOCYTES % (AUTO) 5.8 % (2.0-12.0); NEUTROPHILS # (AUTO) 4.9 /CMM (1.8-8.9); NEUTROPHILS % (AUTO) 69.3 % (43.0-81.0); PLATELET COUNT (AUTO) 115 /CMM (150-450); RDW COEFFICIENT OF VARIATION 15.7 (11.5-15.0); RED BLOOD CELL COUNT(AUTO) 2.96 MIL/uL (4.5-6.0); WHITE BLOOD COUNT (AUTO) 7.1 K/uL (4.3-11.0)
[2018-03-05 15:26] LABS: IRON, SERUM 48 ug/dl (50-175); TOTAL IRON BINDING CAPACITY 98 ug/dl (250-450)
[2018-03-05 15:43] LABS: FERRITIN 780 ng/mL (8-388)
[2018-03-05 16:00] VITALS: BP 132/82
[2018-03-05 20:00] VITALS: BP 148/88
--- NOTE | 2018-03-05 20:00 | NUR ---
RN INITIAL NOTES RECEIVED PT RESTING IN BED. PT RECEIVED HD TODAY 4L REMOVED. ALL SAFETY MEASURES INITIATED, A&O X3. RT AC IV INTACT AND PATENT LT HAND IV SL, NO INFILTRATION. ALL NEEDS MET. CALL LIGHT IN REACH, BED IN LOW LOCKED POSITION. WILL CONT TO MONITOR.
[2018-03-05] MEDS: QUETIAPINE FUMARATE 100 MG TABLET PO SCH (22:32)
[2018-03-05] MEDS: MIRTAZAPINE 15 MG TABLET PO SCH (22:32)
[2018-03-05] MEDS: ZOLPIDEM TARTRATE 10 MG TABLET PO PRN (22:33)
[2018-03-06 04:00] VITALS: BP 122/71
[2018-03-06 05:52] VITALS: BP_SYST 122; BP_SYST 142; BP_DIAS 70; BP_DIAS 71
--- NOTE | 2018-03-06 07:15 | NUR ---
MS/RN INITIAL NOTES RECEIVED PT IN BED, ASLEEP BUT AROUSABLE TO NAME. ON 3L O2 VIA NC TOLERATING WELL. NO SOB NOTED. NO C/O PAIN AT THIS TIME. WITH INTACT RAC AND LHAND SL. NO SIGNS OF INFECTION. SAFETY MEASURES IN PLACED. CALL LIGHT WITHIN REACH. PER PN RN ENDORSEMENT, PT REFUSED TO DRAW BLOOD FOR AM LABS. WILL FOLLOW UP AND CONT TO MONITOR
[2018-03-06 08:00] VITALS: BP 127/82
[2018-03-06] MEDS: LEVOTHYROXINE SODIUM 88 MCG TABLET PO SCH ×2 (08:16→09:25)
[2018-03-06] MEDS: PANTOPRAZOLE 40 MG TABLET.DR PO SCH ×2 (08:17→09:26)
[2018-03-06] MEDS: CALCIUM ACETATE 667 MG TABLET PO SCH ×3 (08:31→17:46)
[2018-03-06] MEDS: CARVEDILOL 3.125 MG TABLET PO SCH ×2 (10:04→22:01)
[2018-03-06] MEDS: ASPIRIN 81 MG TAB.CHEW PO SCH (10:05)
[2018-03-06] MEDS: LACOSAMIDE 50 MG TABLET PO SCH ×2 (10:05→22:00)
[2018-03-06] MEDS: CHOLECALCIFEROL 1,000 UNIT TABLET (VIT D3) PO SCH (10:05)
--- NOTE | 2018-03-06 10:45 | NUR ---
RN NOTES PT STILL REFUSED TO HAVE BLOOD DRAWN, EXPLAINED RISKS AND BENEFITS. PT STRONGLY REFUSED AND STATES, "I ALREADY SAID NO!" RESPECTED PT'S RIGHTS, WILL NOTIFY
[2018-03-06 12:00] VITALS: BP 150/95
[2018-03-06] MEDS: MORPHINE SULFATE INJ 2 MG/ML DISP.SYRIN IV PRN ×2 (12:27→22:00)
[2018-03-06 13:49] LABS: BASOPHILS % (AUTO) 0.7 % (0.0-2.0); EOSINOPHILS % (AUTO) 19.5 % (0.0-6.0); HEMATOCRIT 24 % (39-51); HEMOGLOBIN 7.8 g/dL (13.5-17.5); LYMPHOCYTES # (AUTO) 0.5 /CMM (0.8-4.8); LYMPHOCYTES % (AUTO) 8.1 % (20.0-44.0); MEAN CORPUSCULAR HEMOGLOBIN 29 PG (26.0-33.0); MEAN CORPUSCULAR HGB CONC 32 g/dl (31.0-36.0); MEAN CORPUSCULAR VOLUME 89 fL (80-96); MONOCYTES # (AUTO) 0.4 /CMM (0.1-1.30); MONOCYTES % (AUTO) 6.5 % (2.0-12.0); NEUTROPHILS # (AUTO) 4.3 /CMM (1.8-8.9); NEUTROPHILS % (AUTO) 65.2 % (43.0-81.0); PLATELET COUNT (AUTO) 104 /CMM (150-450); RDW COEFFICIENT OF VARIATION 15.9 (11.5-15.0); RED BLOOD CELL COUNT(AUTO) 2.71 MIL/uL (4.5-6.0); WHITE BLOOD COUNT (AUTO) 6.4 K/uL (4.3-11.0)
[2018-03-06 14:02] LABS: CALCIUM, SERUM 7.6 mg/dL (8.5-10.1); MAGNESIUM 1.4 mg/dL (1.8-2.4); PHOSPHORUS 4.7 mg/dL (2.5-4.9); POTASSIUM 4.3 mmol/L (3.5-5.1)
[2018-03-06 14:06] LABS: CREATININE 7.6 mg/dL (0.6-1.3)
--- NOTE | 2018-03-06 19:34 | NUR ---
MS/RN CLOSING NOTES PT REMAINED STABLE. NO ACUTE DISTRESS NOTED THROUGHOUT SHIFT. SAFETY MEASURES OBSERVED. REMAINED NO SIGNS OF BLEEDING. SAFETY MEASURES OBSERVED AT ALL TIMES. ALL NEEDS ANTICIPATED. ENDORSED TO PM SHIFT NURSE FOR TRINA
[2018-03-06 20:00] VITALS: BP 146/92
--- NOTE | 2018-03-06 20:00 | NUR ---
RN INITIAL NOTES RECEIVED PT RESTING IN BED. ALL SAFETY MEASURES INITIATED, A&O X3. RT AC IV INTACT AND PATENT LT HAND IV SL, NO INFILTRATION. ALL NEEDS MET. CALL LIGHT IN REACH, BED IN LOW LOCKED POSITION. WILL CONT TO MONITOR.
[2018-03-06] MEDS: MIRTAZAPINE 15 MG TABLET PO SCH (22:00)
[2018-03-06] MEDS: ZOLPIDEM TARTRATE 10 MG TABLET PO PRN (22:01)
[2018-03-06] MEDS: QUETIAPINE FUMARATE 100 MG TABLET PO SCH (22:05)
[2018-03-07 04:00] VITALS: BP 130/77
--- NOTE | 2018-03-07 06:42 | NUR ---
RN CLOSING NOTES PT RESTING IN BED, NO ACUTE CHANGES NOTED, ALL NEEDS MET, ALL DUE MEDS GIVEN, HD DUE TODAY IN AM. WILL ENDORSE TO AM NURSE.
--- NOTE | 2018-03-07 07:15 | NUR ---
RN MS INITIAL NOTES RECEIVED REPORT AND PT FROM PM NURSE, PT RESTING IN BED WITH NO ACUTE CHANGES OR DISTRESS, NO SOB AT THIS TIME, ON 5L NC SAT ABOVE 95%, A&O X4 BRUNEIAN SPEAKING, RT AC IV SL, LT HAND IV SL, LT CHEST WALL PERMACATH INTACT AND PATENT, ALL IV SITES INTACT AND PATENT NO INFILTRATION NOTED. HD WILL BE DONE TODAY, ALL SAFETY MEASURES INITIATED, SIDE RAILS X 2, BED LOW AND LOCKED, CALL LIGHT WITHIN REACH, WILL CONTINUE TO MONITOR.
--- NOTE | 2018-03-07 07:59 | NUR ---
RN MS NOTES HD NURSE AHMED AT BEDSIDE FOR HD TODAY 03/07/18.
[2018-03-07 08:00] VITALS: BP 136/76
[2018-03-07] MEDS: CHOLECALCIFEROL 1,000 UNIT TABLET (VIT D3) PO SCH (08:34)
[2018-03-07] MEDS: CALCIUM ACETATE 667 MG TABLET PO SCH ×3 (08:34→17:12)
[2018-03-07] MEDS: LACOSAMIDE 50 MG TABLET PO SCH ×2 (08:35→21:20)
[2018-03-07] MEDS: ASPIRIN 81 MG TAB.CHEW PO SCH (08:35)
--- NOTE | 2018-03-07 10:00 | NUR ---
RN MS NOTES PT FINISHED HD WITH HD NURSE JAMILAH, 4L OUTPUT VS 123/65 HR 92.
[2018-03-07] MEDS: CARVEDILOL 3.125 MG TABLET PO SCH ×2 (10:10→21:22)
[2018-03-07 12:00] VITALS: BP 137/76
[2018-03-07] MEDS: MORPHINE SULFATE INJ 2 MG/ML DISP.SYRIN IV PRN ×2 (13:45→21:22)
--- NOTE | 2018-03-07 18:40 | NUR ---
RN MS ENDING NOTES PT RESTING IN BED WITH NO ACUTE CHANGES NOTED. IV SITES INTACT AND PATENT, ALL DUE MEDS GIVEN AND ALL NEEDS MET, WILL ENDORSE TO PM NURSE FOR CONTINUITY OF CARE.
[2018-03-07 20:00] VITALS: BP 160/88
[2018-03-07] MEDS: QUETIAPINE FUMARATE 100 MG TABLET PO SCH (21:19)
[2018-03-07] MEDS: MIRTAZAPINE 15 MG TABLET PO SCH (21:21)
[2018-03-07] MEDS: ZOLPIDEM TARTRATE 10 MG TABLET PO PRN (21:25)
[2018-03-08 04:00] VITALS: BP 139/83
--- NOTE | 2018-03-08 06:17 | NUR ---
RN CLOSING NOTES PT RESTING IN BED, NO ACUTE CHANGES NOTED, ALL NEEDS MET, ALL DUE MEDS GIVEN. WILL ENDORSE TO AM NURSE.
--- NOTE | 2018-03-08 07:30 | NUR ---
RISK PROFESSIONAL INITIAL NOTES RECEIVED PATIENT IN BED SLEEPING, EASY TO AROUSE, AOX3, ON NC 5L, NO SIGNS OF DISTRESS, HD PATIENT ACCESS L CW, IV R AC, CLEAN AND PATENT, BED IN LOW AND LOCKED, CALL LIGHT WITHIN REACH, WILL CONTINUE TO MONITOR.
[2018-03-08 08:00] VITALS: BP 137/83
[2018-03-08] MEDS: ASPIRIN 81 MG TAB.CHEW PO SCH (09:16)
[2018-03-08] MEDS: LEVOTHYROXINE SODIUM 88 MCG TABLET PO SCH (09:16)
[2018-03-08] MEDS: CHOLECALCIFEROL 1,000 UNIT TABLET (VIT D3) PO SCH (09:17)
[2018-03-08] MEDS: CALCIUM ACETATE 667 MG TABLET PO SCH ×3 (09:17→17:37)
[2018-03-08] MEDS: LACOSAMIDE 50 MG TABLET PO SCH ×2 (09:17→21:16)
[2018-03-08] MEDS: PANTOPRAZOLE 40 MG TABLET.DR PO SCH (09:17)
[2018-03-08] MEDS: CARVEDILOL 3.125 MG TABLET PO SCH ×2 (09:18→21:18)
[2018-03-08] MEDS: MORPHINE SULFATE INJ 2 MG/ML DISP.SYRIN IV PRN ×4 (09:24→23:47)
[2018-03-08 16:00] VITALS: BP 140/85
[2018-03-08 17:45] LABS: CALCIUM, SERUM 8.5 mg/dL (8.5-10.1); MAGNESIUM 1.6 mg/dL (1.8-2.4); PHOSPHORUS 5.6 mg/dL (2.5-4.9); POTASSIUM 4.8 mmol/L (3.5-5.1)
[2018-03-08 17:49] LABS: CREATININE 8.2 mg/dL (0.6-1.3)
[2018-03-08 18:01] LABS: WHITE BLOOD COUNT (AUTO) 7.5 K/uL (4.3-11.0)
[2018-03-08 18:02] LABS: BASOPHILS % (AUTO) 0.1 % (0.0-2.0); EOSINOPHILS % (AUTO) 21.7 % (0.0-6.0); HEMATOCRIT 27 % (39-51); HEMOGLOBIN 8.6 g/dL (13.5-17.5); LYMPHOCYTES % (AUTO) 7.2 % (20.0-44.0); MEAN CORPUSCULAR HEMOGLOBIN 29 PG (26.0-33.0); MEAN CORPUSCULAR HGB CONC 32 g/dl (31.0-36.0); MEAN CORPUSCULAR VOLUME 90 fL (80-96); MONOCYTES % (AUTO) 6.3 % (2.0-12.0); NEUTROPHILS % (AUTO) 64.7 % (43.0-81.0); PLATELET COUNT (AUTO) 127 /CMM (150-450); RDW COEFFICIENT OF VARIATION 17.6 (11.5-15.0); RED BLOOD CELL COUNT(AUTO) 2.96 MIL/uL (4.5-6.0)
[2018-03-08 18:04] LABS: LYMPHOCYTES # (AUTO) 0.5 /CMM (0.8-4.8); MONOCYTES # (AUTO) 0.5 /CMM (0.1-1.30); NEUTROPHILS # (AUTO) 4.9 /CMM (1.8-8.9)
--- NOTE | 2018-03-08 19:00 | NUR ---
GLASS INSPECTOR NOTES HUGO MASSEY MADE AWARE OF PATIENT RECENT LABS.
--- NOTE | 2018-03-08 19:20 | NUR ---
RN M/S NOTE PATIENT IS AOX3, SPEECH CLEAR, EVEN TONE AND PRESSURE, ABLE TO RAMIREZ NEEDS KNOWN, HAS GENERALIZED PAIN, ON 4L O2 VIA NC, NO S/SX OF CARDIAC OR RESPIRATORY DISTRESS. BRP, SKIN KEPT CLEAN AND DRY, RFA #20G SL PATENT FLUSHING WELL, SITE CDI, SAFETY MAINTAINED AT ALL TIMES, BED IN LOW LOCKED POSITION, CALL LIGHT WITHIN REACH, WILL CONTINUE TO MONITOR FOR ANY CHANGES.
[2018-03-08 20:00] VITALS: BP 143/70
[2018-03-08] MEDS: MIRTAZAPINE 15 MG TABLET PO SCH (21:17)
[2018-03-08] MEDS: QUETIAPINE FUMARATE 100 MG TABLET PO SCH (21:17)
[2018-03-09 04:00] VITALS: BP 137/87
[2018-03-09] MEDS: MORPHINE SULFATE INJ 2 MG/ML DISP.SYRIN IV PRN ×3 (04:30→13:17)
--- NOTE | 2018-03-09 07:50 | NUR ---
MS RN OPENING NOTE RECEIVED PATIENT IN BED, SLEEPING, EASILY AROUSED WITH VERBAL STIMULI, ORIENTED X4, ON 4L O2 VIA NC, TOLERATING WELL. RESPIRATIONS EVEN AND UNLABORED, IN NO APPARENT DISTRESS OR DISCOMFORT AT THIS TIME. PATIENT WITH BATHROOM PRIVILEGES. PATIENT WITH L CHEST WALL PERMACATH FOR HD. R FOREARM IVC 20G, SL, PATENT AND INTACT. ABLE TO COMMUNICATE NEEDS, ALL NEEDS ATTENDED, KEPT CLEAN AND COMFORTABLE. SAFETY MEASURES IN PLACE, BED IN LOW LOCKED POSITION, SIDE RAILS UP X2, CALL LIGHT WITHIN EASY REACH. WILL CONTINUE TO MONITOR.
[2018-03-09 08:00] VITALS: BP 136/76
[2018-03-09] MEDS: PANTOPRAZOLE 40 MG TABLET.DR PO SCH (08:30)
[2018-03-09] MEDS: LEVOTHYROXINE SODIUM 88 MCG TABLET PO SCH (08:30)
[2018-03-09] MEDS: ASPIRIN 81 MG TAB.CHEW PO SCH (08:34)
[2018-03-09] MEDS: CHOLECALCIFEROL 1,000 UNIT TABLET (VIT D3) PO SCH (08:34)
[2018-03-09] MEDS: CALCIUM ACETATE 667 MG TABLET PO SCH ×2 (08:34→13:17)
[2018-03-09] MEDS: LACOSAMIDE 50 MG TABLET PO SCH (08:34)
[2018-03-09] MEDS: CARVEDILOL 3.125 MG TABLET PO SCH (08:39)
[2018-03-09 12:00] VITALS: BP_SYST 135; BP_SYST 136; BP_DIAS 75; BP_DIAS 76
[2018-03-09] MEDS ORDERED: EPOETIN ALFA (10,000 UNIT) 10,000 UNIT/ML VIAL IV SCH (12:00)
--- NOTE | 2018-03-09 16:00 | NUR ---
MS HUMAN RESOURCE MANAGEMENT INSTRUCTOR NOTE RECEIVED ORDER FOR DISCHARGE. PATIENT IS GOING TO BE SENT HOME. ALL DISCHARGE INSTRUCTIONS GIVEN, PAPERS SIGNED. REINFORCED TEACHING REGARDING DIET AND MEDICATIONS VIA TEACH BACK METHOD, EXITCARE UTILIZED. PATIENT WAS INSTRUCTED TO FOLLOW UP WITH PCP WITHIN 1-2 WEEKS. PATIENT IS ALERT ORIENTED X4, VITAL SIGNS STABLE. O2 SATURATION 97% ON ROOM AIR. DENIES PAIN OR SOB AT THIS TIME. RESPIRATIONS EVEN AND UNLABORED. VALUABLES ARE CHECKED AND ACCOUNTED FOR. SIGNED, ALL COPIES ARE PLACED IN THE CHART. REMOVED IV CANAL, TIP INTACT. ID BAND REMOVED. PATIENT WAS SENT HOME VIA YELLOW CAB. ESCORTED OUT TO THE [facility] BY TY CHAVEZ VIA WHEELCHAIR AT 1400.
== END 2018-03-09 16:00 | disposition home or self-care (01) | DRG 640 ==
LOC: ER 19:17 → TELE-TD 22:01 → MEDSG1 03-03 10:15
PROVIDERS: ADMIT Internal Medicine; ATTEND Internal Medicine
PROC: 5A1D70Z Performance of Urinary Filtration, Intermittent, Less than 6 Hours Per Day (ICD-10-PCS; 2018-03-02)
PROC: 30233N1 Transfusion of Nonautologous Red Blood Cells into Peripheral Vein, Percutaneous Approach (ICD-10-PCS; principal; 2018-03-03)
PROC: 5A1D70Z Performance of Urinary Filtration, Intermittent, Less than 6 Hours Per Day (ICD-10-PCS; 2018-03-03)
PROC: 5A1D70Z Performance of Urinary Filtration, Intermittent, Less than 6 Hours Per Day (ICD-10-PCS; 2018-03-04)
PROC: 5A1D70Z Performance of Urinary Filtration, Intermittent, Less than 6 Hours Per Day (ICD-10-PCS; 2018-03-05)
PROC: 5A1D70Z Performance of Urinary Filtration, Intermittent, Less than 6 Hours Per Day (ICD-10-PCS; 2018-03-07)
PROC: 5A1D70Z Performance of Urinary Filtration, Intermittent, Less than 6 Hours Per Day (ICD-10-PCS; 2018-03-09)
DX: E87.5 Hyperkalemia (principal); J96.21 Acute and chronic respiratory failure with hypoxia; E43 Unspecified severe protein-calorie malnutrition; I21.A1 Myocardial infarction type 2; N18.6 End stage renal disease; I13.2 Hypertensive heart and chronic kidney disease with heart failure and with stage 5 chronic kidney disease, or end stage renal disease; I50.32 Chronic diastolic (congestive) heart failure; D68.59 Other primary thrombophilia; J90 Pleural effusion, not elsewhere classified; R74.0 Nonspecific elevation of levels of transaminase and lactic acid dehydrogenase [LDH]; Z99.2 Dependence on renal dialysis; D63.8 Anemia in other chronic diseases classified elsewhere; E03.9 Hypothyroidism, unspecified; E11.22 Type 2 diabetes mellitus with diabetic chronic kidney disease; E83.42 Hypomagnesemia; F17.210 Nicotine dependence, cigarettes, uncomplicated; G40.909 Epilepsy, unspecified, not intractable, without status epilepticus; K21.9 Gastro-esophageal reflux disease without esophagitis; J44.9 Chronic obstructive pulmonary disease, unspecified; Z99.81 Dependence on supplemental oxygen; E78.5 Hyperlipidemia, unspecified; F32.9 Major depressive disorder, single episode, unspecified; F41.9 Anxiety disorder, unspecified; G89.4 Chronic pain syndrome; Z91.15 Patient's noncompliance with renal dialysis; I34.0 Nonrheumatic mitral (valve) insufficiency; L30.9 Dermatitis, unspecified; Z68.24 Body mass index [BMI] 24.0-24.9, adult; Z71.6 Tobacco abuse counseling; I45.10 Unspecified right bundle-branch block; Z91.14 Patient's other noncompliance with medication regimen; I48.91 Unspecified atrial fibrillation; R19.5 Other fecal abnormalities
CPT/HCPCS: 36415; 71045-TC; 80048-TC; 80053-TC; 80076-TC; 82272-TC; 82728-TC; 82962-TC; 83540-TC; 83735-TC; 84100-TC; 84484-TC; 85025-TC; 85730-TC; 86850-TC; 86921-TC; 87081-TC; 90935-TC; A4606; A6253; A6402; A6403; J0885; J1815; J2270; J2405; J3475; P9016-BL; Z7610

== ENCOUNTER 2018-03-17 20:56 | Inpatient (IN) | payer MEDICARE ==
[~2018-03-17] VITALS: Ht 185.4 cm; Wt 80.4 kg
--- NOTE | 2018-03-17 00:33 | NUR ---
VANESSA NOTES PT WENT DOWN TO CT VIA WHEELCHAIR IN STABLE CONDITION. Addendum: 03/18/18 at 0322 by FRANCIE HERNANDES RN PLEASE DISREGARD THIS NOTE. WRONG TIME STAMP.
--- NOTE | 2018-03-17 20:56 | NUR ---
BBRA C/C SOB X 2 DAYS, NO RELIEF FROM INHALER. BS IN FIELD 87. BILATERAL WHEEZING HEARD UPON AUSCULTATION. PT IS TACHYCARDIC AND HYPERTENSIVE BUT OTHERWISE VSS NAD A/OX4 ABLE TO MAKE NEEDS KNOWN. PT RECEIVED X1 ALBUTEROL TX EN ROUTE. WILL CONTINUE TO MONITOR FOR ANY CHANGES DURING THE SHIFT.
--- NOTE | 2018-03-17 20:57 | NUR ---
ER AT BEDSIDE FOR EVAL
--- NOTE | 2018-03-17 21:10 | NUR ---
CXR AT BEDSIDE
--- NOTE | 2018-03-17 21:31 | NUR ---
PAGED [employer] FOR PANEL - COMPLIANCE COUNSEL ERIC BAUTISTA
--- NOTE | 2018-03-17 21:40 | NUR ---
105 TELE Addendum: 03/17/18 at 2141 by JUDY CALLED NURSE ROSENDA FOR TELE BED
[2018-03-17 21:41] LABS: BASOPHILS # (AUTO) 0.1 /CMM (0.0-0.2); BASOPHILS % (AUTO) 1.3 % (0.0-2.0); EOSINOPHILS % (AUTO) 4.9 % (0.0-6.0); HEMATOCRIT 21 % (39-51); HEMOGLOBIN 7.2 g/dL (13.5-17.5); LYMPHOCYTES # (AUTO) 0.5 /CMM (0.8-4.8); LYMPHOCYTES % (AUTO) 9.3 % (20.0-44.0); MEAN CORPUSCULAR HEMOGLOBIN 30 PG (26.0-33.0); MEAN CORPUSCULAR HGB CONC 35 g/dl (31.0-36.0); MEAN CORPUSCULAR VOLUME 87 fL (80-96); MONOCYTES # (AUTO) 0.3 /CMM (0.1-1.30); MONOCYTES % (AUTO) 5.9 % (2.0-12.0); NEUTROPHILS # (AUTO) 4.3 /CMM (1.8-8.9); NEUTROPHILS % (AUTO) 78.6 % (43.0-81.0); PLATELET COUNT (AUTO) 163 /CMM (150-450); RDW COEFFICIENT OF VARIATION 16.6 (11.5-15.0); WHITE BLOOD COUNT (AUTO) 5.5 K/uL (4.3-11.0)
[2018-03-17 21:51] LABS: CALCIUM, SERUM 7.6 mg/dL (8.5-10.1)
[2018-03-17 21:56] LABS: CREATININE 13.9 mg/dL (0.6-1.3); INR 1.28 (0.85-1.15); MAGNESIUM 1.4 mg/dL (1.8-2.4); POTASSIUM 6.2 mmol/L (3.5-5.1)
[2018-03-17 21:58] LABS: PHOSPHORUS 8.9 mg/dL (2.5-4.9)
[2018-03-17 21:59] LABS: TROPONIN I 0.064 ng/mL (0.00-0.056)
[2018-03-17] MEDS ORDERED: DEXTROSE 50%-WATER 50 ML DISP.SYRIN IV ONE (22:00)
[2018-03-17] MEDS ORDERED: ALBUTEROL FS 2.5 MG/3 ML VIAL.NEB NEB ONE (22:00)
[2018-03-17] MEDS ORDERED: INSULIN REGULAR, HUMAN 100 UNIT/ML 10 ML VIAL IV ONE (22:00)
[2018-03-17] MEDS ORDERED: CALCIUM CHLORIDE 1,000 MG/10 ML DISP.SYRIN IV ONE (22:00)
[2018-03-17] MEDS ORDERED: SODIUM POLYSTYRENE SULFONATE 15 G/60 ML BOTTLE PO ONE (22:00)
[2018-03-17] MEDS ORDERED: ALBUTEROL FS 2.5 MG/3 ML VIAL.NEB ONE ×2 (22:08→22:35)
[2018-03-17] MEDS ORDERED: CALCIUM CHLORIDE 1,000 MG/10 ML DISP.SYRIN ONE (22:11)
[2018-03-17] MEDS ORDERED: SODIUM POLYSTYRENE SULFONATE 15 G/60 ML BOTTLE ONE (22:11)
[2018-03-17] MEDS ORDERED: INSULIN REGULAR, HUMAN 100 UNIT/ML 10 ML VIAL ONE (22:11)
[2018-03-17] MEDS ORDERED: DEXTROSE 50%-WATER 50 ML DISP.SYRIN ONE (22:11)
[2018-03-17 22:30] VITALS: BP 132/86
[2018-03-17] MEDS ORDERED: ONDANSETRON HCL/PF 4 MG/2 ML VIAL ONE (22:31)
--- NOTE | 2018-03-17 22:40 | NUR ---
RT previous resp meds wasted. Pt vomited.
--- NOTE | 2018-03-17 22:55 | NUR ---
FOCUSED FACTORY MANAGER NOTES PT BROUGHT INTO THE UNIT VIA [facility], ACCOMPANIED BY ER STAFF, PT SAFELY AMBULATED WITH WALKER FORM GURNEY TO BED, CURRENTLY RECEIVING BREATHING TX ORDERED & STARTED IN THE ER. PT IS ALERT AND ORIENTED X 3, VERBALLY RESPONSIVE, PT VERBALIZED THAT HE IS FEELING A LITTLE BETTER. ORIENTED PT TO UNIT, ROOM, USE OF CALL LIGHT, ADMISSION PROCESS, SAFETY PRECAUTIONS AND PT VERBALIZED UNDERSTANDING AND IS FAMILIAR WITH UNIT FROM PREVIOUS HOSPITALIZATIONS. ALL PATIENT'S NEEDS ATTENDED TO AT THIS TIME. PLACED BED IN LOW POSITION AND LOCKED IN PLACE. WILL CONTINUE TO MONITOR PT.
[2018-03-17] MEDS ORDERED: ONDANSETRON HCL/PF 4 MG/2 ML VIAL IV ONE (23:00)
[2018-03-17] MEDS ORDERED: Z GUARD REMEDY 2 OZ OINT TP PRN (23:30)
[2018-03-17] MEDS ORDERED: MAGNESIUM HYDROXIDE 30 ML UDC PO PRN (23:30)
[2018-03-17] MEDS ORDERED: ONDANSETRON HCL/PF 4 MG/2 ML VIAL IVP PRN (23:30)
[2018-03-17] MEDS ORDERED: MAG HYDROX/AL HYDROX/SIMETH 30 ML UDC PO PRN (23:30)
[2018-03-17] MEDS ORDERED: ACETAMINOPHEN 325 MG TABLET PO PRN (23:30)
[2018-03-17] MEDS ORDERED: ALBUTEROL FS 2.5 MG/3 ML VIAL.NEB NEB PRN (23:30)
[2018-03-17] MEDS ORDERED: HYDROCODONE/APAP 5/325MG 1 EACH TABLET PO PRN (23:30)
--- NOTE | 2018-03-17 23:50 | NUR ---
RN NOTES PATIENT VERBALIZED THAT HE HAS 10/10 LEVEL OF PAIN IN HIS LOWER BACK. PT ADDED THAT HE FELL AT HOME PRIOR TO THIS ADMISSION AND IS REQUESTING FOR PAIN MEDICATION. PAIN MEDICATION ADMINISTERED ORDERED. WILL CONTINUE TO MONITOR PT.
[2018-03-17] MEDS: HYDROCODONE/APAP 10/325MG 1 EA TABLET PO PRN (23:56)
[2018-03-18] VITALS (7 sets, daily range): BP systolic 122–143; BP diastolic 70–89
--- NOTE | 2018-03-18 | NUR ---
RN NOTES PAGED MD AND RELAYED PT'S CONCERN THAT HE FELL AT HOME PRIOR TO ADMISSION AND PT IS ON MORPHINE PO HOME MEDICATION. STITCH SEPARATOR BAUTISTA WITH NEW ORDER OF STAT CT OF LUMBAR SPINE AND NO CHANGES IN PAIN MEDICATION. ALSO TOLD STITCH SEPARATOR THAT MAG LEVEL OF PT IS LOW @ 1.4, PER STITCH SEPARATOR RECHECK MAGNESIUM LEVEL IN THE AM AND FOR PT'S DM, ACCU-CHECK ORDERS WILL BE PLACED. EXPLAINED PLAN OF CARE TO PT AND PT AGREES.
[2018-03-18] MEDS ORDERED: DEXTROSE 50%-WATER 50 ML DISP.SYRIN IV PRN (00:30)
--- NOTE | 2018-03-18 00:33 | NUR ---
RN NOTES PT WENT DOWN TO CT VIA WHEELCHAIR IN STABLE CONDITION.
--- NOTE | 2018-03-18 00:50 | NUR ---
RN NOTES PT BACK IN UNIT, IN STABLE CONDITION.
--- NOTE | 2018-03-18 04:30 | NUR ---
RN NOTES PT IS REFUSING TO USE DVT PUMPS, EXPLAINED RISKS AND BENEFITS TO PT BUT CONTINUES TO REFUSE. PER PT, IT WILL BE HARD FOR HIM TO GO TO AMBULATE AND GO TO THE BATHROOM. RESPECTED PT'S DECISION.
[2018-03-18 06:19] LABS: BASOPHILS % (AUTO) 0.3 % (0.0-2.0); CALCIUM, SERUM 7.4 mg/dL (8.5-10.1); EOSINOPHILS % (AUTO) 2.6 % (0.0-6.0); HEMATOCRIT 21 % (39-51); LYMPHOCYTES # (AUTO) 0.4 /CMM (0.8-4.8); LYMPHOCYTES % (AUTO) 7.5 % (20.0-44.0); MEAN CORPUSCULAR HEMOGLOBIN 30 PG (26.0-33.0); MEAN CORPUSCULAR HGB CONC 33 g/dl (31.0-36.0); MEAN CORPUSCULAR VOLUME 93 fL (80-96); MONOCYTES # (AUTO) 0.4 /CMM (0.1-1.30); MONOCYTES % (AUTO) 7.3 % (2.0-12.0); NEUTROPHILS # (AUTO) 4.7 /CMM (1.8-8.9); NEUTROPHILS % (AUTO) 82.3 % (43.0-81.0); PLATELET COUNT (AUTO) 169 /CMM (150-450); POTASSIUM 4.9 mmol/L (3.5-5.1); RDW COEFFICIENT OF VARIATION 18.4 (11.5-15.0); RED BLOOD CELL COUNT(AUTO) 2.22 MIL/uL (4.5-6.0); WHITE BLOOD COUNT (AUTO) 5.7 K/uL (4.3-11.0)
[2018-03-18 06:21] LABS: CREATININE 14.3 mg/dL (0.6-1.3)
[2018-03-18 06:22] LABS: MAGNESIUM 1.7 mg/dL (1.8-2.4); PHOSPHORUS 8.7 mg/dL (2.5-4.9)
[2018-03-18 06:28] LABS: TROPONIN I 0.056 ng/mL (0.00-0.056)
[2018-03-18 06:32] LABS: THYROID STIMULATING HORMONE 2.287 uIU/mL (0.358-3.74)
[2018-03-18 06:38] LABS: HEMOGLOBIN 6.7 g/dL (13.5-17.5)
--- NOTE | 2018-03-18 06:44 | NUR ---
RN NOTES RECEIVED CALL FROM BRONWYN PRADO, WITH CRITICAL HGB/HCT @ .03/13. PAGED ANTHROPOLOGY DEPARTMENT CHAIR. AWAITING FOR CALL BACK.
[2018-03-18] MEDS: LEVOTHYROXINE SODIUM 88 MCG TABLET PO SCH (06:51)
[2018-03-18] MEDS: HYDROCODONE/APAP 10/325MG 1 EA TABLET PO PRN (06:51)
[2018-03-18] MEDS: BLOOD SUGAR DIAGNOSTIC 1 EACH STRIP IN SCH ×4 (06:52→22:12)
--- NOTE | 2018-03-18 07:05 | NUR ---
RN NOTES PT IS LAYING DOWN IN BED, SLEEPING COMFORTABLY. PT ON RA, RESPIRATIONS ARE EVEN AND UNLABORED. IV ON R WRIST INTACT AND SL. TELE MONITOR SHOWS SINUS TACH, 103. NO SIGNS OF DISTRESS NOTED. SAFETY MEASURES ARE IN PLACE, CALL LIGHT IS IN REACH. WILL CONTINUE TO MONITOR.
--- NOTE | 2018-03-18 07:20 | NUR ---
RN CLOSING NOTES NO CALL BACK RECEIVED FORM PRINCIPAL WEB DEVELOPER SUPERINTENDENT WATER AND SEWER SYSTEMS, PT IN BED, ALERT AND ORIENTED, NO SOB NOTED, BREATHING EVEN AND UNLABORED, IN NO ACUTE DISTRESS. . AT THE END OF THE SHIFT, PATIENT VERBALIZED THAT HE HAD 3 BOWEL MOVEMENTS, SOFT STOOL. ALL PATIENT'S NEEDS ATTENDED TO THROUGHOUT THE SHIFT. BED PLACED IN LOW POSITION AND LOCKED IN PLACE. CALL LIGHT WITHIN EASY REACH. WILL ENDORSE TO AM SHIFT NURSE FOR CONTINUITY OF CARE.
[2018-03-18] MEDS: LACOSAMIDE 50 MG TABLET PO SCH ×2 (08:19→20:28)
[2018-03-18] MEDS: QUETIAPINE FUMARATE 100 MG TABLET PO SCH ×2 (08:19→21:31)
[2018-03-18] MEDS: ASPIRIN 81 MG TAB.CHEW PO SCH (08:19)
[2018-03-18] MEDS: CALCIUM ACETATE 667 MG TABLET PO SCH ×3 (08:19→17:08)
[2018-03-18] MEDS: CHOLECALCIFEROL 1,000 UNIT TABLET (VIT D3) PO SCH (08:20)
[2018-03-18] MEDS: CARVEDILOL 3.125 MG TABLET PO SCH ×2 (08:21→20:28)
[2018-03-18 08:28] LABS: EOSINOPHILS % (MANUAL) 2 % (0-4); LYMPHOCYTES % (MANUAL) 6 % (16-48); MONOCYTES % (MANUAL) 5 % (0-11.0); NEUTROPHILS % (MANUAL) 87 (42-76)
--- NOTE | 2018-03-18 08:30 | NUR ---
RN NOTES COREG WAS HOLD, PT SCHEDULED TO HAVE HEMODIALYSIS TODAY. BP 124/75.
[2018-03-18] MEDS: MORPHINE SULFATE INJ 2 MG/ML DISP.SYRIN IV PRN ×3 (11:51→21:35)
--- NOTE | 2018-03-18 11:56 | NUR ---
Pts NurseAnita requested social work consult for this 57-year-old male for safety issues and lack of social support. Pt has a history of ESRD, chronic low back pain, COPD, diabetes mellitus, hypertension, hyperlipidemia, chronic diastolic heart failure, and medical noncompliance. Pt presented to the ER for shortness of breath. Per pt report he missed one session of dialysis yesterday and suffered a recent fall at home. SW attempted to meet with pt at bedside. Upon assessment pt appeared to be asleep, however SW called out pts name; which he responded to. Pt however quickly closed his eyes. SW asked pt if he had any family to notify about his whereabouts and or a social support system at which time pt was unresponsive. SW informed pt of services available and encouraged him to seek out help if he needed to. Pt was lethargic and incoherent. Plan: SW will attempt to meet with pt once he is awake in order to assess for any needed resources/referrals he may need upon discharge.
--- NOTE | 2018-03-18 13:19 | NUR ---
RN NOTES 1 UNIT RBC GIVEN DURING DIALYSIS. NO CHANGES IN VITAL SIGNS OR ADVERSE REACTIONS DURING TRANSFUSION.
--- NOTE | 2018-03-18 18:34 | NUR ---
RN NOTES PT IS SITTING AT THE EDGE OF THE BED, AWAKE AND ALERT. PT ON 3L O2, RESPIRATIONS ARE EVEN AND UNLABORED. IV ON R WRIST INTACT AND SL. RCA PERMACATH INTACT AND COVERED, POST DIALYSIS. 1 UNIT OF RBC GIVEN WITH DIALYSIS, 3L OUTPUT. MORPHINE GIVEN @ 1609 FOR PAIN MANAGEMENT. NO SIGNS OF DISTRESS NOTED, SAFETY MEASURES ARE IN PLACE, CALL LIGHT IS IN REACH. WILL ENDORSE TO PHYSICAL SECURITY ENGINEER RN FOR CONTINUITY OF CARE.
--- NOTE | 2018-03-18 19:15 | NUR ---
MS RN NOTES RECEIVED ON BED A/O X4,CONVERSANT.SALINE LOCK RIGHT WRIST INTACT AND PATENT.WITH LEFT CHEST WALL PERMA CATH FOR HD ACCESS.DRESSING INTACT AND DRY.HD TODAY 3 LITERS OUT.DENIES DIZZINESS.C/O BACK PAIN TOLERABLE AT THE MOMENT.HE WAS JUST MEDICATED AT 1609.CALL LIGHT IN REACH,NEEDS ANTICIPATED.
[2018-03-18] MEDS: MIRTAZAPINE 15 MG TABLET PO SCH (21:32)
--- NOTE | 2018-03-18 21:35 | NUR ---
MS RN NOTES PAIN MANAGEMENT C/O MID BACK PAIN 9/10 ON PAIN SCALE,MORPHINE 2MG IV GIVEN ORDERED.
--- NOTE | 2018-03-18 22:00 | NUR ---
MS RN NOTES ACCU-CHECK BLOOD SUGAR CHECK 113,NO INSULIN COVERAGE.
[2018-03-19] MEDS: MORPHINE SULFATE INJ 2 MG/ML DISP.SYRIN IV PRN ×4 (03:15→20:09)
--- NOTE | 2018-03-19 03:15 | NUR ---
MS RN NOTES PAIN MANAGEMENT AWAKE,SITTING ON EDGE OF BED.C/O MID BACK PAIN 8/10 ON PAIN SCALE.MORPHINE 2MG IVP GIVEN ORDERED.
--- NOTE | 2018-03-19 04:00 | NUR ---
MS RN NOTES PER RT,PATIENT HAVING SOB AND NOT RESPONDING ON BREATHING TREATMENT,O2 SAT 97% ON 3L/NC,BP 143/95,HR -102.
--- NOTE | 2018-03-19 04:55 | NUR ---
MS RN NOTES ERIC GRECO ACNP WAS PAGE,MADE AWARE OF PATIENT STATUS.ORDERED BREATHING TREATMENT ALBUTEROL/ATROVENT Q6 HOURS CLOSED CIRCUIT SCREEN WATCHER NOTED AND CARRIED OUT.
[2018-03-19] MEDS: IPRATROPIUM NEB FS 0.5 MG/2.5 ML AMPUL.NEB NEB SCH ×4 (05:10→19:06)
--- NOTE | 2018-03-19 05:30 | NUR ---
MS RN NOTES CHARGE NURSE NGUYEN MADE AWARE OF PATIENT STATUS,ORDERED STAT ABG AND ITS WITH IN NORMAL LIMITS EXCEPY OXYGEN SATURATION IN THE BLOOD 90.9 %.RT WILL PUT ON SIMPLE MASS 4L.
--- NOTE | 2018-03-19 05:30 | NUR ---
MS RN NOTES ACCU-CHECK BLOOD SUGAR CHECK 93,NO INSULIN COVERAGE.
[2018-03-19] MEDS: BLOOD SUGAR DIAGNOSTIC 1 EACH STRIP IN SCH ×4 (05:34→21:13)
[2018-03-19 05:56] LABS: ABG BASE EXCESS -0.4 mmol/L; ABG OXYGEN SATURATION 90.9 % (92.0-98.5); ABG PH 7.393 (7.350-7.450); AaDO2 84.3 mmHg; COHb 0.1 % (0.5-1.5); MetHb 0.7 % (0.0-1.5); O2Hb 90.2 % (94.0-97.0); SITE, ABG Right Radial; VENT MODE, BG nasal cannula
[2018-03-19 06:33] LABS: BASOPHILS % (AUTO) 0.2 % (0.0-2.0); EOSINOPHILS % (AUTO) 5.9 % (0.0-6.0); HEMATOCRIT 25 % (39-51); LYMPHOCYTES # (AUTO) 0.6 /CMM (0.8-4.8); MEAN CORPUSCULAR HEMOGLOBIN 29 PG (26.0-33.0); MEAN CORPUSCULAR HGB CONC 33 g/dl (31.0-36.0); MEAN CORPUSCULAR VOLUME 90 fL (80-96); MONOCYTES # (AUTO) 0.3 /CMM (0.1-1.30); NEUTROPHILS # (AUTO) 4.3 /CMM (1.8-8.9); NEUTROPHILS % (AUTO) 76.9 % (43.0-81.0); PLATELET COUNT (AUTO) 166 /CMM (150-450); RDW COEFFICIENT OF VARIATION 18.8 (11.5-15.0); RED BLOOD CELL COUNT(AUTO) 2.75 MIL/uL (4.5-6.0); WHITE BLOOD COUNT (AUTO) 5.6 K/uL (4.3-11.0)
--- NOTE | 2018-03-19 06:36 | NUR ---
MS RN NOTES SLEEPING AT THIS TIME,O2 AT 4L/NC TOLERATED WELL.FOR HD TODAY WITH ORDER.CALL LIGHT IN REACH,NEEDS ATTENDED.WILL ENDORSE TO DAY NURSE FOR TRINA.
[2018-03-19 06:50] LABS: CALCIUM, SERUM 6.9 mg/dL (8.5-10.1); MAGNESIUM 1.6 mg/dL (1.8-2.4); PHOSPHORUS 6.8 mg/dL (2.5-4.9); POTASSIUM 5.6 mmol/L (3.5-5.1)
--- NOTE | 2018-03-19 07:25 | NUR ---
RN OPENING NOTES RECEIVED PATIENT IN BED RESTING. A/OX4, ABLE TO VERBALIZED NEEDS. NO ACUTE DISTRESS, NO SOB. DENIED PAIN OR DISCOMFORT AT THIS TIME. IV SITE INTACT AND PATENT. LEFT CW PERMACATH IN PLACE, DRESSING C/D/I. FOR HD TODAY PER NIGHT RN. KEPT PATIENT SAFE AND COMFORTABLE. BED IN LOW/LOCKED POSITION, SIDERAILS UPX2, HOB ELEVATED. CALL LIGHT IN REACH. WILL CONTINUE TO MONITOR ACCORDINGLY.
[2018-03-19 07:32] LABS: CREATININE 10.5 mg/dL (0.6-1.3)
[2018-03-19 08:00] VITALS: BP 147/97
[2018-03-19] MEDS: ALBUTEROL FS 2.5 MG/3 ML VIAL.NEB NEB SCH ×3 (08:17→19:06)
[2018-03-19] MEDS: QUETIAPINE FUMARATE 100 MG TABLET PO SCH ×2 (08:40→21:44)
[2018-03-19] MEDS: LEVOTHYROXINE SODIUM 88 MCG TABLET PO SCH (08:40)
[2018-03-19] MEDS: CHOLECALCIFEROL 1,000 UNIT TABLET (VIT D3) PO SCH (08:40)
[2018-03-19] MEDS: CALCIUM ACETATE 667 MG TABLET PO SCH ×3 (08:41→17:02)
[2018-03-19] MEDS: LACOSAMIDE 50 MG TABLET PO SCH ×2 (08:41→20:25)
[2018-03-19] MEDS: ASPIRIN 81 MG TAB.CHEW PO SCH (08:41)
[2018-03-19] MEDS: CARVEDILOL 3.125 MG TABLET PO SCH ×2 (08:42→20:24)
[2018-03-19] MEDS ORDERED: EPOETIN ALFA (10,000 UNIT) 10,000 UNIT/ML VIAL SQ ONE (10:00)
[2018-03-19 16:00] VITALS: BP 129/90
[2018-03-19 16:07] VITALS: BP 129/90
--- NOTE | 2018-03-19 16:09 | NUR ---
HEMODIALYSIS DONE, 3200ML OUTPUT, PATIENT TOLERATED WELL. VS WNL. WILL MONITOR ACCORDINGLY
--- NOTE | 2018-03-19 19:19 | NUR ---
RN CLOSING NOTES PATIENT IN STABLE CONDITION. ALL NEEDS ATTENDED AND PROVIDED. KEPT PATIENT SAFE AND COMFORTABLE. PAIN MEDICATIONS GIVEN PRN ORDERED. SAFETY MEASURES IN PLACE. BED IN LOW/LOCKED POSITION, SIDERAILS UPX2, HOB ELEVATED, CALL LIGHT IN REACH. ENDORSED TO NIGHT RN FOR TRINA.
--- NOTE | 2018-03-19 19:27 | NUR ---
RN OPENING NOTES RECEIVED PATIENT SITTING UP IN BED R. A/OX4, ABLE TO VERBALIZED NEEDS. NO ACUTE DISTRESS, NO SOB. DENIED PAIN OR DISCOMFORT AT THIS TIME. IV SITE INTACT AND PATENT. LEFT CW PERMACATH IN PLACE. BED IN LOW/LOCKED POSITION, SIDERAILS UPX2, HOB ELEVATED. CALL LIGHT WITHIN REACH. PATIENT STABLE ENDORSED BY THE MORNING SHIFT RN. WILL CONTINUE TO MONITOR ACCORDINGLY.
[2018-03-19 20:00] VITALS: BP 137/86
--- NOTE | 2018-03-19 20:09 | NUR ---
MS RN NOTES PAIN MANAGEMENT PATIENT AWAKE, SITTING ON EDGE OF BED. C/O MID BACK PAIN 8/10 ON PAIN SCALE. MORPHINE 2MG IVP GIVEN ORDERED.
[2018-03-19 20:59] VITALS: BP 137/86
[2018-03-19] MEDS: INSULIN REGULAR, HUMAN 100 UNIT/ML 3 ML VIAL SQ PRN (21:13)
--- NOTE | 2018-03-19 21:13 | NUR ---
RN NOTES: BSL 116. NO COVERAGE PER SLIDING SCALE
[2018-03-19] MEDS: MIRTAZAPINE 15 MG TABLET PO SCH (21:44)
[2018-03-20] MEDS: IPRATROPIUM NEB FS 0.5 MG/2.5 ML AMPUL.NEB NEB SCH ×3 (00:34→13:20)
[2018-03-20] MEDS: ALBUTEROL FS 2.5 MG/3 ML VIAL.NEB NEB SCH ×3 (00:34→13:20)
--- NOTE | 2018-03-20 02:17 | NUR ---
RN NOTES: Patient comfortable sleeping in bed. Supplemental O2 via NC in place. No acute distress noted.
[2018-03-20] MEDS: MORPHINE SULFATE INJ 2 MG/ML DISP.SYRIN IV PRN ×2 (05:35→12:23)
[2018-03-20] MEDS: INSULIN REGULAR, HUMAN 100 UNIT/ML 3 ML VIAL SQ PRN (06:36)
[2018-03-20] MEDS: BLOOD SUGAR DIAGNOSTIC 1 EACH STRIP IN SCH ×3 (06:36→17:33)
--- NOTE | 2018-03-20 06:37 | NUR ---
RN NOTES: Bloo sugar level is 97. No insulin coverage per sliding scale
--- NOTE | 2018-03-20 06:41 | NUR ---
RN CLOSING NOTES PATIENT IN STABLE CONDITION. ALL NEEDS ATTENDED AND PROVIDED. KEPT PATIENT SAFE AND COMFORTABLE. PAIN MEDICATIONS GIVEN PRN ORDERED. SAFETY MEASURES IN PLACE. BED IN LOW/LOCKED POSITION, SIDERAILS UPX2, HOB ELEVATED, CALL LIGHT IN REACH. WILL ENDORSE TRINA TO MORNING SHIFT RN.
--- NOTE | 2018-03-20 07:10 | NUR ---
MS RN NOTES PATIENT IN BED ALERT ORIENTED X4. NO ACUTE DISTRESS NOTED. BREATHING UNLABORED. NO SOB NOTED. DENIED ANY PAIN AT THIS TIME. NO FACIAL GRIMACING NOTED. IV ACCESS PATENT AND INTACT, NO REDNESS OR SWELLING NOTED. SAFETY MEASURES IN PLACE. CALL LIGHT WITHIN REACH. WILL CONTINUE TO MONITOR ACCORDINGLY.
[2018-03-20 08:00] VITALS: BP 138/94
[2018-03-20] MEDS: ASPIRIN 81 MG TAB.CHEW PO SCH (08:28)
[2018-03-20] MEDS: LACOSAMIDE 50 MG TABLET PO SCH (08:28)
[2018-03-20] MEDS: LEVOTHYROXINE SODIUM 88 MCG TABLET PO SCH (08:28)
[2018-03-20] MEDS: CALCIUM ACETATE 667 MG TABLET PO SCH ×3 (08:28→17:33)
[2018-03-20] MEDS: CHOLECALCIFEROL 1,000 UNIT TABLET (VIT D3) PO SCH (08:28)
[2018-03-20] MEDS: CARVEDILOL 3.125 MG TABLET PO SCH (08:29)
[2018-03-20] MEDS: QUETIAPINE FUMARATE 100 MG TABLET PO SCH (08:32)
[2018-03-20 16:00] VITALS: BP 151/100
--- NOTE | 2018-03-20 18:00 | NUR ---
MS RN NOTES PATIENT DISCHARGED HOME WITH FRIEND WITH STABLE VITAL SIGNS. NO ACUTE DISTRESS NOTED. BREATHING UNLABORED. NO SOB NOTED. IV ACCESS REMOVED, NO REDNESS, NO BLEEDING OR SWELLING NOTED. DISCHARGED INSTRUCTIONS GIVEN TO THE PATIENT INCLUDING FOLLOW UP APPOINTMENT, VERBALIZED UNDERSTANDING. ALL BELONGINGS ACCOUNTED FOR. PATIENT ATE DINNER BEFORE LEAVING. WHEELED TO THE LOBBY ASSISTED TO A PRIVATE CAR.
== END 2018-03-20 18:00 | disposition home or self-care (01) | DRG 280 ==
LOC: ER 20:57 → TELE 23:17 → MED 03-18 09:00
PROVIDERS: ADMIT Nurse Practitioner Acute Care; ATTEND Nurse Practitioner Acute Care
PROC: 30233N1 Transfusion of Nonautologous Red Blood Cells into Peripheral Vein, Percutaneous Approach (ICD-10-PCS; principal; 2018-03-18)
PROC: 5A1D70Z Performance of Urinary Filtration, Intermittent, Less than 6 Hours Per Day (ICD-10-PCS; 2018-03-18)
PROC: 5A1D70Z Performance of Urinary Filtration, Intermittent, Less than 6 Hours Per Day (ICD-10-PCS; 2018-03-19)
PROC: 5A1D70Z Performance of Urinary Filtration, Intermittent, Less than 6 Hours Per Day (ICD-10-PCS; 2018-03-20)
DX: I13.2 Hypertensive heart and chronic kidney disease with heart failure and with stage 5 chronic kidney disease, or end stage renal disease (principal); N18.6 End stage renal disease; I21.A1 Myocardial infarction type 2; J96.21 Acute and chronic respiratory failure with hypoxia; I50.23 Acute on chronic systolic (congestive) heart failure; N25.81 Secondary hyperparathyroidism of renal origin; E11.22 Type 2 diabetes mellitus with diabetic chronic kidney disease; Z99.2 Dependence on renal dialysis; Z99.81 Dependence on supplemental oxygen; Z91.19 Patient's noncompliance with other medical treatment and regimen; E03.9 Hypothyroidism, unspecified; E78.5 Hyperlipidemia, unspecified; E83.39 Other disorders of phosphorus metabolism; E87.5 Hyperkalemia; F17.210 Nicotine dependence, cigarettes, uncomplicated; G89.29 Other chronic pain; I48.91 Unspecified atrial fibrillation; J44.9 Chronic obstructive pulmonary disease, unspecified; K21.9 Gastro-esophageal reflux disease without esophagitis; I42.9 Cardiomyopathy, unspecified; D63.8 Anemia in other chronic diseases classified elsewhere; F32.9 Major depressive disorder, single episode, unspecified; F41.9 Anxiety disorder, unspecified; E83.9 Disorder of mineral metabolism, unspecified; Z79.4 Long term (current) use of insulin
CPT/HCPCS: 36415; 36600; 71045-TC; 72131-TC; 80048-TC; 80061-TC; 82803-TC; 82962-TC; 83735-TC; 84100-TC; 84443-TC; 84484-TC; 85025-TC; 85730-TC; 86850-TC; 86921-TC; 87081-TC; 90935-TC; 93307-TC; 94799-TC; A4216; A4606; J0885; J1815; J2270; J2405; J3490; P9016-BL; Z7610

== ENCOUNTER 2018-03-24 21:00 | Emergency (ER) | payer MEDICARE, OTHER ==
[~2018-03-24] VITALS: Ht 185.4 cm; Wt 83.9 kg
--- NOTE | 2018-03-24 21:00 | NUR ---
GENERALIZED WEAKNESS TODAY CAUSING 2 FALLS, NO SYNCOPE OR KO. PT IS HYPERTENSIVE AND TACHYCARDIA BUT OTHERWISE VSS NO ACUTE DISTRESS AT THIS TIME. PT IS ALERT AND ORIENTED BUT A LITTLE ANXIOUS. BREATHING PATTERN WNL WITH ADEQUATE CHEST RISE AND FALL. WILL CONTINUE TO MONITOR FOR ANY CHANGES DURING THE SHIFT.
[2018-03-24 21:40] LABS: BASOPHILS % (AUTO) 0.4 % (0.0-2.0); EOSINOPHILS % (AUTO) 10.8 % (0.0-6.0); HEMATOCRIT 25 % (39-51); LYMPHOCYTES # (AUTO) 0.5 /CMM (0.8-4.8); LYMPHOCYTES % (AUTO) 6.5 % (20.0-44.0); MEAN CORPUSCULAR HEMOGLOBIN 29 PG (26.0-33.0); MEAN CORPUSCULAR HGB CONC 32 g/dl (31.0-36.0); MEAN CORPUSCULAR VOLUME 88 fL (80-96); MONOCYTES # (AUTO) 0.3 /CMM (0.1-1.30); MONOCYTES % (AUTO) 4.1 % (2.0-12.0); NEUTROPHILS # (AUTO) 6.1 /CMM (1.8-8.9); NEUTROPHILS % (AUTO) 78.2 % (43.0-81.0); PLATELET COUNT (AUTO) 198 /CMM (150-450); RDW COEFFICIENT OF VARIATION 17.6 (11.5-15.0); WHITE BLOOD COUNT (AUTO) 7.7 K/uL (4.3-11.0)
[2018-03-24 21:50] LABS: CALCIUM, SERUM 8.2 mg/dL (8.5-10.1); POTASSIUM 5.5 mmol/L (3.5-5.1)
[2018-03-24 21:54] LABS: INR 1.26 (0.85-1.15)
[2018-03-24 21:57] LABS: TROPONIN I 0.048 ng/mL (0.00-0.056)
[2018-03-24 21:59] LABS: ALBUMIN 2.6 g/dL (3.4-5.0); BILIRUBIN,DIRECT 0.1 mg/dL (0.0-0.2); BILIRUBIN,TOTAL 0.4 mg/dL (0.2-1.0)
[2018-03-24 22:07] LABS: CREATININE 12.2 mg/dL (0.6-1.3)
[2018-03-24 22:49] VITALS: BP 150/97
[2018-03-24] MEDS ORDERED: FUROSEMIDE 40 MG/4 ML VIAL IV ONE (23:00)
== END 2018-03-24 22:50 | disposition left against medical advice (07) ==
LOC: ER 21:37
DX: I13.2 Hypertensive heart and chronic kidney disease with heart failure and with stage 5 chronic kidney disease, or end stage renal disease (principal); E11.22 Type 2 diabetes mellitus with diabetic chronic kidney disease; N18.6 End stage renal disease; E87.5 Hyperkalemia; D64.9 Anemia, unspecified; K21.9 Gastro-esophageal reflux disease without esophagitis; F10.20 Alcohol dependence, uncomplicated; F17.200 Nicotine dependence, unspecified, uncomplicated; Y90.9 Presence of alcohol in blood, level not specified; Z99.2 Dependence on renal dialysis; Z60.2 Problems related to living alone; Z79.82 Long term (current) use of aspirin; R06.00 Dyspnea, unspecified; J90 Pleural effusion, not elsewhere classified
CPT/HCPCS: 36415; 71045; 80048; 80076; 83880; 84484; 85025; 85730; 93005; 99285; A4606; Z7610

== ENCOUNTER 2018-03-26 22:11 | Inpatient (IN) | payer MEDICARE, OTHER ==
[~2018-03-26] VITALS: Ht 170.2 cm; Wt 74.8 kg
--- NOTE | 2018-03-26 22:20 | NUR ---
TO BED 4 BIB PARAMEDICS C/O SOB WITH CLEAR LUNG SOUNDS. PT REPORT THAT HE MISSED DIALYSIS X1 WEEK. LUNG SOUNDS CLEAR BILATERALLY ON AUSCULTATION. PLACE PT ON CARDIAC MONITORING, CONTINUOUS POX, O2@3L/NC. PT ON O2@3L/NC AT HOME. ER MD AT BEDSIDE TO EVAL PT WITH ORDERS RECEIVED. WILL CARRY OUT ORDERS.
[2018-03-26 22:56] LABS: EOSINOPHILS % (AUTO) 8.7 % (0.0-6.0); HEMATOCRIT 24 % (39-51); LYMPHOCYTES % (AUTO) 12.2 % (20.0-44.0); MEAN CORPUSCULAR HEMOGLOBIN 29 PG (26.0-33.0); MEAN CORPUSCULAR HGB CONC 33 g/dl (31.0-36.0); MEAN CORPUSCULAR VOLUME 89 fL (80-96); MONOCYTES # (AUTO) 0.4 /CMM (0.1-1.30); MONOCYTES % (AUTO) 4.5 % (2.0-12.0); NEUTROPHILS # (AUTO) 6.3 /CMM (1.8-8.9); NEUTROPHILS % (AUTO) 74.6 % (43.0-81.0); PLATELET COUNT (AUTO) 190 /CMM (150-450); RDW COEFFICIENT OF VARIATION 19.3 (11.5-15.0); RED BLOOD CELL COUNT(AUTO) 2.71 MIL/uL (4.5-6.0); WHITE BLOOD COUNT (AUTO) 8.4 K/uL (4.3-11.0)
[2018-03-26 23:09] LABS: INR 1.22 (0.87-1.13)
[2018-03-26 23:37] LABS: ALBUMIN 2.8 g/dL (3.4-5.0); BILIRUBIN,DIRECT 0.2 mg/dL (0.0-0.2); BILIRUBIN,TOTAL 0.5 mg/dL (0.2-1.0); CALCIUM, SERUM 7.9 mg/dL (8.5-10.1); TOTAL PROTEIN, SERUM 8.4 g/dL (6.4-8.2)
[2018-03-26 23:39] LABS: CREATININE 14.7 mg/dL (0.6-1.3); POTASSIUM 6.4 mmol/L (3.5-5.1)
[2018-03-26 23:41] LABS: TROPONIN I 0.033 ng/mL (0.00-0.056)
[2018-03-26] MEDS ORDERED: FUROSEMIDE 40 MG/4 ML VIAL ONE (23:50)
[2018-03-26] MEDS ORDERED: MORPHINE SULFATE INJ 4 MG/ML DISP.SYRIN ONE (23:51)
--- NOTE | 2018-03-26 23:51 | NUR ---
ER SPOKE TO ASHOK ERICKSON REGARDING PT ADMISSION.
--- NOTE | 2018-03-26 23:54 | NUR ---
REPORT CALLED TO MEAT LOINERVANESSA JAMISON. WILL TRANSPORT PT VIA ACLS PROTOCOL.
[2018-03-27] MEDS ORDERED: MORPHINE SULFATE INJ 2 MG/ML DISP.SYRIN IV ONE
[2018-03-27] MEDS ORDERED: FUROSEMIDE 40 MG/4 ML VIAL IV ONE
[2018-03-27 00:05] VITALS: BP 148/104
--- NOTE | 2018-03-27 00:30 | NUR ---
LICENSED MASSAGE THERAPISTSYSTEMS ANALYSIS MANAGER NURSE RECEIVE PT FROM Nicolas AT 0001 ADMIT TO TELE PT A/O X4, HEAD TO TOE ASSESSMENT IS DONE, RESPIRATIONS AND EVEN AND UNLABORED. ON 3LPM VIA [place] 02 SAT 98% VSS. STABLE NOT IN DISTRESS, KEPT CLEAN AND DRY, NURSING CARE RENDERED, SAFETY MEASURES IN PLACE. WILL CONTINUE TO MONITOR CHANGES.
[2018-03-27 01:29] VITALS: BP 148/104
[2018-03-27] MEDS ORDERED: SODIUM POLYSTYRENE SULFONATE 15 G/60 ML BOTTLE PO ONE (02:30)
[2018-03-27] MEDS ORDERED: Z GUARD REMEDY 2 OZ OINT TP PRN (02:30)
[2018-03-27] MEDS ORDERED: ALBUTEROL HALF STRENGTH 1.25 MG/3 ML VIAL.NEB NEB PRN (02:30)
[2018-03-27] MEDS ORDERED: IPRATROPIUM NEB FS 0.5 MG/2.5 ML AMPUL.NEB NEB PRN (02:30)
[2018-03-27] MEDS ORDERED: ACETAMINOPHEN 325 MG TABLET PO PRN (02:30)
[2018-03-27] MEDS ORDERED: MAGNESIUM HYDROXIDE 30 ML UDC PO PRN (02:30)
[2018-03-27] MEDS ORDERED: DEXTROSE 50%-WATER 50 ML DISP.SYRIN IV PRN (03:00)
[2018-03-27] MEDS ORDERED: INSULIN REGULAR, HUMAN 100 UNIT/ML 3 ML VIAL SQ PRN (03:00)
[2018-03-27] MEDS ORDERED: SODIUM POLYSTYRENE SULFONATE 15 G/60 ML BOTTLE ONE (03:03)
[2018-03-27 04:00] VITALS: BP 143/99
[2018-03-27] MEDS: HYDROCODONE/APAP 5/325MG 1 EACH TABLET PO PRN (04:56)
--- NOTE | 2018-03-27 05:02 | NUR ---
ORTHOTIC AIDE NOTES PT REFUSED TAKING NORCO CHANGE MIND PER PT IT DOESNT WORK WITH HIM [facility] HOSPITALIST SPOKE TO MS LOVE RELAYED PT REQUEST ORDERED MORPHINE IV Q4 2 MG PRN FOR 8-10 PAIN Addendum: 03/27/18 at 0504 by YAQUELIN COOL RN READ BACK AND VERIFIED ORDERS NOTED AND CARRIED OUT
[2018-03-27] MEDS: MORPHINE SULFATE INJ 2 MG/ML DISP.SYRIN IV PRN ×3 (05:37→17:30)
[2018-03-27] MEDS: BLOOD SUGAR DIAGNOSTIC 1 EACH STRIP IN SCH ×4 (05:44→21:55)
--- NOTE | 2018-03-27 06:14 | NUR ---
BORDER PATROL AGENT CLOSING NOTES PT COMFORTABLY ASLEEP AND EASILY AWAKEN, STABLE CONDITION. HOB ELEVATED, RESPIRATION EVEN AND UNLABORED. KEPT CLEAN AND DRY AND COMFORTABLE, ALL NURSING CARE RENDERED. NEEDS ATTENDED AND ANTICIPATED, NOT IN DISTRESS, FLUID RESTRICTION MAINTAINED. ON LOW BED AT ALL TIMES TO ENSURE SAFETY. SAFE HAZARD FREE ENVIRONMENT PROVIDED. ST 105.. CALL LIGHT WITHIN EASY TO REACH. WILL ENDORSE NEXT SHIFT CONTINUITY OF CARE.
--- NOTE | 2018-03-27 07:31 | NUR ---
PBX MANAGER NOTES PATIENT RECEIVED RESTING INSIDE ROOM, SLEEPING BUT EASILY AROUSABLE THROUGH VERBAL AND TACTILE STIMULI. PATIENT VERBALLY RESPONSIVE. BREATHING EVEN AND UNLABORED. NO ACUTE DISTRESS NOTED AT THIS TIME. PATIENT DENIES ANY PAIN OR DISCOMFORT. NO CHANGES IN LOC NOTED. WILL CONTINUE TO MONITOR. BED LOCKED AND IN LOW POSITION. BILATERAL UPPER SIDE RAILS UP AND LOCKED. CALL LIGHT WITHIN EASY REACH
[2018-03-27 08:00] VITALS: BP 156/96
--- NOTE | 2018-03-27 08:30 | NUR ---
MANAGER BENCH NOTES OBTAINED PATIENT'S BLOOD PRESSURE AND HR WITH RESULTS OF 156/96 AND 104. POSSIBLE DIALYSIS TODAY, AWAITING FOR COOKER PROCESS CHEESE. WILL CONTINUE TO MONITOR
[2018-03-27] MEDS: HEPARIN SODIUM, PORCINE 5000 UNITS/1 ML VIAL SQ SCH ×2 (08:39→21:53)
[2018-03-27] MEDS: LEVOTHYROXINE SODIUM 88 MCG TABLET PO SCH (08:41)
[2018-03-27] MEDS: CHOLECALCIFEROL 1,000 UNIT TABLET (VIT D3) PO SCH (08:41)
[2018-03-27] MEDS: CARVEDILOL 3.125 MG TABLET PO SCH ×3 (08:41→21:46)
[2018-03-27] MEDS: LACOSAMIDE 50 MG TABLET PO SCH ×2 (08:42→21:46)
[2018-03-27] MEDS: ASPIRIN 81 MG TAB.CHEW PO SCH (08:42)
--- NOTE | 2018-03-27 09:38 | NUR ---
MS RN NOTES PATIENT WENT TO RESTROOM AND HAD A BOWEL MOVEMENT. RETOOK BLOOD PRESSURE AND HR WITH RESULTS OF 135/78 AND 101. FOR POSSIBLE DIALYSIS TODAY, WILL HOLD CARVEDILOL AT THIS TIME. MD AWARE, WILL CONTINUE TO MONITOR
--- NOTE | 2018-03-27 10:06 | NUR ---
MS RN NOTES VERIFIED SEROQUEL MEDICATION WITH PATIENT, PATIENT VERBALIZED THAT HE TAKES SEROQUEL 300MG IN THE MORNING AND 900MG IN THE EVENING BEFORE BED. PATIENT ON RECORD PREVIOUSLY TAKING 300MG QAM AND 600MG QHS. ERIC BAUTISTA NP PRESENT AT UNIT AND MADE AWARE, WITH ORDER TO KEEP DOSE OF 300MG QAM AND 600MG QHS, AND TO DO EKG IN AM ON 03/28/18. ORDERS NOTED AND CARRIED OUT.PHARMACY MADE AWARE. PATIENT MADE AWARE AND VERBALIZED UNDERSTANDING. WILL CONTINUE TO MONITOR
[2018-03-27] MEDS: QUETIAPINE FUMARATE 100 MG TABLET PO SCH ×2 (10:12→21:48)
[2018-03-27] MEDS ORDERED: EPOETIN ALFA (10,000 UNIT) 10,000 UNIT/ML VIAL IV ONE (11:00)
[2018-03-27 11:43] LABS: EOSINOPHILS % (AUTO) 8.9 % (0.0-6.0); HEMATOCRIT 25 % (39-51); HEMOGLOBIN 7.8 g/dL (13.5-17.5); LYMPHOCYTES # (AUTO) 0.6 /CMM (0.8-4.8); MEAN CORPUSCULAR HEMOGLOBIN 29 PG (26.0-33.0); MEAN CORPUSCULAR HGB CONC 32 g/dl (31.0-36.0); MEAN CORPUSCULAR VOLUME 91 fL (80-96); MONOCYTES # (AUTO) 0.3 /CMM (0.1-1.30); MONOCYTES % (AUTO) 3.3 % (2.0-12.0); NEUTROPHILS # (AUTO) 6.9 /CMM (1.8-8.9); NEUTROPHILS % (AUTO) 80.8 % (43.0-81.0); PLATELET COUNT (AUTO) 174 /CMM (150-450); RDW COEFFICIENT OF VARIATION 19.6 (11.5-15.0); RED BLOOD CELL COUNT(AUTO) 2.71 MIL/uL (4.5-6.0); WHITE BLOOD COUNT (AUTO) 8.5 K/uL (4.3-11.0)
[2018-03-27 12:41] LABS: CALCIUM, SERUM 7.9 mg/dL (8.5-10.1); POTASSIUM 5.2 mmol/L (3.5-5.1)
[2018-03-27 12:44] LABS: CREATININE 15.3 mg/dL (0.6-1.3)
[2018-03-27 16:00] VITALS: BP 120/79
--- NOTE | 2018-03-27 16:03 | NUR ---
MS RN NOTES S/P HEMODIALYSIS, 1999 CC OUT
--- NOTE | 2018-03-27 18:46 | NUR ---
MS RN NOTES PATIENT RESTING INSIDE ROOM. AWAKE, ALERT AND ORIENTED X 4, VERBALLY RESPONSIVE AND RESPONDS TO VERBAL AND TACTILE STIMULI. BREATHING EVEN AND UNLABORED. NO SOB OR ACUTE DISTRESS NOTED AT THIS TIME. PATIENT CALM AND RELAXED. NO CHANGES IN LOC NOTED AT THIS TIME. IV INTACT AND PATENT, NO SWELLING OR BLEEDING NOTED ON SITE. WILL ENDORSE TO INCOMING SHIFT FOR TRINA. BED LOCKED AND IN LOW POSITION. BILATERAL UPPER SIDE RAILS UP AND LOCKED. CALL LIGHT WITHIN EASY REACH
--- NOTE | 2018-03-27 20:00 | NUR ---
Received pt. in bed resting, alert, awake, and oriented x 4. Pt. on 3L/NC continues with 02 sat. of 100 %. No s/s of sob or dyspnea. Pt. just have had HD today with 2 L output and pt. feels fine and denies sob. Pt. on tele with SR-ST @ the monitor and denies chest pain or any chest discomfort. Pt. lungs sounds are diminished to clear. Presence of Radial and femoral pulses (+) 2, with Left Chest Central Line as HD access. Pt. on 1 Liter fluid restriction, pt. made aware. PIV site @ the LFA G # 20 - HL. Pt. anuric with urine, continent of bowel and presence of bowel sounds, abdomen soft, rounded and non-tender. Pt. able to ambulate with minimal assistance. Provided bedside nsg. care and maintained pt. safety in bed with call-light within reach. Assessment done and completed.
[2018-03-27 20:20] VITALS: BP 137/86
[2018-03-27] MEDS: MIRTAZAPINE 15 MG TABLET PO SCH (21:48)
[2018-03-27] MEDS: ZOLPIDEM TARTRATE 10 MG TABLET PO PRN (22:52)
[2018-03-28] MEDS: LEVOTHYROXINE SODIUM 88 MCG TABLET PO SCH (06:11)
[2018-03-28] MEDS: MORPHINE SULFATE INJ 2 MG/ML DISP.SYRIN IV PRN (06:12)
[2018-03-28] MEDS: BLOOD SUGAR DIAGNOSTIC 1 EACH STRIP IN SCH ×4 (07:30→21:33)
[2018-03-28 07:35] LABS: BASOPHILS % (AUTO) 0.1 % (0.0-2.0); EOSINOPHILS % (AUTO) 10.3 % (0.0-6.0); HEMATOCRIT 25 % (39-51); HEMOGLOBIN 8.1 g/dL (13.5-17.5); LYMPHOCYTES # (AUTO) 0.3 /CMM (0.8-4.8); LYMPHOCYTES % (AUTO) 4.1 % (20.0-44.0); MEAN CORPUSCULAR HEMOGLOBIN 30 PG (26.0-33.0); MEAN CORPUSCULAR HGB CONC 32 g/dl (31.0-36.0); MEAN CORPUSCULAR VOLUME 92 fL (80-96); MONOCYTES # (AUTO) 0.4 /CMM (0.1-1.30); MONOCYTES % (AUTO) 5.5 % (2.0-12.0); NEUTROPHILS # (AUTO) 5.7 /CMM (1.8-8.9); PLATELET COUNT (AUTO) 162 /CMM (150-450); RDW COEFFICIENT OF VARIATION 19.5 (11.5-15.0); RED BLOOD CELL COUNT(AUTO) 2.74 MIL/uL (4.5-6.0); WHITE BLOOD COUNT (AUTO) 7.1 K/uL (4.3-11.0)
--- NOTE | 2018-03-28 07:50 | NUR ---
MS RN OPENING NOTES RECEIVED PT SITTING UPRIGHT, AWAKE AND RESPONSIVE. CURRENTLY ON O2 @3L/MIN VIA, HAVING SOB, INCREASED TO 4L/MIN. PT STATES HE IS FEELING BETTER. PUPILS ARE REACTIVE TO LIGHT. BILATERAL HAND ASSISTANT DIRECTOR OF PLANT OPERATIONS ARE STRONG AND EQUAL. PT C/O PAIN TO LOWER BACK AND WILL ADMINISTER BREAK THROUGH PAIN MEDICATION. DENIES ANY N/V. IV SITE LFA INTACT, DRESSING KEPT CLEAN AND DRY. NO INFILTRATION NOTED. SAFETY MEASURES ARE IN PLACE. CALL LIGHT IS LEFT WITHIN REACH. WILL CONTINUE TO MONITOR THROUGHOUT SHIFT FOR CONTINUITY OF CARE.
[2018-03-28 07:53] LABS: ALBUMIN 2.4 g/dL (3.4-5.0); BILIRUBIN,TOTAL 0.4 mg/dL (0.2-1.0); CALCIUM, SERUM 7.1 mg/dL (8.5-10.1); MAGNESIUM 1.7 mg/dL (1.8-2.4); PHOSPHORUS 6.3 mg/dL (2.5-4.9); POTASSIUM 5.2 mmol/L (3.5-5.1); TOTAL PROTEIN, SERUM 7.8 g/dL (6.4-8.2)
[2018-03-28 07:55] LABS: CREATININE 11.7 mg/dL (0.6-1.3)
[2018-03-28 08:00] VITALS: BP_SYST 150; BP_SYST 154; BP_DIAS 102; BP_DIAS 90
[2018-03-28] MEDS: CHOLECALCIFEROL 1,000 UNIT TABLET (VIT D3) PO SCH (08:25)
[2018-03-28] MEDS: ASPIRIN 81 MG TAB.CHEW PO SCH (08:25)
[2018-03-28] MEDS: HYDROCODONE/APAP 5/325MG 1 EACH TABLET PO PRN ×2 (08:25→16:53)
[2018-03-28] MEDS: LACOSAMIDE 50 MG TABLET PO SCH ×2 (08:26→21:18)
[2018-03-28] MEDS: CARVEDILOL 3.125 MG TABLET PO SCH ×2 (08:26→21:29)
[2018-03-28] MEDS: QUETIAPINE FUMARATE 100 MG TABLET PO SCH ×2 (08:26→21:28)
[2018-03-28] MEDS: HEPARIN SODIUM, PORCINE 5000 UNITS/1 ML VIAL SQ SCH ×2 (08:32→21:00)
[2018-03-28] MEDS ORDERED: MORPHINE SULFATE IR 15 MG TABLET PO PRN (10:30)
--- NOTE | 2018-03-28 11:30 | NUR ---
MS RN NOTES PT REQUESTED FOR MORPHINE FOR PAIN. NEW ORDER FROM MORPHINE IV TO MSIR. PT STATED HE WANTS THE MORPHINE IV INSTEAD. NOTIFIED KRYSTYNA BAUTISTA AND CHEYENNE REYES, PT STATED THE WAS TAKING MORPHINE PO AT HOME AND HE AGREED TO MSIR. EXPLAINED TO THE PT BENEFITS OF MSIR COMPARED TO MORPHINE IV AND PT STATED HE WILL TRY MSIR.
--- NOTE | 2018-03-28 12:40 | NUR ---
MS RN NOTES DIALYSIS NURSE CALLED AND STATED SHE WILL BE HERE AROUND 5PM. PT MADE AWARE.
[2018-03-28 16:00] VITALS: BP 152/84
[2018-03-28] MEDS ORDERED: CARI350T27 PO (17:07)
--- NOTE | 2018-03-28 17:07 | NUR ---
MS RN NOTES DIALYSIS DONE WITH 2300ML OUTPUT. VITAL SIGNS ARE WNL AND STABLE. DIALYSIS NURSE CHANGED DRESSING TO LEFT PERMA CATH.
--- NOTE | 2018-03-28 17:10 | NUR ---
MS RN NOTES PT STATED MSIR 15MG DID NOT WORK. PT STATED HE TAKES MORPHINE 10MG PO QHS AND HE TAKES SOMA 250MG DURING THE DAY. SOMA WAS NOT LISTED IN THE MED REC UPON ADMISSION. SOMA ADDED AND ERIC BAUTISTA MADE AWARE.
--- NOTE | 2018-03-28 18:29 | NUR ---
MS RN CLOSING NOTES ALL DUE MEDS GIVEN, NEEDS MET AND RENDERED. PT IS A/O X4, AFEBRILE. RESPIRATIONS ARE EVEN AND UNLABORED, NOT IN ANY ACUTE DISTRESS NOTED. DENIES ANY SOB, N/V AT THIS TIME. IV SITE INTACT, NO INFILTRATION NOTED. DRESSING KEPT CLEAN AND DRY. SUPERVISED PT TO AMBULATE WITH ROOM WITH A CANE W/ NO SOB DENNY EXERTION. SAFETY MEASURES ARE IN PLACE. CALL LIGHT IS LEFT WITHIN REACH. WILL ENDORSE TO NEXT SHIFT FOR CONTINUITY OF CARE.
[2018-03-28] MEDS: MORPHINE SULFATE IR 15 MG TABLET PO PRN (18:37)
--- NOTE | 2018-03-28 19:57 | NUR ---
MS RN INITIAL NOTES Report received. Patient received in bed, awake and verbally responsive. Alert and oriented x3-4. Denies any pain at the moment. Not in any type of distress. No SOB or labored breathing noted. Safety measures in place. Will continue to monitor and assess the patient.
[2018-03-28 20:00] VITALS: BP 149/79
--- NOTE | 2018-03-28 20:10 | NUR ---
MS RN OPENING NOTE Patient was seen AAOx4 sitting up in bed, breathing on 3L O2 NC with no SOB, and no signs of acute distress. SL 20g IV is in the left FA intact and patent. PermaCath in the left chest is clean, dry, and intact. Patient's only request is one 4oz cranberry juice; patient is on a 1L fluid restriction, which he was educated on and verbalizes his understanding of. Patient is aware that this will be his last drink before bed. Patient has no other needs or concerns at this time. Will continue to monitor.
[2018-03-28] MEDS: MIRTAZAPINE 15 MG TABLET PO SCH (21:28)
[2018-03-28] MEDS: ZOLPIDEM TARTRATE 10 MG TABLET PO PRN (21:41)
--- NOTE | 2018-03-28 21:41 | NUR ---
MS RN NOTE - Ambien Patient requested Ambien to help him sleep; patient has taken this medication in the past. 10mg PO Ambien was administered per prn orders.
--- NOTE | 2018-03-28 23:00 | NUR ---
MS RN NOTE - Skin assessment and pictures Patient has an incision with kenny on his left lateral chest; patient states this was done at [facility] to drain fluid from his lungs (thoracentesis was unsuccessful). Wound edges are well approximated with no redness, no swelling, no drainage, and no pain or tenderness. Pictures taken per hospital protocol. Skin is clean and dry and left open to air. Will continue to monitor. Wound consult in process.
[2018-03-29] MEDS: ONDANSETRON HCL/PF 4 MG/2 ML VIAL IVP PRN (00:50)
--- NOTE | 2018-03-29 00:50 | NUR ---
MS RN NOTE - N/V Patient had one episode of vomiting approximately 400 ml of emesis. Emesis showed no signs of bleeding. Patient was given 4mg of IV Zofran as ordered prn. Will continue to monitor.
--- NOTE | 2018-03-29 02:30 | NUR ---
MS RN NOTE - Reassess N/V Emesis has stopped since administering Zofran. Patient is sleeping in bed. Will continue to monitor.
[2018-03-29] MEDS: LEVOTHYROXINE SODIUM 88 MCG TABLET PO SCH (06:30)
[2018-03-29] MEDS: BLOOD SUGAR DIAGNOSTIC 1 EACH STRIP IN SCH ×4 (06:34→22:29)
[2018-03-29 06:54] LABS: EOSINOPHILS % (AUTO) 7.3 % (0.0-6.0); HEMATOCRIT 24 % (39-51); HEMOGLOBIN 7.7 g/dL (13.5-17.5); LYMPHOCYTES # (AUTO) 0.5 /CMM (0.8-4.8); LYMPHOCYTES % (AUTO) 6.9 % (20.0-44.0); MEAN CORPUSCULAR HEMOGLOBIN 29 PG (26.0-33.0); MEAN CORPUSCULAR HGB CONC 32 g/dl (31.0-36.0); MEAN CORPUSCULAR VOLUME 91 fL (80-96); MONOCYTES # (AUTO) 0.3 /CMM (0.1-1.30); MONOCYTES % (AUTO) 4.7 % (2.0-12.0); NEUTROPHILS # (AUTO) 5.4 /CMM (1.8-8.9); NEUTROPHILS % (AUTO) 81.1 % (43.0-81.0); PLATELET COUNT (AUTO) 153 /CMM (150-450); RDW COEFFICIENT OF VARIATION 19.6 (11.5-15.0); RED BLOOD CELL COUNT(AUTO) 2.62 MIL/uL (4.5-6.0); WHITE BLOOD COUNT (AUTO) 6.6 K/uL (4.3-11.0)
--- NOTE | 2018-03-29 06:56 | NUR ---
MS RN CLOSING NOTE Patient was seen this morning lying in bed AAOx4, breathing on 3L O2 NC with no SOB, and no signs of acute distress. Patient stated that he slept well after receiving Zofran last night (see previous notes). SL 20g IV in the left FA is intact and patent. PermaCath in the left chest is clean, dry, and intact. Bed is low/locked, two side rails up, and call dixon is within reach. All patient needs addressed this shift. Patient remains in stable condition and patient care is endorsed to day shift nurse.
[2018-03-29 07:11] LABS: ALBUMIN 2.1 g/dL (3.4-5.0); BILIRUBIN,TOTAL 0.4 mg/dL (0.2-1.0); CALCIUM, SERUM 7.1 mg/dL (8.5-10.1); MAGNESIUM 1.5 mg/dL (1.8-2.4); PHOSPHORUS 5.2 mg/dL (2.5-4.9); POTASSIUM 4.7 mmol/L (3.5-5.1); TOTAL PROTEIN, SERUM 6.9 g/dL (6.4-8.2)
--- NOTE | 2018-03-29 07:29 | NUR ---
MS RN OPENING NOTES PATIENT RECEIVED ASLEEP IN BED, EASILY AROUSABLE. SEEMS COMFORTABLE WITH NO SIGNS OF PAIN OBSERVED. HOB ELEVATED. ON O2 VIA N/C @ 3LPM, RESPIRATIONS EVEN AND UNLABORED. IV ACCESS ON LEFT FA G #20 INTACT AND PATENT, FLUSHES WELL. PERMACATH ON LEFT CHEST WALL IN PLACE WITH NO BLEEDING NOTED. SAFETY MEASURES IN PLACE. BED IN LOW/LOCKED POSITION WITH SIDE-RAILS UP X 2. CALL LIGHT WITHIN REACH. WILL CONTINUE TO MONITOR PT ACCORDINGLY.
[2018-03-29 08:00] VITALS: BP 109/63
[2018-03-29] MEDS: QUETIAPINE FUMARATE 100 MG TABLET PO SCH ×2 (09:03→21:24)
[2018-03-29] MEDS: ASPIRIN 81 MG TAB.CHEW PO SCH (09:03)
[2018-03-29] MEDS: LACOSAMIDE 50 MG TABLET PO SCH ×2 (09:03→21:23)
[2018-03-29] MEDS: CHOLECALCIFEROL 1,000 UNIT TABLET (VIT D3) PO SCH (09:04)
[2018-03-29] MEDS: CARVEDILOL 3.125 MG TABLET PO SCH ×2 (09:04→21:23)
--- NOTE | 2018-03-29 09:56 | NUR ---
RN NOTES PA SEEN AND EVALUATED BY HUGO BAUTISTA, ASKED IF IT'S OK TO GIVE HEPARIN THIS MORNING DESPITE PT'S HGB IS LOW 7.7 AND HCT 24, HE SAID YES AND JUST MONITOR CLOSELY FOR ANY ACTIVE BLEEDING, NONE NOTED. WILL CONTINUE TO MONITOR.
[2018-03-29] MEDS: HEPARIN SODIUM, PORCINE 5000 UNITS/1 ML VIAL SQ SCH ×2 (10:00→22:09)
[2018-03-29] MEDS ORDERED: Magnesium 1GM/D5W 100ML PREMIX 100 ML IV SCH (10:00)
--- NOTE | 2018-03-29 13:25 | NUR ---
RN NOTES PATIENT WITH LOW LEVEL OF MG 1.7 TODAY, REPLACED WITH 1G/D5W 100ML ORDERED. WILL CONTINUE TO MONITOR.
[2018-03-29 16:06] VITALS: BP 121/83
[2018-03-29] MEDS: MORPHINE SULFATE IR 15 MG TABLET PO PRN (16:37)
--- NOTE | 2018-03-29 16:37 | NUR ---
RN NOTES/PAIN MANAGEMENT PATIENT C/O PAIN ON HIS BACK GOING TO HIS LEGS WITH INTENSITY OF 8/10, PRN MORPHINE SULFATE 30 MG PO GIVEN. WILL CONTINUE TO MONITOR.
[2018-03-29] MEDS: HYDROCODONE/APAP 5/325MG 1 EACH TABLET PO PRN (18:54)
--- NOTE | 2018-03-29 18:56 | NUR ---
MS RN CLOSING NOTES PATIENT AWAKE AND RESTING IN BED AT MODERATE HIGH BACKREST POSITION. A/O X4M SAME ABLE TO MAKE NEEDS KNOWN. ON O2 VIA N/C @ 3LPM, RESPIRATIONS EVEN WITH NO ACUTE DISTRESS NOTED. IV ACCESS ON LEFT FA G #20 INTACT AND PATENT, FLUSHES WELL. PERMACATH ON LEFT CHEST WALL IN PLACE WITH NO BLEEDING NOTED. ALL SAFETY MEASURES KEPT IN PLACE. BED IN LOW/LOCKED POSITION WITH SIDE-RAILS UP X 2. CALL LIGHT WITHIN REACH. ALL NEEDS AND CARE ATTENDED WELL. WILL ENDORSE TO BUILDINGS PAINTER NURSE FOR TRINA..
--- NOTE | 2018-03-29 19:10 | NUR ---
RN OPENING NOTES RECEIVED PATIENT SITTING UP IN BED, ALERT AND ORIENTED X 3, NO SOB NOTED, BREATHING EVEN AND UNLABORED, IN NO ACUTE DISTRESS. DENIES PAIN/NAUSEA/DIZZINESS. ALL PATIENT'S NEEDS ATTENDED TO AT THIS TIME. PLACED BED IN LOW POSITION AND LOCKED IN PLACE. ANA LLIGHT WITHIN EASY REACH. WILL CONTINUE TO MONITOR.
[2018-03-29 20:00] VITALS: BP 130/90
[2018-03-29] MEDS: MIRTAZAPINE 15 MG TABLET PO SCH (21:23)
--- NOTE | 2018-03-29 22:09 | NUR ---
RN NOTES CLARIFIED HEPARIN ADMINISTRATION WITH HUGO LOVE, RELAYED PT'S H/H, PLATELET, PT/INR AND APTT LEVELS. PER FREIGHT BRAKE OPERATOR OK TO ADMINISTER HEPARIN ORDERED.
[2018-03-29] MEDS: ZOLPIDEM TARTRATE 10 MG TABLET PO PRN (22:46)
[2018-03-30] MEDS: MORPHINE SULFATE IR 15 MG TABLET PO PRN (05:33)
[2018-03-30] MEDS: LEVOTHYROXINE SODIUM 88 MCG TABLET PO SCH (06:37)
[2018-03-30] MEDS: BLOOD SUGAR DIAGNOSTIC 1 EACH STRIP IN SCH ×4 (06:37→22:16)
--- NOTE | 2018-03-30 07:04 | NUR ---
RN CLOSING NOTES PATIENT IN BED, ALERT AND ORIENTED, ASLEEP BUT EASILY AROUSABLE. NO C/O PAIN AT THIS TIME, NO SOB, RECEIVING O2 VIA NC @3LPM, IN NO ACUTE DISTRESS. ALL PATIENT'S NEEDS ATTENDED TO THROUGHOUT THE SHIFT. WILL ENDORSE TO AM SHIFT NURSE FOR CONTINUITY OF CARE.
[2018-03-30 07:15] LABS: HEMATOCRIT 26 % (39-51); HEMOGLOBIN 8.6 g/dL (13.5-17.5); LYMPHOCYTES # (AUTO) 0.9 /CMM (0.8-4.8); LYMPHOCYTES % (AUTO) 10.7 % (20.0-44.0); MEAN CORPUSCULAR HEMOGLOBIN 30 PG (26.0-33.0); MEAN CORPUSCULAR HGB CONC 33 g/dl (31.0-36.0); MEAN CORPUSCULAR VOLUME 93 fL (80-96); MONOCYTES # (AUTO) 0.6 /CMM (0.1-1.30); MONOCYTES % (AUTO) 7.3 % (2.0-12.0); NEUTROPHILS # (AUTO) 5.5 /CMM (1.8-8.9); PLATELET COUNT (AUTO) 161 /CMM (150-450); RDW COEFFICIENT OF VARIATION 19.5 (11.5-15.0); RED BLOOD CELL COUNT(AUTO) 2.84 MIL/uL (4.5-6.0)
--- NOTE | 2018-03-30 07:31 | NUR ---
MS RN OPENING NOTES RECEIVED PATIENT ASLEEP IN BED, AWAKENS EASILY. HOB ELEVATED. SEEMS COMFORTABLE WITH NO SIGNS OF PAIN OBSERVED. ON SUPPLEMENTAL O2 VIA N/C @ 3LPM, BREATHING EVEN AND UNLABORED. IV ACCESS ON LEFT FA G #20 INTACT AND PATENT, FLUSHES WELL. PERMACATH ON LEFT CHEST WALL IN PLACE WITH NO BLEEDING NOTED. SAFETY MEASURES IN PLACE. BED IN LOW/LOCKED POSITION WITH SIDE-RAILS UP X 2. CALL LIGHT WITHIN REACH. WILL CONTINUE TO MONITOR PT ACCORDINGLY.
[2018-03-30 07:36] LABS: CALCIUM, SERUM 7.9 mg/dL (8.5-10.1); MAGNESIUM 1.9 mg/dL (1.8-2.4); PHOSPHORUS 5.7 mg/dL (2.5-4.9); POTASSIUM 5.4 mmol/L (3.5-5.1)
[2018-03-30 07:40] LABS: CREATININE 10.1 mg/dL (0.6-1.3)
[2018-03-30 08:00] VITALS: BP 143/93
[2018-03-30] MEDS: CARVEDILOL 3.125 MG TABLET PO SCH ×2 (09:20→21:16)
[2018-03-30] MEDS: LACOSAMIDE 50 MG TABLET PO SCH ×2 (09:21→21:16)
[2018-03-30] MEDS: ASPIRIN 81 MG TAB.CHEW PO SCH (09:21)
[2018-03-30] MEDS: QUETIAPINE FUMARATE 100 MG TABLET PO SCH ×2 (09:21→21:16)
[2018-03-30] MEDS: CHOLECALCIFEROL 1,000 UNIT TABLET (VIT D3) PO SCH (09:21)
[2018-03-30] MEDS: HEPARIN SODIUM, PORCINE 5000 UNITS/1 ML VIAL SQ SCH ×2 (09:22→21:17)
[2018-03-30] MEDS: ONDANSETRON HCL/PF 4 MG/2 ML VIAL IVP PRN (09:55)
[2018-03-30] MEDS ORDERED: EPOETIN ALFA (10,000 UNIT) 10,000 UNIT/ML VIAL SQ ONE (10:00)
--- NOTE | 2018-03-30 10:08 | NUR ---
RN NOTES PATIENT C/O NAUSEA AFTER RETURNING TO BED FROM TOILET, PRN ZOFRAN 4MG IVP ADMINISTERED. WILL CONTINUE TO MONITOR.
--- NOTE | 2018-03-30 12:22 | NUR ---
RN NOTES/ HEMODIALYSIS PATIENT HAD DIALYSIS FROM 0930 TO 1200 WITH OUTPUT OF 3LITERS PER DIALYSIS NURSE. V/S STABLE. POST HD V/S 140/77, P 92, R 20, T 98.6F. NO DELAYED ADVERSE REACTIONS NOTED. PATIENT IS AWAKE, ALERT AND EATING AT THIS TIME. WILL CONTINUE TO MONITOR.
--- NOTE | 2018-03-30 12:31 | NUR ---
RN NOTES PT'S EPOGEN 10,000U ADMINISTERED LATE, PT JUST FINISHED HEMODIALYSIS. WILL CONTINUE TO MONITOR.
[2018-03-30 16:00] VITALS: BP 118/70
--- NOTE | 2018-03-30 18:38 | NUR ---
MS RN CLOSING NOTES PATIENT AWAKE IN BED AND WATCHING TV AT THIS TIME. A/O X4. ABLE TO MAKE NEEDS KNOWN. S/P HEMODIALYSIS TODAY, NO DELAYED ADVERSE REACTIONS NOTED. ON O2 VIA N/C @ 3LPM, RESPIRATIONS EVEN WITH NO ACUTE DISTRESS NOTED. IV ACCESS ON LEFT FA G #20 INTACT AND PATENT, FLUSHES WELL. PERMACATH ON LEFT CHEST WALL IN PLACE WITH NO BLEEDING NOTED. ALL SAFETY MEASURES KEPT IN PLACE. BED IN LOW/LOCKED POSITION WITH SIDE-RAILS UP X 2. CALL LIGHT WITHIN REACH. ALL NEEDS AND CARE ATTENDED WELL. WILL ENDORSE TO APPLIANCE SERVICE TECHNICIAN NURSE FOR TRINA..
--- NOTE | 2018-03-30 19:20 | NUR ---
RN OPENING NOTES RECEIVED PT IN BED, ALERT AND ORIENTED X 4, PT AMBULATED SAFELY TO BATHROOM AND BACK TO BED. PT CONTINUES TO RECEIVE O2 VIA NC @3LPM. NO SOB NOTED, BREATHING EVEN AND UNLABORED. DENIES PAIN AT THIS TIME, IN NO ACUTE DISTRESS. ALL PATIENT'S NEEDS ATTENDED TO. PLACED CALL LIGHT WITHIN EASY REACH. WILL CONTINUE TO MONITOR PT.
[2018-03-30 20:00] VITALS: BP 114/69
[2018-03-30 20:57] LABS: OCCULT BLOOD STOOL NEGATIVE (NEGATIVE)
[2018-03-30] MEDS: MIRTAZAPINE 15 MG TABLET PO SCH (21:16)
[2018-03-31] MEDS: LEVOTHYROXINE SODIUM 88 MCG TABLET PO SCH (06:42)
--- NOTE | 2018-03-31 07:25 | NUR ---
RN CLOSING NOTES PT IN BED, ASLEEP BUT EASILY AROUSABLE, ABLE TO SLEEP WELL THROUGHOUT THE SHIFT. NOTED WITH NO SOB, BREATHING EVEN AND UNLABORED, DENIES PAIN AT THIS TIME, NO NAUSEA, NO DIARRHEA NOTED. PATIENT ALSO ABLE TO AMBULATE WITH A CANE TO THE BATHROOM. ALL PATIENT'S NEEDS ATTENDED TO, CALL LIGHT PALCED WITHIN EASY REACH AND PLACED BED IN LOW POSITION AND LOCKED IN PLACE. WILL ENDORSE TO AM SHIFT NURSE FOR CONTINUITY OF CARE.
--- NOTE | 2018-03-31 07:33 | NUR ---
MS RN NOTES PATIENT RECEIVED RESTING INSIDE ROOM. SLEEPING, EASILY AROUSABLE THROUGH VERBAL AND TACTILE STIMULI. BREATHING EVEN AND UNLABORED. NO SOB OR ACUTE DISTRESS NOTED AT THIS TIME. DENIES PAIN OR DISCOMFORT. NO CHANGES IN LOC NOTED. PATIENT CALM AND RELAXED. IV INTACT AND PATENT, NO SWELLING OR BLEEDING ON SITE. WILL CONTINUE TO MONITOR. BED LOCKED AND IN LOW POSITION. BILATERAL UPPER SIDE RAILS UP AND LOCKED. CALL LIGHT WITHIN EASY REACH
[2018-03-31] MEDS: BLOOD SUGAR DIAGNOSTIC 1 EACH STRIP IN SCH ×3 (07:42→17:08)
[2018-03-31 08:00] VITALS: BP 124/77
[2018-03-31] MEDS: QUETIAPINE FUMARATE 100 MG TABLET PO SCH (08:24)
[2018-03-31] MEDS: CHOLECALCIFEROL 1,000 UNIT TABLET (VIT D3) PO SCH (08:24)
[2018-03-31] MEDS: ASPIRIN 81 MG TAB.CHEW PO SCH (08:24)
[2018-03-31] MEDS: LACOSAMIDE 50 MG TABLET PO SCH (08:24)
[2018-03-31] MEDS: HEPARIN SODIUM, PORCINE 5000 UNITS/1 ML VIAL SQ SCH (08:25)
[2018-03-31] MEDS: CARVEDILOL 3.125 MG TABLET PO SCH (09:21)
[2018-03-31 16:00] VITALS: BP 131/69
--- NOTE | 2018-03-31 18:36 | NUR ---
MS RN NOTES PATIENT WITH ORDER FROM RENETTA ANTONIO TO DISCHARGE HOME. ORDER NOTED AND CARRIED OUT. DISCHARGE TEACHING AND EDUCATION PROVIDED TO PATIENT AND VERBALIZED UNDERSTANDING. PATIENT TO GO HOME THROUGH [place], VOUCHER OBTAINED FROM NURSING CASINO CONTROLLER. IV REMOVED WITH MINIMAL BLEEDING NOTED. PRESSURE DRESSING APPLIED TO SITE. ALL BELONGINGS COMPLETE ON DISCHARGE, NO REPORT OF MISSING BELONGINGS NOTED. PATIENT LEFT VIA WHEELCHAIR AT 1815 IN STABLE CONDITION. NO NEW SKIN BREAKDOWN NOTED. ASSISTED DURING TRANSFER, NO EPISODE OF FALL OR INJURY. MD AWARE OF DISCHARGE
== END 2018-03-31 18:24 | disposition home or self-care (01) | DRG 291 ==
LOC: ER 22:12 → TELE 03-27 00:20 → MED 03-27 08:40
PROVIDERS: ADMIT Nurse Practitioner Acute Care; ATTEND Nurse Practitioner Acute Care
PROC: 5A1D70Z Performance of Urinary Filtration, Intermittent, Less than 6 Hours Per Day (ICD-10-PCS; principal; 2018-03-27)
PROC: 5A1D70Z Performance of Urinary Filtration, Intermittent, Less than 6 Hours Per Day (ICD-10-PCS; 2018-03-28)
PROC: 5A1D70Z Performance of Urinary Filtration, Intermittent, Less than 6 Hours Per Day (ICD-10-PCS; 2018-03-30)
DX: I13.2 Hypertensive heart and chronic kidney disease with heart failure and with stage 5 chronic kidney disease, or end stage renal disease (principal); I50.43 Acute on chronic combined systolic (congestive) and diastolic (congestive) heart failure; J96.21 Acute and chronic respiratory failure with hypoxia; N18.6 End stage renal disease; J90 Pleural effusion, not elsewhere classified; E11.22 Type 2 diabetes mellitus with diabetic chronic kidney disease; D63.8 Anemia in other chronic diseases classified elsewhere; E03.9 Hypothyroidism, unspecified; E78.5 Hyperlipidemia, unspecified; E83.39 Other disorders of phosphorus metabolism; E87.5 Hyperkalemia; F17.210 Nicotine dependence, cigarettes, uncomplicated; D63.1 Anemia in chronic kidney disease; J44.9 Chronic obstructive pulmonary disease, unspecified; K21.9 Gastro-esophageal reflux disease without esophagitis; Z99.2 Dependence on renal dialysis; Z99.81 Dependence on supplemental oxygen; G89.29 Other chronic pain; F41.9 Anxiety disorder, unspecified; F32.9 Major depressive disorder, single episode, unspecified; E83.9 Disorder of mineral metabolism, unspecified
CPT/HCPCS: 36415; 71045-TC; 80048-TC; 80053-TC; 80061-TC; 80076-TC; 82272-TC; 82728-TC; 82962-TC; 83540-TC; 83735-TC; 84100-TC; 84484-TC; 85025-TC; 85730-TC; 86704; 86705; 86706; 87081-TC; 87340; 90935-TC; A4606; J0885; J1644; J1815; J1940; J2270; J2405; J3475; Z7610

== ENCOUNTER 2018-04-07 18:44 | Inpatient (IN) | payer MEDICARE ==
[~2018-04-07] VITALS: Ht 185.4 cm; Wt 74.8 kg
--- NOTE | 2018-04-07 00:45 | NUR ---
DIAZ RN NOTES PATIENT AT 2330 IS LETHARGIC, NOT RESPONSIVE BUT VITAL SIGNS ARE WNL. CHARGE NURSE NOTIFIED AND 2334 SAMPLE WASHER. MIKE SADLER IS NOTIFIED, 2339 BLOOD GLUCOSE WAS CHECKED AND IT WAS LOW(GLUCOMETER COULDN'T READ) AND BY SAMPLE WASHER MIKE SADLER DEXTROSE IV PUSH WAS ORDERED. 2340 DEXTROSE IV WAS GIVEN AND 2345 BLOOD GLUCOSE CHECKED AND IT WAS 170. 38925 MIXING PAN TENDER WAS CALLED, RT WAS AT BEDSIDE AND 2337 ICU TEAM ARRIVED.2340 STAT ABG AND LAB WAS ORDERED. 2350 NG TUBE WAS INSERTED BY HUGO SADLER ORDER TO ADMINISTER KAYEXALATE BECAUSE PATIENT WAS NOT ABLE TO SWALLOW PO FORM OF MEDICATION. 2350 KAYEXALATE IS ADMINISTERED. 2400 PATIENT IS ALREADY RESPONSIVE , AWAKE, VERBALLY RESPONSIVE AND WAS ABLE TO ANSWER QUESTIONS. 2430 SAMPLE WASHER MIKE SADLER IS AT BEDSIDE STAT LAB RESOLUTES ARE RELATE BY CHARGE NURSE JEAN-CLAUDE.
[~2018-04-07 18:44] MED LIST changes: +CARI350T27 PO
--- NOTE | 2018-04-07 18:59 | NUR ---
AAOX3, BIBRA 102 FROM HOME C/O SOB X 2 WEEKS. RESP IS SLIGHTLY LABORED. SPO2=86% ON RA. PLACED ON NC 3L/MIN WITH SPO2=96%. SKIN IS WARM AND DRY. PLACED ON THE MONITOR. AWAITING MD FOR EVAL.
--- NOTE | 2018-04-07 19:09 | NUR ---
DIALYSIS PORT ON LEFT CHEST WALL NOTED ALMOND BLANCHER HAND.
[2018-04-07 19:13] LABS: BASOPHILS # (AUTO) 0.1 /CMM (0.0-0.2); BASOPHILS % (AUTO) 1.7 % (0.0-2.0); EOSINOPHILS % (AUTO) 5.7 % (0.0-6.0); HEMATOCRIT 25 % (39-51); HEMOGLOBIN 8.3 g/dL (13.5-17.5); LYMPHOCYTES # (AUTO) 0.7 /CMM (0.8-4.8); LYMPHOCYTES % (AUTO) 8.4 % (20.0-44.0); MEAN CORPUSCULAR HEMOGLOBIN 29 PG (26.0-33.0); MEAN CORPUSCULAR HGB CONC 33 g/dl (31.0-36.0); MEAN CORPUSCULAR VOLUME 88 fL (80-96); MONOCYTES # (AUTO) 0.5 /CMM (0.1-1.30); MONOCYTES % (AUTO) 5.7 % (2.0-12.0); NEUTROPHILS # (AUTO) 6.4 /CMM (1.8-8.9); NEUTROPHILS % (AUTO) 78.5 % (43.0-81.0); PLATELET COUNT (AUTO) 159 /CMM (150-450); RDW COEFFICIENT OF VARIATION 18.7 (11.5-15.0); RED BLOOD CELL COUNT(AUTO) 2.88 MIL/uL (4.5-6.0); WHITE BLOOD COUNT (AUTO) 8.2 K/uL (4.3-11.0)
--- NOTE | 2018-04-07 19:15 | NUR ---
Report given to Ed, night time babysitter nurse for tom.
[2018-04-07 19:27] LABS: MAGNESIUM 1.8 mg/dL (1.8-2.4)
[2018-04-07 19:28] LABS: INR 1.26 (0.85-1.15)
[2018-04-07 19:29] LABS: PHOSPHORUS 8.2 mg/dL (2.5-4.9)
[2018-04-07 19:30] LABS: ALBUMIN 2.7 g/dL (3.4-5.0); BILIRUBIN,DIRECT 0.2 mg/dL (0.0-0.2); BILIRUBIN,TOTAL 0.5 mg/dL (0.2-1.0); CALCIUM, SERUM 7.6 mg/dL (8.5-10.1); TOTAL PROTEIN, SERUM 7.7 g/dL (6.4-8.2)
[2018-04-07 19:33] LABS: POTASSIUM 6.5 mmol/L (3.5-5.1); TROPONIN I 0.059 ng/mL (0.00-0.056)
[2018-04-07 19:34] LABS: CREATININE 18.9 mg/dL (0.6-1.3)
[2018-04-07] MEDS ORDERED: SODIUM POLYSTYRENE SULFONATE 15 G/60 ML BOTTLE ONE ×2 (20:10→23:48)
[2018-04-07] MEDS ORDERED: DEXTROSE 50%-WATER 50 ML DISP.SYRIN ONE (20:10)
--- NOTE | 2018-04-07 20:11 | NUR ---
CALLED NURSING STERILE PROCESSING TECH AND REQUESTED A TELE BED FOR THIS PT.
[2018-04-07] MEDS ORDERED: INSULIN REGULAR, HUMAN 100 UNIT/ML 10 ML VIAL ONE (20:12)
[2018-04-07] MEDS ORDERED: ALBUTEROL FS 2.5 MG/3 ML VIAL.NEB ONE (20:13)
--- NOTE | 2018-04-07 20:14 | NUR ---
MIKE SADLER WAS PAGED.
--- NOTE | 2018-04-07 20:19 | NUR ---
PT REFUSE KAYEXALATE 30GM PO. ER MADE AWARE.
--- NOTE | 2018-04-07 20:19 | NUR ---
RT AT BEDSDIE TO GIVE HHN TX. RN AT BEDSIDE TO MEDICATE PT.
[2018-04-07] MEDS: SODIUM POLYSTYRENE SULFONATE 15 G/60 ML BOTTLE PO ONE ×2 (20:21→21:19)
--- NOTE | 2018-04-07 20:25 | NUR ---
DR. BRENDA LATHAM PER ER ORDER.
[2018-04-07] MEDS ORDERED: DEXTROSE 50%-WATER 50 ML DISP.SYRIN IV ONE (20:30)
[2018-04-07] MEDS ORDERED: INSULIN REGULAR, HUMAN 100 UNIT/ML 10 ML VIAL IV ONE (20:30)
[2018-04-07] MEDS ORDERED: ALBUTEROL FS 2.5 MG/3 ML VIAL.NEB NEB ONE (20:30)
--- NOTE | 2018-04-07 20:44 | NUR ---
PT IS ASSIGNED TO [facility]#: [id number], DX: ACUTE FLUID OVERLOAD/ HYPERKALEMIA / BILATERAL PLEURAL EFFUSION, ACCEPTINg: MIKE SADLER DNP.
--- NOTE | 2018-04-07 20:52 | NUR ---
REPORT CALLED TO FRAMING INSPECTORVANESSA VALENCIA. WILL TRANSPORT PT VIA ACLS PROTOCOL.
[2018-04-07] MEDS ORDERED: MORPHINE SULFATE INJ 2 MG/ML DISP.SYRIN ONE (20:57)
[2018-04-07] MEDS ORDERED: MORPHINE SULFATE INJ 2 MG/ML DISP.SYRIN IV ONE (21:00)
[2018-04-07 21:30] VITALS: BP 141/81
--- NOTE | 2018-04-07 21:30 | NUR ---
DIAZ RN NOTES RECEIVED PATIENT REPORT FROM ER NURSE ED. RECEIVED PATIENT FROM ER , ALERT, ORIENTED X3 WITH COMPLAIN OF BACK PAIN 8/. PATIENT HAS LEFT FOREARM IV LINE, INTACT AND PATIENT. PATIENT IS ON 3L O2 VIA NC WITH SPO2 OF 100%. PATIENT IS PLACED ON SHIP JOINER AND THE READING IS SR 89 WITH PVC. ALL SAFETY MEASURES ARE IMPLEMENTED, BED IN LOW, LOCKED POSITION, CALL LIGHT IN REACH. WILL CONT. TO MONITOR.
[2018-04-07] MEDS ORDERED: MAG HYDROX/AL HYDROX/SIMETH 30 ML UDC PO PRN (22:30)
[2018-04-07] MEDS ORDERED: MAGNESIUM HYDROXIDE 30 ML UDC PO PRN (22:30)
[2018-04-07] MEDS ORDERED: DEXTROSE 50%-WATER 50 ML DISP.SYRIN IV PRN (22:30)
[2018-04-07] MEDS ORDERED: ACETAMINOPHEN 325 MG TABLET PO PRN (22:30)
[2018-04-07] MEDS ORDERED: FUROSEMIDE 40 MG/4 ML VIAL IV ONE (22:30)
[2018-04-07] MEDS ORDERED: INSULIN REGULAR, HUMAN 100 UNIT/ML 3 ML VIAL SQ PRN (22:30)
[2018-04-07] MEDS ORDERED: Z GUARD REMEDY 2 OZ OINT TP PRN (22:30)
[2018-04-07] MEDS ORDERED: ALBUTEROL FS 2.5 MG/3 ML VIAL.NEB NEB PRN (23:00)
[2018-04-07] MEDS ORDERED: SODIUM POLYSTYRENE SULFONATE 15 G/60 ML BOTTLE PO ONE (23:30)
[2018-04-07 23:47] LABS: ABG BASE EXCESS -5.3 mmol/L; ABG OXYGEN SATURATION 98.9 % (92.0-98.5); ABG PCO2 46.8 mmHg (35.0-45.0); ABG PH 7.277 (7.350-7.450); ABG PO2 353.3 mmHg (75.0-100.0); AaDO2 312.9 mmHg; COHb 2.2 % (0.5-1.5); MetHb 0.3 % (0.0-1.5); O2Hb 96.4 % (94.0-97.0); SITE, ABG Left Radial; VENT MODE, BG NRB
[2018-04-07 23:48] LABS: HEMATOCRIT 29 % (39-51); HEMOGLOBIN 9.1 g/dL (13.5-17.5); MEAN CORPUSCULAR HEMOGLOBIN 29 PG (26.0-33.0); MEAN CORPUSCULAR HGB CONC 31 g/dl (31.0-36.0); MEAN CORPUSCULAR VOLUME 91 fL (80-96); PLATELET COUNT (AUTO) 196 /CMM (150-450); RDW COEFFICIENT OF VARIATION 20.3 (11.5-15.0); WHITE BLOOD COUNT (AUTO) 9.5 K/uL (4.3-11.0)
[2018-04-08] VITALS (10 sets, daily range): BP systolic 134–143; BP diastolic 77–89
[2018-04-08 00:05] LABS: TROPONIN I 0.031 ng/mL (0.00-0.056)
[2018-04-08 00:09] LABS: CALCIUM, SERUM 7.5 mg/dL (8.5-10.1); POTASSIUM 5.8 mmol/L (3.5-5.1)
[2018-04-08 00:27] LABS: NEUTROPHILS % (MANUAL) 81 (42-76)
[2018-04-08 00:28] LABS: EOSINOPHILS % (MANUAL) 8 % (0-4); LYMPHOCYTES % (MANUAL) 6 % (16-48); MONOCYTES % (MANUAL) 5 % (0-11.0)
--- NOTE | 2018-04-08 00:35 | NUR ---
0035 LIAISON ENGINEER DOROTEO AT BEDSIDE AND UPDATED ON PATIENT'S CURRENT CONDITION INCLUDING EPISODES OF BRADYCARDIA IN THE 40S, STAT LABS RESULTS AND PATIENT STILL LETHARGIC BUT AROUSABLE WITH ORDERS MADE. ASKED HIM IF HE WANTED TO TRANSFER PT. TO ICU AND HE SAID KEEP IN DIAZ AND JUST MONITOR PT.'S BLOOD SUGAR. ASKED HIM IF HE WANTS TO PUT F/C ON PT. FOR STRICT INTAKE AND OUTPUT, HE SAID JUST HAVE HIM USE URINAL IF NEEDED. ORDERS NOTED AND CARRIED OUT. LAB NOTIFIED OF ADD ON LAB ORDERS.
--- NOTE | 2018-04-08 01:00 | NUR ---
DIAZ MENDEZ NOTES 5% DEXTROSE IN 0.45% NS WAS STARTED AR 99 BY HUGO MCKEON ORDER. Addendum: 04/08/18 at 0401 by ANNIE DEAL RN IV FLUID ORDER WAS 5% IN 0.45%NS 1000ML @30ML/HR
[2018-04-08 01:14] LABS: MAGNESIUM 2.1 mg/dL (1.8-2.4)
[2018-04-08 01:20] LABS: PHOSPHORUS 8.3 mg/dL (2.5-4.9)
[2018-04-08] MEDS ORDERED: IV D5/0.45 NACL 1,000 ML IV PRN (02:00)
[2018-04-08 02:39] LABS: CALCIUM, SERUM 7.2 mg/dL (8.5-10.1); POTASSIUM 5.5 mmol/L (3.5-5.1)
[2018-04-08 04:33] LABS: CREATININE 19.8 mg/dL (0.6-1.3)
[2018-04-08] MEDS: MORPHINE SULFATE INJ 2 MG/ML DISP.SYRIN IV PRN ×3 (04:43→17:58)
[2018-04-08 06:57] LABS: HEMATOCRIT 24 % (39-51); HEMOGLOBIN 7.9 g/dL (13.5-17.5); MEAN CORPUSCULAR HEMOGLOBIN 30 PG (26.0-33.0); MEAN CORPUSCULAR HGB CONC 33 g/dl (31.0-36.0); MEAN CORPUSCULAR VOLUME 91 fL (80-96); PLATELET COUNT (AUTO) 143 /CMM (150-450); RDW COEFFICIENT OF VARIATION 19.6 (11.5-15.0); RED BLOOD CELL COUNT(AUTO) 2.66 MIL/uL (4.5-6.0); WHITE BLOOD COUNT (AUTO) 7.3 K/uL (4.3-11.0)
--- NOTE | 2018-04-08 07:00 | NUR ---
DIAZ RN NOTES PATIENT IS IN BED, A/OX4, NO SOB, NO PAIN NOTED AT THIS TIME. VERBALLY RESPONSIVE. PATIENT IS STABLE, SR ON [place] GUIDE, ON 3L O2 VIA NC WITH SPO2 OF 100%. LAST GLUCOSE CHECK RESOLUTES TRACEY 86, NO ACTIONS NEEDED. ALL NEEDS ARE ATTENDED, ALL SAFETY MEASURES ARE IMPLEMENTED. PATIENT CARE WILL BE ENDORSED TO AM VANESSA MCCANN FOR PETROLEUM GEOLOGY FACULTY MEMBER.
[2018-04-08 07:27] LABS: ALBUMIN 2.5 g/dL (3.4-5.0); BILIRUBIN,TOTAL 0.5 mg/dL (0.2-1.0); CALCIUM, SERUM 6.9 mg/dL (8.5-10.1); TOTAL PROTEIN, SERUM 7.2 g/dL (6.4-8.2)
[2018-04-08 07:28] LABS: THYROID STIMULATING HORMONE 1.961 uIU/mL (0.358-3.74)
--- NOTE | 2018-04-08 07:50 | NUR ---
RN NOTE RECEIVED PATIENT ALERT AND ORIENTED X4, HE IS ABLE TO MAKE THINGS KNOWN AND VERBALIZE NEEDS. BREATHING EVEN AND UNLABORED WITH NO DISTRESS NOTED. ON CONTINUOUS O2 2L VIA NASAL CANULA, SATURATING WELL. AT THIS TIME PATIENT IS GETTING DIALYSIS. DIALYSIS NURSE AT BEDSIDE. ALL SAFETY MEASURES DONE. BED LOW AND LOCKED POSITION. WILL CONTINUE TO MONITOR.
[2018-04-08] MEDS: BLOOD SUGAR DIAGNOSTIC 1 EACH STRIP IN SCH ×4 (07:54→21:56)
[2018-04-08] MEDS: LEVOTHYROXINE SODIUM 88 MCG TABLET PO SCH (07:55)
[2018-04-08 07:59] LABS: POTASSIUM 6.2 mmol/L (3.5-5.1)
[2018-04-08 08:02] LABS: CREATININE 19.8 mg/dL (0.6-1.3); PHOSPHORUS 9.2 mg/dL (2.5-4.9)
[2018-04-08] MEDS: ASPIRIN 81 MG TAB.CHEW PO SCH (08:40)
[2018-04-08] MEDS: CARISOPRODOL 350 MG TABLET PO SCH (08:40)
[2018-04-08] MEDS: CALCIUM ACETATE 667 MG TABLET PO SCH ×3 (08:40→17:52)
[2018-04-08] MEDS: LACOSAMIDE 50 MG TABLET PO SCH ×2 (08:41→17:52)
[2018-04-08] MEDS: QUETIAPINE FUMARATE 100 MG TABLET PO SCH ×2 (08:41→21:37)
[2018-04-08] MEDS: HEPARIN SODIUM, PORCINE 5000 UNITS/1 ML VIAL SQ SCH ×2 (08:42→21:37)
[2018-04-08 08:49] LABS: LYMPHOCYTES % (MANUAL) 5 % (16-48); MONOCYTES % (MANUAL) 1 % (0-11.0); NEUTROPHILS % (MANUAL) 94 (42-76)
[2018-04-08] MEDS: CARVEDILOL 3.125 MG TABLET PO SCH ×2 (08:53→17:52)
[2018-04-08] MEDS: CHOLECALCIFEROL 1,000 UNIT TABLET (VIT D3) PO SCH (12:36)
[2018-04-08] MEDS: ONDANSETRON HCL/PF 4 MG/2 ML VIAL IVP PRN (17:52)
--- NOTE | 2018-04-08 19:28 | NUR ---
RN NOTE PATIENT REMAINED STABLE THROUGHOUT SHIFT. NO ACUTE CHANGES OR DISTRESS NOTED. WILL ENDORSE TO NEXT SHIFT TO CONTINUE CONTINUITY OF CARE.
--- NOTE | 2018-04-08 21:00 | NUR ---
RN NOTES RECEIVED PATIENT AND REPORT FROM VANESSA BURTON. WILL CONTINUE CARE
--- NOTE | 2018-04-08 21:00 | NUR ---
RN NOTE ENDORSED CARE TO TRACY MENDEZ FOR CONTINUITY OF CARE.
[2018-04-08] MEDS: ZOLPIDEM TARTRATE 10 MG TABLET PO SCH (21:36)
[2018-04-08] MEDS: MIRTAZAPINE 15 MG TABLET PO SCH (21:37)
--- NOTE | 2018-04-09 04:00 | NUR ---
RN NOTES PATIENT REFUSED 04:00 VITAL SIGNS. EXPLAINED RISKS AND BENEFITS. OFFERED 3 TIMES AND STILL REFUSED
--- NOTE | 2018-04-09 07:45 | NUR ---
MS RN OPENING NOTES RECEIVED PT LAYING IN BED, RESTING COMFORTABLE. PT IS A/O X 3-4, AFEBRILE. RESPIRATIONS ARE EVEN AND UNLABORED, NOT IN ANY ACUTE DISTRESS NOTED. NO SOB, N/V. IV SITE INTACT, NO INFILTRATION NOTED. DRESSING KEPT CLEAN AND DRY. SAFETY MEASURES ARE IN PLACE. INSTRUCTED PT TO USE CALL LIGHT WHEN ASSISTANCE IS NEEDED, CALL LIGHT IS LEFT WITHIN REACH. WILL CONTINUE TO MONITOR THROUGHOUT SHIFT FOR CONTINUITY OF CARE.
[2018-04-09 08:00] VITALS: BP 134/84
[2018-04-09] MEDS: LEVOTHYROXINE SODIUM 88 MCG TABLET PO SCH (08:59)
[2018-04-09] MEDS: BLOOD SUGAR DIAGNOSTIC 1 EACH STRIP IN SCH ×4 (08:59→21:21)
[2018-04-09] MEDS: QUETIAPINE FUMARATE 100 MG TABLET PO SCH ×2 (09:00→21:08)
[2018-04-09] MEDS: CALCIUM ACETATE 667 MG TABLET PO SCH ×3 (09:00→17:05)
[2018-04-09] MEDS: LACOSAMIDE 50 MG TABLET PO SCH ×2 (09:00→17:05)
[2018-04-09] MEDS: ASPIRIN 81 MG TAB.CHEW PO SCH (09:00)
[2018-04-09] MEDS: CARVEDILOL 3.125 MG TABLET PO SCH ×2 (09:01→17:05)
[2018-04-09] MEDS: CARISOPRODOL 350 MG TABLET PO SCH (09:44)
[2018-04-09] MEDS: HEPARIN SODIUM, PORCINE 5000 UNITS/1 ML VIAL SQ SCH ×2 (09:45→21:10)
[2018-04-09 10:03] LABS: CALCIUM, SERUM 6.9 mg/dL (8.5-10.1); POTASSIUM 3.4 mmol/L (3.5-5.1)
--- NOTE | 2018-04-09 10:04 | NUR ---
MS RN NOTES PT SEEN AND EXAMINED BY VLAD ARIAS FOR KRYSTYNA BAUTISTA
[2018-04-09 10:08] LABS: CREATININE 8.2 mg/dL (0.6-1.3)
[2018-04-09 10:09] LABS: HEMATOCRIT 26 % (39-51); HEMOGLOBIN 7.9 g/dL (13.5-17.5); MEAN CORPUSCULAR HEMOGLOBIN 28 PG (26.0-33.0); MEAN CORPUSCULAR HGB CONC 31 g/dl (31.0-36.0); MEAN CORPUSCULAR VOLUME 92 fL (80-96); PLATELET COUNT (AUTO) 137 /CMM (150-450); RDW COEFFICIENT OF VARIATION 19.4 (11.5-15.0); RED BLOOD CELL COUNT(AUTO) 2.79 MIL/uL (4.5-6.0); WHITE BLOOD COUNT (AUTO) 5.5 K/uL (4.3-11.0)
--- NOTE | 2018-04-09 11:11 | NUR ---
MS RN NOTES BLOOD SUGAR 68. PT FINISHED DIALYSIS. NO S/SX OF HYPOGLYCEMIA NOTED. PT IS A/O X4. WILL CONTINUE TO MONITOR.
[2018-04-09] MEDS: CHOLECALCIFEROL 1,000 UNIT TABLET (VIT D3) PO SCH (12:03)
[2018-04-09 12:39] LABS: EOSINOPHILS % (MANUAL) 6 % (0-4); LYMPHOCYTES % (MANUAL) 14 % (16-48); MONOCYTES % (MANUAL) 6 % (0-11.0); NEUTROPHILS % (MANUAL) 74 (42-76)
[2018-04-09 16:00] VITALS: BP 121/79
[2018-04-09] MEDS: MORPHINE SULFATE INJ 2 MG/ML DISP.SYRIN IV PRN (17:09)
--- NOTE | 2018-04-09 18:35 | NUR ---
MS RN CLOSING NOTES ALL DUE MEDS GIVEN, NEEDS MET AND ANTICIPATED. PT REMAINS A/O X4, AFEBRILE. RESPIRATIONS ARE EVEN AND UNLABORED, NOT IN ANY ACUTE DISTRESS NOTED. PT DENIES ANY SOB, N/V NOTED. IV SITE IS INTACT, NO INFILTRATION NOTED. DRESSING KEPT CLEAN AND DRY. PT C/O PAIN TO LOWER BACK AND IS MADE AWARE THAT PAIN MEDICATION IS NOT DUE. REPOSITIONED PT TO ALLEVIATE THE PAIN AND PT STATES "THIS WILL DO FOR NOW." SAFETY MEASURES ARE IN PLACE. WILL ENDORSE TO NEXT SHIFT FOR CONTINUITY OF CARE.
--- NOTE | 2018-04-09 19:30 | NUR ---
RN/MS NOTES: RECEIVED PT. IN BED W/ HOB ELEVATED W/ O2 @ 2LPM SAT 97 %. A/O X 4. CONTINENT OF B/B. USES URINAL. HAS LEFT UPPER CHEST MARCELO C/D/I . HAS LEFT CHEST WALL PERMA CATH INTACT W/ DRESSING. HAS LFA W/ 18 G SL PATENT AND INTACT W/ NO S/S OF INFECTION/INFILTRATION NOTED. WILL CONTINUE TO MONITOR.
[2018-04-09] MEDS: ZOLPIDEM TARTRATE 10 MG TABLET PO SCH (21:07)
[2018-04-09] MEDS: MIRTAZAPINE 15 MG TABLET PO SCH (21:08)
[2018-04-10 04:00] VITALS: BP 148/69
--- NOTE | 2018-04-10 07:44 | NUR ---
RN/MS NOTES: REPORT GIVEN TO NEXT SHIFT NURSE FOR [facility].
--- NOTE | 2018-04-10 07:59 | NUR ---
MS RN OPENING NOTES. RECEIVED PT FROM NIGHTSHIFT NURSE IN STABLE CONDITION .PT IS A/O X3. NO SOB OR ACUTE SIGNS OF DISTRESS NOTED. BREATHING IS EVEN AND UNLABORED. PT COMPLAINS OF MEDICAL CHRONIC BACK PAIN RATED AN 10/10. WILL ADMINISTER PRN PAIN MEDICATION. LEFT CHEST WALL PERMACATH NOTED FOR HD ACCESS. PERIPHERAL IV TO LEFT FA IS NOTED TO BE PATENT AND INTACT. NO REDNESS OR SIGNS OF INFILTRATION NOTED. BED IN LOW LOCKED POSITION, SIDE RAILS UP X2, CALL LIGHT WITHIN REACH. WILL CONTINUE TO MONITOR
[2018-04-10 08:00] VITALS: BP 137/90
[2018-04-10] MEDS: CARVEDILOL 3.125 MG TABLET PO SCH ×2 (08:00→17:16)
[2018-04-10] MEDS: LEVOTHYROXINE SODIUM 88 MCG TABLET PO SCH (09:13)
[2018-04-10] MEDS: QUETIAPINE FUMARATE 100 MG TABLET PO SCH ×2 (09:13→21:36)
[2018-04-10] MEDS: CARISOPRODOL 350 MG TABLET PO SCH (09:13)
[2018-04-10] MEDS: BLOOD SUGAR DIAGNOSTIC 1 EACH STRIP IN SCH ×4 (09:13→21:44)
[2018-04-10] MEDS: ASPIRIN 81 MG TAB.CHEW PO SCH (09:14)
[2018-04-10] MEDS: LACOSAMIDE 50 MG TABLET PO SCH ×2 (09:14→17:15)
[2018-04-10] MEDS: CALCIUM ACETATE 667 MG TABLET PO SCH ×3 (09:14→17:22)
[2018-04-10] MEDS: MORPHINE SULFATE INJ 2 MG/ML DISP.SYRIN IV PRN ×2 (09:15→17:22)
[2018-04-10] MEDS: HEPARIN SODIUM, PORCINE 5000 UNITS/1 ML VIAL SQ SCH ×2 (09:27→21:38)
[2018-04-10] MEDS: ONDANSETRON HCL/PF 4 MG/2 ML VIAL IVP PRN (09:29)
[2018-04-10 10:45] LABS: HEMATOCRIT 26 % (39-51); HEMOGLOBIN 8.2 g/dL (13.5-17.5); MEAN CORPUSCULAR HEMOGLOBIN 30 PG (26.0-33.0); MEAN CORPUSCULAR HGB CONC 32 g/dl (31.0-36.0); MEAN CORPUSCULAR VOLUME 93 fL (80-96); PLATELET COUNT (AUTO) 131 /CMM (150-450); RDW COEFFICIENT OF VARIATION 19.8 (11.5-15.0); RED BLOOD CELL COUNT(AUTO) 2.74 MIL/uL (4.5-6.0); WHITE BLOOD COUNT (AUTO) 6.1 K/uL (4.3-11.0)
[2018-04-10 11:26] LABS: POTASSIUM 4.5 mmol/L (3.5-5.1)
[2018-04-10 11:33] LABS: CREATININE 11.4 mg/dL (0.6-1.3)
[2018-04-10] MEDS: CHOLECALCIFEROL 1,000 UNIT TABLET (VIT D3) PO SCH (12:07)
[2018-04-10 12:31] LABS: EOSINOPHILS % (MANUAL) 12 % (0-4); LYMPHOCYTES % (MANUAL) 12 % (16-48); MONOCYTES % (MANUAL) 4 % (0-11.0); NEUTROPHILS % (MANUAL) 72 (42-76)
[2018-04-10 16:00] VITALS: BP 135/82
--- NOTE | 2018-04-10 18:40 | NUR ---
MS RN CLOSING NOTES PT REMAINS STABLE. ALL NEEDS WERE MET DURING SHIFT AND ORDERS CARRIED OUT ACCORDINGLY. ALL DUE MEDS GIVEN. IV REMAINS PATENT AND INTACT. PAIN MANAGED WITH PRN MEDICATIONS. VITALS STABLE AT THIS TIME. WILL ENDORSE TO NIGHTSHIFT NURSE FOR TR[facility]
--- NOTE | 2018-04-10 19:30 | NUR ---
RN/MS NOTES: RECEIVED PT. IN BED W/ HOB ELEVATED. A/O X 4. W/ O2 @ 2LPM VIA N/C SAT. 97%.W/ HL ON LFA G 18 PATENT AND INTACT W/ NO S/S OF INFECTION/INFILTRATION NOTED. W/ LCW PERMA CATH. CONTINENT OF B/B. USES URINAL. ALL DUE MEDS GIVEN AND TOLERATED WELL. CALL LIGHT W/ REACH. WILL CONTINUE TO MONITOR.
[2018-04-10] MEDS: MIRTAZAPINE 15 MG TABLET PO SCH (21:36)
[2018-04-10] MEDS: ZOLPIDEM TARTRATE 10 MG TABLET PO SCH (21:36)
[2018-04-11] MEDS: MORPHINE SULFATE INJ 2 MG/ML DISP.SYRIN IV PRN ×3 (00:18→16:38)
[2018-04-11 04:00] VITALS: BP 143/88
--- NOTE | 2018-04-11 07:30 | NUR ---
MS RN NOTES: RECEIVED PT ON BED ASLEEP, BUT AROUSABLE TO TACTILE STIMULI. NO APPARENT DISTRESS NOTED. DENIES PAIN AND DISCOMFORT AT THIS TIME. ON 2LPM NC, NO SOB NOTED. IV ON LEFT FOREARM #18 INTACT AND PATENT, FLUSHING WELL. CALL LIGHT WITHIN REACH. KEPT CLEAN, DRY AND COMFORTABLE. SAFETY AND FALL PRECAUTIONS OBSERVED AND MAINTAINED. WILL CONTINUE TO MONITOR PT.
[2018-04-11] MEDS: BLOOD SUGAR DIAGNOSTIC 1 EACH STRIP IN SCH ×3 (07:35→16:55)
--- NOTE | 2018-04-11 07:51 | NUR ---
RN/MS NOTES: REPORT GIVEN TO AM NURSE FOR [facility].
[2018-04-11] MEDS: LEVOTHYROXINE SODIUM 88 MCG TABLET PO SCH (07:53)
[2018-04-11 08:00] VITALS: BP 147/93
[2018-04-11] MEDS: CARVEDILOL 3.125 MG TABLET PO SCH (08:00)
[2018-04-11 08:34] LABS: BASOPHILS % (AUTO) 0.2 % (0.0-2.0); EOSINOPHILS % (AUTO) 9.7 % (0.0-6.0); HEMATOCRIT 26 % (39-51); HEMOGLOBIN 8.1 g/dL (13.5-17.5); LYMPHOCYTES # (AUTO) 0.5 /CMM (0.8-4.8); LYMPHOCYTES % (AUTO) 7.8 % (20.0-44.0); MEAN CORPUSCULAR HEMOGLOBIN 29 PG (26.0-33.0); MEAN CORPUSCULAR HGB CONC 32 g/dl (31.0-36.0); MEAN CORPUSCULAR VOLUME 91 fL (80-96); MONOCYTES # (AUTO) 0.5 /CMM (0.1-1.30); MONOCYTES % (AUTO) 6.9 % (2.0-12.0); NEUTROPHILS % (AUTO) 75.4 % (43.0-81.0); PLATELET COUNT (AUTO) 137 /CMM (150-450); RDW COEFFICIENT OF VARIATION 19.6 (11.5-15.0); RED BLOOD CELL COUNT(AUTO) 2.83 MIL/uL (4.5-6.0); WHITE BLOOD COUNT (AUTO) 6.6 K/uL (4.3-11.0)
[2018-04-11] MEDS: CALCIUM ACETATE 667 MG TABLET PO SCH ×2 (08:36→12:33)
[2018-04-11] MEDS: QUETIAPINE FUMARATE 100 MG TABLET PO SCH (08:36)
[2018-04-11] MEDS: LACOSAMIDE 50 MG TABLET PO SCH ×2 (08:36→16:38)
[2018-04-11] MEDS: ASPIRIN 81 MG TAB.CHEW PO SCH (08:36)
[2018-04-11] MEDS: CARISOPRODOL 350 MG TABLET PO SCH (08:37)
--- NOTE | 2018-04-11 08:41 | NUR ---
MS RN NOTES: C[facility]G DUE AT 0900 HELD BECAUSE PT IS SCHEDULED FOR HD TODAY.
[2018-04-11 08:45] LABS: CALCIUM, SERUM 6.9 mg/dL (8.5-10.1); POTASSIUM 4.9 mmol/L (3.5-5.1)
[2018-04-11 08:57] LABS: CREATININE 12.6 mg/dL (0.6-1.3)
[2018-04-11] MEDS: HEPARIN SODIUM, PORCINE 5000 UNITS/1 ML VIAL SQ SCH (08:58)
[2018-04-11] MEDS: CHOLECALCIFEROL 1,000 UNIT TABLET (VIT D3) PO SCH (11:18)
--- NOTE | 2018-04-11 15:28 | NUR ---
MS RN NOTES: REPORT GIVEN TO VANESSA CARRANZA AT [facility].
[2018-04-11 16:00] VITALS: BP 151/95
--- NOTE | 2018-04-11 17:30 | NUR ---
MS RN NOTES: PATIENT WAS DISCHARGED TO [facility] IN A STABLE CONDITION. PT WAS PICKED UP BY 2 HL7 INTERFACE DEVELOPER, NO APPARENT DISTRESS WAS NOTED. VITAL SIGNS STABLE. NO SOB. IV ON LEFT FOREARM REMOVED, NO SIGNS/SYMPTOMS OF BLEEDING NOTED. PICTURES TAKEN AND PLACED ON CHART. BELONGINGS LIST SIGNED. DISCHARGE INSTRUCTIONS GIVEN.
== END 2018-04-11 17:35 | DRG 280 ==
LOC: ER 18:47 → TELE1 21:02 → TELE-TD 23:00 → MEDSG1 04-08 20:39
PROVIDERS: ADMIT Hospitalist; ATTEND Hospitalist
PROC: 5A1D70Z Performance of Urinary Filtration, Intermittent, Less than 6 Hours Per Day (ICD-10-PCS; principal; 2018-04-08)
PROC: 5A1D70Z Performance of Urinary Filtration, Intermittent, Less than 6 Hours Per Day (ICD-10-PCS; 2018-04-09)
PROC: 5A1D70Z Performance of Urinary Filtration, Intermittent, Less than 6 Hours Per Day (ICD-10-PCS; 2018-04-11)
DX: I13.2 Hypertensive heart and chronic kidney disease with heart failure and with stage 5 chronic kidney disease, or end stage renal disease (principal); N18.6 End stage renal disease; I21.A1 Myocardial infarction type 2; E43 Unspecified severe protein-calorie malnutrition; I50.33 Acute on chronic diastolic (congestive) heart failure; J96.21 Acute and chronic respiratory failure with hypoxia; E87.1 Hypo-osmolality and hyponatremia; J98.11 Atelectasis; K21.9 Gastro-esophageal reflux disease without esophagitis; Z99.2 Dependence on renal dialysis; E78.5 Hyperlipidemia, unspecified; E11.22 Type 2 diabetes mellitus with diabetic chronic kidney disease; F17.210 Nicotine dependence, cigarettes, uncomplicated; J44.9 Chronic obstructive pulmonary disease, unspecified; D63.8 Anemia in other chronic diseases classified elsewhere; E03.9 Hypothyroidism, unspecified; E83.39 Other disorders of phosphorus metabolism; E83.51 Hypocalcemia; G89.29 Other chronic pain; E87.5 Hyperkalemia; Z99.81 Dependence on supplemental oxygen; Z91.14 Patient's other noncompliance with medication regimen; I27.20 Pulmonary hypertension, unspecified; E11.649 Type 2 diabetes mellitus with hypoglycemia without coma; D72.810 Lymphocytopenia; E88.09 Other disorders of plasma-protein metabolism, not elsewhere classified; I34.0 Nonrheumatic mitral (valve) insufficiency; Q78.9 Osteochondrodysplasia, unspecified; Z79.4 Long term (current) use of insulin
CPT/HCPCS: 36415; 36600; 71045-TC; 80048-TC; 80053-TC; 80061-TC; 80076-TC; 82962-TC; 83605-TC; 83735-TC; 84100-TC; 84443-TC; 84484-TC; 85025-TC; 85730-TC; 87081-TC; 90935-TC; A4606; J1644; J1815; J1940; J2270; J2405; J3490; Z7610

== ENCOUNTER 2018-04-14 12:55 | Inpatient (IN) | payer MEDICARE ==
[~2018-04-14] VITALS: Ht 185.4 cm; Wt 68.0 kg
--- NOTE | 2018-04-14 13:08 | NUR ---
SENT FROM [facility] FOR HD,. PER REPORT PATIENT'S LAST HD WAS THURSDAY. PATIENT IS AWAKE AND ALERT. NOT IN DISTRESS,. ON O2 VIA NC @2LPM. SKIN IS WARM TO TOUCH AND NON DIAPHORETIC. AFEBRILE. VSS
[2018-04-14 13:52] LABS: BASOPHILS # (AUTO) 0.1 /CMM (0.0-0.2); HEMATOCRIT 26 % (39-51); HEMOGLOBIN 8.3 g/dL (13.5-17.5); LYMPHOCYTES # (AUTO) 0.6 /CMM (0.8-4.8); MEAN CORPUSCULAR HEMOGLOBIN 28 PG (26.0-33.0); MEAN CORPUSCULAR HGB CONC 32 g/dl (31.0-36.0); MEAN CORPUSCULAR VOLUME 89 fL (80-96); MONOCYTES # (AUTO) 0.3 /CMM (0.1-1.30); NEUTROPHILS # (AUTO) 5.1 /CMM (1.8-8.9); PLATELET COUNT (AUTO) 154 /CMM (150-450); RDW COEFFICIENT OF VARIATION 18.3 (11.5-15.0); RED BLOOD CELL COUNT(AUTO) 2.97 MIL/uL (4.5-6.0); WHITE BLOOD COUNT (AUTO) 7.4 K/uL (4.3-11.0)
--- NOTE | 2018-04-14 14:09 | NUR ---
NOTIFIED NURSING ICE CREAM SERVER TO OBTAIN TELE BED FOR THIS PATIENT
[2018-04-14 14:16] LABS: INR 1.09 (0.85-1.15)
--- NOTE | 2018-04-14 14:16 | NUR ---
PT IS ASSIGNED TO [facility] RM#: [id number], DX: RENAL FAILURE, AND ACCEPTING: GEOFFREY CAGLE DNP
[2018-04-14 14:34] LABS: CALCIUM, SERUM 8.2 mg/dL (8.5-10.1); POTASSIUM 5.4 mmol/L (3.5-5.1)
[2018-04-14 14:39] LABS: CREATININE 12.4 mg/dL (0.6-1.3)
[2018-04-14] MEDS ORDERED: SODIUM POLYSTYRENE SULFONATE 15 G/60 ML BOTTLE ONE (14:58)
[2018-04-14] MEDS ORDERED: SODIUM POLYSTYRENE SULFONATE 15 G/60 ML BOTTLE PO ONE (15:00)
--- NOTE | 2018-04-14 15:01 | NUR ---
PT REFUSED KAYEXALATE. NOTIFIED
--- NOTE | 2018-04-14 15:12 | NUR ---
REPORT GIVEN TO VANESSA PACHECO FOR [facility]
[2018-04-14] MEDS ORDERED: Z GUARD REMEDY 2 OZ OINT TP PRN (15:30)
[2018-04-14] MEDS ORDERED: TEMAZEPAM 15 MG CAPSULE PO PRN (15:30)
[2018-04-14] MEDS ORDERED: HYDROCODONE/APAP 5/325MG 1 EACH TABLET PO PRN (15:30)
[2018-04-14] MEDS ORDERED: MORPHINE SULFATE INJ 2 MG/ML DISP.SYRIN IV PRN (15:30)
[2018-04-14] MEDS ORDERED: ACETAMINOPHEN 325 MG TABLET PO PRN (15:30)
[2018-04-14] MEDS ORDERED: DEXTROSE 50%-WATER 50 ML DISP.SYRIN IV PRN (16:00)
[2018-04-14] MEDS ORDERED: INSULIN REGULAR, HUMAN 100 UNIT/ML 3 ML VIAL SQ PRN (16:00)
--- NOTE | 2018-04-14 16:00 | NUR ---
TELE.RN. PT RECEIVED A&0X3, PT WITH O2 VIA NC AT 2LPM WITH SOB AT REST, HX OF O2 DEPENDENCY. PT REPORTS BACK PAIN 04/02 WILL ADMIN PRN. PT WITH IVC AT R HAND G#20 INTACT AND SALINE FLUSH PATENT. HD CATH AT W INTACT. PT REFUSES TO CHANGE TO HOSPITAL GOWN AND PT REFUSES SKIN ASSESSMENT BUT REPORTS NO WOUNDS. PT TELE ESTABLISHED. VITALS WNL. PT BRIEFED ON TODAY'S POC AND IS WITHOUT CONCERN OR COMPLAINT.
[2018-04-14 16:34] VITALS: BP 125/92
--- NOTE | 2018-04-14 16:39 | NUR ---
RADIO AERIAL INSTALLER. CONSENT FOR HD IN CHART.
[2018-04-14] MEDS: BLOOD SUGAR DIAGNOSTIC 1 EACH STRIP IN SCH ×2 (17:01→21:54)
[2018-04-14] MEDS: CALCIUM ACETATE 667 MG TABLET PO SCH (17:08)
--- NOTE | 2018-04-14 18:35 | NUR ---
MANAGER CONFIGURATION. CONFIRMED WITH [facility] HD WILL BE TODAY.
--- NOTE | 2018-04-14 18:36 | NUR ---
PHOTOCOPY OPERATOR CLOSING. PT REMAINS A&0X3, RESTING COMFORTABLY WITH O2 VIA NC AT 3LPM. PT REPORTS ADEQUATE PAIN MANAGEMENT AT THIS TIME. PT WAITING FOR HD. IVC INTACT AND SL. PT BED IN LOWEST LOCKED POSITION WITH HANDRAILSX2 AND CALL NAVA WITHIN REACH, ALL DAY NURSE DUTIES EXCEPT SKIN ASSESSMENT WHICH WAS REFUSED COMPLETED. WILL ENDORSE TO NIGHT NURSE AT BEDSIDE FOR TRINA.
--- NOTE | 2018-04-14 19:19 | NUR ---
AUTO SLIP COVER INSTALLER NOTES RECEIVED PT IN BED, AWAKE, A/O X 4. VERBALLY RESPONSIVE. NO DISTRESS, NO SOB NOTED. RESPIRATION IS EVEN AND UNLABORED. DIALYSIS NURSE AT BED SIDE. DENIES ANY PAIN OR DISCOMFORT AT THIS TIME. IV SITE ON RIGHT HAND INTACT AND PATENT. [facility]W HD CATH INTACT. ALL NEEDS ATTENDED AND MET. SAFETY PRECAUTIONS OBSERVED. CALL LIGHT WITHIN REACH. WILL CONTINUE TO MONITOR.
--- NOTE | 2018-04-14 19:20 | NUR ---
PER PT HE IS MISSING A WALLET WITH $50 IN IT, CHECKED INVENTORY LIST IT WASN'T ON THE INVENTORY, PER JUNIOR, DAY SHIFT RN PT DIDN'T COME WITH WALLET. VANESSA PACHECO PLACED A CALL TO ER AND SPOKE WITH [facility], THEY WILL CALL US BACK IF THEY FIND IT. NURSE THAT WAS WITH THE PT IN ER LEFT ALREADY.
--- NOTE | 2018-04-14 19:20 | NUR ---
PER VANESSA PACHECO WHATEVER IS IN THE BELONGING LIST , THOSE ARE THE ONLY BELONGINGS THAT THE PT CAME HERE WITH.
[2018-04-14 20:00] VITALS: BP 132/75
--- NOTE | 2018-04-14 20:17 | NUR ---
PER PT HE WILL ORDER FOOD FROM OUTSIDE TO GET DELIVERED. EDUCATED PT REGARDING HIS DIET, ( RENAL ) DIET, RISK AND BENEFITS EXPLAINED. PT VERBALIZED " I DON'T CARE". LAURA. CRAWFORD AT BEDSIDE.
[2018-04-14] MEDS: LACOSAMIDE 50 MG TABLET PO SCH (21:57)
[2018-04-14] MEDS: CARVEDILOL 3.125 MG TABLET PO SCH (21:57)
[2018-04-14] MEDS: QUETIAPINE FUMARATE 100 MG TABLET PO SCH (21:58)
[2018-04-14] MEDS: MIRTAZAPINE 15 MG TABLET PO SCH (21:58)
[2018-04-14] MEDS: ZOLPIDEM TARTRATE 10 MG TABLET PO SCH (21:59)
[2018-04-14] MEDS: MORPHINE SULFATE INJ 2 MG/ML DISP.SYRIN IV PRN (23:00)
[2018-04-15] VITALS (7 sets, daily range): BP systolic 122–159; BP diastolic 64–95
[2018-04-15] MEDS: BLOOD SUGAR DIAGNOSTIC 1 EACH STRIP IN SCH ×4 (06:02→21:28)
[2018-04-15] MEDS: MORPHINE SULFATE INJ 2 MG/ML DISP.SYRIN IV PRN ×4 (06:16→22:24)
[2018-04-15 06:27] LABS: HEMATOCRIT 26 % (39-51); HEMOGLOBIN 8.5 g/dL (13.5-17.5); MEAN CORPUSCULAR HEMOGLOBIN 31 PG (26.0-33.0); MEAN CORPUSCULAR HGB CONC 33 g/dl (31.0-36.0); MEAN CORPUSCULAR VOLUME 94 fL (80-96); PLATELET COUNT (AUTO) 146 /CMM (150-450); RDW COEFFICIENT OF VARIATION 19.4 (11.5-15.0); RED BLOOD CELL COUNT(AUTO) 2.78 MIL/uL (4.5-6.0)
--- NOTE | 2018-04-15 06:35 | NUR ---
PT ON SR BBB 95 ON TELE MONITOR
--- NOTE | 2018-04-15 06:37 | NUR ---
DEPUTY SHERIFF/INVESTIGATOR NOTES PT IN BED, AWAKE, WATCHING TV AT THIS TIME, A/O X 4. VERBALLY RESPONSIVE. NO DISTRESS, NO SOB NOTED. RESPIRATION IS EVEN AND UNLABORED. DENIES ANY PAIN OR DISCOMFORT AT THIS TIME. IV SITE ON RIGHT HAND INTACT AND PATENT. NO S/S OF INFILTRATION NOTED. NO S/S OF HYPO/ HYPERGLYCEMIA NOTED. LCW HD CATH INTACT. ALL NEEDS ATTENDED AND MET. SAFETY PRECAUTIONS OBSERVED. CALL LIGHT WITHIN REACH. WILL ENDORSE TO NEXT SHIFT ACCORDINGLY.
[2018-04-15 07:02] LABS: CALCIUM, SERUM 7.7 mg/dL (8.5-10.1); MAGNESIUM 1.7 mg/dL (1.8-2.4); PHOSPHORUS 5.3 mg/dL (2.5-4.9)
[2018-04-15 07:11] LABS: CREATININE 9.5 mg/dL (0.6-1.3)
--- NOTE | 2018-04-15 07:52 | NUR ---
MAINTENANCE WELDER OPENING NOTES RECEIVED PT FROM NIGHTSHIFT NURSE IN STABLE CONDITION. PT IS A/O X3. NO SOB OR ACUTE SIGNS PF DISTRESS NOTED. BREATHING IS EVEN AND UNLABORED. PT ON 3L VIA NC AND SATING WELL. HE DOES COMPLAIN OF LOWER BACK PAIN RATED A 8/10. WILL ADMINISTER PRN PAIN MEDICATION WHEN DUE. IV TO RIGHT HAND NOTED TO BE PATENT AND INTACT. NO REDNESS OR SIGNS OF INFILTRATION NOTED. LEFT UPPER CHEST WALL PERMACATH NOTED FOR HD ACCESS. BED IN LOW LOCKED POSITION, SIDE RAILS UP X2, CALL LIGHT WITHIN REACH. WILL CONTINUE TO MONITOR
[2018-04-15 08:16] LABS: EOSINOPHILS % (MANUAL) 23 % (0-4); LYMPHOCYTES % (MANUAL) 8 % (16-48); MONOCYTES % (MANUAL) 5 % (0-11.0); NEUTROPHILS % (MANUAL) 64 (42-76)
[2018-04-15] MEDS: LEVOTHYROXINE SODIUM 88 MCG TABLET PO SCH (08:25)
[2018-04-15] MEDS: QUETIAPINE FUMARATE 100 MG TABLET PO SCH ×2 (08:25→22:02)
[2018-04-15] MEDS: CALCIUM ACETATE 667 MG TABLET PO SCH ×3 (08:25→17:12)
[2018-04-15] MEDS: CHOLECALCIFEROL 1,000 UNIT TABLET (VIT D3) PO SCH (08:26)
[2018-04-15] MEDS: ASPIRIN 81 MG TAB.CHEW PO SCH (08:26)
[2018-04-15] MEDS: LACOSAMIDE 50 MG TABLET PO SCH ×2 (08:26→21:11)
[2018-04-15] MEDS: CARISOPRODOL 350 MG TABLET PO SCH (08:27)
[2018-04-15] MEDS: CARVEDILOL 3.125 MG TABLET PO SCH ×2 (09:00→21:10)
--- NOTE | 2018-04-15 15:24 | NUR ---
REPAIRER WOOD FURNITURE NOTES: MAGNESIUM REPLACEMENT DR MCRAE NOTIFIED OF PT'S MAGNESIUM OF 1.7. PER MD "ELECTROLYTE DOES NOT NEED TO BE REPLACED THE PT IS A DIALYSIS PT"
--- NOTE | 2018-04-15 18:51 | NUR ---
MS RN CLOSING NOTES PT REMAINS STABLE. ALL NEEDS MET DURING SHIFT AND ORDERS CARRIED OUT ACCORDINGLY. ALL DUE MEDS GIVEN. PAIN PROPERLY MANAGED WITH PRN MORPHINE ADMINISTRATION. PT STABLE POST HD. 2L REMOVED. VITALS STABLE. IV REMAINS PATENT AND INTACT. SAFETY MEASURES REMAIN IN PLACE. WILL ENDORSE TO NIGHTSHIFT NURSE FOR TRINA
--- NOTE | 2018-04-15 19:30 | NUR ---
MS/REIMBURSEMENT SPEC; RECEIVED PT IN BED SITTING POSITION. O2 2L NC ON. BREATHING NON LABORED. DENIES PAIN AT THIS TIME.BED ON LOWER POSITION AND LOCKED FRO SAFETY. SIDE RAILS X2 ARE UP FOR SAFETY. CALL LIGHT AND URINAL WITHIN REACH.
--- NOTE | 2018-04-15 19:45 | NUR ---
MS/BIOLOGICAL INSPECTOR; RE CHECKED PT AND HE SAID I AM BETTER. HL ON RH # 18 INTACT. AV SHUNT ON MG INTACT.
--- NOTE | 2018-04-15 20:10 | NUR ---
MS/LIQUID FLOOR AND WALL APPLIER; PT CALL WANTS SOMETHING TO EAT. EGG SANDWICH GIVEN.
[2018-04-15] MEDS: MIRTAZAPINE 15 MG TABLET PO SCH (21:12)
--- NOTE | 2018-04-15 21:30 | NUR ---
MS/NURSERY HAND; BS 123 NO COVERAGE.
--- NOTE | 2018-04-15 22:05 | NUR ---
MS/CENTRAL SUPPLY TECHNICIAN; PT WANTS HIS AMBIEN AND PAIN SHOT OF MORPHINE. I TOLD THE PT THAT I CAN'T GIVE AMBIEN AND MORPHINE PAIN SHOT TOGETHER. I TOLD THE CHARGE NURSE OF THE ABOVE AND SHE SAID TELL THE PT TO HAVE YHE PAIN SHOT FIRST AND THEN IF HE IS STILL AWAKE IN HALF HOUR THEN HE CAN HAVE AMBIEN. SO I TOLD THE PT TO HAVE PAIN SHOT FIRST THEN LATER ON AMBIEN AND HE SAID OK. BP 153/83 , HR 94. SO I TOLD THE RN TO GIVE PAIN SHOT AND I WENT BACK TO THE PT AND TOLD HIM THAT THE RN IS COMING TO GIVE THE MORPHINE SHOT.
[2018-04-15] MEDS: ZOLPIDEM TARTRATE 10 MG TABLET PO SCH (22:57)
--- NOTE | 2018-04-16 06:00 | NUR ---
MS/RAILROAD YARD WORKER; BS 104 NO COVERAGE.
--- NOTE | 2018-04-16 06:15 | NUR ---
MS/6TH GRADE TEACHER; PT C/O BACK PAIN WITH PAIN LEVEL OF 8 OUT OF 10. BP 147.93 ON RA, HR 98. I TOLD THE PT I WILL TELL THE RN TO GIVE MORPHINE IV SHOT. ALSO AT THIS TIME I ASKED THE PT FOR SKIN ASSESSMENT AND PHOTOS PT REFUSED. I TOLD THE RN FOR PT'S PAIN SHOT.
[2018-04-16] MEDS: BLOOD SUGAR DIAGNOSTIC 1 EACH STRIP IN SCH ×4 (06:19→21:02)
[2018-04-16] MEDS: MORPHINE SULFATE INJ 2 MG/ML DISP.SYRIN IV PRN ×2 (06:33→12:07)
--- NOTE | 2018-04-16 06:50 | NUR ---
MS/BELT PICKER; PT SAID HE VOIDED AT THE BATHROOM. BREATHING NON LABORED. PT REFUSED BODY SKIN ASSESSMENT AND PHOTOS. BY THE LOOK PT BOTH UPPER AND LOWER EXTREMITIES ARE DRY AND WITH SCABS. PT SLEPT FAIRLY. CONTINUE TO MONITOR. WILL ENDORSE TO THE DAY SHIFT NURSE FOR CONTINUITY OF CARE.
[2018-04-16 07:06] LABS: HEMATOCRIT 25 % (39-51); HEMOGLOBIN 7.9 g/dL (13.5-17.5); MEAN CORPUSCULAR HEMOGLOBIN 30 PG (26.0-33.0); MEAN CORPUSCULAR HGB CONC 32 g/dl (31.0-36.0); MEAN CORPUSCULAR VOLUME 95 fL (80-96); PLATELET COUNT (AUTO) 140 /CMM (150-450); RED BLOOD CELL COUNT(AUTO) 2.66 MIL/uL (4.5-6.0); WHITE BLOOD COUNT (AUTO) 6.1 K/uL (4.3-11.0)
[2018-04-16 07:15] VITALS: BP 147/93
[2018-04-16 07:18] LABS: CALCIUM, SERUM 7.7 mg/dL (8.5-10.1)
[2018-04-16 07:21] LABS: CREATININE 8.2 mg/dL (0.6-1.3)
--- NOTE | 2018-04-16 07:42 | NUR ---
MS RN OPENING NOTES RECEIVED PT FROM NIGHTSHIFT NURSE IN STABLE CONDITION. PT IS A/O X3. NO SOB OR ACUTE SIGNS PF DISTRESS NOTED. BREATHING IS EVEN AND UNLABORED. PT ON 3L VIA NC AND SATING WELL. HE DOES COMPLAIN OF LOWER BACK PAIN RATED A 8.5/10. WILL ADMINISTER PRN PAIN MEDICATION WHEN DUE. IV TO RIGHT HAND NOTED TO BE PATENT AND INTACT. NO REDNESS OR SIGNS OF INFILTRATION NOTED. LEFT UPPER CHEST WALL PERMACATH NOTED FOR HD ACCESS. BED IN LOW LOCKED POSITION, SIDE RAILS UP X2, CALL LIGHT WITHIN REACH. WILL CONTINUE TO MONITOR
[2018-04-16 08:00] VITALS: BP 117/73
[2018-04-16 08:50] LABS: EOSINOPHILS % (MANUAL) 10 % (0-4); LYMPHOCYTES % (MANUAL) 6 % (16-48); MONOCYTES % (MANUAL) 7 % (0-11.0); NEUTROPHILS % (MANUAL) 77 (42-76)
[2018-04-16] MEDS: CARISOPRODOL 350 MG TABLET PO SCH (09:05)
[2018-04-16] MEDS: ASPIRIN 81 MG TAB.CHEW PO SCH (09:05)
[2018-04-16] MEDS: CHOLECALCIFEROL 1,000 UNIT TABLET (VIT D3) PO SCH (09:06)
[2018-04-16] MEDS: LACOSAMIDE 50 MG TABLET PO SCH ×2 (09:06→20:15)
[2018-04-16] MEDS: CALCIUM ACETATE 667 MG TABLET PO SCH ×3 (09:06→17:05)
[2018-04-16] MEDS: QUETIAPINE FUMARATE 100 MG TABLET PO SCH ×2 (09:06→22:54)
[2018-04-16] MEDS: LEVOTHYROXINE SODIUM 88 MCG TABLET PO SCH (09:06)
[2018-04-16] MEDS: CARVEDILOL 3.125 MG TABLET PO SCH ×2 (09:07→20:15)
[2018-04-16 16:00] VITALS: BP 129/90
--- NOTE | 2018-04-16 16:08 | NUR ---
MS RN NOTES: PT BELONGINGS PT STATES THAT HE IS MISSING HIS WALLET, PANTS, AND WATCH. NONE OF THESES ITEMS WERE LISTED ON THE PT'S INVENTORY LIST. PT'S FACILITY CONTACTED AND STATED THAT THE PT'S BELONGINGS ARE IN THE GLASS PRESSER OFFICE. PT MADE AWARE
[2018-04-16] MEDS: MORPHINE SULFATE INJ 4 MG/ML DISP.SYRIN IV PRN ×2 (16:28→21:15)
--- NOTE | 2018-04-16 18:55 | NUR ---
MS RN CLOSING NOTES PT REMAINS STABLE. ALL NEEDS MET DURING SHIFT AND ORDERS CARRIED OUT ACCORDINGLY. ALL DUE MEDS GIVEN. PAIN PROPERLY MANAGED WITH PRN MORPHINE ADMINISTRATION. IV REMAINS PATENT AND INTACT. SAFETY MEASURES REMAIN IN PLACE. WILL ENDORSE TO NIGHTSHIFT NURSE FOR TRINA
--- NOTE | 2018-04-16 19:30 | NUR ---
RN MS OPENING NOTES RECEIVED PATIENT IN BED, AWAKE ALERT AND ORIENTED X3, ABLE TO MAKE NEEDS KNOWN. ON 02 2 L VIA NC,RESPIRATIONS EVEN AND UNLABORED WITH EQUAL RISE AND FALL OF CHEST. IV SL TO RIGHT HAND #20 G INTACT AND PATENT,NO REDNESS, NO INFILTRATION PRESENT, LCW HD CATH INTACT, DRY DRESSING INTACT. ALL NEEDS ATTENDED AT THIS TIME,ORIENTED TO STAFF AND CALL LIGHT, CALL LIGHT KEPT WITHIN REACH, SAFETY PRECAUTIONS IN PLACE, LOW BED AND LOCKED. REMAINS COMFORTABLE AT THIS TIME, PATIENT PROVIDED WITH SNACKS AND ICE CHIPS WILL CONTINUE TO MONITOR.
[2018-04-16 20:00] VITALS: BP 155/94
--- NOTE | 2018-04-16 21:03 | NUR ---
RN MS NOTES BLOOD SUGAR 113 NO INSULIN NEEDED A THIS TIME PER SLIDING SCALE.
--- NOTE | 2018-04-16 21:43 | NUR ---
RN MS NOTES PATIENT COMPLAINT HAVING A HARD TIME BREATHE. PATIENT ON 02 2 LITERS VIA NC. CURRENT VITAL SIGNS, 152/98,94,100% 02 SAT, RESP. 19,TEMP 98.8 ,NO COUGH NO CONGESTION NOTES LUNG SOUNDS CLEAR. 2144- RT CALLED FOR PRN BREATHING TREATMENT.
[2018-04-16] MEDS: ALBUTEROL FS 2.5 MG/3 ML VIAL.NEB NEB PRN (21:50)
--- NOTE | 2018-04-16 21:52 | NUR ---
RN MS NOTES BREATHING TREATMENT RECEIVED. WILL CONTINUE TO MONITOR EFFECTIVENESS
--- NOTE | 2018-04-16 22:00 | NUR ---
RN MS NOTES PER PATIENT PAIN HAS NOT DECREASED AT THIS TIME WILL CONTINUE TO MONITOR.
--- NOTE | 2018-04-16 22:06 | NUR ---
RN MS NOTES UPON ASSESSMENT NOTED 02 SAT REMAIN AT 97-100% ON 02 2L. HR 95 RR 18 PER PATIENT STATES " FEEL A LITTLE BETTER". WILL CONTINUE TO MONITOR. VITAL SIGNS REMAINS STABLE AT THIS TIME.
[2018-04-16] MEDS: MIRTAZAPINE 15 MG TABLET PO SCH (22:13)
--- NOTE | 2018-04-16 22:57 | NUR ---
RN MS NOTES UPON NURSE ASSESSMENT, PATIENT NOTED TO BE FREE OF FACIAL GRIMACING, PATIENT IS CURRENTLY WATCHING TV AT THIS TIME 02 SAT 97% ON 2 L VIA NC
[2018-04-16] MEDS: ZOLPIDEM TARTRATE 10 MG TABLET PO SCH (23:28)
--- NOTE | 2018-04-16 23:58 | NUR ---
RN MS NOTES PATIENT COMPLAINT OF PAIN TO BACK 10/10 ACHING AND WITH SOB NOTED RESPIRATIONS AT 25, 02 SAT 97% ON 2L VIA NASAL CANNULA BLOOD PRESSURE 159/87, TEMP 97.8 HR 98. OFFERED PATIENT NORCO PER PATIENT NORCO DOES NOT WORK. PATIENT STATES CASI HAS WORKED FOR HIM IN PAST. MD MADE AWARE VASILIY,WALTER OF FINDINGS AND INTERVENTIONS PROVIDED SUCH MORPHINE GIVEN, WITH NEW ORDER FOR MORPHINE 4MG Q3HR PRN, AND OKAY TO GIVE ONE DOSE NOW.
--- NOTE | 2018-04-17 00:34 | NUR ---
RN MS NOTES PRN DOSE MORPHINE VIA IV GIVEN ORDERED. WILL CONTINUE TO MONITOR
[2018-04-17] MEDS: MORPHINE SULFATE INJ 4 MG/ML DISP.SYRIN IV PRN ×3 (00:47→22:27)
[2018-04-17] MEDS: ONDANSETRON HCL/PF 4 MG/2 ML VIAL IVP PRN (01:09)
--- NOTE | 2018-04-17 01:09 | NUR ---
rn ms notes patient complaint of nausea, zofran prn offered as ordered patient agreed to take. given as ordered will continue to monitor for effectiveness, no episode of vomiting at this time.
--- NOTE | 2018-04-17 02:18 | NUR ---
RN MS NOTES NOTED PATIENT IS SLEEPING AT THIS TIME, MORPHINE DOSE WAS EFFECTIVE, ZOFRAN WAS ALSO EFFECTIVE.
[2018-04-17] MEDS: BLOOD SUGAR DIAGNOSTIC 1 EACH STRIP IN SCH ×4 (06:31→21:33)
--- NOTE | 2018-04-17 06:31 | NUR ---
rn ms notes no insulin needed at this time blood sugar 100.
--- NOTE | 2018-04-17 06:49 | NUR ---
RN MS CLOSING NOTES 0612-PATIENT COMPLAINT OF PAIN 04/02 TO BACK REQUESTING FOR MORPHINE. VITAL SIGNS TAKEN NOTED WNL, RR 17, 02 SAT 97% ON 2 LVIA NC BP146/98,HR 85. PRN MORPHINE GIVEN ORDERED. 0649- UPON REASSESSMENT NOTED MORPHINE EFFECTIVE,STATES "IT'S BETTER" PATIENT IS SLEEPING BUT EASILY AROUSABLE, NO RESPIRATORY DISTRESS PRESENT, ON 2 L VIA NC ,SAFETY PRECAUTIONS IN PLACE, CALL LIGHT KEPT WITHIN REACH, IV SITE TO RIGHT HAND#20 G INTACT AND PATENT, ALL NEEDS ATTENDED AT THIS TIME, WILL CONTINUE TO MONITOR AND ENDORSE TO NEXT SHIFT.
[2018-04-17 07:06] LABS: HEMATOCRIT 27 % (39-51); HEMOGLOBIN 8.4 g/dL (13.5-17.5); MEAN CORPUSCULAR HEMOGLOBIN 30 PG (26.0-33.0); MEAN CORPUSCULAR HGB CONC 32 g/dl (31.0-36.0); MEAN CORPUSCULAR VOLUME 94 fL (80-96); PLATELET COUNT (AUTO) 145 /CMM (150-450); RDW COEFFICIENT OF VARIATION 20.2 (11.5-15.0); WHITE BLOOD COUNT (AUTO) 6.5 K/uL (4.3-11.0)
[2018-04-17 07:11] LABS: CALCIUM, SERUM 7.9 mg/dL (8.5-10.1); POTASSIUM 5.8 mmol/L (3.5-5.1)
[2018-04-17 07:13] LABS: CREATININE 9.3 mg/dL (0.6-1.3)
--- NOTE | 2018-04-17 07:20 | NUR ---
RN OPENING NOTES RECEIVED PT. PT IS STABLE AND RESTING IN BED. PT HAS C/O BOUTS OF SOB THROUGHOUT NIGHT. PRN ALBUTEROL TREATMENT GIVEN IN AM. AT THE MOMENT BREATHING IS EVEN/UNLABORED, O2 SAT WNL, RR 18. PT SCHEDULED FOR HD TODAY. PER MD NOTE, PT TO BE D/C ONCE ABLE TO OBTAIN RESERVATION FOR OUTPATIENT HD CHAIR. SAFETY MEASURES IN PLACE, CALL LIGHT WITHIN REACH. WILL CONTINUE TO MONITOR.
[2018-04-17] MEDS ORDERED: SODIUM POLYSTYRENE SULFONATE 15 G/60 ML BOTTLE PO ONE (07:30)
[2018-04-17 08:00] VITALS: BP 134/86
[2018-04-17] MEDS: LACOSAMIDE 50 MG TABLET PO SCH ×2 (08:26→20:47)
[2018-04-17 08:27] LABS: EOSINOPHILS % (MANUAL) 4 % (0-4); LYMPHOCYTES % (MANUAL) 8 % (16-48); MONOCYTES % (MANUAL) 8 % (0-11.0); NEUTROPHILS % (MANUAL) 80 (42-76)
[2018-04-17] MEDS: LEVOTHYROXINE SODIUM 88 MCG TABLET PO SCH (08:27)
[2018-04-17] MEDS: QUETIAPINE FUMARATE 100 MG TABLET PO SCH ×2 (08:27→22:04)
[2018-04-17] MEDS: CALCIUM ACETATE 667 MG TABLET PO SCH ×3 (08:27→17:06)
[2018-04-17] MEDS: CARISOPRODOL 350 MG TABLET PO SCH (08:27)
[2018-04-17] MEDS: CHOLECALCIFEROL 1,000 UNIT TABLET (VIT D3) PO SCH (08:27)
[2018-04-17] MEDS: ASPIRIN 81 MG TAB.CHEW PO SCH (08:28)
[2018-04-17] MEDS: CARVEDILOL 3.125 MG TABLET PO SCH ×2 (08:28→20:46)
[2018-04-17 09:00] VITALS: BP 134/86
[2018-04-17] MEDS: ALBUTEROL FS 2.5 MG/3 ML VIAL.NEB NEB PRN ×2 (10:15→10:16)
--- NOTE | 2018-04-17 10:28 | NUR ---
RN NOTES PT HAS C/O SOB AND DIFFICULTY BREATHING. O2 SAT WNL, RR AT 16. UPON AUSCULTATION LUNG SOUNDS ARE SLIGHTLY DIMINISHED BILATERALLY. RT CALLED FOR PRN TREATMENT. WILL CONTINUE TO MONITOR.
[2018-04-17] MEDS ORDERED: FUROSEMIDE 20 MG/2 ML VIAL IV ONE (12:00)
[2018-04-17 16:00] VITALS: BP 141/81
--- NOTE | 2018-04-17 19:18 | NUR ---
RN CLOSING NOTES PT IN BED RESTING. S/P HD WITH APPROX 1L OUTPUT. PT TOLERATED WELL. PT TO BE DC ONCE HD OUTPATIENT CHAIR IS RESERVED. WILL F/U WITH CASE MANAGEMENT. ALL PT NEEDS ANTICIPATED AND MET, SAFETY MEASURES IN PLACE. CALL LIGHT WITHIN REACH. WILL ENDORSE TO YOUTH CARE WORKER FOR TRINA.
[2018-04-17 20:00] VITALS: BP 150/89
--- NOTE | 2018-04-17 21:30 | NUR ---
MS RN NOTES ACCU-CHECK BLOOD SUGAR CHECK 122,NO INSULIN COVERAGE.
[2018-04-17] MEDS: ZOLPIDEM TARTRATE 10 MG TABLET PO SCH (22:04)
[2018-04-17] MEDS: MIRTAZAPINE 15 MG TABLET PO SCH (22:04)
--- NOTE | 2018-04-17 22:27 | NUR ---
MS RN NOTES PAIN MANAGEMENT C/O PAIN 9/10 ON PAIN SCALE VIA MID BACK AND LOWER EXTREMITIES.MEDICATED WITH MORPHINE 4MG IV ORDERED FOR SEVERE PAIN.
[2018-04-18] MEDS: MORPHINE SULFATE INJ 4 MG/ML DISP.SYRIN IV PRN ×2 (02:33→06:15)
--- NOTE | 2018-04-18 02:33 | NUR ---
MS RN NOTES PAIN MANAGEMENT AWAKE,C/O MID BACK PAIN 8/10 ON PAIN SCALE.MORPHINE 4MG IV GIVEN ORDERED
--- NOTE | 2018-04-18 05:45 | NUR ---
MS RN NOTES ACCU-CHECK BLOOD SUGAR CHECK 82,NO INSULIN COVERAGE.
--- NOTE | 2018-04-18 06:15 | NUR ---
MS RN NOTES PAIN MANAGEMENT AWAKE,C/O BACK PAIN AND LOWER EXTREMITIES.MORPHINE 4MG IV GIVEN ORDERED.
--- NOTE | 2018-04-18 06:34 | NUR ---
MS RN NOTES IN BED A/O X4,SLEPT WELL,PAIN MANAGEMENT EFFECTIVE.CALL LIGHT IN REACH,NEEDS ATTENDED.WILL ENDORSE TO DAY NURSE FOR TRINA.
--- NOTE | 2018-04-18 07:20 | NUR ---
RN OPENING NOTES RECEIVED PT. PT IS STABLE AND RESTING IN BED. PT BREATHING EVEN UNLABORED. PT SCHEDULED FOR HD TODAY. PER MD NOTE, PT TO BE D/C ONCE ABLE TO OBTAIN RESERVATION FOR OUTPATIENT HD CHAIR. SAFETY MEASURES IN PLACE, CALL LIGHT WITHIN REACH. WILL CONTINUE TO MONITOR.
[2018-04-18] MEDS: BLOOD SUGAR DIAGNOSTIC 1 EACH STRIP IN SCH ×4 (07:41→21:09)
[2018-04-18] MEDS: LEVOTHYROXINE SODIUM 88 MCG TABLET PO SCH (07:42)
[2018-04-18] MEDS: CALCIUM ACETATE 667 MG TABLET PO SCH ×3 (07:42→18:37)
[2018-04-18 07:43] LABS: HEMATOCRIT 25 % (39-51); HEMOGLOBIN 7.6 g/dL (13.5-17.5); MEAN CORPUSCULAR HEMOGLOBIN 29 PG (26.0-33.0); MEAN CORPUSCULAR HGB CONC 31 g/dl (31.0-36.0); MEAN CORPUSCULAR VOLUME 94 fL (80-96); PLATELET COUNT (AUTO) 136 /CMM (150-450); RED BLOOD CELL COUNT(AUTO) 2.66 MIL/uL (4.5-6.0); WHITE BLOOD COUNT (AUTO) 5.7 K/uL (4.3-11.0)
[2018-04-18 07:58] LABS: CALCIUM, SERUM 7.9 mg/dL (8.5-10.1); POTASSIUM 5.3 mmol/L (3.5-5.1)
[2018-04-18 07:59] LABS: CREATININE 7.7 mg/dL (0.6-1.3)
[2018-04-18 08:00] VITALS: BP 155/101
[2018-04-18] MEDS: ASPIRIN 81 MG TAB.CHEW PO SCH (08:39)
[2018-04-18] MEDS: CARISOPRODOL 350 MG TABLET PO SCH (08:40)
[2018-04-18] MEDS: QUETIAPINE FUMARATE 100 MG TABLET PO SCH ×2 (08:41→21:46)
[2018-04-18] MEDS: LACOSAMIDE 50 MG TABLET PO SCH ×2 (08:41→21:03)
[2018-04-18] MEDS: CHOLECALCIFEROL 1,000 UNIT TABLET (VIT D3) PO SCH (08:41)
[2018-04-18] MEDS: CARVEDILOL 3.125 MG TABLET PO SCH ×2 (08:42→21:03)
[2018-04-18] MEDS ORDERED: SODIUM POLYSTYRENE SULFONATE 15 G/60 ML BOTTLE PO ONE (09:00)
[2018-04-18 09:09] LABS: EOSINOPHILS % (MANUAL) 11 % (0-4); LYMPHOCYTES % (MANUAL) 10 % (16-48); MONOCYTES % (MANUAL) 6 % (0-11.0); NEUTROPHILS % (MANUAL) 73 (42-76)
[2018-04-18] MEDS: HYDROMORPHONE 1 MG/1 ML DISP.SYRIN IV PRN ×2 (09:37→18:59)
[2018-04-18] MEDS: ONDANSETRON HCL/PF 4 MG/2 ML VIAL IVP PRN (12:16)
[2018-04-18 16:00] VITALS: BP 150/98
--- NOTE | 2018-04-18 18:45 | NUR ---
RN CLOSING NOTES PT IN BED RESTING. S/P HD WITH APPROX 1.5L OUTPUT. PT TOLERATED WELL. PT TO BE DC ONCE HD OUTPATIENT CHAIR IS RESERVED, EXPECTED D/C DATE TOMORROW 04/19. WILL F/U WITH CASE MANAGEMENT. ALL PT NEEDS ANTICIPATED AND MET, SAFETY MEASURES IN PLACE. CALL LIGHT WITHIN REACH. WILL ENDORSE TO TOASTER ELEMENT REPAIRER FOR TRINA.
--- NOTE | 2018-04-18 19:00 | NUR ---
MS RN OPENING NOTES PT RESTING IN BED. BREATHING EVEN /UNLABORED.VS ARE STABLE. POSSIBLE D/C TOMORROW. SAFETY MEASURES IN PLACE, CALL LIGHT WITHIN REACH. WILL CONTINUE TO MONITOR.
[2018-04-18 20:00] VITALS: BP 144/77
[2018-04-18] MEDS: MIRTAZAPINE 15 MG TABLET PO SCH (21:45)
[2018-04-18] MEDS: ZOLPIDEM TARTRATE 10 MG TABLET PO SCH (21:46)
[2018-04-19] MEDS: HYDROMORPHONE 1 MG/1 ML DISP.SYRIN IV PRN ×5 (03:14→22:05)
[2018-04-19] MEDS: BLOOD SUGAR DIAGNOSTIC 1 EACH STRIP IN SCH ×4 (06:19→22:58)
--- NOTE | 2018-04-19 07:12 | NUR ---
MS RN CLOSING NOTES PT IN BED RESTING. PT ON O2 VIA NC 2L. PT TO BE DC ONCE HD OUTPATIENT CHAIR IS RESERVED, EXPECTED D/C DATE TODAY 04/19. ALL PT NEEDS ANTICIPATED AND MET, SAFETY MEASURES IN PLACE. CALL LIGHT WITHIN REACH. WILL ENDORSE TO NEXT SHIFT FOR TRINA.
--- NOTE | 2018-04-19 07:15 | NUR ---
RN NOTES PT IS SITTING UP IN BED, AWAKE AND ALERT. PT ON 3L O2, RESPIRATIONS ARE EVEN AND UNLABORED. IV ON L WRIST INTACT AND SL. NO SIGNS OF DISTRESS NOTED. SAFETY MEASURES ARE IN PLACE, CALL LIGHT IS IN REACH. WILL CONTINUE TO MONITOR.
[2018-04-19 07:28] LABS: EOSINOPHILS % (AUTO) 15.7 % (0.0-6.0); HEMATOCRIT 24 % (39-51); HEMOGLOBIN 7.4 g/dL (13.5-17.5); LYMPHOCYTES # (AUTO) 1.2 /CMM (0.8-4.8); MEAN CORPUSCULAR HEMOGLOBIN 30 PG (26.0-33.0); MEAN CORPUSCULAR HGB CONC 32 g/dl (31.0-36.0); MEAN CORPUSCULAR VOLUME 94 fL (80-96); MONOCYTES # (AUTO) 0.4 /CMM (0.1-1.30); NEUTROPHILS # (AUTO) 3.2 /CMM (1.8-8.9); NEUTROPHILS % (AUTO) 56.3 % (43.0-81.0); PLATELET COUNT (AUTO) 121 /CMM (150-450); RDW COEFFICIENT OF VARIATION 20.1 (11.5-15.0); RED BLOOD CELL COUNT(AUTO) 2.51 MIL/uL (4.5-6.0); WHITE BLOOD COUNT (AUTO) 5.6 K/uL (4.3-11.0)
[2018-04-19 07:37] LABS: CALCIUM, SERUM 7.9 mg/dL (8.5-10.1); CREATININE 6.7 mg/dL (0.6-1.3); POTASSIUM 4.9 mmol/L (3.5-5.1)
[2018-04-19] MEDS: LEVOTHYROXINE SODIUM 88 MCG TABLET PO SCH (07:38)
[2018-04-19 08:00] VITALS: BP_SYST 115; BP_SYST 145; BP_DIAS 65; BP_DIAS 96
[2018-04-19] MEDS: LACOSAMIDE 50 MG TABLET PO SCH ×2 (08:12→20:52)
[2018-04-19] MEDS: ASPIRIN 81 MG TAB.CHEW PO SCH (08:12)
[2018-04-19] MEDS: CALCIUM ACETATE 667 MG TABLET PO SCH ×3 (08:12→17:26)
[2018-04-19] MEDS: CARISOPRODOL 350 MG TABLET PO SCH (08:12)
[2018-04-19] MEDS: QUETIAPINE FUMARATE 100 MG TABLET PO SCH ×2 (08:12→23:00)
[2018-04-19] MEDS: CHOLECALCIFEROL 1,000 UNIT TABLET (VIT D3) PO SCH (08:12)
[2018-04-19] MEDS: CARVEDILOL 3.125 MG TABLET PO SCH ×2 (09:00→20:52)
--- NOTE | 2018-04-19 09:21 | NUR ---
RN NOTES PT SCHEDULED TO HAVE HEMODIALYSIS TODAY. WILL HOLD COREG, BP MEDICATION, THIS AM TO PREVENT HYPOTENSION DURING DIALYSIS.
[2018-04-19 10:34] LABS: EOSINOPHILS % (MANUAL) 17 % (0-4); LYMPHOCYTES % (MANUAL) 17 % (16-48); MONOCYTES % (MANUAL) 4 % (0-11.0); NEUTROPHILS % (MANUAL) 62 (42-76)
--- NOTE | 2018-04-19 13:50 | NUR ---
RN NOTES PT STATES THAT HE HAS NOT HAD A BOWEL MOVEMENT IN A COUPLE OF DAYS. GEOFFREY HOME ATTENDANT MADE AWARE. PER HOME ATTENDANT, OKAY TO ORDER STOOL SOFTENER, COLACE 100MG BID.
[2018-04-19] MEDS: DOCUSATE SODIUM 100 MG CAPSULE PO SCH ×2 (14:19→17:26)
[2018-04-19 16:00] VITALS: BP_SYST 112; BP_SYST 150; BP_DIAS 67; BP_DIAS 93
--- NOTE | 2018-04-19 18:56 | NUR ---
RN NOTES PT IS LAYING DOWN IN BED, RESTING COMFORTABLY. PT ON 3L O2, RESPIRATIONS ARE EVEN AND UNLABORED. IV ON L WRIST INTACT AND SL. ALL MEDS WERE GIVEN ORDERED AND PT NEEDS MET. DILAUDID GIVEN ORDERED FOR PAIN MANAGEMENT. NO SIGNS OF DISTRESS NOTED. SAFETY MEASURES ARE IN PLACE, CALL LIGHT IS IN REACH. WILL ENDORSE TO MILITARY AIRCRAFT DESIGNER RN FOR CONTINUITY OF CARE.
--- NOTE | 2018-04-19 19:30 | NUR ---
MS/RN NOTES RECEIVED PT. SITTING UP IN BED. PT. IS AWAKE, ALERT AND ORIENTED X3. BREATHING EVEN AND UNLABORED ON 2LPM O2 VIA NC. NO SOB OR RESPIRATORY DISTRESS NOTED AT THIS TIME. PT. COMPLAINING OF PAIN 8/10 IN HIS LOWER BACK AND LEGS. WILL ADMINISTER TO PT. PAIN MEDICATION ORDERED. PT. WITH LEFT WRIST 22 GAUGE IV SALINE LOCK PRESENT, PATENT AND INTACT. PT. WITH LEFT CHEST WALL HD CATH PRESENT AND INTACT. PER DAYSHIFT NURSE PT. WILL BE RECEIVING DIALYSIS TONIGHT. BED LOCKED AND IN LOWEST POSITION, SIDE RAILS UP X2, CALL LIGHT WITHIN REACH, WILL CONTINUE TO MONITOR.
[2018-04-19 20:00] VITALS: BP 148/100
[2018-04-19] MEDS: ZOLPIDEM TARTRATE 10 MG TABLET PO SCH (23:00)
[2018-04-19] MEDS: MIRTAZAPINE 15 MG TABLET PO SCH (23:00)
[2018-04-20] MEDS: HYDROMORPHONE 1 MG/1 ML DISP.SYRIN IV PRN ×4 (02:08→19:50)
--- NOTE | 2018-04-20 06:40 | NUR ---
MS/RN NOTES PT. IS SITTING UP IN BED. PT. IS AWAKE, ALERT AND ORIENTED X3. BREATHING EVEN AND UNLABORED ON 2LPM O2 VIA NC. NO SOB OR RESPIRATORY DISTRESS OR COMPLAINTS OF PAIN NOTED AT THIS TIME. PT. WITH LEFT WRIST 22 GAUGE IV SALINE LOCK PRESENT, PATENT AND INTACT. PT. WITH LEFT CHEST WALL HD CATH PRESENT AND INTACT. PER DIALYSIS NURSE, PT. WILL BE RECEIVING DIALYSIS TODAY. ALL PT. NEEDS MET. BED LOCKED AND IN LOWEST POSITION, SIDE RAILS UP X2, CALL LIGHT WITHIN REACH, WILL ENDORSE TO DAYSHIFT NURSE FOR CONTINUITY OF CARE.
[2018-04-20] MEDS: BLOOD SUGAR DIAGNOSTIC 1 EACH STRIP IN SCH ×4 (06:52→21:13)
[2018-04-20 07:23] LABS: POTASSIUM 5.1 mmol/L (3.5-5.1)
[2018-04-20 07:31] LABS: CREATININE 8.1 mg/dL (0.6-1.3); HEMATOCRIT 24 % (39-51); HEMOGLOBIN 7.7 g/dL (13.5-17.5); MEAN CORPUSCULAR HEMOGLOBIN 30 PG (26.0-33.0); MEAN CORPUSCULAR HGB CONC 32 g/dl (31.0-36.0); MEAN CORPUSCULAR VOLUME 95 fL (80-96); PLATELET COUNT (AUTO) 129 /CMM (150-450); RDW COEFFICIENT OF VARIATION 19.1 (11.5-15.0); RED BLOOD CELL COUNT(AUTO) 2.54 MIL/uL (4.5-6.0); WHITE BLOOD COUNT (AUTO) 6.7 K/uL (4.3-11.0)
[2018-04-20 08:00] VITALS: BP 159/90
--- NOTE | 2018-04-20 08:00 | NUR ---
RN NOTES RECEIVED PATIENT IN THE BED SLEEPING, AROUSE EASILY, PATIENT HAS NO ACUTE RESPIRATORY DISTRESS, V/S STABLE, CALL LIGHT WITHIN TO REACH. SAFETY PRECAUTION MAINTAINED ALL THE TIME.
[2018-04-20 08:44] LABS: BAND % (MANUAL) 1 % (0.0-5.0); EOSINOPHILS % (MANUAL) 14 % (0-4); LYMPHOCYTES % (MANUAL) 6 % (16-48); MONOCYTES % (MANUAL) 3 % (0-11.0); NEUTROPHILS % (MANUAL) 76 (42-76)
[2018-04-20] MEDS: ONDANSETRON HCL/PF 4 MG/2 ML VIAL IVP PRN (08:46)
--- NOTE | 2018-04-20 08:46 | NUR ---
RN NOTES ADMINISTERED ZOFRAN 4 MG PO PRN FOR NAUSEA AND VOMITING. HELD AM MEDICATION BECAUSE OF VOMITING. CONTINUED MONITORING.
[2018-04-20] MEDS: DOCUSATE SODIUM 100 MG CAPSULE PO SCH ×2 (09:44→16:50)
[2018-04-20] MEDS: LEVOTHYROXINE SODIUM 88 MCG TABLET PO SCH (09:44)
[2018-04-20] MEDS: CALCIUM ACETATE 667 MG TABLET PO SCH ×3 (09:44→16:50)
[2018-04-20] MEDS: CARISOPRODOL 350 MG TABLET PO SCH (09:45)
[2018-04-20] MEDS: QUETIAPINE FUMARATE 100 MG TABLET PO SCH ×2 (09:45→21:14)
[2018-04-20] MEDS: ASPIRIN 81 MG TAB.CHEW PO SCH (09:45)
[2018-04-20] MEDS: CHOLECALCIFEROL 1,000 UNIT TABLET (VIT D3) PO SCH (09:45)
[2018-04-20] MEDS: LACOSAMIDE 50 MG TABLET PO SCH ×2 (09:49→21:14)
--- NOTE | 2018-04-20 09:53 | NUR ---
WOUND CARE CONSULT: PT HAVING DIALYSIS AT THIS TIME. PT NOTED TO HAVE RT LOWER LEG ABRASION, VERY DRY SKIN TO ARMS AND LEGS WITH SCARS TO ARMS, PRESENT ON ADMISSION. RECOMMENDATIONS MADE FOR WOUND CARE AND SKIN PROTECTION. DISCUSSED WITH NURSING STAFF. WILL SEE PRN. Addendum: 04/20/18 at 1011 by DEISI CALLAWAY WNDNU Amended: Links added.
[2018-04-20] MEDS ORDERED: MINERAL OIL/PETROLATUM,WHITE 120 GM JAR TP PRN (10:00)
--- NOTE | 2018-04-20 11:59 | NUR ---
rn notes ADMINISTERED DILAUDID 1 MG/ML IV PUSH PER PATIENT REQUEST FOR GENERALIZED PAIN 03/02, V/S TAKEN BP 117/72, P-109, CONTINUED MONITORING. BS 108 MG/DL, SCHEDULED MEDICATION ADMINISTERED. DIALYSIS FINISHED AT THIS TIME.
[2018-04-20] MEDS: CARVEDILOL 3.125 MG TABLET PO SCH ×2 (12:08→21:15)
[2018-04-20 16:00] VITALS: BP 130/68
--- NOTE | 2018-04-20 17:00 | NUR ---
RN NOTES BS-116 MG /DL MEDICATION WERE ADMINISTERED FOR PAIN EFFECTIVE, PATIENT TABLE AFTER DIALYSIS. CALL LIGHT WITHIN TO REACH, SCHEDULED MEDICATION ADMINISTERED. CONTINUED MONITORING.
--- NOTE | 2018-04-20 18:15 | NUR ---
RN NOTES PATIENT STABLE AT THIS TIME NO ACUTE RESPIRATORY DISTRESS, V/S STABLE, ADMINISTERED SCHEDULED MEDICATION. ENDORSED ONCOMING NURSE FOR PLAN OF CARE.`
--- NOTE | 2018-04-20 19:30 | NUR ---
RN NOTE; RECEIVED PT IN BED AWAKE AND ALERT. BREATHING EVENLY. NO SOB. SKIN WARM AND DRY. DRESSING ON THE L THIGH C/D/I. NO BLEEDING . F/C IN PLACE . DRAINING CLEAR YELLOW URINE. NEEDS ATTENDED. BED LOW LOCKED. ANA LIGHT WITHIN REACH . WILL CONT TO MONITOR , Addendum: 04/20/18 at 2015 by RODRIGUE MORGAN RN WRONG PT DOCUMENTATION
--- NOTE | 2018-04-20 19:30 | NUR ---
RN NOTE; RECEIVED PT IN BED AWAKE AND ALERT. BREATHING EVENLY. NO SOB. SKIN WARM AND DRY. LCW HD CATH INTACT W/ NO BLEEDING. W/ C/O BACK PAIN TO MEDICATED ORDERED,NEEDS ATTENDED. BED LOW LOCKED. ANA LIGHT WITHIN REACH . WILL CONT TO MONITOR ,
--- NOTE | 2018-04-20 19:50 | NUR ---
DILAUDID GIVEN ORDERED PER PT'S REQUEST FOR C/O SEVERE LOWER BACK (SCIATIC ) PAIN. WILL CONT TO MONITOR
[2018-04-20] MEDS: ZOLPIDEM TARTRATE 10 MG TABLET PO SCH (21:14)
[2018-04-20] MEDS: MIRTAZAPINE 15 MG TABLET PO SCH (21:15)
[2018-04-20 21:18] VITALS: BP 147/89
[2018-04-20 21:19] VITALS: BP 147/84
[2018-04-20] MEDS: ALBUTEROL FS 2.5 MG/3 ML VIAL.NEB NEB PRN (23:01)
[2018-04-21] MEDS: HYDROMORPHONE 1 MG/1 ML DISP.SYRIN IV PRN ×3 (03:25→12:09)
--- NOTE | 2018-04-21 03:28 | NUR ---
DILAUDID GIVEN ORDERED PER PT'S REQUEST FOR C/O SEVERE LOWER BACK (SCIATIC ) PAIN. WILL CONT TO MONITOR
[2018-04-21 06:40] LABS: HEMATOCRIT 23 % (39-51); HEMOGLOBIN 7.3 g/dL (13.5-17.5); MEAN CORPUSCULAR HEMOGLOBIN 29 PG (26.0-33.0); MEAN CORPUSCULAR HGB CONC 32 g/dl (31.0-36.0); MEAN CORPUSCULAR VOLUME 93 fL (80-96); PLATELET COUNT (AUTO) 102 /CMM (150-450); RDW COEFFICIENT OF VARIATION 19.1 (11.5-15.0); RED BLOOD CELL COUNT(AUTO) 2.51 MIL/uL (4.5-6.0); WHITE BLOOD COUNT (AUTO) 5.2 K/uL (4.3-11.0)
--- NOTE | 2018-04-21 06:52 | NUR ---
PT IN BED SLEEPING. BREATHING EVENLY. REMAINED STABLE WITH NO ACUTE EVENT DURING THE NIGHT. NO S/S OR EPISODE OF HYPER OR HYPOGLYCEMIA. NEEDS ATTENDED. CALL LIGHT WITHIN REACH. WILL CONT TO MONITOR AND WILL ENDORSE TO AM SHIFT FOR TRINA
[2018-04-21 06:57] LABS: CALCIUM, SERUM 7.2 mg/dL (8.5-10.1); CREATININE 7.3 mg/dL (0.6-1.3); MAGNESIUM 1.6 mg/dL (1.8-2.4); PHOSPHORUS 4.8 mg/dL (2.5-4.9); POTASSIUM 4.9 mmol/L (3.5-5.1)
--- NOTE | 2018-04-21 07:30 | NUR ---
MS RN OPENING NOTE RECEIVED PT IN BED FROM REFLESHER RN, SLEEPING AND EASILY AROUSABLE. DENIES N/V, SOB ON RA AT THIS TIME. PT RATES PAIN 8/10 IN THE MID LOWER BACK. WILL ADMINISTER DILAUDID 1MG ORDERED FOR SEVERE PAIN. POSSIBLE D/C TODAY PENDING IF A HD CHAIR CAN BE SECURED FOR THE PT. ALL NEEDS ATTENDED TO. BED IS LOCKED AND IN LOWEST POSITION, CALL LIGHT IS WITHIN REACH, WILL CONTINUE TO MONITOR.
[2018-04-21] MEDS: BLOOD SUGAR DIAGNOSTIC 1 EACH STRIP IN SCH ×2 (07:38→11:56)
[2018-04-21] MEDS: CALCIUM ACETATE 667 MG TABLET PO SCH ×2 (07:39→12:08)
[2018-04-21] MEDS: LEVOTHYROXINE SODIUM 88 MCG TABLET PO SCH (07:39)
[2018-04-21 08:00] VITALS: BP 148/76
[2018-04-21] MEDS: DOCUSATE SODIUM 100 MG CAPSULE PO SCH (08:00)
[2018-04-21] MEDS: CHOLECALCIFEROL 1,000 UNIT TABLET (VIT D3) PO SCH (08:00)
[2018-04-21] MEDS: ASPIRIN 81 MG TAB.CHEW PO SCH (08:00)
[2018-04-21] MEDS: CARISOPRODOL 350 MG TABLET PO SCH (08:00)
[2018-04-21 08:01] VITALS: BP 148/76
[2018-04-21] MEDS: CARVEDILOL 3.125 MG TABLET PO SCH (08:01)
[2018-04-21] MEDS: QUETIAPINE FUMARATE 100 MG TABLET PO SCH (08:04)
[2018-04-21] MEDS: LACOSAMIDE 50 MG TABLET PO SCH (08:04)
[2018-04-21] MEDS ORDERED: MINE454C11 TP (09:01)
[2018-04-21 09:27] LABS: EOSINOPHILS % (MANUAL) 17 % (0-4); LYMPHOCYTES % (MANUAL) 10 % (16-48); MONOCYTES % (MANUAL) 4 % (0-11.0); NEUTROPHILS % (MANUAL) 69 (42-76)
--- NOTE | 2018-04-21 11:51 | NUR ---
MS RN NOTE BLOOD SUGAR CHECK 82, NO INSULIN ORDERED PER SLIDING SCALE.
--- NOTE | 2018-04-21 13:15 | NUR ---
M/S RN - Discharge Patient discharged to [facility] in stable condition, afebrile, denies chest pain, ambulatory, A/O x 4, not in any form of distress. Report called to VANESSA Trotter, reviewed discharge instructions and she verbalized full understanding of all teachings including HD treatment. Patient scheduled at [facility] (-) at 05:00 am. All belongings with patient and he denies any missing items. Patient refused photo to be taken on his right lower leg abrasion. Saline lock removed on the left hand with catheter tip intact, no complications seen at the site. Discharge papers signed and copy was given per protocol to ambulance crew. Endorsed accordingly to [facility] EMT.
[2018-04-22] MEDS ORDERED: ASPI-1169 PO (11:11)
[2018-04-22] MEDS ORDERED: CALC667C6 PO (11:11)
[2018-04-22] MEDS ORDERED: ALBU2.5V38 IH (11:11)
[2018-04-22] MEDS ORDERED: CARV3.122 PO (11:11)
[2018-04-22] MEDS ORDERED: IBUP-1955 PO (11:11)
[2018-04-22] MEDS ORDERED: HYDR-552 PO (11:11)
[2018-04-22] MEDS ORDERED: BLOO-668 IN (11:13)
== END 2018-04-21 13:30 | DRG 291 ==
LOC: ER 12:57 → TELE 14:48 → MED 04-15 18:56
PROVIDERS: ADMIT Nurse Practitioner Acute Care; ATTEND Nurse Practitioner Acute Care
PROC: 5A1D70Z Performance of Urinary Filtration, Intermittent, Less than 6 Hours Per Day (ICD-10-PCS; principal; 2018-04-14)
PROC: 5A1D70Z Performance of Urinary Filtration, Intermittent, Less than 6 Hours Per Day (ICD-10-PCS; 2018-04-15)
PROC: 5A1D70Z Performance of Urinary Filtration, Intermittent, Less than 6 Hours Per Day (ICD-10-PCS; 2018-04-17)
PROC: 5A1D70Z Performance of Urinary Filtration, Intermittent, Less than 6 Hours Per Day (ICD-10-PCS; 2018-04-18)
PROC: 5A1D70Z Performance of Urinary Filtration, Intermittent, Less than 6 Hours Per Day (ICD-10-PCS; 2018-04-20)
DX: I13.2 Hypertensive heart and chronic kidney disease with heart failure and with stage 5 chronic kidney disease, or end stage renal disease (principal); N18.6 End stage renal disease; I50.33 Acute on chronic diastolic (congestive) heart failure; J90 Pleural effusion, not elsewhere classified; K21.9 Gastro-esophageal reflux disease without esophagitis; E87.5 Hyperkalemia; E83.51 Hypocalcemia; E78.5 Hyperlipidemia, unspecified; E11.22 Type 2 diabetes mellitus with diabetic chronic kidney disease; D63.8 Anemia in other chronic diseases classified elsewhere; E03.9 Hypothyroidism, unspecified; J44.9 Chronic obstructive pulmonary disease, unspecified; Z99.2 Dependence on renal dialysis; F17.210 Nicotine dependence, cigarettes, uncomplicated; E66.01 Morbid (severe) obesity due to excess calories; Z91.19 Patient's noncompliance with other medical treatment and regimen; Q78.9 Osteochondrodysplasia, unspecified
CPT/HCPCS: 36415; 71045-TC; 80048-TC; 80061-TC; 82962-TC; 83735-TC; 84100-TC; 85025-TC; 85730-TC; 87081-TC; 90935-TC; A4606; A6402; J1170; J1815; J1940; J2270; J2405; J7030; Z7610

== ENCOUNTER 2018-04-22 10:04 | Inpatient (IN) | payer MEDICARE ==
[~2018-04-22] VITALS: Ht 182.9 cm; Wt 74.8 kg
[~2018-04-22 10:04] MED LIST changes: +MINE454C11 TP
--- NOTE | 2018-04-22 10:16 | NUR ---
pt bibra from home to er bed 12 c/o sob and hypertension x today. pt blood pressure is stable. pt states on o2@2l/min. pt is dialysis pt. missed his dialysis yesterday. placed on monito. vss. awaiting md vidales.
--- NOTE | 2018-04-22 10:28 | NUR ---
dr hills at bedside for eval.
--- NOTE | 2018-04-22 10:33 | NUR ---
radiology at bedside for chest xray.
[2018-04-22 10:54] LABS: BASOPHILS # (AUTO) 0.1 /CMM (0.0-0.2); LYMPHOCYTES # (AUTO) 0.4 /CMM (0.8-4.8); LYMPHOCYTES % (AUTO) 7.6 % (20.0-44.0); MEAN CORPUSCULAR HEMOGLOBIN 31 PG (26.0-33.0); MEAN CORPUSCULAR HGB CONC 35 g/dl (31.0-36.0); MEAN CORPUSCULAR VOLUME 89 fL (80-96); MONOCYTES # (AUTO) 0.3 /CMM (0.1-1.30); MONOCYTES % (AUTO) 6.3 % (2.0-12.0); NEUTROPHILS # (AUTO) 2.8 /CMM (1.8-8.9); PLATELET COUNT (AUTO) 111 /CMM (150-450); RDW COEFFICIENT OF VARIATION 17.9 (11.5-15.0); RED BLOOD CELL COUNT(AUTO) 2.25 MIL/uL (4.5-6.0); WHITE BLOOD COUNT (AUTO) 5.1 K/uL (4.3-11.0)
[2018-04-22 10:55] LABS: EOSINOPHILS % (AUTO) 29.1 % (0.0-6.0)
[2018-04-22 10:57] LABS: HEMATOCRIT 20 % (39-51)
[2018-04-22 11:00] LABS: POTASSIUM 5.9 mmol/L (3.5-5.1)
[2018-04-22 11:03] LABS: CREATININE 8.7 mg/dL (0.6-1.3)
[2018-04-22 11:06] LABS: ALBUMIN 2.4 g/dL (3.4-5.0); BILIRUBIN,DIRECT 0.1 mg/dL (0.0-0.2); BILIRUBIN,TOTAL 0.3 mg/dL (0.2-1.0); TOTAL PROTEIN, SERUM 6.9 g/dL (6.4-8.2)
[2018-04-22 11:08] LABS: TROPONIN I 0.036 ng/mL (0.00-0.056)
[2018-04-22] MEDS ORDERED: ALBU2.5V38 IH (11:11)
[2018-04-22] MEDS ORDERED: CALC667C6 PO (11:11)
[2018-04-22] MEDS ORDERED: HYDR-552 PO (11:11)
[2018-04-22] MEDS ORDERED: IBUP-1955 PO (11:11)
[2018-04-22] MEDS ORDERED: CARV3.122 PO (11:11)
[2018-04-22] MEDS ORDERED: ASPI-1169 PO (11:11)
[2018-04-22] MEDS ORDERED: BLOO-668 IN (11:13)
--- NOTE | 2018-04-22 11:21 | NUR ---
CALLED NURSING RAILWAY ENGINEER AND REQUESTED A TELE BED FOR THIS PT.
--- NOTE | 2018-04-22 11:49 | NUR ---
PT IS ASSIGNED TO TELE RM#: [id number], DX: SOB / RENAL FAILURE, AND ACCEPTING: [facility]
--- NOTE | 2018-04-22 11:56 | NUR ---
report given to [place] charge nurse. pt awaiting transfer to floor.
[2018-04-22 12:16] LABS: EOSINOPHILS % (MANUAL) 28 % (0-4); LYMPHOCYTES % (MANUAL) 9 % (16-48); MONOCYTES % (MANUAL) 5 % (0-11.0); NEUTROPHILS % (MANUAL) 58 (42-76)
[2018-04-22 12:20] VITALS: BP 131/84
--- NOTE | 2018-04-22 12:20 | NUR ---
TELE/RN NOTES RECEIVED REPORT FROM CHARGE NURSE, RECEIVED PT IN BED FROM ER. A/O X3. ON 2LPM O2 VIA NC, SATURATING WELL. NOTED SHORTNESS OF BREATH WHEN LIE IN BED. HOB ELEVATED. PLACED ON TELEMONITOR, SR WITH BBB, HR 90S. PT C/O GENERAL BODY PAIN WITH PAIN SCALE OF 8/10. NONPHARMACOLOGIC MEASURES DONE, INEFFECTIVE. WITH INTACT L SUBCLAVIAN HD CATH. WITH INTACT AND PATENT RHAND G#20 SL. INITIAL ASSESSMENT DONE. SAFETY MEASURES IN PLACED. WILL CONT TO MONITOR. WILL FOLLOW WITH MD FOR ADMISSION ORDERS
[2018-04-22] MEDS ORDERED: ACETAMINOPHEN 325 MG TABLET PO PRN (12:30)
[2018-04-22] MEDS ORDERED: MAG HYDROX/AL HYDROX/SIMETH 30 ML UDC PO PRN (12:30)
[2018-04-22] MEDS ORDERED: Z GUARD REMEDY 2 OZ OINT TP PRN (12:30)
[2018-04-22] MEDS ORDERED: ONDANSETRON HCL/PF 4 MG/2 ML VIAL IVP PRN (12:30)
[2018-04-22] MEDS ORDERED: ZOLPIDEM TARTRATE 5 MG TABLET PO PRN (12:30)
--- NOTE | 2018-04-22 12:40 | NUR ---
RN NOTES OFFERED PT TYLENOL 650 PO, PT REFUSED, PER PT NOT EFFECTIVE FOR HIM. WANTED STRONGER PAIN PILL NOTIFIED SECURED ENTRANCE MONITOR IVAN, AWAITING FOR ORDERS
[2018-04-22] MEDS ORDERED: MINERAL OIL/PETROLATUM,WHITE 120 GM JAR TP PRN (15:00)
[2018-04-22 16:00] VITALS: BP 131/84
[2018-04-22] MEDS ORDERED: EPOETIN ALFA (10,000 UNIT) 10,000 UNIT/ML VIAL SQ ONE (16:00)
[2018-04-22] MEDS ORDERED: DEXTROSE 50%-WATER 50 ML DISP.SYRIN IV PRN (16:30)
[2018-04-22] MEDS ORDERED: *INSULIN REGULAR(HUMULIN R)HUM 100 UNIT/ML VIAL SQ PRN (16:30)
[2018-04-22] MEDS ORDERED: INSULIN REGULAR, HUMAN 100 UNIT/ML 3 ML VIAL SQ PRN (16:30)
--- NOTE | 2018-04-22 16:30 | NUR ---
RN NOTES RECEIVED ORDER FROM IVAN, NORCO5/325 MG Q4HR PO PRN. ORDERS NOTED AND CARRIED OUT. OFFERED NORCO TO PT, PT REFUSED PT WISH TO HAVE DILAUDID. ROLE PLAYER IVAN NOTIFIED, AWAITING FOR ORDERS
[2018-04-22] MEDS ORDERED: HYDROCODONE/APAP 5/325MG 1 EACH TABLET PO PRN (17:00)
--- NOTE | 2018-04-22 17:00 | NUR ---
RN NOTES RECEIVED CALL FROM HUGO LOVE, PER AOC DIRECTOR COMBAT PLANS OFFICER NO DILAUDID. PT MADE AWARE AND EXPLAINED RISKS OF DILAUDID PT ON RESPIRATORY DISTRESS. PT WISHES TO SPEAK WITH AOC DIRECTOR COMBAT PLANS OFFICER. HUGO LOVE SPOKE WITH PT. ALL CONCERNS WERE ANSWERED BY AOC DIRECTOR COMBAT PLANS OFFICER. HUGO LOVE ORDERED MORPHINE 2MG IV Q4HR PRN. ORDERS NOTED AND CARRIED OUT
[2018-04-22] MEDS: CALCIUM ACETATE 667 MG TABLET PO SCH (17:30)
[2018-04-22] MEDS: BLOOD SUGAR DIAGNOSTIC 1 EACH STRIP IN SCH ×2 (17:30→22:11)
[2018-04-22] MEDS: MORPHINE SULFATE INJ 4 MG/ML DISP.SYRIN IV PRN ×2 (17:31→22:24)
--- NOTE | 2018-04-22 19:08 | NUR ---
RN NOTES PT ONGOING DIALYSIS. IN STABLE CONDITION. NO ACUTE CHANGES NOTED THROUGHOUT SHIFT. SAFETY MEASURES OBSERVED AT ALL TIMES. ENDORSED TO PM SHIFT RN FOR TRINA. EPOGEN NOT YET GIVEN, ENDORSED TO PM SHIFT NURSE TO BE GIVEN AFTER HD
[2018-04-22 20:00] VITALS: BP 146/86
--- NOTE | 2018-04-22 20:00 | NUR ---
RN INITIAL NOTES RECEIVED PT RESTING IN BED. PT RECEIVING HD. NO SIGN OF DISTRESS AT THIS TIME. PT ON 2L NC. ST HR 100S ON TELE MONITOR. ALL SAFETY PRECAUTION TAKE. BED IN LOW LOCKED POSITION. CALL LIGHT IN REACH. WILL CONT TO MONITOR.
[2018-04-22] MEDS: CARVEDILOL 3.125 MG TABLET PO SCH (22:03)
[2018-04-22] MEDS: QUETIAPINE FUMARATE 100 MG TABLET PO SCH (22:04)
[2018-04-22] MEDS: MIRTAZAPINE 15 MG TABLET PO SCH (22:04)
[2018-04-22] MEDS: LACOSAMIDE 50 MG TABLET PO SCH (22:04)
[2018-04-23] VITALS: BP 149/91
[2018-04-23] MEDS: ALBUTEROL FS 2.5 MG/0.5 ML VIAL.NEB NEB PRN (01:53)
[2018-04-23 07:16] LABS: HEMATOCRIT 24 % (39-51); HEMOGLOBIN 7.5 g/dL (13.5-17.5); MEAN CORPUSCULAR HEMOGLOBIN 29 PG (26.0-33.0); MEAN CORPUSCULAR HGB CONC 32 g/dl (31.0-36.0); MEAN CORPUSCULAR VOLUME 92 fL (80-96); PLATELET COUNT (AUTO) 129 /CMM (150-450); RDW COEFFICIENT OF VARIATION 19.1 (11.5-15.0); RED BLOOD CELL COUNT(AUTO) 2.59 MIL/uL (4.5-6.0); WHITE BLOOD COUNT (AUTO) 6.7 K/uL (4.3-11.0)
--- NOTE | 2018-04-23 07:20 | NUR ---
TELE/RN INITIAL NOTES RECEIVED PT IN BED, A/OX3, ON 2LPM O2 VIA NC, TOLERATING WELL, NO SOB NOTED. WITH INTACT LSUBCLAVIAN GEN CATH AND RHAND G20 SL. PT C/O GENERALIZED PAIN WITH PAIN SCALE OF 8/10. REQUESTING FOR MORPHINE. WILL FOLLOW UP. SAFETY MEASURES IN PLACED. CALL LIGHT WITHIN REACH. WILL CONT TO MONITOR
[2018-04-23 07:24] LABS: BASOPHILS % (AUTO) 1.1 % (0.0-2.0); EOSINOPHILS % (AUTO) 25.3 % (0.0-6.0); LYMPHOCYTES # (AUTO) 0.4 /CMM (0.8-4.8); LYMPHOCYTES % (AUTO) 6.4 % (20.0-44.0); MONOCYTES # (AUTO) 0.5 /CMM (0.1-1.30); MONOCYTES % (AUTO) 7.1 % (2.0-12.0); NEUTROPHILS % (AUTO) 60.1 % (43.0-81.0)
[2018-04-23 07:25] LABS: BASOPHILS # (AUTO) 0.1 /CMM (0.0-0.2)
[2018-04-23 07:32] LABS: CREATININE 7.4 mg/dL (0.6-1.3); MAGNESIUM 1.6 mg/dL (1.8-2.4); PHOSPHORUS 4.4 mg/dL (2.5-4.9); POTASSIUM 5.3 mmol/L (3.5-5.1)
[2018-04-23] MEDS: LEVOTHYROXINE SODIUM 88 MCG TABLET PO SCH (07:57)
[2018-04-23] MEDS: CALCIUM ACETATE 667 MG TABLET PO SCH ×3 (07:57→17:30)
[2018-04-23 08:00] VITALS: BP 156/99
[2018-04-23] MEDS: MORPHINE SULFATE INJ 4 MG/ML DISP.SYRIN IV PRN ×3 (08:04→21:18)
[2018-04-23 08:21] LABS: BAND % (MANUAL) 1 % (0.0-5.0); EOSINOPHILS % (MANUAL) 33 % (0-4); LYMPHOCYTES % (MANUAL) 10 % (16-48); MONOCYTES % (MANUAL) 3 % (0-11.0); NEUTROPHILS % (MANUAL) 53 (42-76)
[2018-04-23] MEDS: BLOOD SUGAR DIAGNOSTIC 1 EACH STRIP IN SCH ×4 (08:30→21:16)
[2018-04-23] MEDS: CARVEDILOL 3.125 MG TABLET PO SCH ×2 (09:08→21:16)
[2018-04-23] MEDS: QUETIAPINE FUMARATE 100 MG TABLET PO SCH ×2 (09:08→21:15)
[2018-04-23] MEDS: ASPIRIN 81 MG TAB.CHEW PO SCH (09:09)
[2018-04-23] MEDS: CARISOPRODOL 350 MG TABLET PO SCH (09:09)
[2018-04-23] MEDS: CHOLECALCIFEROL 1,000 UNIT TABLET (VIT D3) PO SCH (09:09)
[2018-04-23] MEDS: LACOSAMIDE 50 MG TABLET PO SCH ×2 (09:09→21:15)
[2018-04-23 12:00] VITALS: BP 154/90
[2018-04-23] MEDS ORDERED: EPOETIN ALFA (10,000 UNIT) 10,000 UNIT/ML VIAL IV ONE (12:00)
[2018-04-23 16:00] VITALS: BP 142/77
--- NOTE | 2018-04-23 19:46 | NUR ---
RN NOTES PT IN STABLE CONDITION. NO ACUTE DISTRESS NOTED THROUGHOUT SHIFT. SAFETY MEASURES IN PLACED. ALL NEEDS ANTICIPATED. ENDORSED TO PM SHIFT NURSE FOR TRINA
[2018-04-23 20:00] VITALS: BP 143/93
--- NOTE | 2018-04-23 20:00 | NUR ---
RN INITIAL NOTES RECEIVED PT RESTING IN BED. PT RECEIVING HD TODAY. NO SIGN OF DISTRESS AT THIS TIME. PT ON 2L NC. ALL SAFETY PRECAUTION TAKE. BED IN LOW LOCKED POSITION. CALL LIGHT IN REACH. WILL CONT TO MONITOR.
[2018-04-23] MEDS: MIRTAZAPINE 15 MG TABLET PO SCH (21:15)
[2018-04-24] VITALS: BP 127/80
[2018-04-24 04:00] VITALS: BP 134/85
[2018-04-24] MEDS: MORPHINE SULFATE INJ 4 MG/ML DISP.SYRIN IV PRN ×5 (05:20→23:39)
--- NOTE | 2018-04-24 07:00 | NUR ---
RN CLOSING NOTES PT IN STABLE CONDITION. NO ACUTE DISTRESS NOTED THROUGHOUT SHIFT. SAFETY MEASURES IN PLACED. ALL MEDS GIVEN,. ALL NEEDS ANTICIPATED AND MET. WILL ENDORSED TO AM SHIFT NURSE FOR TRINA
[2018-04-24 07:07] LABS: BASOPHILS % (AUTO) 0.8 % (0.0-2.0); HEMATOCRIT 24 % (39-51); LYMPHOCYTES # (AUTO) 0.5 /CMM (0.8-4.8); LYMPHOCYTES % (AUTO) 9.1 % (20.0-44.0); MEAN CORPUSCULAR HEMOGLOBIN 28 PG (26.0-33.0); MEAN CORPUSCULAR HGB CONC 30 g/dl (31.0-36.0); MEAN CORPUSCULAR VOLUME 93 fL (80-96); MONOCYTES # (AUTO) 0.5 /CMM (0.1-1.30); MONOCYTES % (AUTO) 7.9 % (2.0-12.0); NEUTROPHILS # (AUTO) 3.1 /CMM (1.8-8.9); NEUTROPHILS % (AUTO) 53.7 % (43.0-81.0); PLATELET COUNT (AUTO) 155 /CMM (150-450); RDW COEFFICIENT OF VARIATION 19.3 (11.5-15.0); RED BLOOD CELL COUNT(AUTO) 2.54 MIL/uL (4.5-6.0); WHITE BLOOD COUNT (AUTO) 5.9 K/uL (4.3-11.0)
[2018-04-24 07:10] LABS: EOSINOPHILS % (AUTO) 28.5 % (0.0-6.0)
--- NOTE | 2018-04-24 07:15 | NUR ---
RN OPENING NOTES RECEIVED PATIENT IN BED RESTING, A/OX3. ON 2LPM VIA NC, 100%SATURATION NO ACUTE DISTRESS, NO SOB. DENIED PAIN OR DISCOMFORT AT THIS TIME. IV INTACT AND PATENT. KEPT PATIENT SAFE AND COMFORTABLE. BED IN LOW/LOCKED POSITION, SIDERAILS UPX2, CALL LIGHT IN REACH. WILL CONTINUE TO MONIOTR ACCORDINGLY
[2018-04-24 07:29] LABS: CALCIUM, SERUM 7.7 mg/dL (8.5-10.1); CREATININE 5.9 mg/dL (0.6-1.3); MAGNESIUM 1.6 mg/dL (1.8-2.4); PHOSPHORUS 4.6 mg/dL (2.5-4.9); POTASSIUM 4.6 mmol/L (3.5-5.1)
[2018-04-24 08:00] VITALS: BP 136/77
[2018-04-24 08:45] LABS: EOSINOPHILS % (MANUAL) 31 % (0-4); LYMPHOCYTES % (MANUAL) 9 % (16-48); MONOCYTES % (MANUAL) 2 % (0-11.0); NEUTROPHILS % (MANUAL) 58 (42-76)
[2018-04-24] MEDS: LEVOTHYROXINE SODIUM 88 MCG TABLET PO SCH (08:50)
[2018-04-24] MEDS: CALCIUM ACETATE 667 MG TABLET PO SCH ×3 (08:50→17:05)
[2018-04-24] MEDS: CARVEDILOL 3.125 MG TABLET PO SCH ×2 (08:51→20:37)
[2018-04-24] MEDS: CARISOPRODOL 350 MG TABLET PO SCH (08:51)
[2018-04-24] MEDS: ASPIRIN 81 MG TAB.CHEW PO SCH (08:51)
[2018-04-24] MEDS: CHOLECALCIFEROL 1,000 UNIT TABLET (VIT D3) PO SCH (08:52)
[2018-04-24] MEDS: QUETIAPINE FUMARATE 100 MG TABLET PO SCH ×2 (08:52→21:17)
[2018-04-24] MEDS: LACOSAMIDE 50 MG TABLET PO SCH ×2 (08:53→20:37)
[2018-04-24] MEDS: BLOOD SUGAR DIAGNOSTIC 1 EACH STRIP IN SCH ×4 (08:54→21:16)
[2018-04-24 16:00] VITALS: BP 138/86
[2018-04-24] MEDS: ALBUTEROL FS 2.5 MG/0.5 ML VIAL.NEB NEB PRN ×2 (18:49→22:24)
--- NOTE | 2018-04-24 19:30 | NUR ---
RN CLOSING NOTES PATIENT IN STABLE CONDITION. ALL NEEDS ATTENDED AND PROVIDED. ALL DUE MEDS GIVEN. KEPT PATIENT SAFE AND COMFORTABLE. BED IN LOW/LOCKED POSITION, CALL LIGHT IN REACH, BED ALARM ON. ENDORSED TO NIGHT RN FOR TRINA.
[2018-04-24 20:00] VITALS: BP 153/91
[2018-04-24] MEDS: MIRTAZAPINE 15 MG TABLET PO SCH (21:16)
[2018-04-25 04:00] VITALS: BP 150/90
[2018-04-25] MEDS: MORPHINE SULFATE INJ 4 MG/ML DISP.SYRIN IV PRN ×4 (04:03→23:08)
[2018-04-25] MEDS ORDERED: KEY,NONCONTROL,TO KEEP IN PYXI 1 EA MC ONE (06:49)
--- NOTE | 2018-04-25 07:11 | NUR ---
RN CLOSING NOTES PATIENT IN STABLE CONDITION. ALL NEEDS ATTENDED AND PROVIDED. NO SOB OR RESPIRATORY DISTRESS NOTED. PAIN IS WELL CONTROLLED WITH PAIN MEDICATION. ALL SAFETY MEASURES TAKEN. BED IN LOW/LOCKED POSITION, CALL LIGHT IN REACH, BED ALARM ON. ENDORSED TO AM NURSE TO CONTINUE CARE .
--- NOTE | 2018-04-25 07:43 | NUR ---
MS MENDEZ OPENING NOTES RECEIVED PT FROM [facility] NURSE IN STABLE CONDITION. PT IS A/O X3. NO SOB NOTED IN PT'S CURRENT POSITION HOWEVER IF DOES COMPLAIN OF IT WHEN STANDING. NO ACUTE SIGNS OF DISTRESS NOTED AT THIS TIME. BREATHING IS EVEN AND UNLABORED. PT SATING WELL ON 2L VIA NC. HE COMPLAINS OF LOWER BACK PAIN RATED A 9/10. WILL ADMINISTER PRN PAIN MEDICATION WHEN DUE AND IF VITALS PERMIT. IV TO RIGHT HAND NOTED TO BE PATENT AND INTACT. NO REDNESS OR SIGNS OF INFILTRATION NOTED. QUITIN CATH NOTED TO LEFT SUBCLAVIAN FOR HD ACCESS. PT TOLERATING NS INFUSION WELL. BED IN LOW LOCKED POSITION, SIDE RAILS UP X2, CALL LIGHT WITHIN REACH, BED ALARM ON. WILL CONTINUE TO MONITOR Addendum: 04/25/18 at 0948 by ANKUR RAMIREZ RN PLEASE DISREGARD NS INFUSION NOTE. PT'S HL AT THIS TIME. NO FLUIDS ADMINISTERED
[2018-04-25 08:00] VITALS: BP 150/100
[2018-04-25] MEDS: QUETIAPINE FUMARATE 100 MG TABLET PO SCH ×2 (08:13→21:22)
[2018-04-25] MEDS: LACOSAMIDE 50 MG TABLET PO SCH ×2 (08:13→21:18)
[2018-04-25] MEDS: CARISOPRODOL 350 MG TABLET PO SCH (08:13)
[2018-04-25] MEDS: CALCIUM ACETATE 667 MG TABLET PO SCH ×3 (08:13→18:17)
[2018-04-25] MEDS: LEVOTHYROXINE SODIUM 88 MCG TABLET PO SCH (08:13)
[2018-04-25] MEDS: CARVEDILOL 3.125 MG TABLET PO SCH ×2 (08:14→21:21)
[2018-04-25] MEDS: ASPIRIN 81 MG TAB.CHEW PO SCH (08:14)
[2018-04-25] MEDS: BLOOD SUGAR DIAGNOSTIC 1 EACH STRIP IN SCH ×4 (08:16→21:18)
[2018-04-25] MEDS: CHOLECALCIFEROL 1,000 UNIT TABLET (VIT D3) PO SCH (09:23)
--- NOTE | 2018-04-25 09:48 | NUR ---
REPORT GIVEN TO VANESSA FERNÁNDEZ FOR TRINA
--- NOTE | 2018-04-25 10:15 | NUR ---
PHOTO CHECKER OPENING NOTE RECEIVED PATIENT SLEEPING IN BED THIS MORNING, NO ACUTE DISTRESS NOTED. ON OXYGEN VIA NASAL CANNULA AT 2LPM. IV SITE ON RIGHT HAND INTACT. GEN CATH ON LEFT SUBCLAVIAN FOR DIALYSIS ACCESS. BED LOW AND LOCKED, HEAD OF BED ELEVATED, WILL CONTINUE TO MONITOR.
[2018-04-25] MEDS ORDERED: OXYC20TA58 PO (12:59)
[2018-04-25] MEDS ORDERED: BUMETANIDE INJ 0.25 MG/ML VIAL IV ONE (13:30)
[2018-04-25] MEDS: oxyCODONE HCL SR 20MG TAB.SR.12H PO SCH ×2 (13:54→21:18)
[2018-04-25 16:00] VITALS: BP 140/80
--- NOTE | 2018-04-25 18:55 | NUR ---
BAKER TEST CLOSING NOTE PATIENT RESTING IN BED IN STABLE CONDITION. DIALYZED EARLIER THIS EVENING, ADMINISTERED MORPHINE FOR PAIN. ON OXYGEN VIA NASAL CANNULA AT 2LPM. IV SITE ON RIGHT HAND INTACT AND SALINE LOCK. NO ACUTE DISTRESS NOTED, ALL NEEDS MET AT THIS TIME. HEAD OF BED ELEVATED, BED LOW AND LOCKED, CALL LIGHT WITHIN REACH, WILL ENDORSE TO ONCOMING NURSE FOR CONTINUITY OF CARE.
[2018-04-25 20:00] VITALS: BP 141/81
[2018-04-25] MEDS: MIRTAZAPINE 15 MG TABLET PO SCH (21:19)
[2018-04-26] VITALS: BP 141/81
[2018-04-26 04:12] VITALS: BP 139/78
[2018-04-26] MEDS: MORPHINE SULFATE INJ 4 MG/ML DISP.SYRIN IV PRN ×2 (04:50→15:52)
--- NOTE | 2018-04-26 05:30 | NUR ---
RN NOTES R HAND IV BECAME DISLODGED. NEW L EJ WAS STARTED BY ED FROM ICU. MYSELF AND STEAM PRESS OPERATORVANESSA LACY WAS UNABLE TO START IV.
[2018-04-26 06:00] VITALS: BP 139/78
--- NOTE | 2018-04-26 06:40 | NUR ---
RN CLOSING NOTES PATIENT IN STABLE CONDITION. ALL NEEDS ATTENDED AND PROVIDED. NO SOB OR RESPIRATORY DISTRESS NOTED. VSS. PAIN CONTROLLED WITH PAIN MEDICATION. ALL SAFETY MEASURES TAKEN. BED IN LOW/LOCKED POSITION, CALL LIGHT IN REACH, BED ALARM ON. ENDORSED TO AM NURSE TO CONTINUE CARE .
--- NOTE | 2018-04-26 07:52 | NUR ---
RN NOTE RECEIVED PATIENT IN BED AWAKE WATCHING T.V. ALERT AND ORIENTED X3. HE IS ABLE TO MAKE THINGS KNOWN AND VERBALIZE NEEDS. BREATHING EVEN AND UNLABORED WITH NO DISTRESS NOTED, ON CONTINUOUS O2 2L VIA NASAL CANULA,SATURATING WELL. DENIED PAIN OR DISCOMFORT AT THIS TIME. IV INTACT AND PATENT. ALL SAFETY MEASURES DONE. BED LOW AND LOCKED POSITION. PLACED CALL LIGHT WITHIN REACH. WILL CONTINUE TO MONITOR.
[2018-04-26] MEDS: BLOOD SUGAR DIAGNOSTIC 1 EACH STRIP IN SCH ×2 (07:56→12:22)
[2018-04-26 08:00] VITALS: BP 147/86
[2018-04-26] MEDS: ASPIRIN 81 MG TAB.CHEW PO SCH (08:07)
[2018-04-26] MEDS: CARISOPRODOL 350 MG TABLET PO SCH (08:08)
[2018-04-26] MEDS: LACOSAMIDE 50 MG TABLET PO SCH (08:08)
[2018-04-26] MEDS: CHOLECALCIFEROL 1,000 UNIT TABLET (VIT D3) PO SCH (08:08)
[2018-04-26] MEDS: CARVEDILOL 3.125 MG TABLET PO SCH (08:08)
[2018-04-26] MEDS: QUETIAPINE FUMARATE 100 MG TABLET PO SCH (08:08)
[2018-04-26] MEDS: CALCIUM ACETATE 667 MG TABLET PO SCH ×2 (08:08→12:31)
[2018-04-26] MEDS: oxyCODONE HCL SR 20MG TAB.SR.12H PO SCH (08:09)
[2018-04-26] MEDS: LEVOTHYROXINE SODIUM 88 MCG TABLET PO SCH (08:09)
[2018-04-26] MEDS ORDERED: EPOETIN ALFA (10,000 UNIT) 10,000 UNIT/ML VIAL IV ONE (10:30)
[2018-04-26 16:00] VITALS: BP 146/86
--- NOTE | 2018-04-26 16:50 | NUR ---
RN NOTE 57 YEAR OLD MALE DISCHARGED TO [facility] IN STABLE CONDITION. COMPLIANT WITH MEDICATIONS, COOPERATIVE WITH TREATMENT PLANS. MEDICAL TREATMENT PLAN DEFERRED OR CONTINUAL OF MONITORING. EDUCATED PATIENT ABOUT AFTER CARE PLAN AND COPIES PROVIDED. RETURNED PERSONAL BELONGINGS TO PATIENT. MEDICATIONS RECONCILED. REPORT GIVEN TO TILA MENDEZ AT [facility] FOR CONTINUITY OF CARE. PATIENT SIGNED DISCHARGE PAPERWORK. WOUND PICTURES TAKEN AND DOCUMENTED IN CHART. PATIENT LEFT THE UNIT AT 1650 VIA AMBULANCE.
== END 2018-04-26 16:59 | DRG 189 ==
LOC: ER 10:10 → TELE1 11:51 → MEDSG1 04-23 15:35
PROVIDERS: ADMIT Nurse Practitioner Acute Care; ATTEND Nurse Practitioner Acute Care
PROC: 5A1D70Z Performance of Urinary Filtration, Intermittent, Less than 6 Hours Per Day (ICD-10-PCS; principal; 2018-04-22)
PROC: 5A1D70Z Performance of Urinary Filtration, Intermittent, Less than 6 Hours Per Day (ICD-10-PCS; 2018-04-23)
PROC: 5A1D70Z Performance of Urinary Filtration, Intermittent, Less than 6 Hours Per Day (ICD-10-PCS; 2018-04-25)
DX: J96.21 Acute and chronic respiratory failure with hypoxia (principal); N18.6 End stage renal disease; E87.1 Hypo-osmolality and hyponatremia; I13.2 Hypertensive heart and chronic kidney disease with heart failure and with stage 5 chronic kidney disease, or end stage renal disease; D63.8 Anemia in other chronic diseases classified elsewhere; E03.9 Hypothyroidism, unspecified; E11.22 Type 2 diabetes mellitus with diabetic chronic kidney disease; E78.5 Hyperlipidemia, unspecified; E83.42 Hypomagnesemia; E87.5 Hyperkalemia; F17.210 Nicotine dependence, cigarettes, uncomplicated; I50.9 Heart failure, unspecified; J44.9 Chronic obstructive pulmonary disease, unspecified; K21.9 Gastro-esophageal reflux disease without esophagitis; Z99.2 Dependence on renal dialysis; I25.2 Old myocardial infarction; E83.9 Disorder of mineral metabolism, unspecified
CPT/HCPCS: 36415; 71045-TC; 80048-TC; 80061-TC; 80076-TC; 82962-TC; 83735-TC; 84100-TC; 84484-TC; 85025-TC; 86850-TC; 87081-TC; 90935-TC; 94799-TC; A4606; J0885; J1815; J2270; J3490; Z7610

== ENCOUNTER 2018-05-12 18:05 | Inpatient (IN) | payer MEDICARE ==
[~2018-05-12] VITALS: Ht 182.9 cm; Wt 78.9 kg
[~2018-05-12 18:05] MED LIST changes: +ALBU2.5V38 IH; -ALBUT2 NEB; +BLOO-668 IN; +CALC667C6 PO; -Calcium Acetate PO; +IBUP-1955 PO; +OXYC20TA58 PO
--- NOTE | 2018-05-12 18:27 | NUR ---
BIB FROM HOME DT SOB. PATIENT IS AWAKE AND ALERT, PER PATIENT HE HAS NOT BEEN DIALYZED SINCE LAST THURSDAY BECAUSE HE'S TOO WEAK. PATIENT RECEIVED WITH BREATHING TREATMENT ONGOING. PER PATIENT HE'S ON O2 VIA NC @3LPM REGULARLY. HD CATH NOTED ON LCW. SKIN IS WARM TO TOUCH AND NON DIAPHORETIC. PATIENT IS AFEBRILE. VSS. CONNECTED PATIENT TO TELE MONITOR. WILL CONT TO MONITOR. MD COLON AT BEDSIDE FOR EVALUATION.
[2018-05-12 18:51] LABS: BASOPHILS % (AUTO) 0.6 % (0.0-2.0); EOSINOPHILS % (AUTO) 0.4 % (0.0-6.0); HEMATOCRIT 25 % (39-51); HEMOGLOBIN 8.2 g/dL (13.5-17.5); LYMPHOCYTES # (AUTO) 0.8 /CMM (0.8-4.8); MEAN CORPUSCULAR HEMOGLOBIN 30 PG (26.0-33.0); MEAN CORPUSCULAR HGB CONC 33 g/dl (31.0-36.0); MEAN CORPUSCULAR VOLUME 90 fL (80-96); MONOCYTES # (AUTO) 0.2 /CMM (0.1-1.30); MONOCYTES % (AUTO) 2.6 % (2.0-12.0); NEUTROPHILS # (AUTO) 6.7 /CMM (1.8-8.9); NEUTROPHILS % (AUTO) 85.4 % (43.0-81.0); PLATELET COUNT (AUTO) 184 /CMM (150-450); RDW COEFFICIENT OF VARIATION 17.2 (11.5-15.0); RED BLOOD CELL COUNT(AUTO) 2.77 MIL/uL (4.5-6.0); WHITE BLOOD COUNT (AUTO) 7.7 K/uL (4.3-11.0)
[2018-05-12 19:00] LABS: INR 1.5 (0.85-1.15)
[2018-05-12 19:03] LABS: ALBUMIN 3.3 g/dL (3.4-5.0); BILIRUBIN,DIRECT 0.2 mg/dL (0.0-0.2); BILIRUBIN,TOTAL 0.6 mg/dL (0.2-1.0); CALCIUM, SERUM 7.8 mg/dL (8.5-10.1); TOTAL PROTEIN, SERUM 8.6 g/dL (6.4-8.2)
[2018-05-12 19:05] LABS: TROPONIN I 0.061 ng/mL (0.00-0.056)
[2018-05-12 19:06] LABS: POTASSIUM 6.5 mmol/L (3.5-5.1)
[2018-05-12 19:07] LABS: CREATININE 17.5 mg/dL (0.6-1.3)
[2018-05-12 19:17] LABS: MAGNESIUM 2.1 mg/dL (1.8-2.4); PHOSPHORUS 7.3 mg/dL (2.5-4.9)
[2018-05-12] MEDS ORDERED: SODIUM POLYSTYRENE SULFONATE 15 G/60 ML BOTTLE PO ONE (19:30)
[2018-05-12] MEDS ORDERED: INSULIN REGULAR, HUMAN 100 UNIT/ML 10 ML VIAL IV ONE (19:30)
[2018-05-12] MEDS ORDERED: DEXTROSE 50%-WATER 50 ML DISP.SYRIN IV ONE (19:30)
[2018-05-12] MEDS ORDERED: ALBUTEROL FS 2.5 MG/3 ML VIAL.NEB NEB ONE (19:30)
[2018-05-12] MEDS ORDERED: INSULIN REGULAR, HUMAN 100 UNIT/ML 10 ML VIAL ONE (19:31)
[2018-05-12] MEDS ORDERED: SODIUM POLYSTYRENE SULFONATE 15 G/60 ML BOTTLE ONE (19:31)
[2018-05-12] MEDS ORDERED: DEXTROSE 50%-WATER 50 ML DISP.SYRIN ONE (19:31)
--- NOTE | 2018-05-12 19:40 | NUR ---
[facility]ED [facility] FOR PANEL CALL AND DR CONTRERAS WAS PAGED.
--- NOTE | 2018-05-12 20:00 | NUR ---
ALL ORDERED MEDS GIVEN
[2018-05-12] MEDS ORDERED: ALBUTEROL FS 2.5 MG/3 ML VIAL.NEB ONE ×2 (20:08→20:09)
--- NOTE | 2018-05-12 20:11 | NUR ---
BED CHANGE DIAZ 118-2
--- NOTE | 2018-05-12 20:13 | NUR ---
PT IS ASSIGNED TO [facility]#: [id number], DX: ACUTE FLUID OVERLOAD/HYPERKALEMIA, AND ACCEPTING MD: DR CONTRERAS
--- NOTE | 2018-05-12 21:19 | NUR ---
BEDSIDE REPORT GIVEN TO DIAZ RN
--- NOTE | 2018-05-12 21:30 | NUR ---
DIAZ/ADMISSION RN NOTES: RECIEVED PT. VIA GURNEY TO ROOM #2. A/O X 4. ABLE TO MAKE NEEDS KNOWN. ON TELE MONITOR W/ SR @ 94. HAS LEFT CHEST WELL HD CATH C/D/I. PT. WAS DIALYSIS TODAY W/ 2 L OUT. HAS LH G 20 PATENT AND INTACT W/ NO S/S OF INFECTION/INFILTRATION NOTED. DR. CONTRERAS VISITED PT. W/ NEW ORDERS NOTED AND CARRIED OUT. CALL LIGHT WILL TO MONITOR. C/O PAIN W/ PRN GIVEN PER ORDER. WILL CONTINUE TO MONITOR
[2018-05-12] MEDS ORDERED: ONDANSETRON HCL/PF 4 MG/2 ML VIAL IVP PRN (22:00)
[2018-05-12] MEDS ORDERED: MINERAL OIL/PETROLATUM,WHITE 120 GM JAR TP PRN (22:00)
[2018-05-12] MEDS ORDERED: MORPHINE SULFATE INJ 2 MG/ML DISP.SYRIN IV PRN (22:00)
[2018-05-12] MEDS ORDERED: ZOLPIDEM TARTRATE 10 MG TABLET PO PRN (22:00)
[2018-05-12] MEDS ORDERED: ACETAMINOPHEN 325 MG TABLET PO PRN (22:00)
[2018-05-12] MEDS: BLOOD SUGAR DIAGNOSTIC 1 EACH STRIP IN SCH (22:00)
[2018-05-12] MEDS: MIRTAZAPINE 15 MG TABLET PO SCH (22:50)
[2018-05-12] MEDS: CARVEDILOL 3.125 MG TABLET PO SCH (22:51)
[2018-05-13] VITALS: BP_SYST 147; BP_SYST 148; BP_DIAS 92; BP_DIAS 93
[2018-05-13] MEDS ORDERED: LEVALBUTEROL HCL NEB 1.25 MG/0.5 ML VIAL.NEB NEB PRN
[2018-05-13] MEDS ORDERED: HYDROMORPHONE INJ 0.5 MG/0.5 ML SYRINGE IV PRN
[2018-05-13] MEDS ORDERED: HYDROMORPHONE 1 MG/1 ML DISP.SYRIN ONE ×2 (00:27→05:50)
[2018-05-13 04:00] VITALS: BP 142/92
[2018-05-13 07:09] LABS: EOSINOPHILS % (AUTO) 2.3 % (0.0-6.0); HEMATOCRIT 25 % (39-51); HEMOGLOBIN 7.8 g/dL (13.5-17.5); LYMPHOCYTES # (AUTO) 0.6 /CMM (0.8-4.8); LYMPHOCYTES % (AUTO) 7.6 % (20.0-44.0); MEAN CORPUSCULAR HEMOGLOBIN 29 PG (26.0-33.0); MEAN CORPUSCULAR HGB CONC 32 g/dl (31.0-36.0); MEAN CORPUSCULAR VOLUME 93 fL (80-96); MONOCYTES # (AUTO) 0.3 /CMM (0.1-1.30); NEUTROPHILS # (AUTO) 7.1 /CMM (1.8-8.9); NEUTROPHILS % (AUTO) 86.1 % (43.0-81.0); PLATELET COUNT (AUTO) 176 /CMM (150-450); RED BLOOD CELL COUNT(AUTO) 2.66 MIL/uL (4.5-6.0); WHITE BLOOD COUNT (AUTO) 8.3 K/uL (4.3-11.0)
--- NOTE | 2018-05-13 07:20 | NUR ---
DIAZ/RN NOTES: REPORT GIVEN TO NEXT SHIFT NURSE FOR RTINA.
[2018-05-13 07:35] LABS: ALBUMIN 2.8 g/dL (3.4-5.0); BILIRUBIN,TOTAL 0.5 mg/dL (0.2-1.0); CALCIUM, SERUM 7.2 mg/dL (8.5-10.1); MAGNESIUM 1.9 mg/dL (1.8-2.4); PHOSPHORUS 6.3 mg/dL (2.5-4.9); POTASSIUM 4.5 mmol/L (3.5-5.1); TOTAL PROTEIN, SERUM 7.7 g/dL (6.4-8.2)
[2018-05-13 08:00] VITALS: BP 145/90
--- NOTE | 2018-05-13 08:00 | NUR ---
RN NOTES RECEIVED PATIENT IN BED, A/0 X4. ABLE TO MAKE NEEDS KNOWN, WITH NASAL CANNULA WITH 5LPM, NO COMPLAINS OF SHORTNESS OF BREATH AT THIS TIME, COMPLAINS OF GENERAL PAIN, WITH SCALE OF 8/ 10 - WILL ADMINISTER PRN MEDICATION, ON TELEMONITOR:SR WITH HR @95, WITH RCW HD CATHETER: INTACT AND L HAND G #20 INTACT AND FLUSHES WELL. PATIENT AMBULATORY. ENCOURAGE TO USE CALL LIGHT FOR ASSISTANCE, CALL LIGHT WITHIN EASY REACH, BED LOW AND LOCKED. SRX2, WILL CONTINUE TO MONITOR.
[2018-05-13 08:21] LABS: THYROID STIMULATING HORMONE 2.635 uIU/mL (0.358-3.74)
[2018-05-13] MEDS: BLOOD SUGAR DIAGNOSTIC 1 EACH STRIP IN SCH ×4 (09:14→21:19)
[2018-05-13] MEDS: PANTOPRAZOLE 40 MG TABLET.DR PO SCH (09:14)
[2018-05-13] MEDS: ASPIRIN 81 MG TAB.CHEW PO SCH (09:15)
[2018-05-13] MEDS: CALCIUM ACETATE 667 MG TABLET PO SCH ×3 (09:15→17:11)
[2018-05-13] MEDS: FLUTICASONE/VILANTEROL 1 EACH BLST.W.DEV IH SCH (09:15)
[2018-05-13] MEDS: LEVOTHYROXINE SODIUM 88 MCG TABLET PO SCH (09:15)
[2018-05-13] MEDS: CARISOPRODOL 350 MG TABLET PO SCH (09:17)
[2018-05-13] MEDS: LACOSAMIDE 50 MG TABLET PO SCH ×2 (09:17→21:09)
[2018-05-13] MEDS: CHOLECALCIFEROL 1,000 UNIT TABLET (VIT D3) PO SCH (09:17)
[2018-05-13] MEDS: NICOTINE PATCH (14MG) 14 MG PATCH.TD24 TD SCH (09:17)
[2018-05-13] MEDS: VITAMIN E 56.7 GM JAR TP SCH ×2 (09:18→21:16)
[2018-05-13] MEDS: oxyCODONE HCL SR 20MG TAB.SR.12H PO SCH ×2 (10:54→21:09)
[2018-05-13 12:00] VITALS: BP 155/99
--- NOTE | 2018-05-13 12:30 | NUR ---
RN NOTES ENDORESED PATIENT FOR CONTINUITY OF CARE. NO ACUTE CHANGES NOTED. S/P HEMODIALYSIS. NOT ON DISTRESS. NO COMPLAINS OF PAIN.
--- NOTE | 2018-05-13 12:30 | NUR ---
MS RN RECEIVED REPORT FROM RN PRESCIOUS, PATIENT IS AWAKE, ALERT ORIENTED X4,NOT IN ANY FORM OF DISTRESS, RESPIRATIONS EVEN AND UNLABORED,NO SOB NOTED, LUNGS ARE CLEAR,ABDOMEN SOFT,POSITIVE BOWEL SOUNDS, JUST GOT HD TODAY W/ 4 LITERS OUTPUT, WILL MONITOR PATIENT'S CONDITION.
[2018-05-13] MEDS: CARVEDILOL 3.125 MG TABLET PO SCH ×2 (12:36→21:10)
[2018-05-13] MEDS: HYDROMORPHONE INJ 2 MG/ML DISP.SYRIN IV PRN ×2 (13:49→22:08)
--- NOTE | 2018-05-13 13:58 | NUR ---
DIAZ RN NOTES RECEIVED PT IN BED AWAKE A/OX4. REQUESTING PAIN MEDS FOR PAIN LEVEL 8. IV SITE PATENT/NO S/SX INFECTION. ON TELE ST 102. NO SOB NOTED. WILL CONT TO MONITOR. CALL LIGHT IN REACH. SAFETY MEASURES MAINTAINED.
--- NOTE | 2018-05-13 14:00 | NUR ---
DIAZ RN NOTES ASHOK FIXTURE RELAMPER ROUNDING WITH PT.
[2018-05-13 16:00] VITALS: BP 134/93
[2018-05-13] MEDS: IPRATROPIUM NEB FS 0.5 MG/2.5 ML AMPUL.NEB NEB PRN ×2 (16:22→22:25)
[2018-05-13] MEDS: ALBUTEROL HALF STRENGTH 1.25 MG/3 ML VIAL.NEB NEB PRN ×2 (16:22→22:25)
--- NOTE | 2018-05-13 16:30 | NUR ---
ms rn patient complained of sob, checked w/ 99% saturation, respiratory at bedside , breathing tx rendered.
--- NOTE | 2018-05-13 16:50 | NUR ---
ms rn on bed, no distress noted,all needs attended.
[2018-05-13] MEDS: QUETIAPINE FUMARATE 100 MG TABLET PO SCH ×2 (17:11→21:10)
--- NOTE | 2018-05-13 19:45 | NUR ---
TD RN NOTES: RECEIVED PT ON BED ASLEEP BUT AROUSES EASILY. NO ACUTE DISTRESS NOTED. NO COMPLAINTS OF PAIN OR DISCOMFORT AT THIS TIME. NO SOB NOTED, SATURATING WELL. SINUS RHYTHM WITH BBB ON TELE MONITOR HR 92BPM. IV ON LEFT HAND #20 INTACT AND PATENT, FLUSHING WELL. KEPT CLEAN, DRY AND COMFORTABLE. SIDE RAILS UP X2. BED ALARM ON. BED LOCKED AND IN LOWEST POSITION. CALL LIGHT PLACED WITHIN REACH. WILL CONTINUE TO MONITOR PT.
--- NOTE | 2018-05-13 19:45 | NUR ---
DIAZ RN NOTES PT ENDORSED TO PM NURSE FOR CONTINUED CARE. PT IS NOT IN DISTRESS. BED IN LOCKED/LOW POSITION. CALL LIGHT IN REACH. SAFETY PRECAUTIONS MAINTAINED.
[2018-05-13 20:00] VITALS: BP 129/96
[2018-05-13] MEDS: MIRTAZAPINE 15 MG TABLET PO SCH (21:10)
[2018-05-13] MEDS ORDERED: QUETIAPINE FUMARATE 100 MG TABLET PO SCH (22:00)
[2018-05-14] VITALS (8 sets, daily range): BP systolic 134–151; BP diastolic 85–97
[2018-05-14 06:19] LABS: HEMATOCRIT 26 % (39-51); MEAN CORPUSCULAR HEMOGLOBIN 30 PG (26.0-33.0); MEAN CORPUSCULAR HGB CONC 31 g/dl (31.0-36.0); MEAN CORPUSCULAR VOLUME 96 fL (80-96); PLATELET COUNT (AUTO) 169 /CMM (150-450); RDW COEFFICIENT OF VARIATION 18.6 (11.5-15.0); WHITE BLOOD COUNT (AUTO) 6.1 K/uL (4.3-11.0)
--- NOTE | 2018-05-14 06:26 | NUR ---
TD RN NOTES: NO CHANGES NOTED THROUGHOUT THE SHIFT. NO ACUTE DISTRESS NOTED. DENIES PAIN AND DISCOMFORT AT THIS TIME. ON 4LPM NASAL CANNULA, NO SOB NOTED. SATURATING WELL. SINUS TACHY ON TELE MONITOR HR 104BPM. IV ON LEFT HAND #20 INTACT AND PATENT, FLUSHING WELL. ALL DUE MEDS GIVEN ORDERED AND WELL TOLERATED. KEPT CLEAN, DRY AND COMFORTABLE. CALL LIGHT PLACED WITHIN REACH. ENCOURAGED BED MOBILITY. SAFETY AND FALL PRECAUTIONS OBSERVED AND MAINTAINED. WILL ENDORSE TO DAY SHIFT FOR CONTINUITY OF CARE.
[2018-05-14 06:34] LABS: CALCIUM, SERUM 7.7 mg/dL (8.5-10.1); MAGNESIUM 1.7 mg/dL (1.8-2.4); PHOSPHORUS 5.7 mg/dL (2.5-4.9); POTASSIUM 4.6 mmol/L (3.5-5.1)
[2018-05-14] MEDS: PANTOPRAZOLE 40 MG TABLET.DR PO SCH (06:49)
[2018-05-14] MEDS: LEVOTHYROXINE SODIUM 88 MCG TABLET PO SCH (06:49)
[2018-05-14 06:53] LABS: CREATININE 10.8 mg/dL (0.6-1.3)
--- NOTE | 2018-05-14 07:45 | NUR ---
RN NOTE RECEIVED PATIENT AWAKE WATCHING TV. ALERT AND ORIENTED X3, HE IS ABLE TO MAKE THINGS KNOWN AND VERBALIZE NEEDS. BREATHING EVEN AND UNLABORED WITH NO DISTRESS NOTED. ON CONTINUOUS O2 OF 4L SATURATING WELL. ON SENIOR BILLING CONSULTANT OF SINUS TACHY HR OF 103. IV SITE INTACT AND PATENT. KEPT CLEAN, DRY AND COMFORTABLE. ALL SAFETY MEASURES DONE. BED LOW AND LOCKED POSITION. PLACED CALL LIGHT WITHIN REACH. WILL CONTINUE TO MONITOR.
[2018-05-14] MEDS: CALCIUM ACETATE 667 MG TABLET PO SCH ×3 (08:25→17:12)
[2018-05-14] MEDS: QUETIAPINE FUMARATE 100 MG TABLET PO SCH ×2 (08:26→21:03)
[2018-05-14] MEDS: LACOSAMIDE 50 MG TABLET PO SCH ×2 (08:26→20:48)
[2018-05-14] MEDS: ASPIRIN 81 MG TAB.CHEW PO SCH (08:26)
[2018-05-14] MEDS: CARISOPRODOL 350 MG TABLET PO SCH (08:26)
[2018-05-14] MEDS: oxyCODONE HCL SR 20MG TAB.SR.12H PO SCH ×2 (08:26→20:48)
[2018-05-14] MEDS: FLUTICASONE/VILANTEROL 1 EACH BLST.W.DEV IH SCH (08:27)
[2018-05-14] MEDS: CHOLECALCIFEROL 1,000 UNIT TABLET (VIT D3) PO SCH (08:27)
[2018-05-14] MEDS: CARVEDILOL 3.125 MG TABLET PO SCH ×3 (08:28→21:00)
[2018-05-14] MEDS: VITAMIN E 56.7 GM JAR TP SCH ×2 (08:30→20:53)
[2018-05-14] MEDS: NICOTINE PATCH (14MG) 14 MG PATCH.TD24 TD SCH (08:30)
[2018-05-14 09:31] LABS: LYMPHOCYTES % (MANUAL) 10 % (16-48); MONOCYTES % (MANUAL) 8 % (0-11.0); NEUTROPHILS % (MANUAL) 72 (42-76)
[2018-05-14 09:32] LABS: EOSINOPHILS % (MANUAL) 10 % (0-4)
[2018-05-14] MEDS: HYDROMORPHONE INJ 2 MG/ML DISP.SYRIN IV PRN (17:12)
[2018-05-14] MEDS: IPRATROPIUM NEB FS 0.5 MG/2.5 ML AMPUL.NEB NEB PRN (17:40)
[2018-05-14] MEDS: ALBUTEROL HALF STRENGTH 1.25 MG/3 ML VIAL.NEB NEB PRN (17:40)
--- NOTE | 2018-05-14 19:22 | NUR ---
RN NOTE PATIENT REMAINED STABLE THROUGHOUT SHIFT. NO ACUTE CHANGES OR DISTRESS NOTED. WILL ENDORSE TO NEXT SHIFT TO CONTINUE TO MONITOR CONTINUITY OF CARE.
--- NOTE | 2018-05-14 19:25 | NUR ---
TD RN NOTES: RECEIVED PT ON BED ASLEEP BUT AROUSES EASILY. NO APPARENT DISTRESS NOTED. NO COMPLAINTS OF PAIN OR DISCOMFORT AT THIS TIME. ON 4LPM NASAL CANNULA, NO SOB NOTED, SATURATING WELL. SINUS RHYTHM WITH BBB ON TELE MONITOR HR 96BPM. IV ON LEFT HAND #20 INTACT AND PATENT, FLUSHING WELL. KEPT CLEAN, DRY AND COMFORTABLE. CALL LIGHT PLACED WITHIN REACH. SAFETY AND FALL PRECAUTIONS OBSERVED AND MAINTAINED. WILL CONTINUE TO MONITOR PT.
[2018-05-14] MEDS: MIRTAZAPINE 15 MG TABLET PO SCH (21:02)
--- NOTE | 2018-05-14 22:10 | NUR ---
TD RN NOTES: COREG DUE AT 2100 NOT GIVEN BECAUSE PT HAS SCHEDULED HD TONIGHT.
[2018-05-15] VITALS: BP 133/88
[2018-05-15 04:00] VITALS: BP 134/89
[2018-05-15] MEDS: HYDROMORPHONE INJ 2 MG/ML DISP.SYRIN IV PRN ×2 (04:37→22:31)
[2018-05-15] MEDS: PANTOPRAZOLE 40 MG TABLET.DR PO SCH (06:39)
[2018-05-15] MEDS: LEVOTHYROXINE SODIUM 88 MCG TABLET PO SCH (06:39)
--- NOTE | 2018-05-15 06:54 | NUR ---
TD RN NOTES: PT SLEPT WELL THROUGHOUT THE SHIFT. NO ACUTE DISTRESS NOTED. NO COMPLAINTS OF PAIN AND DISCOMFORT AT THIS TIME. ON 4LPM NASAL CANNULA, NO SOB NOTED. SATURATING WELL. SINUS RHYTHM ON TELE MONITOR HR 100BPM. ALL DUE MEDS GIVEN ORDERED AND WELL TOLERATED. KEPT CLEAN, DRY AND COMFORTABLE. CALL LIGHT PLACED WITHIN REACH. ENCOURAGED BED MOBILITY. SAFETY AND FALL PRECAUTIONS OBSERVED AND MAINTAINED. WILL ENDORSE TO DAY SHIFT FOR CONTINUITY OF CARE.
--- NOTE | 2018-05-15 07:00 | NUR ---
RN NOTES RECEIVED PT ON BED, A/Ox4, RESPIRATION EVEN AND ULBORED, ON 4L O2 N/C , NO SOB NOTED, ON TELE ST HR IN 100'S . L HAND AND R HAND IV SITE G 20 , CLEAN , DRY AND INTACT, SR UP x3, CALL LIGHT WITHIN EASY REACH, BED LOCKED AND IN LOWEST POSITION, CONTINUE TO MONITOR .
[2018-05-15 08:00] VITALS: BP 143/88
[2018-05-15] MEDS: CALCIUM ACETATE 667 MG TABLET PO SCH ×3 (08:21→17:08)
[2018-05-15] MEDS: oxyCODONE HCL SR 20MG TAB.SR.12H PO SCH ×2 (08:21→20:49)
[2018-05-15] MEDS: NICOTINE PATCH (14MG) 14 MG PATCH.TD24 TD SCH (08:21)
[2018-05-15] MEDS: CARISOPRODOL 350 MG TABLET PO SCH (08:22)
[2018-05-15] MEDS: QUETIAPINE FUMARATE 100 MG TABLET PO SCH ×2 (08:22→21:19)
[2018-05-15] MEDS: CHOLECALCIFEROL 1,000 UNIT TABLET (VIT D3) PO SCH (08:22)
[2018-05-15] MEDS: LACOSAMIDE 50 MG TABLET PO SCH ×2 (08:22→20:50)
[2018-05-15] MEDS: ASPIRIN 81 MG TAB.CHEW PO SCH (08:22)
[2018-05-15] MEDS: CARVEDILOL 3.125 MG TABLET PO SCH ×2 (08:23→20:48)
[2018-05-15] MEDS: FLUTICASONE/VILANTEROL 1 EACH BLST.W.DEV IH SCH (08:24)
[2018-05-15] MEDS: VITAMIN E 56.7 GM JAR TP SCH ×2 (08:25→20:52)
[2018-05-15 12:00] VITALS: BP 128/87
[2018-05-15 14:34] LABS: CALCIUM, SERUM 7.6 mg/dL (8.5-10.1); POTASSIUM 4.8 mmol/L (3.5-5.1)
[2018-05-15 14:38] LABS: CREATININE 10.3 mg/dL (0.6-1.3)
[2018-05-15] MEDS ORDERED: BUMETANIDE INJ 1 MG in IV NS 0.9% 40 ML IV ONE (15:00)
[2018-05-15 16:00] VITALS: BP 140/91
--- NOTE | 2018-05-15 16:45 | NUR ---
RN NOTES PT STABLE, DENIES ANY DISTRESS , NO SIGNIFICANT CHANGES NOTED ON THIS SHIFT, REPORT GIVEN TO ILAN RN FOR CONTINUITY OF CARE .
--- NOTE | 2018-05-15 17:07 | NUR ---
RN NOTES ASSUMED PT CARE; PT AWAKE AND ALERT,DENIES PAIN. SAFETY ENSURED.
--- NOTE | 2018-05-15 18:49 | NUR ---
rn closing notes no significant change; will endorse to next shift rn for continuity of care in stable condition.
--- NOTE | 2018-05-15 19:30 | NUR ---
RN OPENING NOTES RECEIVED PATIENT IN BED AWAKE. ALERT AND ORIENTED X4. VERBALLY RESPONSIVE. ABLE TO MAKE NEEDS KNOWN. BREATHING EVEN AND UNLABORED. NO SOB NOTED. ON 4L OXYGEN VIA NC. NO COMPLAINTS OF PAIN OR DISCOMFORT. IV ACCESS INTACT AND PATENT. ALL OTHER NEEDS ATTENDED TO. SAFETY MEASURES IN PLACE. CALL LIGHT WITHIN REACH. WILL CONTINUE TO MONITOR.
[2018-05-15 20:00] VITALS: BP 142/92
[2018-05-15] MEDS: MIRTAZAPINE 15 MG TABLET PO SCH (21:18)
[2018-05-16] VITALS (7 sets, daily range): BP systolic 134–148; BP diastolic 72–113
[2018-05-16 06:45] LABS: HEMATOCRIT 26 % (39-51); HEMOGLOBIN 7.9 g/dL (13.5-17.5); MEAN CORPUSCULAR HEMOGLOBIN 29 PG (26.0-33.0); MEAN CORPUSCULAR HGB CONC 30 g/dl (31.0-36.0); MEAN CORPUSCULAR VOLUME 95 fL (80-96); PLATELET COUNT (AUTO) 165 /CMM (150-450); RDW COEFFICIENT OF VARIATION 18.9 (11.5-15.0); RED BLOOD CELL COUNT(AUTO) 2.77 MIL/uL (4.5-6.0); WHITE BLOOD COUNT (AUTO) 6.5 K/uL (4.3-11.0)
--- NOTE | 2018-05-16 06:54 | NUR ---
RN CLOSING NOTES PATIENT IN BED AWAKE. ALERT AND ORIENTED X4. VERBALLY RESPONSIVE. ABLE TO MAKE NEEDS KNOWN. NO ACUTE CHANGES THROUGHOUT SHIFT. BREATHING EVEN AND UNLABORED. NO SOB NOTED. ON 4L OXYGEN VIA NC - SATING WELL. CURRENTLY NO COMPLAINTS OF PAIN OR DISCOMFORT. IV ACCESS INTACT AND PATENT. ALL OTHER NEEDS ATTENDED TO. SAFETY MEASURES IN PLACE. CALL LIGHT WITHIN REACH. WILL ENDORSE TO ONCOMING NURSE FOR CONTINUITY OF CARE.
[2018-05-16 06:56] LABS: CALCIUM, SERUM 7.9 mg/dL (8.5-10.1); MAGNESIUM 1.7 mg/dL (1.8-2.4); PHOSPHORUS 6.1 mg/dL (2.5-4.9); POTASSIUM 5.2 mmol/L (3.5-5.1)
[2018-05-16 07:33] LABS: LYMPHOCYTES % (MANUAL) 10 % (16-48); MONOCYTES % (MANUAL) 2 % (0-11.0); NEUTROPHILS % (MANUAL) 77 (42-76)
[2018-05-16 07:34] LABS: EOSINOPHILS % (MANUAL) 11 % (0-4)
[2018-05-16] MEDS: CALCIUM ACETATE 667 MG TABLET PO SCH ×3 (08:00→18:57)
[2018-05-16] MEDS: PANTOPRAZOLE 40 MG TABLET.DR PO SCH (08:00)
[2018-05-16] MEDS: LEVOTHYROXINE SODIUM 88 MCG TABLET PO SCH (08:00)
[2018-05-16] MEDS: LACOSAMIDE 50 MG TABLET PO SCH ×2 (10:52→20:22)
[2018-05-16] MEDS: oxyCODONE HCL SR 20MG TAB.SR.12H PO SCH ×2 (10:52→20:22)
[2018-05-16] MEDS: NICOTINE PATCH (14MG) 14 MG PATCH.TD24 TD SCH (10:53)
[2018-05-16] MEDS: CARISOPRODOL 350 MG TABLET PO SCH (10:59)
[2018-05-16] MEDS: CARVEDILOL 3.125 MG TABLET PO SCH ×2 (10:59→20:21)
[2018-05-16] MEDS: ASPIRIN 81 MG TAB.CHEW PO SCH (10:59)
[2018-05-16] MEDS: QUETIAPINE FUMARATE 100 MG TABLET PO SCH ×2 (11:00→21:31)
[2018-05-16] MEDS: CHOLECALCIFEROL 1,000 UNIT TABLET (VIT D3) PO SCH (11:00)
[2018-05-16] MEDS: VITAMIN E 56.7 GM JAR TP SCH ×2 (11:04→20:24)
[2018-05-16] MEDS: FLUTICASONE/VILANTEROL 1 EACH BLST.W.DEV IH SCH (11:06)
[2018-05-16] MEDS: Magnesium 1GM/D5W 100ML PREMIX 100 ML IV SCH ×2 (12:52→13:31)
[2018-05-16] MEDS ORDERED: Magnesium 1GM/D5W 100ML PREMIX PIGGYBACK IV ONE (13:30)
[2018-05-16] MEDS: HYDROMORPHONE INJ 2 MG/ML DISP.SYRIN IV PRN ×2 (14:33→21:32)
--- NOTE | 2018-05-16 14:37 | NUR ---
Sent message to case management regarding patient preference to discharge to [facility]. Left message at extension [phone].
[2018-05-16] MEDS ORDERED: EPOETIN ALFA (10,000 UNIT) 10,000 UNIT/ML VIAL SQ ONE (17:30)
--- NOTE | 2018-05-16 19:13 | NUR ---
Handoff to night nurse, VANESSA Barrientos. Omar Cheema RN
--- NOTE | 2018-05-16 19:42 | NUR ---
MS RN OPENING NOTES: RECEIVED PT ON 4LPM VIA NC AND IS TOLERATING WELL. PT IS SITTING UP IN BED WATCHING FOOTBALL. NO SOB NOTED. NO S/S OF DISTRESS. PT HAS IV ON L HAND #20G AND R HAND #20G AND ARE BOTH PATENT AND INTACT. CURRENTLY H/L. PT HAS L CHEST WALL HD CATH KEPT CLEAN AND DRY. CALL LIGHT WITHIN PT'S REACH. BED KEPT IN LOW, LOCKED POSITION, AND SIDE RAILS X 2 UP. WILL CONTINUE TO MONITOR PT.
[2018-05-16] MEDS: MIRTAZAPINE 15 MG TABLET PO SCH (21:31)
[2018-05-17 04:00] VITALS: BP 145/87
--- NOTE | 2018-05-17 06:19 | NUR ---
MS RN CLOSING NOTES: ALL NEEDS WERE ATTENDED AND ANTICIPATED FOR. PT REMAINS ON 4LPM VIA NC AND IS TOLERATING WELL. PT'S IVS REMAINS INTACT AND ARE BOTH H/L. HD CATH ON L CHEST WALL IS INTACT. PT IN SEMI-REAL'S POSITION, AND IS ASLEEP AT THIS TIME. CALL LIGHT WITHIN PT'S REACH. BED KEPT IN LOW, LOCKED POSITION, AND SIDE RAILS X 2UP. WILL ENDORSE TO AM NURSE FOR TRINA.
[2018-05-17 06:51] LABS: CALCIUM, SERUM 7.8 mg/dL (8.5-10.1); POTASSIUM 4.6 mmol/L (3.5-5.1)
[2018-05-17 06:56] LABS: CREATININE 8.4 mg/dL (0.6-1.3)
--- NOTE | 2018-05-17 07:10 | NUR ---
MS RN NOTES PATIENT IN BED EYES CLOSED, RESPONSIVE TO VERBAL AND TACTILE STIMULI. NO ACUTE DISTRESS NOTED. BREATHING UNLABORED. NO SOB NOTED. IV ACCESS PATENT AND INTACT. NO REDNESS OR SWELLING NOTED. HD CATHETER INTACT. SAFETY MEASURES IN PLACE. CALL LIGHT WITHIN REACH. WILL CONTINUE TO MONITOR ACCORDINGLY.
[2018-05-17 08:00] VITALS: BP 143/87
[2018-05-17] MEDS: LEVOTHYROXINE SODIUM 88 MCG TABLET PO SCH (08:41)
[2018-05-17] MEDS: LACOSAMIDE 50 MG TABLET PO SCH (08:42)
[2018-05-17] MEDS: CALCIUM ACETATE 667 MG TABLET PO SCH ×2 (08:42→12:23)
[2018-05-17] MEDS: CHOLECALCIFEROL 1,000 UNIT TABLET (VIT D3) PO SCH (08:42)
[2018-05-17] MEDS: ASPIRIN 81 MG TAB.CHEW PO SCH (08:43)
[2018-05-17] MEDS: CARISOPRODOL 350 MG TABLET PO SCH (08:43)
[2018-05-17] MEDS: NICOTINE PATCH (14MG) 14 MG PATCH.TD24 TD SCH (08:43)
[2018-05-17] MEDS: QUETIAPINE FUMARATE 100 MG TABLET PO SCH (08:43)
[2018-05-17] MEDS: oxyCODONE HCL SR 20MG TAB.SR.12H PO SCH (08:48)
[2018-05-17 08:49] VITALS: BP 143/87
[2018-05-17] MEDS: FLUTICASONE/VILANTEROL 1 EACH BLST.W.DEV IH SCH (08:49)
[2018-05-17] MEDS: CARVEDILOL 3.125 MG TABLET PO SCH (08:49)
[2018-05-17] MEDS: PANTOPRAZOLE 40 MG TABLET.DR PO SCH (08:51)
[2018-05-17] MEDS: VITAMIN E 56.7 GM JAR TP SCH (08:51)
[2018-05-17] MEDS ORDERED: HYDR2DIS IV (12:19)
[2018-05-17] MEDS ORDERED: NICO-676 TD (12:19)
--- NOTE | 2018-05-17 16:53 | NUR ---
PARTY DEMONSTRATOR NOTES PATIENT DISCHARGED TO [facility] WITH STABLE VITAL SIGNS. ALERT ORIENTED X 3. NO ACUTE DISTRESS NOTED. BREATHING UNLABORED. NO SOB NOTED. WITH O2 @ 3LPM VIA NC SATURATING AT 98%. REPORT GIVEN TO ROSINA MENDEZ OF [facility]. DISCHARGE INSTRUCTIONS HANDED OVER TO EMT PERSONNEL. ALL BELONGINGS ACCOUNTED FOR. IV ACCESS REMOVED, NO BLEEDING OR REDNESS OR SWELLING NOTED. NEEDS ATTENDED AND ANTICIPATED. PICKED UP BY 2 EMT PERSONNEL VIA AMBULANCE IN A GURNEY ACCOMPANIED BY 2 EMT PERSONNEL IN STABLE CONDITION.
== END 2018-05-17 16:57 | DRG 280 ==
LOC: ER 18:07 → TELE-TD 20:27 → TELE1 05-15 08:16 → MEDSG1 05-15 16:18
PROVIDERS: ADMIT Internal Medicine; ATTEND Internal Medicine
PROC: 5A1D70Z Performance of Urinary Filtration, Intermittent, Less than 6 Hours Per Day (ICD-10-PCS; principal; 2018-05-12)
PROC: 5A1D70Z Performance of Urinary Filtration, Intermittent, Less than 6 Hours Per Day (ICD-10-PCS; 2018-05-13)
PROC: 5A1D70Z Performance of Urinary Filtration, Intermittent, Less than 6 Hours Per Day (ICD-10-PCS; 2018-05-14)
PROC: 5A1D70Z Performance of Urinary Filtration, Intermittent, Less than 6 Hours Per Day (ICD-10-PCS; 2018-05-16)
DX: I13.2 Hypertensive heart and chronic kidney disease with heart failure and with stage 5 chronic kidney disease, or end stage renal disease (principal); N18.6 End stage renal disease; I21.4 Non-ST elevation (NSTEMI) myocardial infarction; I50.43 Acute on chronic combined systolic (congestive) and diastolic (congestive) heart failure; E43 Unspecified severe protein-calorie malnutrition; J96.01 Acute respiratory failure with hypoxia; D68.59 Other primary thrombophilia; D68.9 Coagulation defect, unspecified; Z99.2 Dependence on renal dialysis; J44.9 Chronic obstructive pulmonary disease, unspecified; E03.9 Hypothyroidism, unspecified; D63.1 Anemia in chronic kidney disease; Z68.23 Body mass index [BMI] 23.0-23.9, adult; E11.22 Type 2 diabetes mellitus with diabetic chronic kidney disease; R79.89 Other specified abnormal findings of blood chemistry; R53.1 Weakness; F17.210 Nicotine dependence, cigarettes, uncomplicated; G89.29 Other chronic pain; M54.9 Dorsalgia, unspecified; F32.9 Major depressive disorder, single episode, unspecified; F41.9 Anxiety disorder, unspecified; Z91.15 Patient's noncompliance with renal dialysis; K76.0 Fatty (change of) liver, not elsewhere classified; E87.5 Hyperkalemia; I27.20 Pulmonary hypertension, unspecified; K21.9 Gastro-esophageal reflux disease without esophagitis; M19.90 Unspecified osteoarthritis, unspecified site; R74.0 Nonspecific elevation of levels of transaminase and lactic acid dehydrogenase [LDH]
CPT/HCPCS: 36415; 71045-TC; 72040-TC; 72080-TC; 76705-TC; 80048-TC; 80053-TC; 80076-TC; 82962-TC; 83735-TC; 84100-TC; 84443-TC; 84484-TC; 85025-TC; 85730-TC; 87081-TC; 90935-TC; A4216; A4606; J0885; J1170; J1815; J3475; J3490; Z7610